=== PATIENT | female | born 1945 | race Caucasian/White ===

== ENCOUNTER 2019-10-19 10:41 | Outpatient (CLI) | payer MEDICARE, SELFPAY ==
--- NOTE | ~2019-10-19 | XR_ITS ---
EXAMINATION: CT abdomen pelvis wo con, XR abdomen/kub 1V DATE: 10/19/2019 11:09 INDICATION: Right flank pain TECHNIQUE: 1. Computed tomography (CT) of the abdomen and pelvis was performed without intravenous contrast. Aut omated exposure control and iterative reconstruction technique were employed. The dose-length product was 528.82 mGy-cm. 2. AP view of the abdomen and pelvis was obtained. COMPARISON: CT studies dated 05/24/2019 and 12/22/2018, KUB dated 05/24/2019 and retrograde Polygram d ated 12/30/2018 FINDINGS: CT: Mild peripheral atelectasis in the bilateral lower lungs. No pleural effusion. Heart size is normal. Chronic very small pericardial effusion. Atherosclerotic coronary artery calcific locations as well a s mitral annular and aortic valve calcifications. Gallbladder is not visualized and likely surgically absent. Liver, spleen, pancreas and bilateral adrenal glands are normal. Mild diverticulosis along t he descending and sigmoid colon without surrounding inflammatory stranding to suggest diverticulitis. Small bowel and appendix are normal. Bladder, anteverted uterus and right adnexa are unremarkable. 1 .7 cm left adnexal cyst which appears unchanged since 12/22/2018. No free intraperitoneal gas or fluid . No pathologically enlarged abdominal or pelvic lymphadenopathy. There is calcified atherosclerosis of the aorta and many of the other arteries. Severe lumbar spondylosis and osteitis pubis. No urolithiasis. Right kidney and ureter are normal. Instantly noted is a normal small accessory righ t renal artery supplying the lower pole. There is persistent mild left hydroureter without hydronephr osis at the left kidney. There is been resolution of prior left periureteral stranding and significan t improvement in the now mild left perinephric stranding and minimal stranding at the left renal pelv is. There is a transition point in the mildly dilated left ureter with distalmost left ureter narrowi ng to normal caliber with no evident obstructing stone or mass consistent with reported prior strictu re at this location. KUB: Normal bowel gas pattern. Unchanged pattern of atherosclerotic calcifications and phleboliths in the pelvis. No evident urolithiasis. IMPRESSION: 1. Mild left hydroureter without hydronephrosis or obstructing mass or stone and this may be related to persistent stricture at the distalmost left ureter is noted on prior retrograde pyelogram study da elia 12/30/2018. Correlate with urinalysis to exclude associated ascending urinary tract infection. Reviewed, dictated and finalized at location A. IMPRESSION: 1. Mild left hydroureter without hydronephrosis or obstructing mass or stone an d this may be related to persistent stricture at the distalmost left ureter is noted on prior retrograde pyelogram study dated 12/30/2018. Correlate with urina lysis to exclude associated ascending urinary tract infection.
== END 2019-10-19 10:42 | disposition home or self-care (01) ==
LOC: ANHIMG 10:47
PROVIDERS: PCP Emergency Medicine; Visit Provider Nurse Practitioner Adult Health
DX: R10.9 Unspecified abdominal pain (principal)
CPT/HCPCS: 74018; 74176

== ENCOUNTER 2019-10-31 13:30 | Outpatient (CLI) | payer MEDICARE, SELFPAY ==
--- NOTE | ~2019-10-31 | NM_ITS ---
EXAMINATION: BRENNA handley renal scan DATE: 10/31/2019 15:03 INDICATION: Left ureteral stricture TECHNIQUE: 8 mCi Tc-99m MAG3 was administered IV. 40 mg furosemide was administered IV immediately a fterward. The patient was scanned in the supine position. A posterior abdominal radionuclide angiogra m was obtained. A subsequent time course of static images of the kidneys, ureters, and bladder was ob tained. COMPARISON: None FINDINGS: The posterior abdominal radionuclide angiogram and sequential static images show normal size, positio n, and morphology of the kidneys. Peak renal parenchymal uptake was 3.5 min in left kidney and 3.5 mi n in right kidney (normal peak 3-5 minutes). The relative early renal uptake was 49% on the right an d 51% on the left (<40% is abnormal). No abnormalities of the ureters or bladder are seen. T1/2 for clearance of activity from the left kidney and proximal collecting system was 7 minutes. T1/2 for clearance of activity from the right kidney and proximal collecting system was 8 minutes. Notes on interpretation: T1/2 <10 minutes is normal, 10-15 minutes is low grade obstruction of questi onable clinical significance, 15-20 minutes is partial obstruction that is likely clinically signific ant, >20 minutes is high grade obstruction. Note that false positives may be seen with supine positio giorgio, dehydration, severely dilated nonobstructed kidney, atonic collecting system, poor renal functi on, and chronic furosemide use. IMPRESSION: 1. Symmetric kidney function. 2. No delay in contrast clearance from either kidney to suggest fixed obstruction. Reviewed, dictated and finalized at location A. IMPRESSION: 1. Symmetric kidney function. 2. No delay in contrast clearance from either kidney to suggest fixed obstruct ion.
== END 2019-10-31 13:31 | disposition home or self-care (01) ==
LOC: ANHIMG 13:32
PROVIDERS: PCP Emergency Medicine; Visit Provider Nurse Practitioner Adult Health
DX: N13.5 Crossing vessel and stricture of ureter without hydronephrosis (principal)
CPT/HCPCS: 78708; A9562; J1940

== ENCOUNTER 2020-01-05 13:07 | Outpatient (CLI) | payer MEDICARE, SELFPAY ==
--- NOTE | ~2020-01-05 | CT_ITS ---
EXAMINATION: CT abdomen pelvis wo con DATE: 01/05/2020 13:24 INDICATION: Lower abdominal and pelvic pain TECHNIQUE: Computed tomography (CT) of the abdomen and pelvis was performed without intravenous contr ast. Automated exposure control and iterative reconstruction technique were employed. Exam dose: 130 6.16 mGy-cm total exam DLP. COMPARISON: 10/19/[address] abdomen pelvis FINDINGS: There is mild discoid atelectasis or scarring at the lung bases. No consolidation. Heart si ze is within normal limits. There is trace pericardial fluid. The gallbladder is absent. No bile duct or pancreatic duct dilatation. No hepatic, splenic, pancreati c, and adrenal or renal space-occupying mass lesion is evident. There is increased left hydroureteronephrosis and pelviectasis since 10/19/2019, with the ureteral dil atation terminated at the distal left ureter no right hydroureteronephrosis. No renal mass lesion or urinary tract calculus is evident. There is atherosclerotic calcification of the abdominal aorta and some branches but no aneurysm. No i ntraperitoneal or retroperitoneal or pelvic mass lesion or adenopathy or ascites. The uterus, adnexal areas and urinary bladder are unremarkable. Small hiatal hernia. Diverticulosis of the left and right colon; no CT evidence of diverticulitis. No rmal appendix. No bowel obstruction, bowel wall thickening, pneumatosis or intraperitoneal free air. There is mild nonspecific increased at density along the mesenteric root. Small fat-containing umbilical hernia. Degenerative changes of the thoracic and lumbar spine including moderately severe degenerative disc d isease at L2-3 and L3-4 particular. Diffuse idiopathic skeletal hyperostosis of the thoracolumbar spi ne. IMPRESSION: Mildly increased left hydroureteronephrosis since 10/19/2019 Small sliding hiatal hernia Diverticulosis of the colon; no CT evidence of diverticulitis Reviewed, dictated and finalized at [facility]. Reviewed, dictated and finalized at location A.
== END 2020-01-05 13:08 | disposition home or self-care (01) ==
PROVIDERS: PCP Emergency Medicine; Visit Provider Emergency Medicine
DX: R10.9 Unspecified abdominal pain (principal); N13.30 Unspecified hydronephrosis; K44.9 Diaphragmatic hernia without obstruction or gangrene; K57.90 Diverticulosis of intestine, part unspecified, without perforation or abscess without bleeding
CPT/HCPCS: 74176

== ENCOUNTER 2020-03-09 16:09 | Outpatient (CLI) | payer MEDICARE, SELFPAY ==
--- NOTE | ~2020-03-09 | XR_ITS ---
EXAMINATION: XR abdomen/kub 1V EXAM DATE: 03/09/2020 16:41 INDICATION: Gross hematuria. TECHNIQUE: Frontal projection of the upper abdomen, frontal projection lower abdomen/pelvis for inter pretation. Correlation is made to CT abdomen pelvis same date. FINDINGS: There is expected amount of colonic stool and gas. No small bowel dilation, nonobstructiv e bowel gas pattern. There are no suspicious calcifications identified. There is no organomegaly suspected. The bones are unremarkable. IMPRESSION: Unremarkable abdomen x-ray exam. Reviewed, dictated and finalized at location A.
--- NOTE | ~2020-03-09 | CT_ITS ---
EXAMINATION: CT abdomen pelvis wo/w con EXAM DATE: 03/09/2020 17:06 INDICATION: Gross hematuria. TECHNIQUE: Spiral CT of the abdomen and pelvis was performed without contrast. The patient was then injected with small bolus intravenous Omnipaque 350, followed by delay of approximately 10 minutes to allow collecting system to opacify. A post contrast scan abdomen and pelvis was performed during inj ection of remaining contrast. A total of 130 cc intravenous contrast was administered. The dose-estuardo th product (DLP) for this examination was 2591.18 mGy-cm. The exposure was tailored according to pat ient size (auto mA exposure control), and iterative reconstruction (ASIR) was used as additional dose reduction technique. Comparison is made to prior examination from 03/06/2020. FINDINGS: There is mild left hydroureteronephrosis, without nephrolithiasis or obstructing ureteral s tones. Similar appearance on prior study. No evidence of mass but if symptoms persist consider cystos copy. There is mild bilateral renal atrophy. The kidneys enhance symmetrically. There are no susp icious renal lesions. The calyces and opacified portions of ureters are unremarkable, without fillin g defects or focal suspicious strictures. The bladder is unremarkable. The uterus is unremarkable. The liver, spleen, adrenal glands and pancreas are unremarkable. Gallbladder not identified, patient likely has had cholecystectomy. There is no retroperitoneal or pelvic lymphadenopathy. There is m ild to moderate scattered arteriosclerotic disease. The appendix is normal. The stomach and small bowel are unremarkable. There is mild to moderate scat tered colonic diverticulosis. There is no adjacent inflammatory change to suggest diverticulitis. N o free intraperitoneal gas. There is small pericardial effusion. The lung bases are unremarkable. There are no osteoblastic or osteolytic lesions identified. There is no significant interval change . IMPRESSION: 1. Mild left hydroureteronephrosis, of uncertain underlying etiology. If symptoms persist, consider cystoscopy. 2. Colonic diverticulosis. 3. Small pericardial effusion. Reviewed, dictated and finalized at location A. IMPRESSION: 1. Mild left hydroureteronephrosis, of uncertain underlying etiology. If sympt oms persist, consider cystoscopy. 2. Colonic diverticulosis. 3. Small pericardial effusion.
[2020-03-09 16:47] LABS: Estimated Glomerular Filt Rate 49
== END 2020-03-09 16:10 | disposition home or self-care (01) ==
LOC: ANHIMG 16:16
PROVIDERS: PCP Emergency Medicine; Visit Provider Nurse Practitioner Adult Health
DX: R31.0 Gross hematuria (principal); N13.30 Unspecified hydronephrosis; K57.90 Diverticulosis of intestine, part unspecified, without perforation or abscess without bleeding; I31.3 Pericardial effusion (noninflammatory)
CPT/HCPCS: 36415; 74018; 74178; Q9967

== ENCOUNTER 2020-05-20 23:14 | Emergency (ER) | payer MEDICARE, SELFPAY ==
--- NOTE | ~2020-05-20 | CT_ITS ---
EXAMINATION: CT abdomen pelvis w con DATE: 05/21/2020 00:32 INDICATION: Right lower quadrant abdominal pain TECHNIQUE: Computed tomography (CT) of the abdomen and pelvis was performed with 100 mL Omnipaque-350 intravenous contrast. Automated exposure control and iterative reconstruction technique were employe d. The dose-length product was 1254.44 mGy-cm. COMPARISON: 03/09/2020 FINDINGS: Normal bibasilar atelectasis. Heart size is normal. Atherosclerotic coronary artery calcification and aortic valve calcification. No pericardial or pleural effusion. Gallbladder is not visualized and li mayte surgically absent. Liver, spleen, pancreas and bilateral adrenal glands are normal. There are ge ographic regions of swelling with decreased cortical enhancement at the left kidney consistent with p yelonephritis. There is urothelial thickening and enhancement at the bilateral ureters and renal pelv ises sees, left greater than right with mild inflammatory stranding in the fat stranding left renal p eleonora. There is also mild bladder wall thickening with urothelial enhancement and inflammatory strand ing in the immediately adjacent fat consistent with cystitis. There is mild colonic diverticulosis wi th a sigmoid predominance. There is no adjacent inflammatory change to suggest diverticulitis. Small bowel and appendix are normal. Bladder, uterus and right ovary are normal. 1.8 cm dominant follicle at the left ovary. Trace amount of likely physiologic or reactive free fluid in the pelvis. No absces s or free intraperitoneal gas. No pathologically enlarged abdominal or pelvic lymphadenopathy. Severe lumbar spondylosis. Osteitis pubis. IMPRESSION: 1. Cystitis and bilateral ascending urinary tract infections with left pyelonephritis. Reviewed, dictated and finalized at location A. IMPRESSION: 1. Cystitis and bilateral ascending urinary tract infections with left pyelonep hritis.
[2020-05-20 23:17] VITALS: BP 126/60; PULSE 106; RESP 18; TEMP 35.6; O2SAT 98
--- NOTE | 2020-05-20 23:17 | ED.ABDPAIN ---
HPI - Abdominal Pain General Chief Complaint: Abdominal Pain Stated Complaint: right side pain Time Seen by Provider: 05/20/20 23:17 Source: patient and family Mode of arrival: ambulatory Limitations: no limitations History of Present Illness HPI narrative: Patient is a 74-year-old female with a history of hypertension, diabetes, recurrent cystitis, left hydroureteronephrosis secondary to ureteral stricture, who presents for evaluation of right-sided abdominal pain. Patient's pain is been in the right lower abdomen worsening over the past 7 days. Patient reports associated dysuria without hematuria. She reports associated frequency. She reports subjective fever and chills. She denies upper abdominal pain, reports on Thursday evening she had chest pain for a short period of time but never sought care at the hospital. Patient denies any current chest pain. She also reports nausea and vomiting. Patient with work-up for this chronic pelvic pain with urology, recently had negative cystoscopy and a CT abdomen and pelvis which showed hydroureteronephrosis. Patient follows with Dr. Klein and is taking prophylactic daily Keflex. Related Data Home Medications Medication Instructions Recorded Confirmed aspirin 81 mg tablet,delayed 81 mg PO DAILY 06/21/19 release biotin 5,000 mcg disintegrating 10,000 mcg PO DAILY 06/21/19 tablet multivit with 1 tablet PO DAILY 06/21/19 hvtusyhm-gfpz-YS-lutein 8 mg iron-400 mcg-300 mcg tablet nystatin 100,000 unit/gram topical See Rx Instructions .ROUTE .COMPLEX 06/21/19 cream omeprazole magnesium 20 mg 20 mg PO DAILY 06/21/19 tablet,delayed release Allergies Allergy/AdvReac Type Severity Reaction Status Date / Time ciprofloxacin Allergy Intermediate Anaphylactic Verified 04/28/19 10:31 Shock Sulfa (Sulfonamide Allergy Unknown Verified 12/15/18 13:36 Antibiotics) Review of Systems Review of Systems: Narrative: CONSTITUTIONAL: Reports subjective fever and chills ENT: Denies rhinorrhea, congestion, sore throat, or otalgia. CARDIOVASCULAR: Denies chest pain, palpitations, or edema. RESPIRATORY: Denies cough or dyspnea. GASTROINTESTINAL: Reports lower right-sided abdominal pain, nausea and vomiting. GENITOURINARY: Reports dysuria without hematuria SKIN: Denies rash or itching. MUSCULOSKELETAL: Denies back pain, joint pain, or myalgia. NEUROLOGIC: Denies headache, numbness, or weakness. [facility] Past Medical History Medical History (Updated 05/21/20 @ 02:20 by Jess Resendiz MD) Diabetes mellitus GERD (gastroesophageal reflux disease) HTN (hypertension) Hypothyroidism (acquired) Vitamin D deficiency disease Family History Family History Mother Patient's mother is in good health Family history of arthritis Father Patient's father is , Onset Age: 75 Social History Social History Smoking status: Never smoker Alcohol intake: current Gender identity (if verbalized by the patient): Female Exam Narrative: Exam Narrative: GENERAL: Awake, alert, conversant HEAD: Normocephalic, atraumatic. EYES: PERRLA and EOMI. ENT: Nares clear, no rhinorrhea or epistaxis. Mucous membranes moist. NECK: Supple. CHEST: No respiratory distress, breathing even and non labored HEART: Regular rate, sinus rhythm ABDOMEN:Non distended, right lower quadrant and right suprapubic tenderness, mild left suprapubic tenderness, no rebound, nonrigid, no guarding EXTREMITIES: Normal range of motion. No edema. SKIN: Warm, dry, no rash. NEURO:No focal deficits. Alert and oriented x3 Course Vital Signs Vital signs: Vital Signs Temperature 35.6 C L 05/20/20 23:17 Pulse Rate 106 H 05/20/20 23:17 Respiratory Rate 18 05/20/20 23:17 Blood Pressure 126/60 05/20/20 23:17 Pulse Oximetry 98 05/20/20 23:17 Temperature 35.6 C L 05/20/20 23:
[2020-05-20] MEDS: ONDANSETRON INJ 4 MG/2 ML VIAL IV PUSH (23:45)
[2020-05-20] MEDS: SODIUM CHLORIDE 0.9% IV 1,000 ML 999 ML IV CONT (23:45)
[2020-05-21 00:16] LABS: Basophils Absolute Auto 0.1 K/mm3 (0.0-0.1); Basophils Percent Auto 0.5 % (0.2-1.2); Eosinophils Absolute Auto 0.1 K/mm3 (0-0.3); Eosinophils Percent Auto 0.6 % (0-4.4); Hematocrit 33.2 % (37.0-47.0); Hemoglobin 11.1 g/dL (12.0-15.0); Immature Granulocyte Absolute 0.08 K/mm3 (0.00-0.031); Immature Granulocyte Percent A 0.8 % (0-0.5); Lymphocytes Absolute Auto 0.68 K/mm3 (0.9-3.2); Lymphocytes Percent Auto 6.4 % (18.3-44.2); Mean Corpuscular HGB Conc 33.4 g/dl (32-36); Mean Corpuscular Hemoglobin 30.5 pg (26-34); Mean Corpuscular Volume 91.2 fl (80-100); Mean Platelet Volume 10.3 fl (7.4-10.4); Monocytes Absolute Auto 0.7 K/mm3 (0.1-0.6); Monocytes Percent Auto 6.3 % (2.6-8.5); Neutrophils Percent Auto 85.4 % (45.5-73.1); Platelet Count Result 286 k/mm3 (150-375); Red Blood Count 3.64 M/mm3 (4.2-5.4); Red Cell Distribution Width 13.5 % (11.5-14.5); White Blood Count 10.6 K/mm3 (4.5-10.0)
[2020-05-21 00:20] LABS: INR 1.1; Partial Thromboplastin Time 33.3 SECONDS (22.3-36.8); Prothrombin Time 14.2 Seconds (11.1-14.7)
[2020-05-21 00:23] LABS: Estimated CRCL calculation 34 ml/min; Estimated Glomerular Filt Rate 37
[2020-05-21 00:26] LABS: Alanine Aminotransferase 14 U/L (4-35); Albumin Level 3.8 g/dL (3.5-5.1); Alkaline Phosphatase 83 U/L (38-126); Anion Gap 9 mmol/L (8-16); Aspartate Amino Transferase 24 U/L (14-36); Bilirubin,Total 0.4 mg/dL (0.2-1.3); Blood Urea Nitrogen 29 mg/dL (7-17); Calcium 9.2 mg/dL (8.4-10.2); Carbon Dioxide 26 mmol/L (22-30); Chloride 95 mmol/L (98-107); Estimated CRCL calculation 36 ml/min; Estimated Glomerular Filt Rate 40; Glucose 300 mg/dL (65-105); Lipase 120 U/L (23-300); Potassium 4.1 mmol/L (3.4-5.0); Sodium 130 mmol/L (137-145)
--- NOTE | 2020-05-21 00:36 | ECG_ITS ---
Measurements Intervals [place] Rate: 93 P: 55 KS: 186 QRS: -7 QRSD: 73 T: 40 QT: 333 QTc: 415 Interpretive Statements SINUS RHYTHM LOW QRS VOLTAGE IN PRECORDIAL LEADS INFERIOR INFARCT, AGE INDETERMINATE BASELINE ARTIFACT- I, III, AVR, AVL ABNORMAL ECG Electronically Signed On 05-21-2020 7:59:47 CDT by Abhilash Rand D.O.
[2020-05-21 00:38] LABS: Troponin I < 0.012 ng/mL (0.000-0.034)
[2020-05-21 01:22] LABS: Add Urine Microscopic? YES; Appearance Urine Cloudy (Clear); Bacteria Urine Trace /hpf; Bilirubin Urine Negative (Negative); Blood Urine 2+ (Negative); Color Urine Yellow (Yellow); Glucose Urine UA 1+ mg/dL (Negative); Ketones Urine Negative (Negative); Leukocyte Esterase Ur 3+ LEU/UL (Negative); Mucus Urine Rare /lpf; Nitrate Urine Negative (Negative); Protein Urine 2+ mg/dL (Negative); RBC Urine 21-50 /hpf (0-2); Specific Grav Ur 1.016 (1.001-1.035); Squamous Epithelial Cell Urine Few /hpf (Few); Urobilinogen Urine Negative mg/dL (<2.0); WBC Clumps Urine Present /HPF; WBC Urine >75 /hpf
[2020-05-21] MEDS: ERTAPENEM 1 GM/NS 50 ML 1 GM/50 ML BAG IVPB (02:40)
[2020-05-21 03:25] VITALS: BP 104/63; PULSE 89; RESP 18; TEMP 37.1; O2SAT 100
== END 2020-05-21 03:29 | disposition home or self-care (01) ==
PROVIDERS: Emergency Provider Emergency Medicine; PCP Emergency Medicine
DX: N10 Acute pyelonephritis (principal); I10 Essential (primary) hypertension; E11.9 Type 2 diabetes mellitus without complications; Z79.82 Long term (current) use of aspirin; K21.9 Gastro-esophageal reflux disease without esophagitis; E03.9 Hypothyroidism, unspecified; E55.9 Vitamin D deficiency, unspecified; R94.31 Abnormal electrocardiogram [ECG] [EKG]
CPT/HCPCS: 36415; 74177; 80053; 81001; 83605; 83690; 84484; 85025; 85610; 85730; 87077; 87086; 87088; 87186; 93005; 96365; 96366; 96367; 96375; 99284; J0131; J1335; J2405; J7030; Q9967

== ENCOUNTER 2020-06-12 01:09 | Outpatient (CLI) | payer MEDICARE, SELFPAY ==
[2020-06-12 19:48] LABS: SARS-CoV-2 RNA PCR Negative
== END 2020-06-12 01:10 | disposition home or self-care (01) ==
LOC: ANHCOVIDDT 01:09
PROVIDERS: PCP Emergency Medicine; Visit Provider Internal Medicine Gastroenterology
DX: Z01.818 Encounter for other preprocedural examination (principal); Z20.828 Contact with and (suspected) exposure to other viral communicable diseases
CPT/HCPCS: 87635; C9803; U0003

== ENCOUNTER 2020-06-15 00:39 | Day surgery (SDC) | payer MEDICARE, SELFPAY ==
[2020-06-11 12:47] VITALS: BMI 35.0
--- NOTE | 2020-06-15 08:20 | WPDANESEPPF ---
Anes - Initial Pre Proc Eval Procedure: Operation Date: 06/15/20 10:30 Proposed Procedures p Esophagogastroduodenoscopy & Screening Colonoscopy - Marvin Lehman MD Date/Time: 06/15/20 08:20 Surgeon: Marvin Lehman MD Pre Op Diagnosis: Neoplasm Screening/ Epigastric Pain Patient Data Age: 75 Gender: F Height: 1.57 m Weight: 87 kg Allergies Allergy/AdvReac Type Severity Reaction Status Date / Time Sulfa (Sulfonamide Allergy Severe Fever Verified 06/11/20 12:43 Antibiotics) sulfamethoxazole Allergy Severe Fever Verified 06/11/20 12:43 [From Bactrim] trimethoprim [From Bactrim] Allergy Severe Fever Verified 06/11/20 12:43 ciprofloxacin Allergy Intermediate Anaphylactic Verified 04/28/19 10:31 Shock Home Medications Medication Instructions Recorded Confirmed Type aspirin 81 mg tablet,delayed 81 mg PO DAILY 06/21/19 06/11/20 History release biotin 5,000 mcg disintegrating 10,000 mcg PO DAILY 06/21/19 06/11/20 History tablet multivit with 1 tablet PO DAILY 06/21/19 06/11/20 History pbfchsrb-izra-IB-lutein 8 mg iron-400 mcg-300 mcg tablet omeprazole magnesium 20 mg 20 mg PO DAILY 06/21/19 06/11/20 History tablet,delayed release glipizide 10 mg tablet 10 mg PO BID #180 tablet 10/27/19 06/11/20 Rx levothyroxine 25 mcg tablet 25 mcg PO DAILY #90 tablet 10/27/19 06/11/20 Rx lisinopril 20 mg tablet 20 mg PO DAILY #90 tablet 10/27/19 06/11/20 Rx metformin 1,000 mg tablet See Rx Instructions .ROUTE 10/27/19 06/11/20 Rx .COMPLEX #180 tablet simvastatin 20 mg tablet 20 mg PO DAILY #90 tablet 10/27/19 06/11/20 Rx gemfibrozil 600 mg tablet See Rx Instructions .ROUTE 01/13/20 06/11/20 Rx .COMPLEX #180 tablet sitagliptin 50 mg tablet 50 mg PO DAILY #90 tablet 01/13/20 06/11/20 Rx acidophilus-pectin, citrus 1 cap PO DAILY 06/11/20 06/11/20 History [Acidophilus Probiotic] cephalexin 500 mg PO DAILY 06/11/20 06/11/20 History Patient hx anesthesia problems: none Family hx anesthesia problems: none PMFSH Past Medical History Medical History (Updated 06/15/20 @ 08:21 by Johny Childers MD) Diabetes mellitus GERD (gastroesophageal reflux disease) HLD (hyperlipidemia) HTN (hypertension) Hypothyroidism (acquired) Nephrolithiasis Obesity Vitamin D deficiency disease Family History Family History Mother Patient's mother is in good health Family history of arthritis Father Patient's father is , Onset Age: 75 Social History Social History Smoking packs per day: 2 Smoking cigarettes per day: 40.0 Years smoked: 2 Smoking pack-years: 4.00 Smoking status: Former smoker Alcohol intake: current Drinks per week: 7 Substance use: never Substance use type: does not use Living arrangements: with family Gender identity (if verbalized by the patient): Female Spiritual care concerns: No Anes - Eval Final PreProcedure Day of Procedure 06/15/20 08:20 Patient weight: obese Heart: regular rate and rhythm Lungs: clear to auscultation and normal air movement Airway: Mallampati scale class II Neurological: alert and oriented Last oral intake: >/= 8 hours ASA classification: III Emergent: no Anesthetic plan: proceed Anesthesia type and monitoring: general GIVS Informed Consent: The patient's anesthetic plan and its attendant risks and benefits were discussed with the patient/family/POA. Questions were solicited and answers provided to the satisfaction of the patient/family/POA.
[2020-06-15] MEDS: LACTATED RINGERS 1,000 ML 150 ML IV CONT (09:20)
[2020-06-15 09:23] VITALS: BP 144/79; PULSE 111; RESP 18; TEMP 36.2; O2SAT 99; BMI 34.7
[2020-06-15 09:28] LABS: Glucose Point of Care 180 (65-105)
--- NOTE | 2020-06-15 09:45 | WPDGICN ---
Assessment and Plan Assessment and plan (1) Encounter for screening colonoscopy: Code(s): Z12.11 - Encounter for screening for malignant neoplasm of colon Status: Acute Assessment and Plan: Patient has never had a screening colonoscopy. Colonoscopy will be performed at this time particularly because of recurrent urinary tract infections in ongoing abdominal pain. (2) Abdominal pain: Code(s): R10.9 - Unspecified abdominal pain Status: Acute Assessment and Plan: Patient complains of epigastric pain, heartburn. For this reason EGD will be performed. She also notices some right lower quadrant discomfort. Plan is for EGD. A trial of Prilosec 20 mg p.o. daily will be implemented. (3) Heartburn: Code(s): R12 - Heartburn Status: Acute GI Consult Note Consult date/time: 06/15/20 09:45 HPI: Deborah Cancino is a 75 year old female Seen in evaluation at the request Dr. Lujan. Patient complains of frequent urinary tract infections. She has had extensive evaluation. Because of ongoing symptoms of colonoscopy was advised. Patient has never had a screening colonoscopy previously. She denies any blood in her stools. Pain does not appear to be associated with bowel habits. Patient does have a past medical history of heartburn. She complains of intermittent epigastric pain. For this reason patient placed on Prilosec with improved symptoms an EGD is to be performed as well. Patient denies any bleeding or weight loss. She reports her bowel habits are normal. Review of Systems Review of Systems: All systems reviewed & are unremarkable except as noted in HPI and below PMFSH Past Medical History Medical History (Updated 06/15/20 @ 09:47 by Marvin Lehman MD) Diabetes mellitus GERD (gastroesophageal reflux disease) HLD (hyperlipidemia) HTN (hypertension) Hypothyroidism (acquired) Nephrolithiasis Obesity Vitamin D deficiency disease Family History Family History Mother Patient's mother is in good health Family history of arthritis Father Patient's father is , Onset Age: 75 Social History Social History Smoking packs per day: 2 Smoking cigarettes per day: 40.0 Years smoked: 2 Smoking pack-years: 4.00 Smoking status: Former smoker Alcohol intake: current Drinks per week: 7 Substance use: never Substance use type: does not use Living arrangements: with family Gender identity (if verbalized by the patient): Female Spiritual care concerns: No Meds Home Medications and Allergies Home Medications Medication Instructions Recorded Confirmed Type aspirin 81 mg tablet,delayed 81 mg PO DAILY 06/21/19 06/11/20 History release biotin 5,000 mcg disintegrating 10,000 mcg PO DAILY 06/21/19 06/11/20 History tablet multivit with 1 tablet PO DAILY 06/21/19 06/11/20 History jqtpgeus-pyun-ZG-lutein 8 mg iron-400 mcg-300 mcg tablet omeprazole magnesium 20 mg 20 mg PO DAILY 06/21/19 06/11/20 History tablet,delayed release glipizide 10 mg tablet 10 mg PO BID #180 tablet 10/27/19 06/11/20 Rx levothyroxine 25 mcg tablet 25 mcg PO DAILY #90 tablet 10/27/19 06/11/20 Rx lisinopril 20 mg tablet 20 mg PO DAILY #90 tablet 10/27/19 06/11/20 Rx metformin 1,000 mg tablet See Rx Instructions .ROUTE 10/27/19 06/11/20 Rx .COMPLEX #180 tablet simvastatin 20 mg tablet 20 mg PO DAILY #90 tablet 10/27/19 06/11/20 Rx gemfibrozil 600 mg tablet See Rx Instructions .ROUTE 01/13/20 06/11/20 Rx .COMPLEX #180 tablet sitagliptin 50 mg tablet 50 mg PO DAILY #90 tablet 01/13/20 06/11/20 Rx acidophilus-pectin, citrus 1 cap PO DAILY 06/11/20 06/11/20 History [Acidophilus Probiotic] cephalexin 500 mg PO DAILY 06/11/20 06/11/20 History Allergies Allergy/AdvReac Type Severity Reaction Status Date / Time Sulfa (Sulfonamide Aller
[2020-06-15] MEDS: BENZOCAINE (*SP) 60 ML SPRAY CAN (HURRICAINE) 1 SPRAY MUCOUS MEM (10:20)
[2020-06-15 10:40] VITALS: BP 129/73; PULSE 86; RESP 16; O2SAT 94
[2020-06-15 10:50] VITALS: BP 121/77; PULSE 72; RESP 15; O2SAT 98
[2020-06-15 11:00] VITALS: BP 112/72; PULSE 92; RESP 17; O2SAT 97
== END 2020-06-15 11:28 | disposition home or self-care (01) ==
PROVIDERS: PCP Emergency Medicine; Visit Provider Internal Medicine Gastroenterology
PROC: 0DJ08ZZ Inspection of Upper Intestinal Tract, Via Natural or Artificial Opening Endoscopic (ICD-10-PCS; CPT 43235; principal; 2020-06-15 10:30)
DX: Z12.11 Encounter for screening for malignant neoplasm of colon (principal); K64.8 Other hemorrhoids; R10.84 Generalized abdominal pain; K57.30 Diverticulosis of large intestine without perforation or abscess without bleeding; R10.13 Epigastric pain; K21.9 Gastro-esophageal reflux disease without esophagitis; I10 Essential (primary) hypertension; E78.5 Hyperlipidemia, unspecified; E03.9 Hypothyroidism, unspecified; E55.9 Vitamin D deficiency, unspecified; E11.9 Type 2 diabetes mellitus without complications; E66.9 Obesity, unspecified; Z68.34 Body mass index [BMI] 34.0-34.9, adult; Z87.891 Personal history of nicotine dependence; Z79.84 Long term (current) use of oral hypoglycemic drugs
CPT/HCPCS: 43235; G0121; J2704; J7120

== ENCOUNTER → 2020-12-24 03:31 | Outpatient (CLI) | payer MEDICARE, SELFPAY ==
[2020-12-26 12:48] LABS: SARS-CoV-2 RNA PCR Negative
== END ==
PROVIDERS: PCP Emergency Medicine; Visit Provider Internal Medicine Critical Care Medicine
DX: Z20.822 Contact with and (suspected) exposure to COVID-19 (principal)
CPT/HCPCS: C9803; U0003; U0005

== ENCOUNTER 2020-12-26 08:41 | Outpatient (CLI) | payer MEDICARE, SELFPAY ==
--- NOTE | 2021-01-12 17:55 | WPDSLEEPSTUD ---
Sleep Study Date of Study: 12/26/20 Ordering Provider: Abhilash Rand DO Interpreting Physician: Deborah Schmitz MD Sleep Study Type: Split Polysomnogram Height: 1.57 m Weight: 88.451 kg Body Mass Index: 35.6 Neck Circumference (inches): 15 [place]: 7 Reason for Sleep Study Hypersomnia Sleep History Deborah Cancino is a 75 year old female with non-refreshing sleep. She wakes up feeling tired, even after getting ample sleep. She rarely wakens from sleep feeling short of breath, although she frequently wakes at night with heartburn. belching or coughing. She occasionally snores loudly enough that others complain about it. She rarely has trouble sleeping with a cold, and rarely wakes up at night gasping for breath. She occasionally has breathing problems at night reported to her by others. she frequently sweats excessively at night, occasionally notices her heart pounding or beating irregularly night. She frequently falls asleep in the day, never involuntarily and never while driving. She does not fall asleep during physical effort. She frequently has loss of muscle tone with strong emotion. She does not have daytime difficulties due to excessive sleepiness. She does not feel paralyzed on waking or falling asleep. She frequently has vivid dreamlike scenes upon awakening or falling asleep. She never feels afraid to go to sleep. She frequently has nightmares. Occasion mm her dreams. She frequently has racing thoughts. She occasionally feels sad, depressed, anxious and she occasionally has muscular tension. She occasionally notices parts of her body jerking. She occasionally kicks at night. She occasionally has crawling and aching feelings in her legs and leg pain during the night. She rarely has morning jaw pain, rarely grinds her teeth during sleep. She occasionally has bothered by pain during the day and occasionally is awakened by pain at night. She occasionally wakes up feeling stiff in the morning rarely with sore achy muscles occasionally with pain in this neck and spine. She has fatigue, nightmares and takes and acids regularly. Normal bedtime is 10 pm, Falling asleep some nights quickly and on other nights it may take longer. She typically wakes up 4 or 5 times at night to use the bathroom, watch television and read. She does not stay awake for long. She wakes in the morning between 6 and 7:00 a.m.. On the weekends, she goes to bed between 10 and 11:00 p.m., wakes between 7 and 8:00 a.m.. She estimates getting 8 hours of sleep at night. She does take naps in the afternoon. A short nap may be refreshing. She usually drowsy in the morning for 2 hours or longer. She feels better in the evenings compared to the morning. Habits: Quit tobacco 50 years ago. Caffeine 2 cups of tea daily. Alcohol 1 glass of wine daily. No recreational drugs. [facility] Past Medical History Medical History Diabetes mellitus GERD (gastroesophageal reflux disease) HLD (hyperlipidemia) HTN (hypertension) Hypothyroidism (acquired) Nephrolithiasis Obesity Vitamin D deficiency disease Family History Family History Mother Patient's mother is in good health Family history of arthritis Father Patient's father is , Onset Age: 75 Social History Social History Smoking packs per day: 2 Smoking cigarettes per day: 40.0 Years smoked: 2 Smoking pack-years: 4.00 Smoking status: Former smoker Alcohol intake: current Drinks per week: 7 Substance use: never Substance use type: does not use Gender identity (if verbalized by the patient): Female Spiritual care concerns: No Medications Home Medications Medication Instructions Recorded Confirmed Type aspirin 81 mg tablet,delayed 81 mg PO DAILY 06/21/19 11/29/20 History release biotin 5,
[2021-01-14 10:36] VITALS: BMI 35.6
== END 2020-12-27 07:06 | disposition home or self-care (01) ==
LOC: ANHCSM 08:42
PROVIDERS: PCP Emergency Medicine; Visit Provider Internal Medicine Cardiovascular Disease
DX: G47.33 Obstructive sleep apnea (adult) (pediatric) (principal); G47.10 Hypersomnia, unspecified; Z87.891 Personal history of nicotine dependence; E11.9 Type 2 diabetes mellitus without complications; K21.9 Gastro-esophageal reflux disease without esophagitis; E78.5 Hyperlipidemia, unspecified; I10 Essential (primary) hypertension; E66.9 Obesity, unspecified; Z68.35 Body mass index [BMI] 35.0-35.9, adult; E55.9 Vitamin D deficiency, unspecified; Z79.82 Long term (current) use of aspirin; Z79.899 Other long term (current) drug therapy
CPT/HCPCS: 95811

== ENCOUNTER 2021-04-22 09:37 | Emergency (ER) | payer MEDICARE, SELFPAY ==
[2021-04-22] VITALS (26 sets, daily range): BP systolic 122–156; BP diastolic 58–80; PULSE 88–102; RESP 16–20; TEMP 36.3–36.5; O2SAT 95–100
--- NOTE | ~2021-04-22 | CT_ITS ---
EXAMINATION: CT abdomen pelvis w con DATE: 04/22/2021 11:45 INDICATION: Generalized abdominal pain TECHNIQUE: Computed tomography (CT) of the abdomen and pelvis was performed with 100 cc Omnipaque 350 intravenous contrast. The dose-length product was 1248.47 mGy-cm. Automated exposure control and ite rative reconstruction technique were employed. COMPARISON: CT dated 05/21/2020. FINDINGS: Lung bases are unremarkable. Heart size is normal. No significant pleural or pericardial ef fusion. Fatty infiltration of the liver. The spleen, pancreas, adrenal glands and right kidney are unremarkab le. There is left hydroureteronephrosis with narrowing of the ureter at the UVJ. No definite obstruct ing stone or mass. The distal ureter at this level is slightly hyperdense, suggesting urothelial enha ncement. Small amount of gas present in the bladder. Correlate for recent instrumentation. No signifi cant vascular abnormality. No lymphadenopathy. Moderate lumbar spondylosis. No acute osseous abnormal ity. No focal lytic or blastic lesions. IMPRESSION: 1. Enhancement of the distal aspect of the left ureter near the UVJ with hydronephrosis proximal to t his location. No obstructing stone is identified. Consider infection and transitional cell carcinoma. Consider urology consultation. Reviewed, dictated and finalized at location A. IMPRESSION: 1. Enhancement of the distal aspect of the left ureter near the UVJ with hydron ephrosis proximal to this location. No obstructing stone is identified. Conside r infection and transitional cell carcinoma. Consider urology consultation.
[2021-04-22 10:02] LABS: Basophils Absolute Auto 0.1 K/mm3 (0.0-0.1); Basophils Percent Auto 0.9 % (0.2-1.2); Eosinophils Absolute Auto 0.8 K/mm3 (0-0.3); Eosinophils Percent Auto 8.4 % (0-4.4); Hematocrit 35.7 % (37.0-47.0); Hemoglobin 11.5 g/dL (12.0-15.0); Immature Granulocyte Absolute 0.06 K/mm3 (0.00-0.031); Immature Granulocyte Percent A 0.7 % (0-0.5); Lymphocytes Absolute Auto 1.41 K/mm3 (0.9-3.2); Lymphocytes Percent Auto 15.4 % (18.3-44.2); Mean Corpuscular HGB Conc 32.2 g/dl (32-36); Mean Corpuscular Hemoglobin 29.8 pg (26-34); Mean Corpuscular Volume 92.5 fl (80-100); Mean Platelet Volume 8.8 fl (7.4-10.4); Monocytes Absolute Auto 0.6 K/mm3 (0.1-0.6); Monocytes Percent Auto 6.6 % (2.6-8.5); Neutrophils Absolute Auto 6.2 K/mm3 (1.3-6.7); Platelet Count Result 361 k/mm3 (150-375); Red Blood Count 3.86 M/mm3 (4.2-5.4); Red Cell Distribution Width 13.4 % (11.5-14.5); White Blood Count 9.1 K/mm3 (4.5-10.0)
[2021-04-22 10:30] LABS: Alanine Aminotransferase 14 U/L (4-35); Albumin Level 4.3 g/dL (3.5-5.1); Alkaline Phosphatase 76 U/L (38-126); Anion Gap 9 mmol/L (8-16); Aspartate Amino Transferase 27 U/L (14-36); Bilirubin,Total 0.3 mg/dL (0.2-1.3); Blood Urea Nitrogen 17 mg/dL (7-17); Calcium 9.3 mg/dL (8.4-10.2); Carbon Dioxide 27 mmol/L (22-30); Chloride 104 mmol/L (98-107); Estimated CRCL calculation 49 ml/min; Estimated Glomerular Filt Rate > 60; Glucose 248 mg/dL (65-110); Lipase 176 U/L (23-300); Potassium 4.8 mmol/L (3.4-5.0); Sodium 140 mmol/L (137-145)
[2021-04-22 11:11] LABS: Add Urine Microscopic? YES; Appearance Urine Clear (Clear); Bilirubin Urine Negative (Negative); Blood Urine 3+ (Negative); Color Urine Yellow (Yellow); Glucose Urine UA 1+ mg/dL (Negative); Ketones Urine Negative (Negative); Leukocyte Esterase Ur 3+ LEU/UL (Negative); Mucus Urine Rare /lpf; Nitrate Urine Negative (Negative); Protein Urine 2+ mg/dL (Negative); RBC Urine >75 /hpf (0-2); Specific Grav Ur 1.017 (1.001-1.035); Squamous Epithelial Cell Urine Occasional /hpf (Few); Urobilinogen Urine Negative mg/dL (<2.0); WBC Urine >75 /hpf
--- NOTE | 2021-04-22 11:29 | ED.GENADULT ---
HPI - General Adult General Chief complaint: Abdominal Pain Stated complaint: Abd Pain Time Seen by Provider: 04/22/21 11:09 Source: patient History of Present Illness HPI narrative: Patient is a 75 y/o female complaining right lower abdominal pain for last 3 days. She describes her pain as sharp and rates it as 10/10 at worst and 3/10 currently. There is no pain radiation. Sitting up seems to worsen the pain. She has some vomiting, but no diarrhea or dysuria. She states that she had similar pain intermittently for over 1 year and no definitive cause was found. Related Data Home Medications Medication Instructions Recorded Confirmed aspirin 81 mg tablet,delayed 81 mg PO DAILY 06/21/19 03/26/21 release biotin 5,000 mcg disintegrating 10,000 mcg PO DAILY 06/21/19 03/26/21 tablet multivit with 1 tablet PO DAILY 06/21/19 03/26/21 [id number]-XP-lutein 8 mg iron-400 mcg-300 mcg tablet omeprazole magnesium 20 mg 20 mg PO DAILY 06/21/19 03/26/21 tablet,delayed release acidophilus-pectin, citrus 1 cap PO DAILY 06/11/20 03/26/21 [Acidophilus Probiotic] cephalexin 500 mg PO DAILY 06/11/20 03/26/21 Allergies Allergy/AdvReac Type Severity Reaction Status Date / Time Sulfa (Sulfonamide Allergy Severe Fever Verified 04/22/21 11:00 Antibiotics) sulfamethoxazole Allergy Severe Fever Verified 04/22/21 11:00 [From Bactrim] trimethoprim [From Bactrim] Allergy Severe Fever Verified 04/22/21 11:00 ciprofloxacin Allergy Intermediate Anaphylactic Verified 04/22/21 11:00 Shock Review of Systems Constitutional: Constitutional: Denies chills, Denies fever(s), Denies headache(s) and Denies weakness Eyes: Eyes: Denies blurry vision ENT: Denies headache(s) and Denies neck pain Cardiovascular: Cardiovascular: Denies chest pain and Denies dyspnea Respiratory: Respiratory: Denies cough and Denies dyspnea Gastrointestinal: Gastrointestinal: Reports abdominal pain, Denies diarrhea, Reports nausea and Reports vomiting Genitourinary: Genitourinary: Denies hematuria and Denies dysuria Musculoskeletal: Musculoskeletal: Denies back pain and Denies neck pain Neurologic: Denies headache(s) and Denies weakness PMFSH Past Medical History Medical History Diabetes mellitus GERD (gastroesophageal reflux disease) HLD (hyperlipidemia) HTN (hypertension) Hypothyroidism (acquired) Nephrolithiasis Obesity Vitamin D deficiency disease Family History Family History Mother Patient's mother is in good health Family history of arthritis Father Patient's father is , Onset Age: 75 Social History Social History Smoking packs per day: 2 Smoking cigarettes per day: 40.0 Years smoked: 2 Smoking pack-years: 4.00 Smoking status: Former smoker Alcohol intake: current Drinks per week: 7 Substance use: never Substance use type: does not use Gender identity (if verbalized by the patient): Female Spiritual care concerns: No Exam Const: General: no acute distress and well developed Orientation/consciousness: oriented to person, oriented to place, oriented to time and patient oriented x3 HENMT: Head: normocephalic Ears: external ears normal General nose exam: Normal external nose present Eyes: General: appearance normal, both eyes and all related structures Conjunctivae: conjunctivae normal Neck: Neck: normal visual inspection and full ROM Chest: Chest palpation & inspection: normal inspection of the chest and no tenderness Resp: Effort & Inspection: normal respiratory effort Auscultation: clear to auscultation bilaterally Cardio: Rate: regular rate Rhythm: regular rhythm GI: GI Palp: No abdominal tenderness and Yes Soft to palpation Skin: General skin exam: normal color and turgor normal Neuro: General: orient
[2021-04-22] MEDS: KETOROLAC 15 MG/ML VIAL (*BKC) IV PUSH (12:26)
== END 2021-04-22 14:19 | disposition home or self-care (01) ==
PROVIDERS: Emergency Medicine; Emergency Provider Emergency Medicine; PCP Emergency Medicine
DX: N39.0 Urinary tract infection, site not specified (principal); R10.31 Right lower quadrant pain; N13.30 Unspecified hydronephrosis; E11.9 Type 2 diabetes mellitus without complications; K21.9 Gastro-esophageal reflux disease without esophagitis; E78.5 Hyperlipidemia, unspecified; I10 Essential (primary) hypertension; E03.9 Hypothyroidism, unspecified; Z87.442 Personal history of urinary calculi; E66.9 Obesity, unspecified; Z68.33 Body mass index [BMI] 33.0-33.9, adult; E55.9 Vitamin D deficiency, unspecified; Z87.891 Personal history of nicotine dependence; Z79.82 Long term (current) use of aspirin; Z79.84 Long term (current) use of oral hypoglycemic drugs
CPT/HCPCS: 36415; 74177; 80053; 81001; 83690; 85025; 87086; 87088; 96374; 99284; J1885; Q9967

== ENCOUNTER 2021-05-03 02:44 | Day surgery (SDC) | payer MEDICARE, SELFPAY ==
[2021-04-30 13:10] VITALS: BMI 34.2
[2021-05-03] VITALS (8 sets, daily range): BP systolic 131–153; BP diastolic 71–80; PULSE 87–95; RESP 14–20; TEMP 36.1; O2SAT 96–100; BMI 39.0
--- NOTE | ~2021-05-03 | XR_ITS ---
EXAMINATION: XR retrograde pyelo w/stent LT EXAM DATE: 05/03/2021 09:22 INDICATION: Left ureteral stent. Bilateral retrograde pyelogram. TECHNIQUE: Fluoroscopy used during XR retrograde pyelo w/stent LT performed by Dr. Evan Klein MD, urologist. The radiologist Amando Partida M.D. dictating this report of the image(s) available wa s not present for the procedure. Total fluoroscopic time of 42 seconds. The DAP for this procedure was 1095 radcm2. A total of 136 images sent to PACS from the exam. Cine run(s) available for review . FINDINGS: Right ureter was cannulated, injected and is unremarkable. No right-sided hydronephrosis. Left ureter then cannulated and injected. There is mild left hydroureteronephrosis with tapered appea ina to the distal aspect. A double-J ureteral stent was placed. Correlate with procedure note. IMPRESSION: Mild left hydroureteronephrosis with tapered ureter distally; transitional cell cancer no t excludable. Left double-J ureteral stent in position. Reviewed, dictated and finalized at location A. IMPRESSION: Mild left hydroureteronephrosis with tapered ureter distally; trans itional cell cancer not excludable. Left double-J ureteral stent in position.
--- NOTE | 2021-05-03 07:18 | WPDHPUPDATE1 ---
History and Physical Update Update Date/Time: 05/03/21 07:18 History and Physical has been reviewed, including an updated exam of the patient. There are NO changes in the patient's condition. Risks, benefits, and alternatives have been discussed and questions answered. Patient agrees to proceed with procedure.
[2021-05-03 07:45] LABS: Glucose Point of Care 154 mg/dl (65-105)
--- NOTE | 2021-05-03 08:23 | WPDANESEPPF ---
Anes - Initial Pre Proc Eval Procedure: Operation Date: 05/03/21 08:30 Proposed Procedures p Cystoscopy Bladder Biopsy, Left Ureteroscopy with Biopsy and Stent - Evan Klein MD Date/Time: 05/03/21 08:23 Surgeon: Evan Klein MD Pre Op Diagnosis: ureteral obstruction, left hydronephrosis Patient Data Age: 75 Gender: F Height: 1.57 m Weight: 85 kg Allergies Allergy/AdvReac Type Severity Reaction Status Date / Time Sulfa (Sulfonamide Allergy Severe Fever Verified 04/30/21 12:49 Antibiotics) sulfamethoxazole Allergy Severe Fever Verified 04/30/21 12:49 [From Bactrim] trimethoprim [From Bactrim] Allergy Severe Fever Verified 04/30/21 12:49 ciprofloxacin Allergy Intermediate Anaphylactic Verified 04/30/21 12:49 Shock Home Medications Medication Instructions Recorded Confirmed Type aspirin 81 mg tablet,delayed 81 mg PO DAILY 06/21/19 04/30/21 History release biotin 5,000 mcg disintegrating 10,000 mcg PO DAILY 06/21/19 04/30/21 History tablet acidophilus-pectin, citrus 1 cap PO DAILY 06/11/20 04/30/21 History [Acidophilus Probiotic] glipizide 10 mg tablet 10 mg PO BID #180 tablet 08/10/20 04/30/21 Rx temazepam 15 mg capsule 15 mg PO QHS PRN #30 cap 03/26/21 04/30/21 Rx amlodipine 10 mg tablet 10 mg PO DAILY #30 tablet 04/18/21 04/30/21 Rx cephalexin 500 mg PO Q8H 7 Days #21 cap 04/22/21 04/30/21 Rx amitriptyline 25 mg HS 04/30/21 04/30/21 History cyclobenzaprine 5 mg TID PRN 04/30/21 04/30/21 History gemfibrozil [Lopid] 600 mg BID 04/30/21 04/30/21 History levothyroxine 25 mcg PO HS 04/30/21 04/30/21 History metformin 1,000 mg BID 04/30/21 04/30/21 History simvastatin 20 mg PO HS 04/30/21 04/30/21 History sitagliptin [Januvia] 100 mg PO HS 04/30/21 04/30/21 History Laboratory Tests 05/03/21 07:42 POC Capillary Glucose 154 mg/dl H mg/dl (65-105) Patient hx anesthesia problems: none Family hx anesthesia problems: none Results Review: All pre-operative results and documents have been reviewed as part of the pre-operative evaluation. [facility] Past Medical History Medical History Diabetes mellitus GERD (gastroesophageal reflux disease) HLD (hyperlipidemia) HTN (hypertension) Hypothyroidism (acquired) Nephrolithiasis Obesity Vitamin D deficiency disease Family History Family History Mother Patient's mother is in good health Family history of arthritis Father Patient's father is , Onset Age: 75 Social History Social History Smoking packs per day: 2 Smoking cigarettes per day: 40.0 Years smoked: 3 Smoking pack-years: 6.00 Smoking status: Former smoker Tobacco type: cigarettes Additional smoking assessment comments: STATES QUIT OVER 50YRS AGO Alcohol intake: current Drinks per week: 2 Substance use: never Substance use type: does not use Living arrangements: with family Additional living arrangements comments: LIVES WITH [facility] [phone] Gender identity (if verbalized by the patient): Female Spiritual care concerns: No Anes - Eval Final PreProcedure Day of Procedure 05/03/21 08:23 Patient weight: obese Heart: regular rate and rhythm Lungs: clear to auscultation Airway: Mallampati scale class II Neurological: alert and oriented Last oral intake: >/= 8 hours ASA classification: III Emergent: no Anesthetic plan: proceed Anesthesia type and monitoring: general LMA and standard monitoring Results Review: All pre-operative results and documents have been reviewed as part of the pre-operative evaluation. Informed Consent: The patient's anesthetic plan and its attendant risks and benefits were discussed with the patient/family/POA. Questions were solicited and answers provided to the satisfaction of the patient/family/POA.
[2021-05-03] MEDS: LACTATED RINGERS 1,000 ML 30 ML IV CONT (08:24)
[2021-05-03] MEDS: ceFAZolin 2 GM/D5W 50 ML 2 GM/50 ML BAG IVPB (08:32)
--- NOTE | 2021-05-03 09:04 | SUR.OPER ---
urine culture handed off to Hollie in Lab @ [phone]
--- NOTE | 2021-05-03 09:23 | W.PM.PROC2 ---
Procedure Note - Detailed Date of Procedure 05/03/21 Pre-op Diagnosis Left ureteral obstruction, left hydronephrosis Post-op Diagnosis same Procedure Performed 1. Cystoscopy, bilateral retrograde pyelography 2. Bladder biopsy 3. Left ureteroscopy with biopsy and left ureteral stent placement Surgeon Evan Klein MD Anesthesia general Description of Procedure patient brought to the operative suite where she has prepped draped in routine sterile fashion while in a dorsal lithotomy position after the uneventful induction of a general anesthetic. Cystoscopy is undertaken with a 19 F rigid cystoscope. Urine was collected for culture. The bladder mucosa, today, is perfectly normal without hyperemia. There was no apparent neoplasm. There was no intravesical foreign bodies. She has a single orthotopic ureteral orifice. Immediately preoperatively she complained of intermittent flank pain so I did right retrograde pyelogram using an 8F bulb-tipped catheter - this was grossly normal without obstruction or filling defects. Left retrograde pyelography, however, continued to show persistent obstruction in the distal ureter. Placed a 0.035 glidewire, dilated the distal ureter with an 8 F 10 F dilator and performed ureteroscopy using the semi-rigid ureteral scope. The distal most 2-3 cm of her left ureter shows circumferential inflammation and hyperemia. The etiology of this is uncertain. My suspicion is this is infectious/ inflammatory but can not completely exclude a neoplasm. Using the Parana forceps 5 small biopsies were obtained from the distal left ureter. The more proximal ureter is endoscopically normal. Placed a 4.8 F 26 cm left ureteral stent. I then did a random bladder biopsy with cold cup forceps and cauterized the base with a Bugbee electrode. Estimated Blood Loss 5 Drains Yes Packing No Pathology yes Complications No immediate complications Condition stable Disposition PACU
[2021-05-03 09:35] LABS: Glucose Point of Care 160 mg/dl (65-105)
== END 2021-05-03 11:00 | disposition home or self-care (01) ==
PROVIDERS: PCP Emergency Medicine; Visit Provider Urology
PROC: 0TBB8ZX Excision of Bladder, Via Natural or Artificial Opening Endoscopic, Diagnostic (ICD-10-PCS; CPT 52204; principal; 2021-05-03 08:30)
DX: N13.0 Hydronephrosis with ureteropelvic junction obstruction (principal); N28.89 Other specified disorders of kidney and ureter; N30.20 Other chronic cystitis without hematuria; E11.9 Type 2 diabetes mellitus without complications; I10 Essential (primary) hypertension; E78.5 Hyperlipidemia, unspecified; E03.9 Hypothyroidism, unspecified; K21.9 Gastro-esophageal reflux disease without esophagitis; E55.9 Vitamin D deficiency, unspecified; Z87.891 Personal history of nicotine dependence; E66.9 Obesity, unspecified; Z68.39 Body mass index [BMI] 39.0-39.9, adult; Z79.82 Long term (current) use of aspirin; Z79.84 Long term (current) use of oral hypoglycemic drugs
CPT/HCPCS: 52332; 52354; 74420; 82948; 87086; 88305; A9270; C1758; C1769; C2617; J0690; J2405; J2704; J3010; J7120; Q9966

== ENCOUNTER 2021-05-21 12:24 | Outpatient (CLI) | payer MEDICARE, SELFPAY ==
--- NOTE | ~2021-05-21 | MR_ITS ---
EXAMINATION: MR abdomen wo/w con, MR pelvis wo/w con DATE: 05/21/2021 13:55 INDICATION: Abdominal pain. TECHNIQUE: 1. Magnetic resonance imaging (MRI) of the abdomen was performed without and with 16 mL Multihance in travenous contrast. Sequences included coronal T2-weighted SS-FSE, coronal and axial FS 2D-FIESTA, a xial STIR FSE, axial T2-weighted SS-FSE, axial T2-weighted FS SS-FSE, axial diffusion-weighted SE, ax ial dual-echo T1-weighted FSPGR, and axial and coronal T1-weighted LAVA. Postcontrast axial T1-weight ed LAVA images were obtained in a time course. Postcontrast coronal T1-weighted LAVA images were obta ined. 2. MRI of the pelvis was performed without and with 16 mL Multihance intravenous contrast utilizing t he same contrast bolus. [place] sequences of the pelvis included coronal T2-weighted SS FSE, hilliard l T2-weighted SS FS FSE, coronal 2D FIESTA, coronal 2D FIESTA FS, coronal LAVA-flex, axial T2-weighte d SS FSE, axial dual-echo T1-weighted FSPGR, axial 2D FIESTA, axial 2D FIESTA FS, axial diffusion-antony ghted SE and axial T1 weighted LAVA. Postcontrast sequences included axial and coronal T1 weighted LAVA. COMPARISON: CT abdomen and pelvis dated 04/22/2021 FINDINGS: Heart size is normal. No pericardial or pleural effusion. Gallbladder is not visualized and likely bess rgically absent. Liver, spleen, pancreas, bilateral adrenal glands and kidneys are normal. No hydrone phrosis. Relatively uniform diffuse urothelial enhancement at the bilateral renal pelvises and extend ing along the bilateral ureters to the bladder. There is more prominent on the left where the enhanci ng urothelium appears thicker than on the left. No discrete nodularity or abnormal enhancing masses i dentified. There is mild colonic diverticulosis with a sigmoid predominance. There is no adjacent in flammatory change to suggest diverticulitis. Small bowel and appendix are normal. 2.5 cm left ovaria n cyst/follicle. Anteverted uterus and right ovary are unremarkable. No free fluid in the abdomen or pelvis. No pathologically enlarged abdominal or pelvic lymphadenopathy. 5.1 x 3.2 x 1.8 similar paral abral cyst extending cephalad from the region of the posterior superior left acetabular labrum. Moder ate lumbar spondylosis. Normal marrow signal with no pathologic marrow replacing process. IMPRESSION: 1. Diffuse smooth urothelial enhancement at the bilateral renal pelvises and ureters with more promin ent urothelial thickening diffusely in the left. The diffuse involvement and bilaterality suggests re sponse to bilateral ascending urinary tract infections. Reviewed, dictated and finalized at location A. IMPRESSION: 1. Diffuse smooth urothelial enhancement at the bilateral renal pelvises and ur eters with more prominent urothelial thickening diffusely in the left. The diff use involvement and bilaterality suggests response to bilateral ascending urina ry tract infections.
== END 2021-05-21 12:25 | disposition home or self-care (01) ==
LOC: ANHIMG 12:26
PROVIDERS: PCP Emergency Medicine; Visit Provider Emergency Medicine
DX: R10.9 Unspecified abdominal pain (principal)
CPT/HCPCS: 72197; 74183; A9577

== ENCOUNTER 2022-02-19 07:24 | Outpatient (CLI) | payer MEDICARE, SELFPAY ==
--- NOTE | 2022-03-11 22:50 | WPDSLEEPSTUD ---
Sleep Study Date of Study: 02/19/22 Ordering Provider: EDMAR Alcantara Interpreting Physician: Deborah Schmitz MD Sleep Study Type: Polysomnogram (with titration of a mandibular advancement device) Height: 1.63 m Weight: 108.862 kg Body Mass Index: 41.1 Neck Circumference (inches): 18 [place]: 4 Reason for Sleep Study Titration of a mandibular advancement device for obstructive sleep apnea Sleep History Deborah Cancino is a 76 year old female with mild obstructive sleep apnea confirmed on testing December 26, 2020. She had mild obstructive sleep apnea with an AHI of 11.1 which was severe in the supine position with an AHI of 43.6, minimum saturation 89% and mild snoring. She attempted CPAP for 5 months but was unable to tolerate PAP therapy. She returned her CPAP machine. Dr. Carmen Dutton has fitted the patient with an O2 Vent dental device on January 09, 2022. She wears it nightly. She now presents for a split night polysomnogram with titration of the mandibular advancement device. Her initial complaints at the time of her 12/26/2020 split night included non-refreshing sleep. She wakes up feeling tired, even after getting ample sleep. She rarely wakens from sleep feeling short of breath, although she frequently wakes at night with heartburn. belching or coughing.? She occasionally snores loudly enough that others complain about it. She rarely has trouble sleeping with a cold, and rarely wakes up at night gasping for breath. She occasionally has breathing problems at night reported to her by others.? she frequently sweats excessively at night, occasionally notices her heart pounding or beating irregularly night.? She frequently falls asleep in the day, never involuntarily and never while driving.? She does not fall asleep during physical effort.? She frequently has loss of muscle tone with strong emotion.? She does not have daytime difficulties due to excessive sleepiness.? She does not feel paralyzed on waking or falling asleep.? She frequently has vivid dreamlike scenes upon awakening or falling asleep.? She never feels afraid to go to sleep.? She frequently has nightmares.? Occasion mm her dreams.? She frequently has racing thoughts.? She occasionally feels sad, depressed, anxious and she occasionally has muscular tension.? She occasionally notices parts of her body jerking.? She occasionally kicks at night.? She occasionally has crawling and aching feelings in her legs and leg pain during the night.? She rarely has morning jaw pain, rarely grinds her teeth during sleep.? She occasionally has bothered by pain during the day and occasionally is awakened by pain at night.? She occasionally wakes up feeling stiff in the morning rarely with sore achy muscles occasionally with pain in this neck and spine.? She has fatigue, nightmares and takes and acids regularly. Normal bedtime is 10 pm, falling asleep some nights quickly and on other nights, longer.? She typically wakes up 4 or 5 times at night to use the bathroom, watch television and read.? She does not stay awake for long.? She wakes in the morning between 6 and 7:00 a.m..? On the weekends, she goes to bed between 10 and 11:00 p.m., wakes between 7 and 8:00 a.m..? She estimates getting 8 hours of sleep at night.? She does take naps in the afternoon.? A short nap may be refreshing.? She usually drowsy in the morning for 2 hours or longer.? She feels better in the evenings compared to the morning. Habits: Quit tobacco 50 years ago.? Caffeine 2 cups of tea daily.? Alcohol 1 glass of wine daily.? No recreational drugs. [facility] Past Medical History Medical History Diabetes mellitus GERD (gastroesophageal reflux disease) HLD (hyperlipidemia) HTN (hypertension) Hypothyroidism (acquired) Nephrolithiasis Obesity Vitamin D deficiency disease Family History Family History Mother Patient's dedrick
[2022-03-12 12:07] VITALS: BMI 41.1
== END 2022-02-20 07:22 | disposition home or self-care (01) ==
LOC: ANHCSM 07:26
PROVIDERS: PCP Emergency Medicine; Visit Provider Physician Assistant
DX: G47.33 Obstructive sleep apnea (adult) (pediatric) (principal)
CPT/HCPCS: 95810; 95811

== ENCOUNTER 2022-03-14 09:10 | Outpatient (CLI) | payer MEDICARE, SELFPAY | END 2022-03-14 09:11 | disposition home or self-care (01) | PROVIDERS: PCP Emergency Medicine; Visit Provider Physician Assistant | DX: D64.9 Anemia, unspecified (principal) | CPT/HCPCS: 36415; 82728 ==

== ENCOUNTER 2022-03-18 10:06 | Emergency (ER) | payer MEDICARE, SELFPAY ==
[2022-03-18] VITALS (13 sets, daily range): BP systolic 126–152; BP diastolic 69–87; PULSE 81–101; RESP 11–22; TEMP 36.5; O2SAT 96–100
--- NOTE | ~2022-03-18 | CT_ITS ---
EXAMINATION: CT abdomen pelvis w con DATE: 03/18/2022 11:16 INDICATION: Right lower quadrant pain TECHNIQUE: Computed tomography (CT) of the abdomen and pelvis was performed with 100 cc Omnipaque 350 intravenous contrast. The dose-length product was 1141.94 mGy-cm. Automated exposure control and ite rative reconstruction technique were employed. COMPARISON: CT dated 04/22/2021. FINDINGS: Dependent atelectasis. Heart size normal. No significant pleural or pericardial effusion. T here is left hydronephrosis with urothelial thickening of the left ureter. There is renal atrophy. Fatty infiltration of the liver. The spleen, pancreas, adrenal glands and right kidney are unremarkab le. Nonobstructive bowel gas pattern. Colonic diverticulosis without evidence for diverticulitis. Nor mal appendix. Small fat-containing umbilical hernia. Moderate lumbar spondylosis. No acute osseous ab normality. No free air or free fluid. IMPRESSION: 1. Moderate left hydroureteronephrosis with urothelial thickening. Cannot exclude ascending urinary t ract infection. Possible distal left ureteral stricture. No obstructing stone or mass is seen. Reviewed, dictated and finalized at location B. IMPRESSION: 1. Moderate left hydroureteronephrosis with urothelial thickening. Cannot exclu de ascending urinary tract infection. Possible distal left ureteral stricture. No obstructing stone or mass is seen.
--- NOTE | 2022-03-18 10:08 | ED.ABDPAIN ---
HPI - Abdominal Pain General Chief Complaint: Abdominal Pain Stated Complaint: appendicitis Time Seen by Provider: 03/18/22 10:08 History of Present Illness HPI narrative: The patient is a 76-year-old female with a history of hypertension, hyperlipidemia, diabetes, recurrent cystitis/pyelonephritis, presenting to the emergency department for evaluation of right lower quadrant abdominal pain. Patient reports intermittent right lower quadrant abdominal pain over the past several days. She reports increasing in severity, with a sharp, aching nature on the right side of her abdomen which involves the right upper and right lower quadrant without flank pain. Patient reports associated nausea, vomiting this morning as well as loose stools without blood or mucus present. Patient reports abdominal distention/swelling as well. Last oral intake was this morning around 8 in the morning. Patient denies fever, reports general malaise. She denies cough or shortness of breath. No chest pain. Patient denies dysuria or hematuria. Patient is on daily antibiotic prophylaxis for recurrent UTIs. Related Data Home Medications Medication Instructions Recorded Confirmed aspirin 81 mg tablet,delayed 81 mg PO DAILY 06/21/19 01/15/22 release biotin 5,000 mcg disintegrating 10,000 mcg PO DAILY 06/21/19 01/15/22 tablet acidophilus 100 million 1 cap PO DAILY 06/11/20 01/15/22 cell-pectin, citrus 10 mg capsule (Acidophilus Probiotic) Allergies Allergy/AdvReac Type Severity Reaction Status Date / Time Sulfa (Sulfonamide Allergy Severe Fever Verified 01/15/22 09:20 Antibiotics) sulfamethoxazole Allergy Severe Fever Verified 01/15/22 09:20 [From Bactrim] trimethoprim [From Bactrim] Allergy Severe Fever Verified 01/15/22 09:20 ciprofloxacin Allergy Intermediate Anaphylactic Verified 01/15/22 09:20 Shock Review of Systems Review of Systems: CONSTITUTIONAL: Denies fever, reports chills. EYES: Denies visual changes, redness, or discharge. ENT: Denies rhinorrhea, congestion, sore throat, or otalgia. CARDIOVASCULAR: Denies chest pain, palpitations, or edema. RESPIRATORY: Denies cough or dyspnea. GASTROINTESTINAL: Reports right upper and right lower quadrant abdominal pain, nausea, vomiting, diarrhea GENITOURINARY: Denies dysuria or hematuria. SKIN: Denies rash or itching. MUSCULOSKELETAL: Denies back pain, joint pain, or myalgia. NEUROLOGIC: Denies headache, numbness, or weakness. [facility] Past Medical History Medical History Diabetes mellitus GERD (gastroesophageal reflux disease) HLD (hyperlipidemia) HTN (hypertension) Hypothyroidism (acquired) Nephrolithiasis Obesity Vitamin D deficiency disease Family History Family History Mother Patient's mother is in good health Family history of arthritis Father Patient's father is , Onset Age: 75 Social History Social History Smoking packs per day: 0 Smoking cigarettes per day: 0.0 Years smoked: 3 Smoking pack-years: 0.00 Smoking status: Never smoker Tobacco type: cigarettes Additional smoking assessment comments: STATES QUIT OVER 50YRS AGO Alcohol intake: current Drinks per week: 2 Substance use: never Substance use type: does not use Additional living arrangements comments: LIVES WITH [facility] [phone] Gender identity (if verbalized by the patient): Female Spiritual care concerns: No Exam Narrative: GENERAL: Awake, alert, conversant, uncomfortable appearing HEAD: Normocephalic, atraumatic. EYES: PERRLA and EOMI. ENT: Nares clear, no rhinorrhea or epistaxis. Mucous membranes dry NECK: Supple. CHEST: No respiratory distress, breathing even and non labored HEART: Regular rate, sinus rhythm ABDOMEN: Obese abdomen, tender in the right upper quadrant, epig
[2022-03-18] MEDS: SODIUM CHLORIDE 0.9% IV 1,000 ML 999 ML IV CONT (10:34)
[2022-03-18] MEDS: MORPHINE SULFATE (*CRX) 4 MG/ML INJ IV PUSH (10:34)
[2022-03-18] MEDS: ONDANSETRON INJ 4 MG/2 ML VIAL IV PUSH (10:35)
[2022-03-18 10:45] LABS: Basophils Absolute Auto 0.1 K/mm3 (0.0-0.1); Basophils Percent Auto 0.7 % (0.2-1.2); Eosinophils Absolute Auto 0.5 K/mm3 (0-0.3); Eosinophils Percent Auto 5.4 % (0-4.4); Hematocrit 38.3 % (37.0-47.0); Hemoglobin 12.1 g/dL (12.0-15.0); Immature Granulocyte Absolute 0.07 K/mm3 (0.00-0.031); Immature Granulocyte Percent A 0.7 % (0-0.5); Lymphocytes Absolute Auto 2.19 K/mm3 (0.9-3.2); Lymphocytes Percent Auto 22.2 % (18.3-44.2); Mean Corpuscular HGB Conc 31.6 g/dl (32-36); Mean Corpuscular Volume 88.7 fl (80-100); Mean Platelet Volume 9.6 fl (7.4-10.4); Monocytes Absolute Auto 0.6 K/mm3 (0.1-0.6); Monocytes Percent Auto 6.2 % (2.6-8.5); Neutrophils Absolute Auto 6.4 K/mm3 (1.3-6.7); Neutrophils Percent Auto 64.8 % (45.5-73.1); Platelet Count Result 298 k/mm3 (150-375); Red Blood Count 4.32 M/mm3 (4.2-5.4); Red Cell Distribution Width 14.6 % (11.5-14.5); White Blood Count 9.9 K/mm3 (4.5-10.0)
[2022-03-18 10:54] LABS: Lipase 220 U/L (23-300)
[2022-03-18 10:56] LABS: Alanine Aminotransferase 18 U/L (6-35); Albumin Level 3.6 g/dL (3.5-5.1); Alkaline Phosphatase 72 U/L (38-126); Anion Gap 9 mmol/L (8-16); Aspartate Amino Transferase 21 U/L (14-36); Bilirubin,Total 0.4 mg/dL (0.2-1.3); Blood Urea Nitrogen 21 mg/dL (7-17); Calcium 9.7 mg/dL (8.4-10.2); Carbon Dioxide 26 mmol/L (22-30); Chloride 99 mmol/L (98-107); Estimated Glomerular Filt Rate > 60; Glucose 257 mg/dL (65-110); Potassium 4.1 mmol/L (3.4-5.0); Sodium 134 mmol/L (137-145)
[2022-03-18 11:38] LABS: Appearance Urine Slightly Cloudy (Clear); Bilirubin Urine Negative (Negative); Blood Urine 3+ (Negative); Color Urine Yellow (Yellow); Glucose Urine UA Negative (Negative); Ketones Urine Negative (Negative); Leukocyte Esterase Ur 2+ LEU/UL (Negative); Nitrate Urine Negative (Negative); Protein Urine Trace mg/dL (Negative); Specific Grav Ur 1.015 (1.001-1.035); Urobilinogen Urine 0.2 mg/dL (<2.0); pH Urine 5.5 (5.0-9.0)
[2022-03-18 11:59] LABS: Mucus Urine Rare /lpf; RBC Urine >75 /hpf (0-2); Squamous Epithelial Cell Urine Occasional /hpf (Few); WBC Urine 21-30 /hpf
[2022-03-18 12:02] LABS: Add Urine Microscopic? YES
[2022-03-18 13:41] LABS: Reflex Lactic Acid Yes or No Add Lactic
== END 2022-03-18 15:05 | disposition home or self-care (01) ==
PROVIDERS: Emergency Provider Emergency Medicine; PCP Emergency Medicine
DX: N39.0 Urinary tract infection, site not specified (principal); I10 Essential (primary) hypertension; E78.5 Hyperlipidemia, unspecified; E03.9 Hypothyroidism, unspecified; K21.9 Gastro-esophageal reflux disease without esophagitis; E66.9 Obesity, unspecified; E55.9 Vitamin D deficiency, unspecified; Z87.442 Personal history of urinary calculi; Z79.82 Long term (current) use of aspirin; Z87.891 Personal history of nicotine dependence; N13.30 Unspecified hydronephrosis
CPT/HCPCS: 36415; 74177; 80053; 81001; 83605; 83690; 85025; 87086; 87088; 96365; 96367; 96375; 99284; J0131; J0696; J2270; J2405; J7030; Q9967

== ENCOUNTER 2022-04-13 14:27 | Emergency (ER) | payer MEDICARE, SELFPAY ==
[2022-04-13] VITALS (7 sets, daily range): BP systolic 122–129; BP diastolic 52–95; PULSE 74–100; RESP 16–20; TEMP 36.7; O2SAT 96–99
--- NOTE | ~2022-04-13 | CT_ITS ---
EXAMINATION: CT abdomen pelvis w con DATE: 04/13/2022 17:25 INDICATION: abd pain, fever, UTI TECHNIQUE: Computed tomography (CT) of the abdomen and pelvis was performed with 100 mL Omnipaque-350 intravenous contrast. Automated exposure control and iterative reconstruction technique were employe d. The dose-length product was 1231.87 mGy-cm. COMPARISON: 03/18/2022. FINDINGS: Lower thorax: Bibasilar scar/atelectasis. Coronary artery, aortic valve, and mitral calcification. Liver: Enlarged. Fatty infiltrated. Biliary/Gallbladder: Gallbladder is absent. No bile duct dilation. Pancreas: No mass or duct dilation. Spleen: Normal. Adrenals:No mass. Kidneys: Patchy left renal enhancement. Moderate left hydronephrosis, stable to slightly increased. U roepithelial enhancement. Left collecting system inflammatory change. Bilateral cortical thinning and scarring. No obstructing mass or stone in the left collecting system. GI tract: No small or large bowel dilation. Normal appendix. Mesentery/Peritoneum: No ascites, mass, or free air. Retroperitoneum: No mass. Atherosclerotic abdominal aortic and/or arterial calcifications. Field tics Diverticulosis without diverticulitis. Pelvis: Bladder wall thickening, inflammation, and mucosal enhancement. Possible distal left ureteral stricture. Soft Tissues: Soft tissues and body wall unremarkable. Bones: No acute osseous finding. IMPRESSION: Left pyelonephritis. Cystitis. Possible distal left ureteral stricture. Reviewed, dictated and finalized at location K.
--- NOTE | 2022-04-13 15:05 | ED.FEMALEGU ---
HPI - Female Genitourinary General Chief complaint: Urogenital-Female Stated complaint: UTI symptoms, Headache Time Seen by Provider: 04/13/22 14:40 Source: patient Mode of arrival: ambulatory Limitations: no limitations History of Present Illness HPI Narrative: This is a 76 year old female that presents to the ER for urinary symptoms present over the last couple of days. Reports fever, chills, dysuria, frequency, and abdominal discomfort. Also reports nausea and diarrhea. Denies chest pain or shortness of breath. Related Data Home Medications Medication Instructions Recorded Confirmed aspirin 81 mg tablet,delayed 81 mg PO DAILY 06/21/19 01/15/22 release biotin 5,000 mcg disintegrating 10,000 mcg PO DAILY 06/21/19 01/15/22 tablet acidophilus 100 million 1 cap PO DAILY 06/11/20 01/15/22 cell-pectin, citrus 10 mg capsule (Acidophilus Probiotic) Allergies Allergy/AdvReac Type Severity Reaction Status Date / Time Sulfa (Sulfonamide Allergy Severe Fever Verified 04/13/22 15:09 Antibiotics) sulfamethoxazole Allergy Severe Fever Verified 04/13/22 15:09 [From Bactrim] trimethoprim [From Bactrim] Allergy Severe Fever Verified 04/13/22 15:09 ciprofloxacin Allergy Intermediate Anaphylactic Verified 04/13/22 15:09 Shock Review of Systems Review of Systems: CONSTITUTIONAL: Reports fever CARDIOVASCULAR: Denies chest pain RESPIRATORY: Denies dyspnea. GASTROINTESTINAL: Reports abdominal pain, nausea, and diarrhea. GENITOURINARY: Reports dysuria. Denies hematuria. All systems reviewed & are unremarkable except as noted in HPI and below PMFSH Past Medical History Medical History Diabetes mellitus GERD (gastroesophageal reflux disease) HLD (hyperlipidemia) HTN (hypertension) Hypothyroidism (acquired) Nephrolithiasis Obesity Vitamin D deficiency disease Family History Family History Mother Patient's mother is in good health Family history of arthritis Father Patient's father is , Onset Age: 75 Social History Social History (Updated 04/13/22 @ 15:07 by Desi Hunter PA-C) Smoking packs per day: 0 Smoking cigarettes per day: 0.0 Years smoked: 3 Smoking pack-years: 0.00 Tobacco type: cigarettes Additional smoking assessment comments: STATES QUIT OVER 50YRS AGO Alcohol intake: current Drinks per week: 2 Substance use: never Substance use type: does not use Additional living arrangements comments: LIVES WITH SP[facility] [phone] Gender identity (if verbalized by the patient): Female Spiritual care concerns: No Exam Narrative: GENERAL: Well-appearing, well-nourished, and in no acute distress. HEAD: Normocephalic, atraumatic. EYES: EOMI. ENT: Nares clear, no rhinorrhea or epistaxis. Mucous membranes moist. Oropharynx without tonsillar hypertrophy exudate or other lesions. CHEST: Clear to auscultation. No respiratory distress. No wheezes rales or rhonchi HEART: Regular rate and rhythm. No murmur heard. Normal peripheral pulses. ABDOMEN: Soft, nontender, nondistended, normal active bowel sounds. No CVA tenderness EXTREMITIES: Normal range of motion. No edema. SKIN: Warm, dry, no rash. NEURO: No focal deficits. Alert and oriented x3. PSYCH: Normal mood and affect Course Consultations Consultation #1: Spoke with Dr. Klein about patient work-up who will follow up in clinic. Date: 04/13/22 Time: 18:52 Vital Signs Vital signs: Vital Signs Temperature 98.1 F 04/13/22 15:10 Pulse Rate 99 04/13/22 15:10 Respiratory Rate 16 04/13/22 15:10 Pulse Oximetry 96 04/13/22 15:10 Oxygen Delivery Room Air 04/13/22 15:10 Temperature 98.1 F 04/13/22 15:10 Pulse Rate 96 04/13/22 17:38 Respiratory Rate 20 04/13/22 17:38 Blood Pressure 123/58 L 04/13/22 17:38 Pulse Oximetry 96 04/13/22 17:38 Oxygen Delive
[2022-04-13 15:27] LABS: Appearance Urine Cloudy (Clear); Bilirubin Urine 1+ (Negative); Blood Urine 2+ (Negative); Color Urine Yellow (Yellow); Glucose Urine UA 1+ mg/dL (Negative); Ketones Urine 1+ mg/dL (Negative); Leukocyte Esterase Ur 3+ LEU/UL (Negative); Nitrate Urine Positive (Negative); Protein Urine 2+ mg/dL (Negative); Urobilinogen Urine 0.2 mg/dL (<2.0)
[2022-04-13 15:33] LABS: Basophils Percent Auto 0.4 % (0.2-1.2); Immature Granulocyte Absolute 0.06 K/mm3 (0.00-0.031); Immature Granulocyte Percent A 0.5 % (0-0.5); Lymphocytes Absolute Auto 0.44 K/mm3 (0.9-3.2); Mean Corpuscular HGB Conc 32.4 g/dl (32-36); Mean Corpuscular Hemoglobin 28.8 pg (26-34); Mean Corpuscular Volume 88.9 fl (80-100); Mean Platelet Volume 8.9 fl (7.4-10.4); Monocytes Absolute Auto 0.8 K/mm3 (0.1-0.6); Monocytes Percent Auto 7.2 % (2.6-8.5); Neutrophils Absolute Auto 9.7 K/mm3 (1.3-6.7); Neutrophils Percent Auto 87.9 % (45.5-73.1); Platelet Count Result 224 k/mm3 (150-375); Red Blood Count 4.16 M/mm3 (4.2-5.4); Red Cell Distribution Width 15.2 % (11.5-14.5)
[2022-04-13 15:33] LABS: Bacteria Urine Trace /hpf; RBC Urine 21-50 /hpf (0-2); Squamous Epithelial Cell Urine Many /hpf (Few); WBC Clumps Urine Present /HPF; WBC Urine >75 /hpf
[2022-04-13 15:37] LABS: Add Urine Microscopic? YES
[2022-04-13 15:42] LABS: Alanine Aminotransferase 22 U/L (6-35); Albumin Level 3.7 g/dL (3.5-5.1); Alkaline Phosphatase 84 U/L (38-126); Anion Gap 9 mmol/L (8-16); Aspartate Amino Transferase 35 U/L (14-36); Bilirubin,Total 0.9 mg/dL (0.2-1.3); Blood Urea Nitrogen 30 mg/dL (7-17); Calcium 8.9 mg/dL (8.4-10.2); Carbon Dioxide 28 mmol/L (22-30); Chloride 92 mmol/L (98-107); Estimated CRCL calculation 41 ml/min; Estimated Glomerular Filt Rate 49; Glucose 355 mg/dL (65-110); Lipase 63 U/L (23-300); Potassium 4.1 mmol/L (3.4-5.0); Sodium 129 mmol/L (137-145)
[2022-04-13] MEDS: SODIUM CHLORIDE 0.9% IV 500 ML 999 ML IV CONT ×2 (15:56→17:35)
[2022-04-13] MEDS: ONDANSETRON INJ 4 MG/2 ML VIAL IV PUSH (15:58)
== END 2022-04-13 19:15 | disposition home or self-care (01) ==
PROVIDERS: Physician Assistant; Emergency Provider Emergency Medicine; PCP Emergency Medicine
DX: N10 Acute pyelonephritis (principal); N30.90 Cystitis, unspecified without hematuria; I10 Essential (primary) hypertension; E11.9 Type 2 diabetes mellitus without complications; E78.5 Hyperlipidemia, unspecified; E03.9 Hypothyroidism, unspecified; E55.9 Vitamin D deficiency, unspecified; K21.9 Gastro-esophageal reflux disease without esophagitis; E66.9 Obesity, unspecified; Z68.35 Body mass index [BMI] 35.0-35.9, adult; Z87.442 Personal history of urinary calculi; Z87.891 Personal history of nicotine dependence; Z79.82 Long term (current) use of aspirin; Z79.84 Long term (current) use of oral hypoglycemic drugs
CPT/HCPCS: 36415; 74177; 80053; 81001; 83690; 85025; 87077; 87086; 87186; 96361; 96365; 96367; 96375; 99284; J0131; J0696; J2405; J7040; Q9967

== ENCOUNTER 2022-05-19 09:15 | Outpatient (CLI) | payer MEDICARE, SELFPAY | END 2022-05-19 09:16 | disposition home or self-care (01) | PROVIDERS: PCP Emergency Medicine; Visit Provider Physician Assistant | DX: D64.9 Anemia, unspecified (principal) | CPT/HCPCS: 36415; 82728 ==

== ENCOUNTER 2022-07-23 09:36 | Outpatient (CLI) | payer MEDICARE, SELFPAY | END 2022-07-23 09:37 | disposition home or self-care (01) | LOC: ANHLAB 09:39 | PROVIDERS: PCP Emergency Medicine; Visit Provider Physician Assistant | DX: D64.9 Anemia, unspecified (principal) | CPT/HCPCS: 36415; 82728 ==

== ENCOUNTER 2022-08-25 09:25 | Outpatient (CLI) | payer MEDICARE, SELFPAY ==
[2022-08-25 10:21] LABS: Alanine Aminotransferase 20 U/L (6-35); Albumin Level 4.2 g/dL (3.5-5.1); Alkaline Phosphatase 68 U/L (38-126); Anion Gap 7 mmol/L (8-16); Aspartate Amino Transferase 24 U/L (14-36); Bilirubin,Total 0.4 mg/dL (0.2-1.3); Blood Urea Nitrogen 17 mg/dL (7-17); Calcium 9.1 mg/dL (8.4-10.2); Carbon Dioxide 30 mmol/L (22-30); Chloride 101 mmol/L (98-107); Cholesterol 170 mg/dL (0-200); Estimated Glomerular Filt Rate > 60; Glucose 118 mg/dL (65-110); HDL Direct 41 mg/dL; Potassium 4.2 mmol/L (3.4-5.0); Sodium 138 mmol/L (137-145); Triglycerides 196 mg/dL (<150)
[2022-08-25 10:31] LABS: LDL Cholesterol Direct 81 mg/dL
== END 2022-08-25 09:26 | disposition home or self-care (01) ==
LOC: ANHLAB 09:27
PROVIDERS: PCP Emergency Medicine; Visit Provider Internal Medicine Cardiovascular Disease
DX: E78.2 Mixed hyperlipidemia (principal)
CPT/HCPCS: 36415; 80053; 80061

== ENCOUNTER 2022-08-28 01:07 | Day surgery (SDC) | payer MEDICARE, SELFPAY ==
[2022-08-19 09:16] VITALS: BMI 36.3
[2022-08-28 09:07] VITALS: BP 158/79; PULSE 102; RESP 17; TEMP 36.1; O2SAT 100; BMI 35.6
[2022-08-28 09:20] LABS: Glucose Point of Care 145 mg/dl (65-105)
[2022-08-28] MEDS: LACTATED RINGERS 1,000 ML 150 ML IV CONT (09:20)
--- NOTE | 2022-08-28 09:33 | WPDHPUPDATE1 ---
History and Physical Update Update Date/Time: 08/28/22 09:33 History and Physical has been reviewed, including an updated exam of the patient. There are NO changes in the patient's condition. Risks, benefits, and alternatives have been discussed and questions answered. Patient agrees to proceed with procedure.
--- NOTE | 2022-08-28 09:50 | WPDANESEPPF ---
Anes - Initial Pre Proc Eval Procedure: Operation Date: 08/28/22 10:00 Proposed Procedures p Colonoscopy - Marvin Lehman MD Date/Time: 08/28/22 09:50 Surgeon: Marvin Lehman MD Pre Op Diagnosis: right lower abdominal pain Patient Data Age: 77 Gender: F Height: 1.57 m Weight: 88.4 kg Last Vital Signs Temp 96.9 F L 08/28/22 09:07 Pulse 102 H 08/28/22 09:07 Resp 17 08/28/22 09:07 BP 158/79 H 08/28/22 09:07 Pulse Ox 100 08/28/22 09:07 O2 Del Method Room Air 08/28/22 09:07 Allergies Allergy/AdvReac Type Severity Reaction Status Date / Time Sulfa (Sulfonamide Allergy Severe Fever Verified 08/28/22 09:05 Antibiotics) sulfamethoxazole Allergy Severe Fever Verified 08/28/22 09:05 [From Bactrim] trimethoprim [From Bactrim] Allergy Severe Fever Verified 08/28/22 09:05 ciprofloxacin Allergy Intermediate Anaphylactic Verified 08/28/22 09:05 Shock Home Medications Medication Instructions Recorded Confirmed Type aspirin 81 mg tablet,delayed 81 mg PO DAILY 06/21/19 08/28/22 History release biotin 5,000 mcg disintegrating 10,000 mcg PO DAILY 06/21/19 08/28/22 History tablet acidophilus 100 million 1 cap PO DAILY 06/11/20 08/28/22 History cell-pectin, citrus 10 mg capsule (Acidophilus Probiotic) metformin 1,000 mg tablet 1,000 mg PO BID #180 tabs 10/01/21 08/28/22 Rx losartan 50 mg-hydrochlorothiazide 1 tablet PO DAILY #90 tabs 01/15/22 08/28/22 Rx 12.5 mg tablet ferrous sulfate 325 mg (65 mg 325 mg PO BID 30 days #60 tabs 07/23/22 08/28/22 Rx iron) tablet dulaglutide 0.75 mg/0.5 mL 0.75 mg subcut WEEKLY 08/19/22 08/28/22 History subcutaneous pen injector (Trulicity) insulin degludec 100 unit/mL 20 unit subcut DAILY 08/19/22 08/28/22 History subcutaneous solution (Tresiba U-100 Insulin) multivitamin with minerals-folic 1 tablet PO DAILY 08/19/22 08/28/22 History acid 0.4 mg tablet nitrofurantoin macrocrystal 50 mg 50 mg PO DAILY 08/19/22 08/28/22 History capsule simvastatin 20 mg tablet 20 mg PO DAILY 08/19/22 08/28/22 History glipizide 10 mg tablet See Rx Instructions .Route 08/25/22 08/28/22 Rx .COMPLEX #180 tabs levothyroxine 25 mcg tablet See Rx Instructions .Route 08/25/22 08/28/22 Rx .COMPLEX #90 tabs omega 4-xyz-hia-fish oil 1,000 mg 1 cap PO DAILY 08/26/22 08/28/22 History (120 mg-180 mg) capsule (Fish Oil) Laboratory Tests 08/28/22 09:12 POC Capillary Glucose 145 mg/dl H mg/dl (65-105) Patient hx anesthesia problems: none Family hx anesthesia problems: none Results Review: All pre-operative results and documents have been reviewed as part of the pre-operative evaluation. [facility] Past Medical History Medical History Diabetes mellitus GERD (gastroesophageal reflux disease) HLD (hyperlipidemia) HTN (hypertension) Hypothyroidism (acquired) Nephrolithiasis Obesity Vitamin D deficiency disease Family History Family History Mother Family history of arthritis Heart disease 08/2021 heart attack Father Patient's father is , Onset Age: 75 Social History Social History Smoking packs per day: 0 Smoking cigarettes per day: 0.0 Years smoked: 3 Smoking pack-years: 0.00 Smoking status: Former smoker Tobacco type: cigarettes Additional smoking assessment comments: STATES QUIT OVER 50YRS AGO Alcohol intake: current Drinks per week: 2 Substance use: never Substance use type: does not use Living arrangements: alone Gender identity (if verbalized by the patient): Female Spiritual care concerns: No Anes - Eval Final PreProcedure Day of Procedure 08/28/22 09:50 Patient weight: normal Heart: regular rate and rhythm Lungs: clear to auscultation Airway: Mallamp
[2022-08-28 10:16] VITALS: BP 114/67; PULSE 91; RESP 17; O2SAT 99
[2022-08-28 10:26] VITALS: BP 117/71; PULSE 89; RESP 20; O2SAT 99
[2022-08-28 10:36] VITALS: BP 137/88; PULSE 87; RESP 21; O2SAT 98
== END 2022-08-28 10:48 | disposition home or self-care (01) ==
PROVIDERS: PCP Emergency Medicine; Visit Provider Internal Medicine Gastroenterology
PROC: 0DJD8ZZ Inspection of Lower Intestinal Tract, Via Natural or Artificial Opening Endoscopic (ICD-10-PCS; CPT 45378; principal; 2022-08-28 10:00)
DX: K57.20 Diverticulitis of large intestine with perforation and abscess without bleeding (principal); E11.9 Type 2 diabetes mellitus without complications; I10 Essential (primary) hypertension; E78.5 Hyperlipidemia, unspecified; K21.9 Gastro-esophageal reflux disease without esophagitis; E03.9 Hypothyroidism, unspecified; E55.9 Vitamin D deficiency, unspecified; Z87.891 Personal history of nicotine dependence; Z79.82 Long term (current) use of aspirin; Z79.84 Long term (current) use of oral hypoglycemic drugs; Z79.899 Other long term (current) drug therapy; Z79.4 Long term (current) use of insulin
CPT/HCPCS: 45378; 82948; J2704; J7120

== ENCOUNTER 2022-09-08 09:52 | Outpatient (CLI) | payer MEDICARE, SELFPAY | END 2022-09-08 09:53 | disposition home or self-care (01) | PROVIDERS: PCP Emergency Medicine; Visit Provider Physician Assistant | DX: D64.9 Anemia, unspecified (principal) | CPT/HCPCS: 36415; 82728 ==

== ENCOUNTER 2022-10-25 10:03 | Outpatient (CLI) | payer MEDICARE, SELFPAY | END 2022-10-25 10:04 | disposition home or self-care (01) | PROVIDERS: PCP Emergency Medicine; Visit Provider Physician Assistant | DX: D64.9 Anemia, unspecified (principal) | CPT/HCPCS: 36415; 82728 ==

== ENCOUNTER 2022-10-28 09:55 | Outpatient (CLI) | payer MEDICARE, SELFPAY ==
--- NOTE | ~2022-10-28 | XR_ITS ---
Clinical Indication: Cough PA and lateral views of the chest: Comparison: 12/06/2014 Findings: The lungs are clear, without evidence of focal consolidation or pleural effusion. Cardiome diastinal silhouette is within normal limits. Bones and soft tissues are unremarkable. Impression: Normal chest. Reviewed, dictated and finalized at [facility]. Impression: Normal chest.
[2022-10-28 11:07] LABS: Basophils Absolute Auto 0.1 K/mm3 (0.0-0.1); Basophils Percent Auto 0.7 % (0.2-1.2); Eosinophils Absolute Auto 0.7 K/mm3 (0-0.3); Eosinophils Percent Auto 8.2 % (0-4.4); Hematocrit 40.8 % (37.0-47.0); Hemoglobin 13.1 g/dL (12.0-15.0); Immature Granulocyte Absolute 0.04 K/mm3 (0.00-0.031); Immature Granulocyte Percent A 0.5 % (0-0.5); Lymphocytes Absolute Auto 1.74 K/mm3 (0.9-3.2); Mean Corpuscular HGB Conc 32.1 g/dl (32-36); Mean Corpuscular Hemoglobin 30.3 pg (26-34); Mean Corpuscular Volume 94.2 fl (80-100); Mean Platelet Volume 9.3 fl (7.4-10.4); Monocytes Absolute Auto 0.5 K/mm3 (0.1-0.6); Neutrophils Absolute Auto 5.6 K/mm3 (1.3-6.7); Neutrophils Percent Auto 64.6 % (45.5-73.1); Platelet Count Result 291 k/mm3 (150-375); Red Blood Count 4.33 M/mm3 (4.2-5.4); Red Cell Distribution Width 14.1 % (11.5-14.5); White Blood Count 8.7 K/mm3 (4.5-10.0)
[2022-10-28 11:30] LABS: Iron 86 ug/dL (37-170)
[2022-10-28 11:39] LABS: Percent Iron Saturation 23 % (20-50)
[2022-10-28 12:26] LABS: Folic Acid > 20.0 ng/mL (2.76->20)
== END 2022-10-28 09:56 | disposition home or self-care (01) ==
PROVIDERS: PCP Emergency Medicine; Referring Provider Emergency Medicine; Visit Provider Physician Assistant
DX: R05.9 Cough, unspecified (principal); R07.9 Chest pain, unspecified; D64.9 Anemia, unspecified
CPT/HCPCS: 36415; 71046; 82607; 82746; 83540; 83550; 85025

== ENCOUNTER 2022-11-26 14:30 | Outpatient (RCR) | payer MEDICARE, SELFPAY | END 2022-12-18 08:27 | disposition home or self-care (01) | LOC: ANHDMC 14:30 | PROVIDERS: PCP Emergency Medicine; Visit Provider Internal Medicine Endocrinology, Diabetes & Metabolism | DX: E11.65 Type 2 diabetes mellitus with hyperglycemia (principal); Z71.89 Other specified counseling | CPT/HCPCS: G0108; G0109 ==

== ENCOUNTER 2022-11-30 06:26 | Emergency (ER) | payer MEDICARE, SELFPAY ==
--- NOTE | ~2022-11-30 | US_ITS ---
EXAMINATION: US venous doppler [facility] DATE: 11/30/2022 09:10 INDICATION: Left lower limb erythema and swelling TECHNIQUE: Grayscale ultrasound images without and with compression and Doppler ultrasound images of the left lower extremity veins were obtained. COMPARISON: None. FINDINGS: The visualized portions of left common femoral vein, profunda (deep) femoral vein, femoral vein, popl iteal vein, peroneal veins, posterior tibial veins, gastrocnemius vein and greater saphenous vein out flow are patent. IMPRESSION: 1. No deep venous thrombosis in the left lower limb. Reviewed, dictated and finalized at location A.
--- NOTE | ~2022-11-30 | XR_ITS ---
EXAMINATION: XR ankle LT min 3V DATE: 11/30/2022 07:14 INDICATION: Left ankle pain and swelling TECHNIQUE: Anteroposterior, oblique, mortise, and lateral views of the left ankle were obtained. COMPARISON: None. FINDINGS: Bone alignment is normal. No fracture. 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 Moderate-sized enthesophyte and small amount of enthesopathic ossification at the calcaneal insertion of the mildly thickened distal Achilles tendon. Prominent soft tissue swelling an terior to the ankle and about the lateral malleolus. No left ankle joint effusion. IMPRESSION: 1. Mild degenerative skeletal changes in the left foot. No acute osseous abnormality. Reviewed, dictated and finalized at location A. IMPRESSION: 1. Mild degenerative skeletal changes in the left foot. No acute osseous abnorm ality.
[2022-11-30 06:30] VITALS: BP 148/80; PULSE 104; RESP 16; O2SAT 100
[2022-11-30 07:11] VITALS: BP 138/78; PULSE 88; RESP 16; O2SAT 98
--- NOTE | 2022-11-30 07:48 | ED.EXTPRO ---
HPI - Extremity Problem General Chief complaint: Extremity Problem,Nontraumatic Stated complaint: left lower leg swelling, non traumatic Time Seen by Provider: 11/30/22 06:55 History of Present Illness HPI Narrative: 77-year-old female presented to the emergency department for evaluation of left lower extremity pain and swelling. Patient states symptoms started approximately 1 week ago. Patient denies any falls or injuries. Patient states she had been working in the yard but denies any exposure or injury. Patient denies any cuts or breaks in skin over the course of the last week. Patient denies any associate nausea vomiting diarrhea or fevers. Patient reports the pain is worsened with ambulation but does have pain most of the time. Pain is helped with ibuprofen. Patient describes pain at ankle and across the anterior whitlock. Patient has no prior history of lower extremity DVT. Related Data Home Medications Medication Instructions Recorded Confirmed aspirin 81 mg tablet,delayed 81 mg PO DAILY 06/21/19 10/31/22 release biotin 5,000 mcg disintegrating 10,000 mcg PO DAILY 06/21/19 10/31/22 tablet acidophilus 100 million 1 cap PO DAILY 06/11/20 10/31/22 cell-pectin, citrus 10 mg capsule (Acidophilus Probiotic) dulaglutide 0.75 mg/0.5 mL 0.75 mg subcut WEEKLY 08/19/22 10/31/22 subcutaneous pen injector (Trulicity) insulin degludec 100 unit/mL 20 unit subcut DAILY 08/19/22 10/31/22 subcutaneous solution (Tresiba U-100 Insulin) multivitamin with minerals-folic 1 tablet PO DAILY 08/19/22 10/31/22 acid 0.4 mg tablet nitrofurantoin macrocrystal 50 mg 50 mg PO DAILY 08/19/22 10/31/22 capsule simvastatin 20 mg tablet 20 mg PO DAILY 08/19/22 10/31/22 omega 9-pgx-sjp-fish oil 1,000 mg 1 cap PO DAILY 08/26/22 10/31/22 (120 mg-180 mg) capsule (Fish Oil) Allergies Allergy/AdvReac Type Severity Reaction Status Date / Time Sulfa (Sulfonamide Allergy Severe Fever Verified 11/30/22 06:28 Antibiotics) sulfamethoxazole Allergy Severe Fever Verified 11/30/22 06:28 [From Bactrim] trimethoprim [From Bactrim] Allergy Severe Fever Verified 11/30/22 06:28 ciprofloxacin Allergy Intermediate Anaphylactic Verified 11/30/22 06:28 Shock Review of Systems Review of Systems: All systems reviewed & are unremarkable except as noted in HPI and below PMFSH Past Medical History Medical History Diabetes mellitus GERD (gastroesophageal reflux disease) HLD (hyperlipidemia) HTN (hypertension) Hypothyroidism (acquired) Nephrolithiasis Obesity Vitamin D deficiency disease Family History Family History Mother Family history of arthritis Heart disease 08/2021 heart attack Father Patient's father is , Onset Age: 75 Social History Social History Smoking packs per day: 0 Smoking cigarettes per day: 0.0 Years smoked: 3 Smoking pack-years: 0.00 Smoking status: Former smoker Tobacco type: cigarettes Additional smoking assessment comments: STATES QUIT OVER 50YRS AGO Alcohol intake: current Drinks per week: 2 Substance use: never Substance use type: does not use Living arrangements: alone Gender identity (if verbalized by the patient): Female Spiritual care concerns: No Exam Narrative: APPEARANCE: Well appearing, no pain, no distress, well-nourished. HEAD: normocephalic, atraumatic. EYES: PERRLA/EOMI, conjunctivae clear. NOSE: Normal no drainage NECK: Supple. No adenopathy, no masses. RESPIRATORY: Airway patent, respirations nonlabored. Clear to auscultation bilaterally, no rales, rhonchi, wheezing. CARDIOVASCULAR: Regular rate and rhythm without murmurs rubs or gallops. ABDOMINAL: Soft, nontender, nondistended, normal bowel sounds MUSCULOSKELETAL: Moves all extremities. Mild
[2022-11-30 08:00] VITALS: BP 136/80; PULSE 86; RESP 16; TEMP 36.6; O2SAT 97
[2022-11-30 08:55] LABS: Basophils Absolute Auto 0.1 K/mm3 (0.0-0.1); Basophils Percent Auto 0.5 % (0.2-1.2); Eosinophils Absolute Auto 0.6 K/mm3 (0-0.3); Eosinophils Percent Auto 5.8 % (0-4.4); Hematocrit 36.1 % (37.0-47.0); Hemoglobin 11.5 g/dL (12.0-15.0); Immature Granulocyte Absolute 0.04 K/mm3 (0.00-0.031); Immature Granulocyte Percent A 0.4 % (0-0.5); Lymphocytes Absolute Auto 1.77 K/mm3 (0.9-3.2); Mean Corpuscular HGB Conc 31.9 g/dl (32-36); Mean Corpuscular Hemoglobin 30.3 pg (26-34); Monocytes Absolute Auto 0.6 K/mm3 (0.1-0.6); Neutrophils Absolute Auto 6.8 K/mm3 (1.3-6.7); Neutrophils Percent Auto 69.3 % (45.5-73.1); Platelet Count Result 301 k/mm3 (150-375); White Blood Count 9.8 K/mm3 (4.5-10.0)
[2022-11-30 09:00] VITALS: BP 132/84; PULSE 88; RESP 16; O2SAT 97
[2022-11-30 09:06] LABS: Alanine Aminotransferase 17 U/L (6-35); Albumin Level 3.7 g/dL (3.5-5.1); Alkaline Phosphatase 69 U/L (38-126); Anion Gap 7 mmol/L (8-16); Aspartate Amino Transferase 18 U/L (14-36); Bilirubin,Total 0.2 mg/dL (0.2-1.3); Blood Urea Nitrogen 24 mg/dL (7-17); Calcium 9.3 mg/dL (8.4-10.2); Carbon Dioxide 25 mmol/L (22-30); Chloride 106 mmol/L (98-107); Estimated CRCL calculation 51 ml/min; Estimated Glomerular Filt Rate > 60; Glucose 146 mg/dL (65-110); Potassium 4.3 mmol/L (3.4-5.0); Sodium 138 mmol/L (137-145)
[2022-11-30 10:00] VITALS: BP 136/78; PULSE 84; RESP 16; TEMP 36.6; O2SAT 98
[2022-11-30] MEDS: CEPHALEXIN 250 MG CAPSULE PO (10:22)
== END 2022-11-30 10:31 | disposition home or self-care (01) ==
PROVIDERS: Emergency Provider Emergency Medicine; PCP Emergency Medicine
DX: L03.116 Cellulitis of left lower limb (principal); E11.9 Type 2 diabetes mellitus without complications; K21.9 Gastro-esophageal reflux disease without esophagitis; E78.5 Hyperlipidemia, unspecified; I10 Essential (primary) hypertension; E03.9 Hypothyroidism, unspecified
CPT/HCPCS: 36415; 73610; 80053; 85025; 93971; 99284; A9270

== ENCOUNTER 2023-02-07 09:01 | Outpatient (CLI) | payer MEDICARE, SELFPAY | END 2023-02-07 09:02 | disposition home or self-care (01) | PROVIDERS: PCP Emergency Medicine; Visit Provider Physician Assistant | DX: D64.9 Anemia, unspecified (principal) | CPT/HCPCS: 36415; 82728 ==

== ENCOUNTER 2023-02-19 14:41 | Outpatient (RCR) | payer MEDICARE, SELFPAY | END 2023-05-11 13:25 | disposition home or self-care (01) | LOC: ANHDMC 14:41 | PROVIDERS: PCP Emergency Medicine; Visit Provider Internal Medicine Endocrinology, Diabetes & Metabolism | DX: E11.65 Type 2 diabetes mellitus with hyperglycemia (principal); Z71.89 Other specified counseling | CPT/HCPCS: G0109 ==

== ENCOUNTER 2023-02-25 10:31 | Inpatient (IN) | payer MEDICARE, SELFPAY ==
[2023-02-25] VITALS (7 sets, daily range): BP systolic 126–161; BP diastolic 44–81; PULSE 97–113; RESP 14–18; TEMP 36.6–36.9; O2SAT 95–97; BMI 37.0
--- NOTE | ~2023-02-25 | XR_ITS ---
EXAMINATION: XR retrograde pyelo w/stent LT DATE: 02/26/2023 14:28 INDICATION: Left internal ureteral stent placement TECHNIQUE: Fluoroscopic images from a left internal ureteral stent placement are submitted for review . 42 seconds of fluoroscopy time. Automated exposure control and iterative reconstruction technique w ere employed. FINDINGS: There is a left double-J internal ureteral stent projecting in expected position, with proximal [place] loop at the level of the renal pelvis and distal loop in the pelvis within the bladder lumen. IMPRESSION: 1. Left internal ureteral stent placement. Please refer to real-time procedural findings for detail s. Reviewed, dictated and finalized at location A. IMPRESSION: 1. Left internal ureteral stent placement. Please refer to real-time procedur al findings for details.
--- NOTE | ~2023-02-25 | CT_ITS ---
EXAMINATION: CT brain wo con DATE: 02/25/2023 13:41 INDICATION: New headache. Nausea, vomiting. TECHNIQUE: Computed tomography (CT) of the head was performed without intravenous contrast. The mA wa s adjusted according to patient size. Iterative reconstruction technique was employed. Exam dose: 60 5.33 mGy-cm total exam DLP. COMPARISON: None FINDINGS: There is prominent left vertebral artery and bilateral carotid siphon internal carotid fern ry calcifications. There is nonspecific diminished attenuation of the cerebral white matter, likely due to chronic small vessel ischemic changes. No intracranial mass lesion or hemorrhage or cerebrovascular accident, midline shift or mass effect i s detected. No subdural or epidural hematoma is detected. No orbital mass lesion. Approximately 12 mm mucus retention cyst or polyp at the posterior lateral floor of the left maxillar y sinus. The paranasal sinuses and mastoid air cells otherwise are normally developed and aerated. There is a left parasagittal frontal exostosis. No skull fracture or bone destruction is detected. IMPRESSION: Cerebral atherosclerosis and chronic small vessel ischemic changes of the cerebral white matter No acute intracranial finding or skull fracture Reviewed, dictated and finalized at Location A. Reviewed, dictated and finalized at location B.
--- NOTE | ~2023-02-25 | XR_ITS ---
Clinical Indication: Viral symptoms PA and lateral views of the chest: Comparison: 10/28/2022 Findings: The lungs are clear, without evidence of focal consolidation or pleural effusion. Cardiome diastinal silhouette is within normal limits. Bones and soft tissues are unremarkable. Impression: Normal chest. Reviewed, dictated and finalized at location . Impression: Normal chest.
--- NOTE | ~2023-02-25 | CT_ITS ---
CT of the Abdomen and Pelvis: Indication: Vomiting Technique: 2.5 mm axial scans were obtained through the abdomen and pelvis following intravenous adm inistration of 100 cc of Omnipaque 350. Dose reduction technique was used on this scan by utilizing a utomated exposure control and iterative reconstruction technique. The dose-length product (DLP) was 1 432.77 mGy-cm. COMPARISON: 04/13/2022 Findings: Scans through the lung bases and demonstrates small pericardial effusion. The liver, spleen, pancreas, adrenals and right kidney are within normal limits. Gallbladder not visu alized. There is left hydroureteronephrosis, with tapering at the distal ureter. No evidence of aorti c aneurysm. No lymphadenopathy. No bowel obstruction or bowel wall thickening. Normal appendix. Images through the pelvis were performed. Tiny bubbles of air present in the urinary bladder. Questio nable minimal bladder wall thickening. No adnexal mass or ascites seen. Impression: Chronic left hydroureteronephrosis, with possible stricture at the distal ureter. Degree of hydroneph rosis is mildly progressed from prior exam. Hydroureter is similar in appearance.. Possible cystitis. Correlate with urinalysis. Small pericardial effusion. Reviewed, dictated and finalized at location . Impression: Chronic left hydroureteronephrosis, with possible stricture at the distal urete r. Degree of hydronephrosis is mildly progressed from prior exam. Hydroureter i s similar in appearance.. Possible cystitis. Correlate with urinalysis. Small pericardial effusion.
[2023-02-25 12:02] LABS: Appearance Urine Turbid (Clear); Bacteria Urine 4+ /hpf; Bilirubin Urine Negative (Negative); Blood Urine 2+ (Negative); Color Urine Yellow (Yellow); Glucose Urine UA Negative (Negative); Ketones Urine Trace mg/dL (Negative); Leukocyte Esterase Ur 3+ LEU/UL (Negative); Nitrate Urine Negative (Negative); Non Pathogenic Casts 0-2; Protein Urine 1+ mg/dL (Negative); RBC Urine 0-2 /hpf (0-2); Specific Grav Ur 1.013 (1.001-1.035); Squamous Epithelial Cell Urine None seen /hpf (Few); Urobilinogen Urine 0.2 mg/dL (<2.0); WBC Urine >100 /hpf
[2023-02-25 12:05] LABS: Add Urine Microscopic? YES
[2023-02-25 12:24] LABS: Basophils Absolute Auto 0.1 K/mm3 (0.0-0.1); Basophils Percent Auto 0.5 % (0.2-1.2); Hematocrit 34.8 % (37.0-47.0); Hemoglobin 11.1 g/dL (12.0-15.0); Immature Granulocyte Absolute 0.14 K/mm3 (0.00-0.031); Immature Granulocyte Percent A 1.1 % (0-0.5); Lymphocytes Absolute Auto 1.37 K/mm3 (0.9-3.2); Lymphocytes Percent Auto 10.5 % (18.3-44.2); Mean Corpuscular HGB Conc 31.9 g/dl (32-36); Mean Corpuscular Hemoglobin 29.5 pg (26-34); Mean Corpuscular Volume 92.6 fl (80-100); Mean Platelet Volume 8.5 fl (7.4-10.4); Monocytes Absolute Auto 0.9 K/mm3 (0.1-0.6); Monocytes Percent Auto 7.1 % (2.6-8.5); Neutrophils Absolute Auto 10.5 K/mm3 (1.3-6.7); Neutrophils Percent Auto 80.8 % (45.5-73.1); Platelet Count Result 351 k/mm3 (150-375); Red Blood Count 3.76 M/mm3 (4.2-5.4); Red Cell Distribution Width 14.3 % (11.5-14.5)
[2023-02-25 12:34] LABS: Alanine Aminotransferase 21 U/L (6-35); Albumin Level 3.7 g/dL (3.5-5.1); Alkaline Phosphatase 83 U/L (38-126); Anion Gap 8 mmol/L (8-16); Aspartate Amino Transferase 25 U/L (14-36); Bilirubin,Total 0.5 mg/dL (0.2-1.3); Blood Urea Nitrogen 21 mg/dL (7-17); Calcium 9.3 mg/dL (8.4-10.2); Carbon Dioxide 30 mmol/L (22-30); Chloride 95 mmol/L (98-107); Estimated CRCL calculation 41 ml/min; Estimated Glomerular Filt Rate 48; Glucose 169 mg/dL (65-110); Lipase 118 U/L (23-300); Potassium 3.9 mmol/L (3.4-5.0); Sodium 133 mmol/L (137-145)
[2023-02-25] MEDS: PROCHLORPERAZINE EDISYLATE 10 MG/2 ML VIAL IV PUSH (13:27)
[2023-02-25] MEDS: SODIUM CHLORIDE 0.9% IV 1,000 ML 999 ML IV CONT (13:27)
[2023-02-25] MEDS: ONDANSETRON INJ 4 MG/2 ML VIAL IV PUSH (13:27)
[2023-02-25 13:30] LABS: Influenza A QL RT-PCR Negative (Negative); Influenza B QL RT-PCR Negative (Negative); SARS-CoV-2 RNA PCR Negative (Negative)
--- NOTE | 2023-02-25 13:30 | PC.NURSE ---
pt taken to CT at this time.
[2023-02-25 13:59] LABS: Creatine Kinase 47 U/L (30-135)
--- NOTE | 2023-02-25 14:27 | ED.GENADULT ---
HPI - General Adult General Chief complaint: Unspecified Stated complaint: gonzales/body aches Time Seen by Provider: 02/25/23 11:45 Source: patient, RN notes reviewed and old records reviewed Mode of arrival: ambulatory Limitations: no limitations History of Present Illness HPI narrative: THis is a 77 year old female with history of DM, chronic UTI who presents for evaluation of multiple complaints. She states her symptoms started 2 weeks ago with symptoms of UTI. She reports she was evaluated by a provider and urine sample was given. She states she takes nitrofurantoin daily but they did not prescribe new medication for a UTI. She has been having intermittent throbbing frontal headache for 2 weeks . She developed nausea , vomiting and diarrhea 4 days ago . She states she has been unable to take her medications due to vomiting. She had abdominal pain and back pain but they resolved. she does report having pain all over her body. She denies fever or chills. Related Data Home Medications Medication Instructions Recorded Confirmed aspirin 81 mg tablet,delayed 81 mg PO DAILY 06/21/19 02/24/23 release biotin 5,000 mcg disintegrating 10,000 mcg PO DAILY 06/21/19 02/24/23 tablet acidophilus 100 million 1 cap PO DAILY 06/11/20 02/24/23 cell-pectin, citrus 10 mg capsule (Acidophilus Probiotic) dulaglutide 0.75 mg/0.5 mL 0.75 mg subcut WEEKLY 08/19/22 02/24/23 subcutaneous pen injector (Trulicity) insulin degludec 100 unit/mL 20 unit subcut DAILY 08/19/22 02/24/23 subcutaneous solution (Tresiba U-100 Insulin) multivitamin with minerals-folic 1 tablet PO DAILY 08/19/22 02/24/23 acid 0.4 mg tablet nitrofurantoin macrocrystal 50 mg 50 mg PO DAILY 08/19/22 02/25/23 capsule simvastatin 20 mg tablet 20 mg PO DAILY 08/19/22 02/24/23 omega 7-uze-bnb-fish oil 1,000 mg 1 cap PO DAILY 08/26/22 02/24/23 (120 mg-180 mg) capsule (Fish Oil) losartan 50 mg-hydrochlorothiazide 50 tablet PO DAILY 02/25/23 02/25/23 12.5 mg tablet metformin 1,000 mg tablet 1,000 mg PO BID 02/25/23 02/25/23 Allergies Allergy/AdvReac Type Severity Reaction Status Date / Time Sulfa (Sulfonamide Allergy Severe Fever Verified 02/25/23 17:22 Antibiotics) sulfamethoxazole Allergy Severe Fever Verified 02/25/23 17:22 [From Bactrim] trimethoprim [From Bactrim] Allergy Severe Fever Verified 02/25/23 17:22 ciprofloxacin Allergy Intermediate Anaphylactic Verified 02/25/23 17:22 Shock Review of Systems Constitutional: Constitutional: Reports weakness Cardiovascular: Cardiovascular: Denies syncope, Denies rapid heart rate, Denies irregular heart rhythm, Denies leg edema and Denies dyspnea Respiratory: Respiratory: Denies chest congestion, Denies hemoptysis, Denies excessive phlegm production and Denies dyspnea Gastrointestinal: Gastrointestinal: Reports abdominal pain, Denies hematochezia, Reports diarrhea and Reports vomiting Genitourinary: Genitourinary: Denies hematuria and Reports dysuria Musculoskeletal: Musculoskeletal: Reports back pain, Reports myalgias, Denies joint swelling, Denies loss of height and Denies muscle weakness Neurologic: Denies syncope, Reports headache(s), Denies focal weakness and Reports weakness PMFSH Past Medical History Medical History Diabetes mellitus GERD (gastroesophageal reflux disease) HLD (hyperlipidemia) HTN (hypertension) Hypothyroidism (acquired) Nephrolithiasis Obesity Vitamin D deficiency disease Surgical History Surgical History History of ureter stent Family History Family History Mother Family history of arthritis Heart disease 08/2021 heart attack Father Patient's father is , Onset Age: 75 Grandparent Diabetes mellitus Social History Social History (Reviewed
[2023-02-25] MEDS: SODIUM CHLORIDE 0.9% IV 1,000 ML 125 ML IV CONT (16:00)
--- NOTE | 2023-02-25 16:37 | ADMGEN ---
This patient, Deborah Cancino, was admitted to [facility] Surg Room 328-01 at 1625. Patient/family oriented to hospital policies and general routines including ID bracelet, bed and alarms, visiting hours, pain management, procedures, bathroom and other care routines, personal items, smoking policy, room service/diet, and visiting hours. Information on how to activate the Rapid Response Team has been discussed. Patient/Family are encouraged to report perceived risks to care and to ask questions if they do not understand what they are told or what they should do.
--- NOTE | 2023-02-25 16:42 | WPDURCON ---
Assessment and Plan Assessment and plan (1) Hydronephrosis, left: Code(s): N13.30 - Unspecified hydronephrosis Status: Acute Assessment and Plan: Consistent with CT from 04/24. Will keep NPO after midnight and re-evaluate creatinine in the morning and sympotms. If pain and creatinine are not improved, will discuss possible ureteroscopy with dilation and stent placement with Dr. Klein tomorrow. (2) Stricture of left ureter: Code(s): N13.5 - Crossing vessel and stricture of ureter without hydronephrosis Status: Acute (3) UTI (urinary tract infection): Qualifiers: Hematuria presence: without hematuria Urinary tract infection type: site unspecified Qualified Code(s): N39.0 - Urinary tract infection, site not specified Code(s): N39.0 - Urinary tract infection, site not specified Status: Inactive Assessment and Plan: Continue IV antibiotics, tailor to blood and urine sensitivities. Urology Consult Note HPI Date Seen: 02/25/23 Time Seen: 16:42 Requesting Physician: Hero Pierce MD Primary Care Provider: Hero Lujan MD Consult Narrative Reason for consult: left ureteral stricture, UTI Narrative: Deborah Cancino is a 77 year old female who presented to the ER today for worsening UTI symptoms that started 2 weeks ago. She was seen by her PCP and given Nitrofurantoin but became unable to take it 4 days ago d/t increasing nausea, vomiting and diarrhea. She also c/o abdominal pain and a headache. She is currently afebrile, but tachycardic, hypertensive, has leukocytosis of 13,000, creatinine of 1.10, UA is suggestive of a UTI, blood and urine cultures are pending at this time. CT scan today shows chronic left hydronephrosis, possible left distal ureteral stricture, mild progression of stricture and cystitis. As compared to the CT done on 04/13/22 when she had pyelonephritis in the left ureter, cystitis, possible left distal ureteral stricture at that time as well. She has been started on Ceftriaxone. Review of Systems Cardiovascular: Cardiovascular: Denies chest pain Respiratory: Respiratory: Reports no additional respiratory complaints Gastrointestinal: Gastrointestinal: Reports abdominal pain, Reports diarrhea, Reports nausea and Reports vomiting Genitourinary: Genitourinary: Reports nocturia, Reports dysuria, Denies pelvic pain, Reports flank pain, Denies urinary incontinence, Denies urinary hesitancy and Reports urinary urgency PMFSH Past Medical History Medical History Diabetes mellitus GERD (gastroesophageal reflux disease) HLD (hyperlipidemia) HTN (hypertension) Hypothyroidism (acquired) Nephrolithiasis Obesity Vitamin D deficiency disease Surgical History Surgical History History of ureter stent Family History Family History Mother Family history of arthritis Heart disease 08/2021 heart attack Father Patient's father is , Onset Age: 75 Grandparent Diabetes mellitus Social History Social History Smoking packs per day: 2 Smoking cigarettes per day: 40.0 Years smoked: 3 Smoking pack-years: 6.00 Smoking status: Former smoker Tobacco type: cigarettes Additional smoking assessment comments: STATES QUIT OVER 50YRS AGO Alcohol intake: never Drinks per week: 2 Substance use: never Substance use type: does not use Lack of Transportation: No Lack of Food: Never True Current Housing: I Have Housing Concerned About Future Housing: No Difficulty Paying Gas/Electric Bills: No Difficulty Paying for Meds: No Currently Unemployed: No Education: Associate Degree Difficulty w/ Childcare or Family Care: No Living arrangements: alone Gender iden
[2023-02-25 16:54] LABS: Glucose Point of Care 138 mg/dl (65-105)
[2023-02-25 20:22] LABS: Glucose Point of Care 210 mg/dl (65-105)
--- NOTE | 2023-02-25 21:44 | PC.NURSE ---
Spoke with Yvette García PATROL LADY at this time r/t patient having BG of 210 and no orders for her diabetic medications. New orders received for novolog 4 units once and give snack before [facility] at [facility].
[2023-02-25] MEDS: INSULIN ASPART (*BKC) 100 UNITS/ML SUB-Q (21:52)
[2023-02-26] VITALS (12 sets, daily range): BP systolic 116–136; BP diastolic 48–63; PULSE 80–96; RESP 16–22; TEMP 36.1–36.4; O2SAT 96–100
[2023-02-26] MEDS: SODIUM CHLORIDE 0.9% IV 1,000 ML 125 ML IV CONT ×3 (01:12→21:49)
[2023-02-26 05:48] LABS: Glucose Point of Care 131 mg/dl (65-105)
[2023-02-26 07:26] LABS: Basophils Percent Auto 0.4 % (0.2-1.2); Eosinophils Percent Auto 0.1 % (0-4.4); Hematocrit 29.5 % (37.0-47.0); Hemoglobin 9.2 g/dL (12.0-15.0); Immature Granulocyte Absolute 0.12 K/mm3 (0.00-0.031); Immature Granulocyte Percent A 1.2 % (0-0.5); Lymphocytes Percent Auto 11.6 % (18.3-44.2); Mean Corpuscular HGB Conc 31.2 g/dl (32-36); Mean Corpuscular Hemoglobin 29.3 pg (26-34); Mean Corpuscular Volume 93.9 fl (80-100); Mean Platelet Volume 8.4 fl (7.4-10.4); Monocytes Absolute Auto 0.9 K/mm3 (0.1-0.6); Monocytes Percent Auto 8.8 % (2.6-8.5); Neutrophils Percent Auto 77.9 % (45.5-73.1); Platelet Count Result 293 k/mm3 (150-375); Red Blood Count 3.14 M/mm3 (4.2-5.4); Red Cell Distribution Width 14.5 % (11.5-14.5); White Blood Count 10.3 K/mm3 (4.5-10.0)
[2023-02-26 07:40] LABS: Potassium 3.3 mmol/L (3.4-5.0)
[2023-02-26 07:43] LABS: Alanine Aminotransferase 20 U/L (6-35); Albumin Level 2.9 g/dL (3.5-5.1); Alkaline Phosphatase 61 U/L (38-126); Anion Gap 6 mmol/L (8-16); Aspartate Amino Transferase 28 U/L (14-36); Bilirubin,Total 0.4 mg/dL (0.2-1.3); Blood Urea Nitrogen 15 mg/dL (7-17); Calcium 8.2 mg/dL (8.4-10.2); Carbon Dioxide 26 mmol/L (22-30); Chloride 100 mmol/L (98-107); Estimated CRCL calculation 45 ml/min; Estimated Glomerular Filt Rate 54; Glucose 150 mg/dL (65-110); Sodium 132 mmol/L (137-145)
[2023-02-26 09:17] LABS: Hemoglobin A1C 6.5 % (<5.7)
--- NOTE | 2023-02-26 10:29 | PM.IMHP ---
H&P: HPI History of Present Illness Date/Time: 02/26/23 10:29 Chief Complaint: uti Narrative: 77-year-old female with history of diabetes, hypothyroidism, hypertension, hyperlipidemia other comorbidities is presenting with dysuria. She was being treated for a UTI on outpatient basis but continued to have progressively worsening symptoms including nausea, vomiting and diarrhea. In the ER, UA was concerning for UTI. CT showed left hydronephrosis with possible ureteral stricture neurology was consulted. Cystoscopy was performed with several biopsies taken as well as a stent placed. Patient denies any fevers or chills, no chest pain or shortness of breath. [facility] Past Medical History Medical History Diabetes mellitus GERD (gastroesophageal reflux disease) HLD (hyperlipidemia) HTN (hypertension) Hypothyroidism (acquired) Nephrolithiasis Obesity Vitamin D deficiency disease Surgical History Surgical History History of ureter stent Family History Family History Mother Family history of arthritis Heart disease 08/2021 heart attack Father Patient's father is , Onset Age: 75 Grandparent Diabetes mellitus Social History Social History Smoking packs per day: 2 Smoking cigarettes per day: 40.0 Years smoked: 3 Smoking pack-years: 6.00 Smoking status: Former smoker Tobacco type: cigarettes Additional smoking assessment comments: STATES QUIT OVER 50YRS AGO Alcohol intake: never Drinks per week: 2 Substance use: never Substance use type: does not use Lack of Transportation: No Lack of Food: Never True Current Housing: I Have Housing Concerned About Future Housing: No Difficulty Paying Gas/Electric Bills: No Difficulty Paying for Meds: No Currently Unemployed: No Education: Associate Degree Difficulty w/ Childcare or Family Care: No Living arrangements: alone Gender identity (if verbalized by the patient): Female Spiritual care concerns: No Meds Home Medications and Allergies Home Medications Medication Instructions Recorded Confirmed Type aspirin 81 mg tablet,delayed 81 mg PO DAILY 06/21/19 02/25/23 History release biotin 5,000 mcg disintegrating 5,000 mcg PO DAILY 06/21/19 02/25/23 History tablet acidophilus 100 million 1 cap PO DAILY 06/11/20 02/25/23 History cell-pectin, citrus 10 mg capsule (Acidophilus Probiotic) insulin degludec 100 unit/mL 20 unit subcut DAILY 08/19/22 02/25/23 History subcutaneous solution (Tresiba U-100 Insulin) multivitamin with minerals-folic 1 tablet PO DAILY 08/19/22 02/25/23 History acid 0.4 mg tablet nitrofurantoin macrocrystal 50 mg 50 mg PO DAILY 08/19/22 02/25/23 History capsule simvastatin 20 mg tablet 20 mg PO DAILY 08/19/22 02/25/23 History omega 5-xqs-pbj-fish oil 1,000 mg 1 cap PO DAILY 08/26/22 02/25/23 History (120 mg-180 mg) capsule (Fish Oil) ferrous sulfate 325 mg (65 mg 325 mg PO BID 30 days #60 tabs 12/08/22 02/25/23 Rx iron) tablet dulaglutide 1.5 mg/0.5 mL 1.5 mg subcut WEEKLY 02/25/23 02/25/23 History subcutaneous pen injector (Trulicity) glimepiride 1 mg tablet 1 mg PO BID 02/25/23 02/25/23 History levothyroxine 25 mcg tablet 25 mcg PO DAILY 02/25/23 02/25/23 History losartan 50 mg-hydrochlorothiazide 50 tablet PO DAILY 02/25/23 02/25/23 History 12.5 mg tablet metformin 1,000 mg tablet 1,000 mg PO BID 02/25/23 02/25/23 History Allergies Allergy/AdvReac Type Severity Reaction Status Date / Time Sulfa (Sulfonamide Allergy Severe Fever Verified 02/25/23 17:22 Antibiotics) sulfamethoxazole Allergy Severe Fever Verified 02/25/23 17:22 [From Bactrim] trimethoprim [From Bactrim] Allergy Severe Fever Verifi
[2023-02-26 11:53] LABS: Glucose Point of Care 125 mg/dl (65-105)
--- NOTE | 2023-02-26 13:22 | WPDANESEPPF ---
Anes - Initial Pre Proc Eval Procedure: Operation Date: 02/26/23 14:00 Proposed Procedures p Cystoscopy, Left Ureteroscopy, Possible Left Retrograde Pyelogram, Possible Left Stone Extraction, Possible Left Stent Placement - Evan Klein MD Date/Time: 02/26/23 13:22 Surgeon: Hero Pierce MD Pre Op Diagnosis: uti,sepsis,left ureter sctricture Patient Data Age: 77 Gender: F Height: 1.57 m Weight: 91.9 kg Last Vital Signs Temp 36.1 C L 02/26/23 06:45 Pulse 96 02/26/23 06:45 Resp 16 02/26/23 06:45 BP 131/55 L 02/26/23 06:45 Pulse Ox 96 02/26/23 10:17 O2 Del Method Room Air 02/26/23 10:17 Allergies Allergy/AdvReac Type Severity Reaction Status Date / Time Sulfa (Sulfonamide Allergy Severe Fever Verified 02/25/23 17:22 Antibiotics) sulfamethoxazole Allergy Severe Fever Verified 02/25/23 17:22 [From Bactrim] trimethoprim [From Bactrim] Allergy Severe Fever Verified 02/25/23 17:22 ciprofloxacin Allergy Intermediate Anaphylactic Verified 02/25/23 17:22 Shock Home Medications Medication Instructions Recorded Confirmed Type aspirin 81 mg tablet,delayed 81 mg PO DAILY 06/21/19 02/25/23 History release biotin 5,000 mcg disintegrating 5,000 mcg PO DAILY 06/21/19 02/25/23 History tablet acidophilus 100 million 1 cap PO DAILY 06/11/20 02/25/23 History cell-pectin, citrus 10 mg capsule (Acidophilus Probiotic) insulin degludec 100 unit/mL 20 unit subcut DAILY 08/19/22 02/25/23 History subcutaneous solution (Tresiba U-100 Insulin) multivitamin with minerals-folic 1 tablet PO DAILY 08/19/22 02/25/23 History acid 0.4 mg tablet nitrofurantoin macrocrystal 50 mg 50 mg PO DAILY 08/19/22 02/25/23 History capsule simvastatin 20 mg tablet 20 mg PO DAILY 08/19/22 02/25/23 History omega 0-bzd-ofd-fish oil 1,000 mg 1 cap PO DAILY 08/26/22 02/25/23 History (120 mg-180 mg) capsule (Fish Oil) ferrous sulfate 325 mg (65 mg 325 mg PO BID 30 days #60 tabs 12/08/22 02/25/23 Rx iron) tablet dulaglutide 1.5 mg/0.5 mL 1.5 mg subcut WEEKLY 02/25/23 02/25/23 History subcutaneous pen injector (Trulicity) glimepiride 1 mg tablet 1 mg PO BID 02/25/23 02/25/23 History levothyroxine 25 mcg tablet 25 mcg PO DAILY 02/25/23 02/25/23 History losartan 50 mg-hydrochlorothiazide 50 tablet PO DAILY 02/25/23 02/25/23 History 12.5 mg tablet metformin 1,000 mg tablet 1,000 mg PO BID 02/25/23 02/25/23 History Laboratory Tests 02/25/23 02/25/23 02/25/23 12:18 12:45 16:52 WBC RBC Hgb Hct MCV MCH MCHC RDW Plt Count MPV Immature Gran % (Auto) Neut % (Auto) Lymph % (Auto) Hardy % (Auto) Eos % (Auto) Baso % (Auto) Lymph # (Auto) Hardy # (Auto) Eos # (Auto) Baso # (Auto) Abs Immat Gran (auto) Absolute Neuts (auto) Absolute Nucleated RBC Nucleated RBC % Sodium Potassium Chloride Carbon Dioxide Anion Gap BUN Creatinine Estim Creat Clear Calc Estimated GFR Glucose POC Capillary Glucose 138 H mg/dl (65-105) Hemoglobin A1c Calcium Total Bilirubin AST ALT Alkaline Phosphatase Total Creatine Kinase 47 U/L (30-135) Total Protein Albumin Influenza A (RT-PCR) Negative (Negative) Influenza B (RT-PCR) Negative (Negative) SARS-CoV-2 RNA (RT-PCR) Negative (Negative) 02/25/23 02/26/23 02/26/23 20:14 05:42 07:15 WBC 10.3 H K/mm3 (4.5-10.0) RBC 3.14 L M/mm3 (4.2-5.4) Hgb
--- NOTE | 2023-02-26 13:35 | WPDHPUPDATE1 ---
History and Physical Update Update Date/Time: 02/26/23 13:35 History and Physical has been reviewed, including an updated exam of the patient. There are NO changes in the patient's condition. Risks, benefits, and alternatives have been discussed and questions answered. Patient agrees to proceed with procedure.
--- NOTE | 2023-02-26 13:42 | PCCCNOTE ---
On 02/26/23, the student, [Violetta Samuels], provided care and completed [facility] documentation on this patient. I have reviewed the student's documentation and agree with the findings.
--- NOTE | 2023-02-26 14:21 | W.PM.PROC2 ---
Procedure Note - Detailed Date of Procedure 02/26/23 Pre-op Diagnosis uti,sepsis,left ureter sctricture Post-op Diagnosis Same Procedure Performed Cystoscopy, left retrograde pyelography, left ureteroscopy with biopsy and ureteral stent placement Surgeon Evan Klein MD Anesthesia General Findings Concentric narrowing of the left distal ureter most likely consistent with stricture Description of Procedure patient is brought to the op suite where she was prepped draped in routine sterile fashion while in dorsal lithotomy position. Cystoscopy is undertaken with a 21 F rigid cystoscope. Bladder neck and urethra endoscopically normal. Bladder mucosa is normal without signs of neoplasm. There was no intravesical foreign body. She has a single orthotopic ureteral orifice bilaterally. Eight F bulb-tipped catheter was used to obtain left retrograde pyelogram. There was smooth concentric narrowing of the very distal most left ureter without obvious filling defects. I placed a 0.035 in glidewire, dilated the distal ureter with an 8 F 10 F dilator and did left distal ureteroscopy with a semi-rigid ureteral scope. It should be noted on retrograde pyelography the more proximal ureter and collecting system appeared unremarkable. Ureteroscopy showed findings of edema without jm neoplasm. I did obtain several biopsies from the site followed by balloon dilatation at 15 atmospheres for 4 minutes. I placed a 6 F variable length stent with proximal coil in the renal pelvis and distal coil in the bladder. Scopes and wires removed she was taken recovery room good condition. Urine Output 200 Drains Yes Pathology Yes Complications No immediate complications Condition Stable
[2023-02-26] MEDS: LACTATED RINGERS 1,000 ML 30 ML IV CONT ×2 (14:23→14:31)
[2023-02-26 14:39] LABS: Glucose Point of Care 118 mg/dl (65-105)
[2023-02-26 16:31] LABS: Glucose Point of Care 151 mg/dl (65-105)
[2023-02-26] MEDS: POTASSIUM CHLORIDE 20 MEQ ER TABLET 40 MEQ PO (17:05)
[2023-02-26] MEDS: FERROUS SULFATE 325 MG TABLET DR PO (17:06)
[2023-02-26] MEDS: metFORMIN HCL 500 MG TABLET 1000 MG PO (17:06)
[2023-02-26] MEDS: GLIMEPIRIDE 1 MG TABLET PO (17:06)
[2023-02-26 21:11] LABS: Glucose Point of Care 258 mg/dl (65-105)
[2023-02-26] MEDS: HYDROcodone/acetaminophen (*CRX) 5-325 MG TABLET 1 TAB PO (23:10)
[2023-02-26] MEDS: INSULIN ASPART (*BKC) 100 UNITS/ML SUB-Q (23:12)
[2023-02-27] MEDS: SODIUM CHLORIDE 0.9% IV 1,000 ML 125 ML IV CONT ×2 (05:07→13:13)
[2023-02-27] MEDS: LEVOTHYROXINE SODIUM 25 MCG TABLET PO (05:07)
[2023-02-27 06:41] LABS: Hematocrit 31.1 % (37.0-47.0); Hemoglobin 9.5 g/dL (12.0-15.0); Immature Granulocyte Absolute 0.06 K/mm3 (0.00-0.031); Immature Granulocyte Percent A 0.6 % (0-0.5); Lymphocytes Absolute Auto 0.65 K/mm3 (0.9-3.2); Lymphocytes Percent Auto 6.9 % (18.3-44.2); Mean Corpuscular HGB Conc 30.5 g/dl (32-36); Mean Corpuscular Hemoglobin 28.8 pg (26-34); Mean Corpuscular Volume 94.2 fl (80-100); Mean Platelet Volume 8.7 fl (7.4-10.4); Monocytes Absolute Auto 0.6 K/mm3 (0.1-0.6); Neutrophils Absolute Auto 8.2 K/mm3 (1.3-6.7); Neutrophils Percent Auto 86.5 % (45.5-73.1); Platelet Count Result 316 k/mm3 (150-375); Red Cell Distribution Width 14.3 % (11.5-14.5); White Blood Count 9.5 K/mm3 (4.5-10.0)
[2023-02-27 06:51] VITALS: BP 150/72; PULSE 74; RESP 16; TEMP 36.1; O2SAT 99
[2023-02-27 07:07] LABS: Alanine Aminotransferase 28 U/L (6-35); Albumin Level 3.1 g/dL (3.5-5.1); Alkaline Phosphatase 75 U/L (38-126); Anion Gap 6 mmol/L (8-16); Aspartate Amino Transferase 33 U/L (14-36); Bilirubin,Total 0.3 mg/dL (0.2-1.3); Blood Urea Nitrogen 15 mg/dL (7-17); Calcium 8.3 mg/dL (8.4-10.2); Carbon Dioxide 23 mmol/L (22-30); Chloride 107 mmol/L (98-107); Estimated CRCL calculation 56 ml/min; Estimated Glomerular Filt Rate > 60; Glucose 186 mg/dL (65-110); Potassium 4.4 mmol/L (3.4-5.0); Sodium 136 mmol/L (137-145)
--- NOTE | 2023-02-27 07:36 | WPDUROPN2 ---
Progress Note: A&P Assessment and Plan (1) Acute UTI: Code(s): N39.0 - Urinary tract infection, site not specified Status: Acute (2) Stricture of left ureter: Code(s): N13.5 - Crossing vessel and stricture of ureter without hydronephrosis Status: Acute Assessment and Plan: Tolerating left ureteral stent - plan to leave in place x4-6 weeks. Subjective Subjective Date/Time Seen: 02/27/23 07:36 Interval history: Comfortable, tolerating stent Review of Systems Cardiovascular: Cardiovascular: Denies chest pain, Denies lightheadedness, Denies palpitations and Denies dyspnea Respiratory: Respiratory: Denies dyspnea Gastrointestinal: Gastrointestinal: Denies diarrhea, Denies nausea and Denies vomiting Genitourinary: Genitourinary: Denies hematuria and Denies dysuria Endocrine: Endocrine: Denies palpitations Exam Const: General: no acute distress Resp: Effort & Inspection: normal respiratory effort GI: Inspection: non-distended GI Palp: No abdominal tenderness and No Guarding due to palpation present (GI) Auscultation: normal bowel sounds Objective Data Vital Signs Vital Signs: Vital Signs - 24 hr 02/26/23 10:17 02/26/23 08:00 02/26/23 14:23 Temperature 97.6 F Pulse Rate 80 Respiratory Rate 19 Blood Pressure 116/58 L Pulse Oximetry 96 96 98 Oxygen Delivery Room Air Room Air Simple Face Mask Oxygen Flow Rate 6 02/26/23 14:33 02/26/23 14:35 02/26/23 14:50 Temperature Pulse Rate 84 83 84 Respiratory Rate 20 17 22 H Blood Pressure 120/55 L 132/63 132/61 Pulse Oximetry 100 100 96 Oxygen Delivery Simple Face Mask Simple Face Mask Room Air Oxygen Flow Rate 6 6 02/26/23 15:05 02/26/23 15:20 02/26/23 20:35 Temperature 97.1 F L Pulse Rate 85 85 90 Respiratory Rate 20 22 H 16 Blood Pressure 132/63 122/48 L 136/57 L Pulse Oximetry 97 98 96 Oxygen Delivery Room Air Room Air Oxygen Flow Rate 02/26/23 20:00 02/26/23 22:10 02/27/23 06:51 Temperature 97 F L Pulse Rate 85 74 Respiratory Rate 22 H 16 Blood Pressure 150/72 H Pulse Oximetry 98 96 99 Oxygen Delivery Room Air Room Air Oxygen Flow Rate Intake/Output Intake/Output: Intake & Output 02/24/23 02/25/23 02/26/23 02/27/23 23:59 23:59 23:59 23:59 Intake Total 1800 3800 1000 Output Total 1250 600 Balance 1800 2550 400 Meds/Results Medications: Active Medications Generic Name Dose Route Start Last Admin Trade Name Freq PRN Reason Stop Dose Admin Acetaminophen 650 mg 02/25/23 15:18 Acetaminophen 325 Mg Tablet PO Q4H PRN Mild Pain (1-3) or Fever Hydrocodone Bitart/Acetaminophen 1 tab 02/25/23 17:40 02/26/23 23:10 Hydrocodone/Acetaminophen (*Crx) 5-325 Mg Tablet PO 1 tab Q4H PRN Administration Pain Rated 4-6 Aspirin 81 mg 02/27/23 09:00 Aspirin 81 Mg Enteric Tablet PO DAILY CYNDIE Dextrose 12.5 gm 02/26/23 01:00 Dextrose 50% 25 Gm/50 Ml Syringe IV PUSH PRN PRN Hypoglycemia Protocol Ferrous Sulfate 325 mg 02/26/23 17:00 02/26/23 17:06 Ferrous Sulfate [address] PO 03/28/23 16:59 325 mg BID CYNDIE Administration Fish Oil 1 gm 02/27/23 09:00 [place] 3 Polyunsat Fatty Acids 1 Gm Cap PO DAILY CYNDIE Glimepiride 1 mg 02/26/23 17:00 02/26/23 17:06 Glimepiride 1 Mg Tablet PO 1 mg BIDWM CYNDIE Administration Glucagon 1 mg 02/26/23 01:00 Glucagon For Inj 1 Mg Vial IM PRN PRN Hypoglycemia Protocol Glucose 15 gm 02/26/23 01:00 Glucose Oral Gel 15 Gm Of Glucse In 37.5 Gm Tube PO PRN PRN Hypoglycemia Protocol Hydrochlorothiazide 12.5 mg 02/27/23 09:00 Hydrochlorothiazide 12.5 Mg Capsule PO 03/29/23 08:59 DAILY CYNDIE Ceftriaxone Sodium 1 gm in 50 mls @ 100 mls/hr 02/26/23 14:00 02/26/23 14:09 Rocephin 1 Gm/Ns 50 Ml IVPB Infused Q24H CYNDIE Infusion Sodium Chloride 1,000 mls @ 125 mls/hr 02/25/23 15:20
[2023-02-27 07:54] LABS: Thyroid Stimulating Hormone 0.413 uIU/mL (0.465-4.680)
[2023-02-27 08:01] LABS: Glucose Point of Care 168 mg/dl (65-105)
[2023-02-27] MEDS: GLIMEPIRIDE 1 MG TABLET PO (08:38)
[2023-02-27] MEDS: THERAPEUTIC MULTIVITAMINS/MINERALS TAB (*BKC) 1 TABLET PO (08:38)
[2023-02-27] MEDS: ACIDOPHILUS/BULGARICUS CHEWABLE TABLET 1 TABLET PO (08:38)
[2023-02-27] MEDS: NITROFURANTOIN MACROCRYSTALS 50 MG CAP PO (08:38)
[2023-02-27] MEDS: hydroCHLOROthiazide 12.5 MG CAPSULE PO (08:38)
[2023-02-27] MEDS: LOSARTAN POTASSIUM 50 MG TABLET PO (08:38)
[2023-02-27] MEDS: FERROUS SULFATE 325 MG TABLET DR PO (08:38)
[2023-02-27] MEDS: metFORMIN HCL 500 MG TABLET 1000 MG PO (08:38)
[2023-02-27] MEDS: ASPIRIN 81 MG ENTERIC TABLET PO (08:49)
[2023-02-27 12:16] LABS: Glucose Point of Care 161 mg/dl (65-105)
--- NOTE | 2023-02-27 12:56 | PCCCNOTE ---
On 02/27/23, the student, [Violetta Samuels ], provided care and completed [facility] documentation on this patient. I have reviewed the student's documentation and agree with the findings.
[2023-02-27] MEDS: GENTAMICIN SULFATE INJ 340 MG in DEXTROSE 5% 100 ML 100 MG IVPB (14:17)
--- NOTE | 2023-02-27 16:15 | PM.DS ---
DS: Admitting Diagnosis Discharge Date 02/27/23 Admitting Diagnosis Dysuria DS: Discharge Diagnosis Discharge Diagnosis (1) Sepsis: Code(s): A41.9 - Sepsis, unspecified organism Status: Acute Assessment and Plan: Ureteral stricture and hydronephrosis with associated UTI as the etiology, continue Rocephin started 02/26 (2) Acute UTI: Code(s): N39.0 - Urinary tract infection, site not specified Status: Acute Assessment and Plan: As above (3) Stricture of left ureter: Code(s): N13.5 - Crossing vessel and stricture of ureter without hydronephrosis Status: Acute Assessment and Plan: Appreciate urology consultation, stent placed 02/26 (4) Hypothyroidism (acquired): Code(s): E03.9 - Hypothyroidism, unspecified Status: Acute Assessment and Plan: Check TSH, continue home meds (5) GERD (gastroesophageal reflux disease): Qualifiers: Esophagitis presence: without esophagitis Qualified Code(s): K21.9 - Gastro-esophageal reflux disease without esophagitis Code(s): K21.9 - Gastro-esophageal reflux disease without esophagitis Status: Acute (6) HTN (hypertension): Qualifiers: Hypertension type: essential hypertension Qualified Code(s): I10 - Essential (primary) hypertension Code(s): I10 - Essential (primary) hypertension Status: Acute Assessment and Plan: Blood pressure reviewed 02/26 Continue home med as appropriate (7) HLD (hyperlipidemia): Qualifiers: Hyperlipidemia type: mixed hyperlipidemia Qualified Code(s): E78.2 - Mixed hyperlipidemia Code(s): E78.5 - Hyperlipidemia, unspecified Status: Acute (8) Diabetes mellitus: Code(s): E11.9 - Type 2 diabetes mellitus without complications Status: Acute Assessment and Plan: Blood glucose reviewed 02/26 Hold oral antidiabetic medications, Accu-Cheks and sliding scale insulin ordered Plan DVT prophylaxis with SCDs GI prophylaxis not indicated Code status full code DS: Summary Hospital Course Hospital Course: 77-year-old female with history of diabetes, hypothyroidism, hypertension, hyperlipidemia other comorbidities is presenting with dysuria.? She was being treated for a UTI on outpatient basis but continued to have progressively worsening symptoms including nausea, vomiting and diarrhea.? In the ER, UA was concerning for UTI.? CT showed left hydronephrosis with possible ureteral stricture neurology was consulted.? Cystoscopy was performed with several biopsies taken as well as a stent placed. All symptoms resolved and patient was able to be discharged in stable condition with close outpatient follow-up on antibiotics. Please see above and med rec for details. Time Spent with Patient Time attestation: Total time spent providing and/or coordinating discharge services: DS: Data Data Completed and Pending Pending studies at discharge: Pending at discharge 02/26/23 14:12 Surgical [PTH] Routine Labs on day of discharge: Labs from last 24 hours 02/27/23 02/27/23 02/27/23 12:03 07:40 05:59 WBC RBC Hgb Hct MCV MCH MCHC RDW Plt Count MPV Immature Gran % (Auto) Neut % (Auto) Lymph % (Auto) [place] % (Auto) Eos % (Auto) Baso % (Auto) Lymph # (Auto) [place] # (Auto) Eos # (Auto) Baso # (Auto) Abs Immat Gran (auto) Absolute Neuts (auto) Absolute Nucleated RBC Nucleated RBC % Sodium Potassium Chloride Carbon Dioxide Anion Gap BUN Creatinine Estim Creat Clear Calc Estimated GFR Glucose POC Capillary Glucose 161 H 168 H Calcium Total Bilirubin AST ALT Alkaline Phosphatase Total Protein Albumin TSH 0.413 L 02/27/23 02/26/23 02/26/23 05:58 20:37 16:28 WBC 9.5 RBC 3.30 L Hgb 9.5 L Hct 31.1 L MCV 94.2
--- NOTE | 2023-02-27 18:39 | PC.NURSE ---
Pt has reported that she needs to leave and go home today due to cat being at home and not being fed for 3 days. Pt tolerating ambulation well. Pt did not report any pain. Pt denies any needs other than discharging. Pt compliant with care. Pt was monitored for any changes while here. Pt IV removed tip intact. Pt tolerated well. Pt educated on discharge instructions and antibiotics.
== END 2023-02-27 17:55 | disposition home or self-care (01) | DRG 659 ==
LOC: ANHED 12:20 → ANH3MEDSUR 16:14
PROVIDERS: Nurse Practitioner; Urology; Admitting Provider Chiropractor; Emergency Provider General Practice; PCP Emergency Medicine; Visit Provider Student in an Organized Health Care Education/Training Program
PROC: 0T778DZ Dilation of Left Ureter with Intraluminal Device, Via Natural or Artificial Opening Endoscopic (ICD-10-PCS; CPT 52352; principal; 2023-02-26 14:00)
DX: N13.1 Hydronephrosis with ureteral stricture, not elsewhere classified (principal); A41.9 Sepsis, unspecified organism; N39.0 Urinary tract infection, site not specified; E11.9 Type 2 diabetes mellitus without complications; K21.9 Gastro-esophageal reflux disease without esophagitis; E78.5 Hyperlipidemia, unspecified; E03.9 Hypothyroidism, unspecified; E55.9 Vitamin D deficiency, unspecified; E66.9 Obesity, unspecified; I10 Essential (primary) hypertension; Z68.37 Body mass index [BMI] 37.0-37.9, adult; Z79.82 Long term (current) use of aspirin; Z79.84 Long term (current) use of oral hypoglycemic drugs; Z79.4 Long term (current) use of insulin; Z20.822 Contact with and (suspected) exposure to COVID-19; Z87.891 Personal history of nicotine dependence
CPT/HCPCS: 36415; 70450; 71046; 74177; 74420; 80053; 81001; 82550; 82948; 83036; 83605; 83690; 84443; 85025; 87040; 87077; 87086; 87186; 87636; 88305; 96361; 96374; 96375; 99285; A9270; C1726; C1758; C2617; J0696; J0780; J1100; J1580; J1815; J2250; J2405; J2704; J7030; J7120; Q9966; Q9967

== ENCOUNTER 2023-04-28 13:38 | Outpatient (CLI) | payer MEDICARE, SELFPAY ==
--- NOTE | ~2023-04-28 | DEXA_ITS ---
Bone Density Report Name: KRISTINA LEBLANC Age: 77 Sex: Female Ethnicity: White Date of : 1945 Indication: postmenopausal; screening for osteoporosis; height loss; Referring Provider: NIKOLAI REGALADO Study: Bone densitometry was performed. Exam Date: April 28, 2023 Accession number: [id number] Bone Density: Region BMD T-score Z-score Classification AP Spine(L1-L4) 1.161 1.0 3.5 Normal Femoral Neck (Left) 0.665 -1.7 0.5 Osteopenia Total Hip (Left) 0.840 -0.8 1.0 Normal Femoral Neck (Right) 0.643 -1.9 0.3 Osteopenia Total Hip (Right) 0.858 -0.7 1.1 Normal Total Hip Mean 0.849 -0.8 1.1 Normal World Health Organization criteria for BMD impression classify patients as: Normal (T-score at or above -1.0), Osteopenia (T-score between -1.0 and -2.5), or Osteoporosis (T-score at or below -2.5). 10-year Fracture Risk(1): Major Osteoporotic Fracture 11% Hip Fracture 2.5% Reported Risk Factors: [place] (), Neck BMD=0.643, BMI=41.2 (1) FRAX(R) Version 3.08. Fracture probability calculated for an untreated patient. Fracture probability may be lower if the patient has received treatment. Previous Exams: Region Exam Age BMD T-score BMD Change BMD Change Date g/cm2 vs Baseline vs Previous Total Hip(Left) 04/28/2023 77 0.840 -0.8 -0.057 (-6.3%) -0.057 (-6.3%) 01/25/2019 73 0.896 -0.4 Total Hip(Right) 04/28/2023 77 0.858 -0.7 -0.060 (-6.6%) -0.060 (-6.6%) 01/25/2019 73 0.918 -0.2 *Denotes significance at 95% confidence level, LSC for Total Hip = 0.027 g/cm2 # Denotes dissimilar scan types or analysis methods Clinical Information Provided by Patient: Patient maximum height was 62 Menopause Age: 44 No regular weight bearing exercise Onset of menses at age 12 Number of children 1 Impression: The patient has low bone mass, based on the Right Femoral Neck T-score. The patient has an estimated ten-year risk of hip fracture of 2.5% and an estimated ten-year risk of major fracture of 11%, based on the WHO FRAX algorithm. The BMD for the Total Hip(Left) decreased, changing by -6.3% since the last DXA exam. Discussion: BONE DENSITY IS LOW AT ONE OR MORE SKELETAL SITES. This patient's lowest T-score is low at one or more skeletal sites. It meets the World Health Organization's (WHO) criteria for ?low bone mass? (T-score between -1.0 and -2.5). The patient's 10-year risk of fracture as calculated by FRAX is less than the threshold where
--- NOTE | ~2023-04-28 | MM_ITS ---
EXAMINATION: MM screening abdulkadir BI w reza HISTORY: Screening mammogram TECHNIQUE: Craniocaudal and mediolateral oblique 3-D tomosynthesis images were obtained and synthetic 2-D images were generated. CAD analysis was submitted and interpreted. COMPARISON: 08/22/2017 diagnostic left mammogram BREAST PARENCHYMAL COMPOSITION: FINDINGS: Right breast: There is no evidence of suspicious mass, calcification, or architectural distortion to suggest malignancy in the right breast. Left breast: There are mammographic asymmetries. Diagnostic left mammogram and left breast ultrasound examination are recommended. IMPRESSION: 1. Left mammographic asymmetries 2. Diagnostic left mammogram and left breast ultrasound examination are recommended BI-RADS Category 0: Incomplete: Needs additional imaging evaluation. Reviewed, dictated and finalized at location A. IMPRESSION: 1. Left mammographic asymmetries 2. Diagnostic left mammogram and left breast ultrasound examination are recomme nded BI-RADS Category 0: Incomplete: Needs additional imaging evaluation.
== END 2023-04-28 13:39 | disposition home or self-care (01) ==
PROVIDERS: PCP Emergency Medicine; Visit Provider Registered Nurse
DX: Z12.31 Encounter for screening mammogram for malignant neoplasm of breast (principal); Z78.0 Asymptomatic menopausal state; R92.8 Other abnormal and inconclusive findings on diagnostic imaging of breast; M85.852 Other specified disorders of bone density and structure, left thigh; M85.851 Other specified disorders of bone density and structure, right thigh
CPT/HCPCS: 77063; 77067; 77080

== ENCOUNTER 2023-05-04 11:42 | Outpatient (CLI) | payer MEDICARE, SELFPAY | END 2023-05-04 11:43 | disposition home or self-care (01) | LOC: ANHLAB 11:44 | PROVIDERS: PCP Emergency Medicine; Visit Provider Physician Assistant | DX: D64.9 Anemia, unspecified (principal) | CPT/HCPCS: 36415; 82728 ==

== ENCOUNTER 2023-07-07 09:08 | Outpatient (CLI) | payer MEDICARE, SELFPAY ==
[2023-07-07 09:55] LABS: Basophils Percent Auto 0.5 % (0.2-1.2); Eosinophils Absolute Auto 0.6 K/mm3 (0-0.3); Eosinophils Percent Auto 7.6 % (0-4.4); Hematocrit 39.3 % (37.0-47.0); Hemoglobin 12.2 g/dL (12.0-15.0); Immature Granulocyte Absolute 0.02 K/mm3 (0.00-0.031); Immature Granulocyte Percent A 0.2 % (0-0.5); Lymphocytes Absolute Auto 1.94 K/mm3 (0.9-3.2); Lymphocytes Percent Auto 24.2 % (18.3-44.2); Mean Corpuscular Hemoglobin 29.8 pg (26-34); Mean Corpuscular Volume 96.1 fl (80-100); Mean Platelet Volume 9.2 fl (7.4-10.4); Monocytes Absolute Auto 0.6 K/mm3 (0.1-0.6); Monocytes Percent Auto 6.9 % (2.6-8.5); Neutrophils Absolute Auto 4.9 K/mm3 (1.3-6.7); Neutrophils Percent Auto 60.6 % (45.5-73.1); Platelet Count Result 291 k/mm3 (150-375); Red Blood Count 4.09 M/mm3 (4.2-5.4); Red Cell Distribution Width 13.7 % (11.5-14.5)
[2023-07-07 10:25] LABS: Iron 73 ug/dL (37-170)
[2023-07-07 10:43] LABS: Percent Iron Saturation 23 % (20-50)
== END 2023-07-07 09:09 | disposition home or self-care (01) ==
PROVIDERS: PCP Emergency Medicine; Visit Provider Physician Assistant
DX: D64.9 Anemia, unspecified (principal)
CPT/HCPCS: 36415; 82728; 83540; 83550; 85025

== ENCOUNTER 2023-07-16 12:04 | Outpatient (CLI) | payer MEDICARE, SELFPAY ==
--- NOTE | ~2023-07-16 | XR_ITS ---
EXAMINATION: XR abdomen/kub 1V INDICATION: Right flank pain TECHNIQUE: Supine views of the abdomen were obtained on 2 radiographs. COMPARISON: 03/09/2020; CT, 02/25/2023 FINDINGS: No urolithiasis is identified. There are phleboliths of the pelvis. The bowel gas pattern i s normal. Calcified atherosclerosis is noted. IMPRESSION: 1. No urolithiasis identified. Reviewed, dictated and finalized at location L. OR FIELD ENGINEER
== END 2023-07-16 12:05 | disposition home or self-care (01) ==
PROVIDERS: PCP Emergency Medicine; Visit Provider Urology
DX: R10.9 Unspecified abdominal pain (principal)
CPT/HCPCS: 74018

== ENCOUNTER 2023-09-09 08:47 | Outpatient (CLI) | payer MEDICARE, SELFPAY ==
[2023-09-09 09:26] LABS: Cholesterol 152 mg/dL (0-200); HDL Direct 40 mg/dL; Triglycerides 265 mg/dL (<150)
[2023-09-09 09:37] LABS: LDL Cholesterol Direct 74 mg/dL
== END 2023-09-09 08:48 | disposition home or self-care (01) ==
LOC: ANHLAB 08:49
PROVIDERS: PCP Emergency Medicine; Visit Provider Internal Medicine Cardiovascular Disease
DX: E78.2 Mixed hyperlipidemia (principal)
CPT/HCPCS: 36415; 80061

== ENCOUNTER 2023-09-11 08:53 | Outpatient (CLI) | payer MEDICARE, SELFPAY ==
[2023-09-11 09:41] LABS: Alanine Aminotransferase 18 U/L (6-35); Albumin Level 3.9 g/dL (3.5-5.1); Alkaline Phosphatase 83 U/L (38-126); Anion Gap 8 mmol/L (8-16); Aspartate Amino Transferase 24 U/L (14-36); Bilirubin,Total 0.5 mg/dL (0.2-1.3); Blood Urea Nitrogen 20 mg/dL (7-17); Calcium 9.7 mg/dL (8.4-10.2); Carbon Dioxide 29 mmol/L (22-30); Chloride 103 mmol/L (98-107); Estimated Glomerular Filt Rate > 60; Glucose 177 mg/dL (65-110); Potassium 4.3 mmol/L (3.4-5.0); Sodium 140 mmol/L (137-145)
[2023-09-11 09:47] LABS: Creatinine Urine 47.6 mg/dL
[2023-09-11 09:52] LABS: MALB Creatinine Ratio 48.7 mg/g (0-30); Microalbumin Urine Random 23.2 mg/L (0-16.7)
[2023-09-11 10:12] LABS: Free T4 Free Thyroxine 1.25 ng/mL (0.78-2.19)
== END 2023-09-11 08:54 | disposition home or self-care (01) ==
LOC: ANHLAB 08:56
PROVIDERS: PCP Emergency Medicine; Visit Provider Internal Medicine
DX: E03.9 Hypothyroidism, unspecified (principal); E11.9 Type 2 diabetes mellitus without complications
CPT/HCPCS: 36415; 80053; 82043; 84439; 84443

== ENCOUNTER 2023-11-03 13:46 | Outpatient (CLI) | payer MEDICARE, SELFPAY ==
--- NOTE | ~2023-11-03 | US_ITS ---
EXAMINATION: US art doppler w press LE DATE: 11/03/2023 17:04 INDICATION: Peripheral arterial disease. TECHNIQUE: Segmental pressures and plethysmographic and Doppler waveforms of the brachial and lower e xtremity arteries were obtained. COMPARISON: None. FINDINGS: Right and left brachial artery pressures of 140 mm Hg and 122 mm Hg, respectively, are concordant (no rmal difference <= 30 mmHg). The right high-thigh pressure could not be measured due to inability to cuff occlude the arteries. Th e low thigh pressure index is 1.11. The right ankle-brachial index (AMINAH) is 1.16 (normal >= 0.9-1.0). The right great toe-brachial index (TBI) is 0.43 (normal >= 0.65). Arterial Doppler waveforms are tr iphasic from common femoral artery to the ankle The left thigh and below-knee pressures could not be measured due to inability to cuff occlude the ar teries. The left AMINAH is 0.92. The left TBI is 0.39. Arterial Doppler waveforms are biphasic from comm on femoral arteries to the ankle. IMPRESSION: 1. Normal right AMINAH, decreased TBIs, and mildly decreased left AMINAH, consistent with arterial occlusiv e disease. Reviewed, dictated and finalized at location A. IMPRESSION: 1. Normal right AMINAH, decreased TBIs, and mildly decreased left AMINAH, consistent with arterial occlusive disease.
[2023-11-03 16:20] LABS: Basophils Percent Auto 0.4 % (0.2-1.2); Eosinophils Absolute Auto 0.3 K/mm3 (0-0.3); Eosinophils Percent Auto 3.5 % (0-4.4); Hematocrit 41.3 % (37.0-47.0); Hemoglobin 13.3 g/dL (12.0-15.0); Immature Granulocyte Absolute 0.03 K/mm3 (0.00-0.031); Immature Granulocyte Percent A 0.3 % (0-0.5); Lymphocytes Absolute Auto 2.84 K/mm3 (0.9-3.2); Lymphocytes Percent Auto 29.2 % (18.3-44.2); Mean Corpuscular HGB Conc 32.2 g/dl (32-36); Mean Corpuscular Hemoglobin 30.7 pg (26-34); Mean Corpuscular Volume 95.4 fl (80-100); Mean Platelet Volume 9.3 fl (7.4-10.4); Monocytes Absolute Auto 0.6 K/mm3 (0.1-0.6); Monocytes Percent Auto 6.6 % (2.6-8.5); Neutrophils Absolute Auto 5.9 K/mm3 (1.3-6.7); Platelet Count Result 310 k/mm3 (150-375); Red Blood Count 4.33 M/mm3 (4.2-5.4); Red Cell Distribution Width 14.1 % (11.5-14.5); White Blood Count 9.7 K/mm3 (4.5-10.0)
[2023-11-03 18:17] LABS: Iron 54 ug/dL (37-170)
[2023-11-03 18:29] LABS: Percent Iron Saturation 16 % (20-50)
== END 2023-11-03 13:47 | disposition home or self-care (01) ==
PROVIDERS: Physician Assistant; PCP Emergency Medicine; Visit Provider Emergency Medicine
DX: I73.9 Peripheral vascular disease, unspecified (principal); D64.9 Anemia, unspecified
CPT/HCPCS: 36415; 82728; 83540; 83550; 85025; 93923

== ENCOUNTER 2024-03-02 08:24 | Outpatient (CLI) | payer MEDICARE, SELFPAY ==
[2024-03-02 09:46] LABS: Thyroid Stimulating Hormone 0.357 uIU/mL (0.465-4.680)
[2024-03-02 10:40] LABS: Free T4 Free Thyroxine 1.39 ng/mL (0.78-2.19)
== END 2024-03-02 08:25 | disposition home or self-care (01) ==
LOC: ANHLAB 08:27
PROVIDERS: PCP Emergency Medicine; Visit Provider Internal Medicine
DX: E78.5 Hyperlipidemia, unspecified (principal); E03.9 Hypothyroidism, unspecified; E11.9 Type 2 diabetes mellitus without complications; I10 Essential (primary) hypertension
CPT/HCPCS: 36415; 82607; 84439; 84443

== ENCOUNTER 2024-04-11 09:02 | Outpatient (CLI) | payer MEDICARE, SELFPAY ==
--- NOTE | ~2024-04-11 | NM_ITS ---
EXAMINATION: NM nay stress w perfusion DATE: 04/11/2024 11:34 INDICATION: Chest pain TECHNIQUE: Rest images were obtained following intravenous administration of 9.8 mCi Tc99m tetrofosmi n (Myoview). The patient was infused intravenously with Lexiscan (Regadenoson). Then, 21.8 mCi Tc99m tetrofosmin (Myoview) was administered intravenously, and stress images were obtained. Data was recon structed into short axis and horizontal and vertical long axis SPECT images. Gated SPECT images were also obtained. COMPARISON: None. FINDINGS: There is no definite reversible or fixed perfusion abnormality to suggest ischemia or infar ction. There is normal left ventricular chamber size, wall motion and ejection fraction. Left ventr icular ejection fraction measures 34% however visually this appears significantly less than would be expected and appears to result from combination of misalignment along the axis of the heart and cente ring too close to the base of the heart. IMPRESSION: 1. Normal myocardial perfusion at rest and during stress. 2. Left ventricular ejection fraction measurement of 34% however this appears subjectively inaccurate , significantly underestimating the true ejection fraction which appears subjectively normal. Reviewed, dictated and finalized at location B. IMPRESSION: 1. Normal myocardial perfusion at rest and during stress. 2. Left ventricular ejection fraction measurement of 34% however this appears s ubjectively inaccurate, significantly underestimating the true ejection fractio n which appears subjectively normal.
--- NOTE | 2024-04-11 09:17 | EST_ITS ---
Patient Info Name: Deborah Cancino Age: 78 years : 1945 Gender: Female Ht: 61 in Wt: 189 lbs BSA: 1.96 m2 HR: 91 bpm BP: 116 / 75 mmHg Exam Date: 04/11/2024 9:52 AM Exam Location: Echo Lab Patient Status: Outpatient Admit Date: 04/11/2024 Staff Ordering Physician: Abhilash Rand DO Attending Provider: Abhilash Rand DO Exercise Technologist: Zhane Hahn RDCS Exercise Physician: Abhilash Rand DO Exam Type: CA stress nay w NM Study Info A regadenoson stress test was performed. Summary 1. 1. Negative lexiscan stress test for ischemic ST changes by ECG criteria. 2. 2. Stable hemodynamics throughout the test. 3. 3. Nuclear scan to follow and will be reported separately. Please correlate with it. 4. 4. Patient informed of the above results. Protocol: Lexiscan Stress ECG Details Stage: REST Duration (min): 3 min : 9 sec HR (bpm): 92 SBP (mmHg): 119 DBP (mmHg): 73 Stage: REST Duration (min): 8 min : 11 sec HR (bpm): 91 SBP (mmHg): 119 DBP (mmHg): 73 Stage: STAGE 1 Duration (min): 1 min : 0 sec HR (bpm): 112 SBP (mmHg): 116 DBP (mmHg): 75 Stage: RECOVERY Duration (min): 1 min : 0 sec HR (bpm): 115 SBP (mmHg): 116 DBP (mmHg): 75 Stage: RECOVERY Duration (min): 2 min : 0 sec HR (bpm): 110 SBP (mmHg): 116 DBP (mmHg): 75 Stage: RECOVERY Duration (min): 3 min : 0 sec HR (bpm): 113 SBP (mmHg): 117 DBP (mmHg): 70 Stage: RECOVERY Duration (min): 3 min : 33 sec HR (bpm): 114 SBP (mmHg): 117 DBP (mmHg): 70 Rest HR: 91 bpm Peak HR: 116 bpm Rest Sys BP: 119 mmHg Peak Sys BP: 117 mmHg Max Pred HR: 144 bpm % Max Pred HR: 81 % Target HR: 122 bpm Max RPP: 13,572 bpm*mmHg Termination Reason: Completed protocol Cardiac Symptoms: Shortness of breath Total Time: 1 min : 0 sec Rest Bourne BP: 73 mmHg Peak Bourne BP: 70 mmHg Total Dose: 0.4 mg Resting ECG Sinus rhythm. Stress ECG No ST changes. Arrhythmias None. Report Signatures
== END 2024-04-11 09:03 | disposition home or self-care (01) ==
PROVIDERS: PCP Emergency Medicine; Visit Provider Internal Medicine Cardiovascular Disease
DX: R07.9 Chest pain, unspecified (principal)
CPT/HCPCS: 78452; 93017; A9502; J2785

== ENCOUNTER 2024-05-23 11:51 | Outpatient (CLI) | payer MEDICARE, SELFPAY ==
[2024-05-23 12:20] LABS: Basophils Absolute Auto 0.1 K/mm3 (0.0-0.1); Basophils Percent Auto 0.8 % (0.2-1.2); Eosinophils Absolute Auto 0.5 K/mm3 (0-0.3); Eosinophils Percent Auto 6.2 % (0-4.4); Hematocrit 42.2 % (37.0-47.0); Hemoglobin 13.9 g/dL (12.0-15.0); Immature Granulocyte Absolute 0.02 K/mm3 (0.00-0.031); Immature Granulocyte Percent A 0.3 % (0-0.5); Lymphocytes Percent Auto 19.4 % (18.3-44.2); Mean Corpuscular HGB Conc 32.9 g/dl (32-36); Mean Corpuscular Hemoglobin 31.2 pg (26-34); Mean Corpuscular Volume 94.6 fl (80-100); Mean Platelet Volume 9.4 fl (7.4-10.4); Monocytes Absolute Auto 0.7 K/mm3 (0.1-0.6); Monocytes Percent Auto 8.4 % (2.6-8.5); Neutrophils Percent Auto 64.9 % (45.5-73.1); Platelet Count Result 269 k/mm3 (150-375); Red Blood Count 4.46 M/mm3 (4.2-5.4); Red Cell Distribution Width 13.9 % (11.5-14.5); White Blood Count 7.7 K/mm3 (4.5-10.0)
[2024-05-23 13:04] LABS: Iron 81 ug/dL (37-170)
[2024-05-23 13:14] LABS: Percent Iron Saturation 25 % (20-50)
== END 2024-05-23 11:52 | disposition home or self-care (01) ==
LOC: ANHLAB 11:58
PROVIDERS: PCP Emergency Medicine; Visit Provider Physician Assistant
DX: D64.9 Anemia, unspecified (principal)
CPT/HCPCS: 36415; 82728; 83540; 83550; 85025

== ENCOUNTER 2024-11-01 12:20 | Outpatient (CLI) | payer MEDICARE, SELFPAY ==
--- NOTE | ~2024-11-01 | NM_ITS ---
EXAMINATION: BRENNA handley renal scan DATE: 11/01/2024 13:22 INDICATION: Hydronephrosis TECHNIQUE: 8.3 mCi Tc-99m MAG3 was administered IV. 40 mg furosemide was administered IV immediately afterward. The patient was scanned in the supine position. A posterior abdominal radionuclide angiog radha was obtained. A subsequent time course of static images of the kidneys, ureters, and bladder was obtained. COMPARISON: None FINDINGS: The posterior abdominal radionuclide angiogram and sequential static images show normal position, and morphology of the kidneys with asymmetric mild decreased size of the left kidney relative to the rig ht. Peak renal parenchymal uptake was 8.4 min in left kidney and 3.4 min in right kidney (normal peak 3-5 minutes). The relative early renal uptake was 34% on the left and 66% on the right (<40% is abn ormal). There is asymmetric pooling of contrast throughout the left ureter suggesting hydroureter. T1/2 for clearance of activity from the left kidney and proximal collecting system was 14 minutes. T1/2 for clearance of activity from the right kidney and proximal collecting system was 16 minutes. Notes on interpretation: T1/2 <10 minutes is normal, 10-15 minutes is low grade obstruction of questi onable clinical significance, 15-20 minutes is partial obstruction that is likely clinically signific ant, >20 minutes is high grade obstruction. Note that false positives may be seen with supine positio giorgio, dehydration, severely dilated nonobstructed kidney, atonic collecting system, poor renal functi on, and chronic furosemide use. IMPRESSION: 1. Mild left renal atrophy with asymmetric renal decreased function of the left kidney which contrib utes only 34% to total renal function. 2. Moderately delayed activity clearance from both kidneys consistent with partial obstruction that may be clinically significant with suggestion of persistent left-sided hydroureter. Reviewed, dictated and finalized at location A. IMPRESSION: 1. Mild left renal atrophy with asymmetric renal decreased function of the lef t kidney which contributes only 34% to total renal function. 2. Moderately delayed activity clearance from both kidneys consistent with par tial obstruction that may be clinically significant with suggestion of persiste nt left-sided hydroureter.
--- OUTSIDE RECORDS SUMMARY | 2024-11-01 13:17 | XMS_ITS | Encounter Summary ---
Author Organization [facility] Address [address] [place] [address] Care Team Providers Care Paper Counter Name Role Phone Hero Lujan MD Primary Care Provider [phone] Encounter Details Date Type Department Care Team (Late st Contact Info) Description 08/12/2021 Therapy Plan [facility] [address] [place], [place] [id number] Evan Klein MD [address] [place] [id number] Social History Tobacco Use Types Packs/Day Years Used Date Smoking Tobacco: Never Assessed Comments Unknown Sex and Gender Information Value Date Recorded Sex Assigned at Not on file Legal Sex Female 4:28 PM [employer] Gender Identity Female 08/15/2021 11:30 AM [employer] Sexual Orientation Not on file COVID-19 Exposure Response Date Recorded In the last month, have you been in contact with someone who was confirmed or suspected to have Coronavirus / COVID-19? No / Unsure 08/15/2021 3:50 PM [employer] documented as of this encounter Plan of Treatment Not on file documented as of this encounter Visit Diagnoses Diagnosis Chronic cystitis without hematuria- Primary documented in this encounter Care Teams Paper Counter Relationship Specialty Start Date End Date Hero Lujan MD [address] [place] [address] PCP - General INTERNAL MEDICINE 08/13/21 documented as of this encounter
--- OUTSIDE RECORDS SUMMARY | 2024-11-01 13:18 | XMS_ITS | Encounter Summary ---
Author Organization [facility] Address [address] [facility] [place] [address] Care Team Providers Care Legal Billing Coordinator Name Role Phone Odette Webb MD Primary Care Provider [phone] Max Branch MD Unavailable William Abebe MD Unavailable Hero Lujan MD Primary Care Provider Encounter Details Date Type Department Care Team (Late st Contact Info) Description 11/06/2012 [facility]TERNAL [facility] DEPT Unknown, Provider Social History Tobacco Use Types Packs/Day Years Used Date Smoking Tobacco: Never Alcohol Use Standard Drinks/Week Comments No 0 (1 standard drink = 0.6 oz pur e alcohol) Sex and Gender Information Value Date Recorded Sex Assigned at Female 08/19/2024 9:26 AM PERINATAL TECH Gender Identity Female 08/19/2024 9:26 AM PERINATAL TECH Sexual Orientation Choose not to disclose 2024 9:26 AM PERINATAL TECH documented as of this encounter Plan of Treatment Not on file documented as of this encounter Visit Diagnoses Not on filedocumented in this encounter Care Teams Legal Billing Coordinator Relationship Specialty Start Date End Date Odette Webb MD [address] [facility] [address] [place] [id number] PCP - General 06/27/09 01/02/19 Max Branch MD [address] [place] [address] PCP - OBGYN 06/19/09 [place] [address] [place] [address] [address] [place] [address] PCP - General 01/03/19 William Abebe MD [address] [place] [address] Orthopedic Surgery 10/12/12 documented as of this encounter
--- OUTSIDE RECORDS SUMMARY | 2024-11-01 13:18 | XMS_ITS | Clinical Summary ---
Author Organization [facility] Address [address] [place] [address] Care Team Providers Care Health Services Rn Name Role Phone Max Branch MD Unavailable [phone] William Abebe MD Unavailable [phone] Hero Lujan MD Primary Care Provider [phone] Source Comments [facility],non-owned Affiliates and Associated Physician Practices is amultiple site organization consisting of ambulatory clinics and hospital sitesin [place], [place], [place] and [place]. This disclosure is being madepursuant to the Care Everywhere program and may not contain all information available regarding this patient. Last updated 18.[facility] Allergies Active Allergy Reactions Criticality Noted Date Comments Ciprofloxacin Nausea and/or Vomiting 03/10/2022 Sulfa Drugs Nausea and/or Vomiting 05/24/2009 Medications * Be aware that medications may not be up to date on this document. Alwaysverify current medications with the patient. Medication Sig Dispensed Refills Start Date End Date Status glipiZIDE CR 24hr (GLUCOTROL XL) 10 MG tablet Take 10 mg by mouth 2 times daily. Active gemfibrozil (LOPID) 600 MG tablet Take 600 mg by mouth 2 times daily before meals. Active simvastatin (ZOCOR) 20 MG tablet Take 20 mg by mouth at bedtime. Active lisinopril (PRINIVIL; ZESTRIL) 20 MG tablet Take 20 mg by mouth once daily after breakfast. Active levothyroxine (SYNTHROID) 25 MCG tablet Take 25 mcg by mouth daily before breakfast. Instructed to take AM of surgery Active Multiple Vitamins-Minerals (CENTRUM SILVER PO) Take 1 tablet by mouth once daily Active metFORMIN (GLUCOPHAGE) 1000 MG tablet Take 1 Tab by mouth 2 times daily with morning and evening meal. DO NOT RESUME METFORMIN UNTIL 04/18/2013 0 04/18/2013 Active aspirin (ASPIRIN) 81 MG tablet Take 81 mg by mouth once daily Active Biotin 1000 MCG Take 1 tablet by mouth once daily Active cephalexin (KEFLEX) 250 MG capsule Take 1 capsule by mouth once daily 06/08/2018 Active amitriptyline (ELAVIL) 25 MG tablet Take 1 tablet by mouth once daily 07/03/2020 Active PREMARIN 0.625 MG/GM vaginal cream Apply 0.5 g to affected area as needed 10/05/2019 Active oxybutynin CR 24hr (DITROPAN-XL) 10 MG tablet Take 10 mg by mouth once daily 07/03/2020 Active cyclobenzaprine (FLEXERIL) 5 MG tablet Take 5 mg by mouth 3 times daily as needed 07/03/2020 Active JANUVIA 50 MG tablet Take 1 tablet by mouth once daily 05/29/2020 Active clotrimazole-betamethaso ne (LOTRISONE) 1-0.05 % cream Apply to affected area 2 times daily 60 g 4 07/17/2020 Active losartan - hydroCHLOROthiazide (Hyzaar) 50-12.5 MG tablet 01/21/2022 Active nitrofurantoin monohyd macro crystals (Macrobid) 100 MG capsuleIndications:Uncom plicated Urinary Tract Infection Take 1 (one) capsule by mouth 2 times daily with morning and evening meal Reasons: Simple Infection of the Urinary Tract 10 capsule 03/10/2022 Active Active Problems Problem Noted Date Diagnosed Date Chronic cystitis without hematuria 08/12/2021 Pyelonephritis, acute 08/13/2017 Lichen sclerosus of female genitalia 07/03/2015 Overview (07/03/2015): MYCOLOG OINT. Knee joint replacement by other means 01/31/2013 Osteoarthrosis involving lower leg 10/12/2012 Overview (10/27/2015): 2015 IMO Updt Encounters Date Type Department Care Team Description 09/07/2024 2:45 PM ROD WELDER Ancillary Procedure [facility] - Radiology [address] [place] [phone] Edgard Regan IV, MD Right hip pain 09/07/2024 2:00 PM ROD WELDER Office Visit [facility] [address], [address] [place] [phone] Edgard Regan IV, MD Right hip pain (Primary Dx) 08/25/2024 12:38 PM ROD WELDER - 08/25/2024 11:59 PM ROD WELDER Hospital Encounter [facility] [address] [facility] [place] [address] Hero Lujan MD Discharge Disposition: Home or Self Care from Last 3 Months Family History Medical History Relation Name Comments CAD (Coronary Artery Disease) Brother 1 Hypertension Brother 2 CAD (Coronary Artery Disease) Mother Cancer - Breast Neg Hx Cancer - Ovarian Neg Hx Relation Name Status Comments Brother 1 Brother 2 Mother Social History Tobacco Use Types Packs/Day Years Used Date Smoking Tobacco: Former Cigarettes 1 3 0 08/03/1966 - 08/03/1969 Smokeless Tobacco: Never Comments:quit in 1970s Alcohol Use Standard Drinks/Week Comments Yes 3.3 (1 standard drink = 0.6 oz p ure alcohol) PHQ-2 Answer Date Recorded Patient Health Questionnaire-2 Score 2 09/03/2024 Sex and Gender Information Value Date Recorded Sex Assigned at Female 08/19/2024 9:26 AM ROD WELDER Gender Identity Female 08/19/2024 9:26 AM ROD WELDER Sexual Orientation Choose not to disclose 2024 9:26 AM ROD WELDER Last Filed Vital Signs Vital Sign Reading Time Taken Comments Blood Pressure 120/62 03/10/2022 3:30 PM CDT Pulse 104 08/16/2017 6:10 AM ROD WELDER Temperature 36.9 C (98.4 F) 08/16/2017 6:10 AM ROD WELDER Respiratory Rate 16 08/16/2017 6:10 AM ROD WELDER Oxygen Saturation 93% 08/16/2017 6:10 AM ROD WELDER Inhaled Oxygen Concentration - - Weight 85.7 kg (189 lb) 08/25/2024 12:53 PM ROD WELDER Height 152.4 cm (5') 08/25/2024 12:53 PM ROD WELDER Body Mass Index 36.91 08/25/2024 12:53 PM ROD WELDER Plan of Treatment Health Maintenance Due Date Last Done Comments BONE DENSITY TESTING 1945 MEDICARE AWV 12 MONTHS 1945 HEPATITIS C SCREENING 05/23/1965 DTAP/TDAP/TD VACCINES (1 - Tdap) 1966 PNEUMOCOCCAL VACCINE 50+ (1 of 1 - PCV) 1997 ZOSTER VACCINE (1 of 2) 1997 Respiratory Syncytial Virus (RSV) Vaccine Pt: or over 60 yrs (1 - 1-dose 75+ series) 2022 COVID-19 VACCINE (4 - 2023-2 5 season) 2024 05/16/2021, 10/16/2020, 09/25/2020 INFLUENZA VACCINE (#1) 2024 , 05/17/2020, 04/13/2019 DEPRESSION SCREENING Completed 09/07/2024 HEPATITIS B VACCINE Aged Out No longe r eligible based on patient's age to complete this topic HIB VACCINE Aged Out No longer eligi ble based on patient's age to complete this topic HPV VACCINE Aged Out No longer eligi ble based on patient's age to complete this topic MENINGOCOCCAL (Group B) VACCINE SHARED DECISION-MAKING Aged Out No longer eligible based on patient's age to complete this topic MENINGOCOCCAL GROUPS A/C/Y/W VACCINE Aged Out No longer eligible b ased on patient's age to complete this topic Medical Devices Implanted Type Area Front Elevator Operator Device Identifier Shelf Expiration Date Model / Serial / Lot Beto Bone [place] Hv Implanted:Qty: 1 on 01/10/2013 by William Abebe MD at [facility] Left: Knee [employer] 07/12/2014 [id number] / / [id number] Biomet Interlok 75mm Fixed Ibeam Tibial Plate With Locking Bar Implanted:Qty: 1 on 01/10/2013 by William Abebe MD at [facility] Left: Knee 10/10/2022 [id number] / / [id number] Biomet Arcom Patella Single 1/4 Inch Peg With Wire 31mm X 8 Mm Implanted:Qty: 1 on 01/10/2013 by William Abebe MD at [facility] Left: Knee 11/10/[id number] / / [id number] Vanguard Cr Femoral 67.5 Mm Left Interlok Implanted:Qty: 1 on 01/10/2013 by William Abebe MD at [facility] Left: Knee 06/12/2022 [id number] / / [id number] Biomet Vanguard/Tm Dcm Tibial Bearing Anterior Stabilized 12mm X 75mm Implanted:Qty: 1 on 01/10/2013 by William Abebe MD at [facility] Left: Knee 07/12/2017 [id number] / / [id number] Brdg Tib Denise Stbl 12mm X 71mm Implanted:Qty: 1 on 04/13/2013 by William Abebe MD at [facility] Right: Knee [employer] 03/01/2018 [id number] / / [id number] Beto Bone [place] Hv Implanted:Qty: 1 on 04/13/2013 by William Abebe MD at [facility] Right: Knee [employer] 10/30/2014 [id number] / / [id number] 65mm Cr Femoral Implanted:Qty: 1 on 04/13/2013 by William Abebe MD at [facility] Right: Knee 01/30/2023 [id number] / / [id number] 31mm X 8mm Arcom Patella Implanted:Qty: 1 on 04/13/2013 by William Abebe MD at [facility] Right: Knee 03/01/[id number] / / [id number] Ty Tibial I Beam Fix Bar 71mm Implanted:Qty: 1 on 04/13/2013 by William Abebe MD at [facility] Right: Knee [employer] 12/30/2022 [id number] / / [id number] Procedures Procedure Name Priority Date/Time Associated Diagnosis Comments XR HIP RIGHT 2VW OR MORE Routine 09/07/2024 2:46 PM ROD WELDER Right hip pain MAMMO BILAT SCREENING W CINDI Routine 08/25/2024 12:56 PM ROD WELDER Encounter for screening mammogram for breast cancer from Last 3 Months Results * XR Hip Right 2Vw or More (09/07/2024 2:46 PM ROD WELDER) Narrative [facility] [address] - 09/07/2024 2:46 PM ROD WELDER Please see progress note in Epic for results. Edgard Regan IV, MD DIAGNOSTIC IMAGING O RDERABLES [facility] [address] * Mammo Bilat Screening W Cindi (08/25/2024 12:56 PM ROD WELDER) Anatomical Region Laterality Modality Breast Bilateral Mammography 08/25/2024 4:54 PM ROD WELDER Impressions 08/25/2024 5:00 PM ROD WELDER IMPRESSION: There is no mammographic evidence of malignancy. OVERALL FINAL ASSESSMENT: BI-RADS Category 1: Negative. Annual screening mammography is recommended. > Interpreting Provider: Kellen Yoder MD on 08/25/2024 5:00 PM Narrative 08/25/2024 5:00 PM ROD WELDER EXAMINATION: BILATERAL DIGITAL SCREENING MAMMOGRAM AND BILATERAL BREAST TOMOSYNTHESIS HISTORY: Screening. COMPARISON: Serial examinations dating back to 2019. TECHNIQUE: BILATERAL digital breast tomosynthesis (DBT) and synthetic 2D digital mammogram images were obtained (bilateral craniocaudal and mediolateral oblique projections) including computer aided detection (CAD.) BREAST PARENCHYMAL COMPOSITION:Category B: There are scattered areas of fibroglandular density. MAMMOGRAM FINDINGS: There are no new suspicious masses, calcifications, or areas of architectural distortion in either breast, and there has been no significant interval change. Hero Lujan MD MAMMO ORDERABLES from Last 3 Months Advance Directives * Full Code (Latest Code Status on File) Date Activated Date Inactivated Comments 08/13/2017 9:47 PM 08/16/2017 12:41 PM * FULL RESUSCITATION Date Activated Date Inactivated Comments 04/13/2013 10:56 AM 04/16/2013 12:22 PM * FULL RESUSCITATION Date Activated Date Inactivated Comments 01/10/2013 2:42 PM 01/13/2013 12:28 PM Care Teams Health Services Rn Relationship Specialty Start Date End Date Max Branch MD [address] [place] [address] [phone] PCP - OBGYN 06/19/09 [place] [address] [place] [address] [address] [place] [address] PCP - General 01/03/19 William Abebe MD [address] [place] [address] [place] [id number] Orthopedic Surgery 10/12/12
--- OUTSIDE RECORDS SUMMARY | 2024-11-01 13:18 | XMS_ITS | Clinical Summary ---
Author Organization [facility] Address [address] [place] [address] Care Team Providers Care Roller Staker Name Role Phone Hero Lujan MD Primary Care Provider [phone] Allergies Active Allergy Reactions Criticality Noted Date Comments Ciprofloxacin Nausea and Vomiting, GI Upset,Other (see comment) Medium 08/14/2021 Fever and chills Sulfa Antibiotics Nausea and Vomiting, GI Upset,Other (see comment) Medium 08/14/2021 Fever and chills Active Problems Problem Noted Date Diagnosed Date Chronic cystitis without hematuria 08/12/2021 Social History Tobacco Use Types Packs/Day Years Used Date Smoking Tobacco: Never Assessed Comments Unknown Sex and Gender Information Value Date Recorded Sex Assigned at Not on file Legal Sex Female 4:28 PM MANUFACTURING WORKER Gender Identity Female 08/15/2021 11:30 AM MANUFACTURING WORKER Sexual Orientation Not on file Last Filed Vital Signs Vital Sign Reading Time Taken Comments Blood Pressure 151/67 08/20/2021 2:20 PM MANUFACTURING WORKER Pulse 100 08/20/2021 2:20 PM MANUFACTURING WORKER Temperature 37.1 C (98.7 F) 08/20/2021 2:20 PM MANUFACTURING WORKER Respiratory Rate 18 08/20/2021 2:20 PM MANUFACTURING WORKER Oxygen Saturation 99% 08/20/2021 2:20 PM MANUFACTURING WORKER Inhaled Oxygen Concentration - - Weight 79.4 kg (175 lb) 08/14/2021 2:01 PM MANUFACTURING WORKER Height 157.5 cm (5' 2 ) 08/14/2021 2:01 PM MANUFACTURING WORKER Body Mass Index 32.01 08/14/2021 2:01 PM MANUFACTURING WORKER Plan of Treatment Health Maintenance Due Date Last Done Comments Hepatitis C 1965 Zoster Vaccines (1 of 2) 1997 Annual Medicare Wellness Visit 2012 Dexa Scan (General) 2012 Pneumococcal Vaccine: 65+ Years (2 of 2 - PCV) 05/17/2021 05/17/2020 RSV Immunization or 60+ Years (1 - 1-dose 75+ series) 2022 COVID-19 Vaccine (4 - 2023-2 5 season) 2024 05/16/2021, 10/16/2020, 09/25/2020 DTaP, Tdap and Td Vaccines ( 2 - Td or Tdap) 03/24/2029 03/24/2019 Meningococcal B Vaccine Aged Out No l onger eligible based on patient's age to complete this topic Meningococcal Vaccine Aged Out No una thang eligible based on patient's age to complete this topic RSV Immunizations Under 20 Months Aged Out No longer eligible b ased on patient's age to complete this topic Insurance MEDICARE [facility] Care Teams Roller Staker Relationship Specialty Start Date End Date Hero Lujan MD [address] [place] [id number] PCP - General INTERNAL MEDICINE 08/13/21
--- OUTSIDE RECORDS SUMMARY | 2024-11-01 13:18 | XMS_ITS | Referral Summary ---
Author Organization [facility] Address [address] [place] [address] Care Team Providers Care Carbon Grinder Name Role Phone Hero Lujan MD Primary Care Provide r Allergies Active Allergy Reactions Criticality Noted Date Comments Sulfa (Sulfonamide Antibiotics) Nausea And Vomiting 05/24/2009 Medications metFORMIN (FORTAMET) 1,000 mg 24 hr tablet Take 1 tablet (1,000 mg total) by mouth 2 (two) times a day with meals Active losartan (COZAAR) 50 mg tablet Take 1 tablet (50 mg total) by mouth daily Active dapagliflozin propanediol (FARXIGA) 5 mg tablet 1 tablet (5 mg total) Active atorvastatin (LIPITOR) 40 mg tablet Take 1 tablet (40 mg total) by mouth daily Active semaglutide (OZEMPIC SUBQ) Inject 0.25 mg under the skin once a week Active insulin degludec (TRESIBA) 100 unit/mL (3 mL) pen for injection Inject 0.2 mL (20 Units total) under the skin daily Active levothyroxine (SYNTHROID) 25 mcg tablet Take 1 tablet (25 mcg total) by mouth care process manager before breakfast Active aspirin 81 mg chewable tablet Take 1 tablet (81 mg total) by mouth daily Active ferrous fumarate 324 mg (106 mg iron) tablet Take 325 mg by mouth 2 (two) times a day Active Active Problems Problem Noted Date Diagnosed Date Primary hypertension 11/18/2023 Assessment & Plan (11/18/2023 9:13 AM CDT): Impression: Chronic and stable. Plan: Continue losartan Mixed hyperlipidemia 11/18/2023 Assessment & Plan (11/18/2023 9:13 AM CDT): Impression: Chronic and stable. Plan: Continue Lipitor Type 2 diabetes mellitus wit hout complication, with long-term current use of insulin 11/18/2023 Assessment & Plan (11/18/2023 9:12 AM CDT): Impression: Chronic uncontrolled. Plan: Continue insulin, metformin, and farixga PVD (peripheral vascular disease) 11/18/2023 Assessment & Plan (11/18/2023 9:15 AM CDT): Impression: Patient complains of numbness to her left lower extremity that mostly occurs at night. He denies any symptoms of claudication, ischemic rest pain or ulcerations to her lower extremity. Patient underwent a lower extremity arterial Doppler however the lower extremity arterial Doppler was incomplete. Plan: Patient's symptoms are likely neurogenic in nature. We will repeat lower extremity arterial Doppler follow-up in 2 weeks for re-evaluation. 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 Gender Identity Not on file Sexual Orientation Straight 11/11/2023 8: 15 AM CDT Last Filed Vital Signs Vital Sign Reading Time Taken Comments Blood Pressure 133/85 12/16/2023 9:04 AM CDT Pulse 97 12/16/2023 9:04 AM CDT Temperature - - Respiratory Rate - - Oxygen Saturation 98% 12/16/2023 9:04 AM CDT Inhaled Oxygen Concentration - - Weight - - Height - - Body Mass Index - - Plan of Treatment Not on file Insurance MEDICARE [facility] Member Subscriber Plan / Payer (Ef fective 2020-Present) Name:Deborah Cancino Relation to Subscriber:Self Name:Deborah Cancino Payer ID:[id number] Group ID:Not on file Type:[employer] [facility] [address] [id number] MEDICARE [facility] Care Teams Carbon Grinder Relationship Specialty Start Date End Date Hero Lujan MD [address] [place] [id number] PCP - General Emergency Medicine 11/06/20
--- OUTSIDE RECORDS SUMMARY | 2024-11-01 13:18 | XMS_ITS | Clinical Summary ---
Author Organization [facility] Address [address] [place] [address] Care Team Providers Care Presser And Blocker Knitted Goods Name Role Phone Hero Lujan MD Primary [...] 1 tablet (25 mcg total) by mouth screen tacker before breakfast Active aspirin 81 mg chewable [...] on file Legal Sex Female 3:42 AM PAPER CONE MAKER Gender Identity Not on file Sexual Orientation Straight 11/11/2023 8: 15 AM CDT Obstetrics History Last Filed Vital Signs Vital Sign Reading Time Taken Comments Blood Pressure 133/85 12/16/2023 9:04 AM CDT Pulse 97 12/16/2023 9:04 AM CDT Temperature - - Respiratory Rate - - Oxygen Saturation 98% 12/16/2023 9:04 AM CDT Inhaled Oxygen Concentration - - Weight - - Height - - Body Mass Index - - Plan of Treatment Health Maintenance Due Date Last Done Comments Albumin Creatinine Ratio, Urine 1945 Depression Screening 1945 Fall Risk Assessment 1945 Hepatitis C Screening 1945 Osteoporosis Screening-Bone Density Scan 1945 eGFR 1945 Dilated Eye Exam 1945 Foot Exam 1945 Lipid Panel 1945 Hepatitis B Screening 1965 Zoster Vaccine (1 of 2) 1997 Well Visit 65+ 2012 Hemoglobin A1C 02/11/2018 08/14/2017 Pneumococcal vaccine 65+ (2 of 2 - PCV) 05/17/2021 05/17/2020 Influenza Vaccine (#1) 2024 0, 04/13/2019, 05/18/2017, Additional history exists DTaP/Tdap/Td Vaccine (2 - Td or Tdap) 03/24/2029 03/24/2019 Breast Cancer Screening-Mammogram Discontinued 10/25/2020, 09/14/2019, 07/28/2018, Additional history exists [place] [address] [facility] [place] [address] [facility] Care Teams Presser And Blocker Knitted Goods Relationship Specialty Start Date End Date Hero Lujan MD [address] [place] [address] PCP - General Emergency Medicine 11/06/20
== END 2024-11-01 12:21 | disposition home or self-care (01) ==
PROVIDERS: Visit Provider Urology
DX: N13.30 Unspecified hydronephrosis (principal)
CPT/HCPCS: 78708; A9562; J1940

== ENCOUNTER 2024-11-02 10:03 | Outpatient (CLI) | payer MEDICARE, SELFPAY ==
[2024-11-02 10:37] LABS: Basophils Absolute Auto 0.1 K/mm3 (0.0-0.1); Basophils Percent Auto 0.7 % (0.2-1.2); Eosinophils Absolute Auto 0.5 K/mm3 (0-0.3); Eosinophils Percent Auto 5.2 % (0-4.4); Hematocrit 44.6 % (37.0-47.0); Hemoglobin 14.2 g/dL (12.0-15.0); Immature Granulocyte Absolute 0.04 K/mm3 (0.00-0.031); Immature Granulocyte Percent A 0.5 % (0-0.5); Lymphocytes Absolute Auto 1.89 K/mm3 (0.9-3.2); Mean Corpuscular HGB Conc 31.8 g/dl (32-36); Mean Corpuscular Hemoglobin 30.1 pg (26-34); Mean Corpuscular Volume 94.5 fl (80-100); Mean Platelet Volume 9.3 fl (7.4-10.4); Monocytes Absolute Auto 0.7 K/mm3 (0.1-0.6); Monocytes Percent Auto 7.6 % (2.6-8.5); Neutrophils Absolute Auto 5.5 K/mm3 (1.3-6.7); Platelet Count Result 244 k/mm3 (150-375); Red Blood Count 4.72 M/mm3 (4.2-5.4); Red Cell Distribution Width 13.1 % (11.5-14.5); White Blood Count 8.6 K/mm3 (4.5-10.0)
[2024-11-02 10:43] LABS: Iron 73 ug/dL (37-170)
[2024-11-02 10:44] LABS: Transferrin 241 mg/dL (206-381)
[2024-11-02 10:52] LABS: Percent Iron Saturation 22 % (20-50)
--- OUTSIDE RECORDS SUMMARY | 2024-11-02 11:18 | XMS_ITS | Clinical Summary ---
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
--- OUTSIDE RECORDS SUMMARY | 2024-11-02 11:18 | XMS_ITS ---
Author Organization [facility] Address [address] [place], [place] [address] Care Team Providers Care Salesforce Specialist Name Role Phone Hero Lujan Unavailable Unavailable AMRITA BYRNE Unavailable [phone] REASON FOR VISIT *General care Medications Medication SIG (Take, Route, Frequency, Duration) Notes Start Date End Date Status Trulicity Active Metformin & Diet Manage Prod Active Ferrous Aspartate Ac tive Tresiba Active Imiquimod 5 % 1 application at bedtime, leave on for 8 hours then wash off Externally Three times a Week 02/26/2024 Active Losartan Potassium-HCTZ Active Levothroid Active Atorvastatin Calcium Active Farxiga Active Nitrofurantoin Macrocrystal Active Fish Oil Active Ammonium Lactate 12 % 1 application Exte rnally Twice a day Active Aspirin Active Biotin Active Social History Tobacco Use: Social History Observation Description Date Details (start date - stop date) Former Smoker NA - NA Tobacco Use/Smoking Question Answer Notes Tobacco use: former smoker How long has it been since you last smoked? > 10 years Encounters Encounter Location Date Provider Diagnosis [facility] [address] [place], [place] [id number] 02/26/2024 AMRITA BYRNE Tinea unguium B35.1 ; Plantar wart B07.0 ; Other hammer toe(s) (acquired), right foot M20.41 ; Other hammer toe(s) (acquired), left foot M20.42 ; Pain in right toe(s) M79.674 ; Pain in left toe(s) M79.675 ; Pain in right foot M79.671 ; Atherosclerosis of solomon arteries of extremities with intermittent claudication, bilateral legs I70.213 ; Xerosis cutis L85.3 ; Acquired keratosis [keratoderma] palmaris et plantaris L85.1 and Type 2 diabetes mellitus with diabetic peripheral angiopathy without gangrene E11.51 Assessments Encounter Date Diagnosis (ICD Code) Assessment Notes Treatment Notes Treatment Clinical Notes Section Notes 02/26/2024 Tinea unguium (ICD-10 - B35.1) Aseptic debridement of elongated thickened nails x 10 using sterile nippers, nails were debrided in length and thickness by 30% utilizing a nail nipper without incident. The patient was educated regarding all treatment options that include topical and oral antifungal treatments. I discussed the options of taking a sample of the nail to confirm diagnosis. Nail clippings were not sent for pathology analysis. The patient was educated why and how the fungal infection evolved in their feet and the patient was given information regarding how to prevent further infection. The patient was told to keep feet dry and change socks. The patient was told to be careful with old shoes and excessive sweating. The patient was educated regarding both OTC and prescription treatments. 02/26/2024 Plantar wart (ICD-10 - B07.0) I educated the patient on verruca. I discussed various treatment plans and answered questions. I explained that verruca treatments often require multiple treatments. Today lesions were prepped, debrided down to bleeding base with #15 blade, and then chemical cauterization solution application for the first time. Rx imiquimod. 02/26/2024 Other hammer toe(s) (acquired), right foot (ICD-10 - M20.41) The patient was educated regarding how to mechanically stabilize their deformity. The patient was given education about shoe recommendations specific for the condition. The patient was educated about custom orthotics and how appropriate shoes and orthotics can prevent further worsening of the deformity. The patient was educated about how bad shoe habits can worsen the condition. NSAIDS, P.T., injections and other conservative treatments were discussed. Both surgical and non surgical treatments were discussed, but conservative options were emphasized. 02/26/2024 Other hammer toe(s) (acquired), left foot (ICD-10 - M20.42) 02/26/2024 Pain in right toe(s) (ICD-10 - M79.674) 02/26/2024 Pain in left toe(s) (ICD-10 - M79.675) 02/26/2024 Pain in right foot (ICD-10 - M79.671) 02/26/2024 Atherosclerosis of solomon arteries of extremities with intermittent claudication, bilateral legs (ICD-10 - I70.213) Patient educated on risks and aggravating factors of PVD, including conservative treatment options such as a diet and exercise regimen to aid in slowing progression of vascular disease 02/26/2024 Xerosis cutis (ICD-10 - L85.3) The patient was educated regarding proper hydration of their feet/ankles and the patient was given several recommendations for proper creams to protect/hydrate and keep the area healthy. Continue with use of lotion to be applied to feet daily. 02/26/2024 Acquired keratosis [keratoderma] palmaris et plantaris (ICD-10 - L85.1) Pre-ulcerative keratoderma debrided sharply down to the level of healthy tissue using a 15 blade. After removal of overlying extensive hyperkeratosis, healthy tissue was noted and care was taken to assure that no undermining or probing was present. It should be noted that no probing was noted and no infection or drainage was noted. 02/26/2024 Type 2 diabetes mellitus with diabetic peripheral angiopathy without gangrene (ICD-10 - E11.51) Patient educated on proper diabetic foot care and the importance of tight glycemic control in regards to the prevention of diabetic manifestations and symptomatology in lower extremity. Explained to patient the importance of keeping interdigital spaces dry, not walking bare foot, having supportive shoe gear, using moisturizer to skin on feet daily especially in winter months, and checking feet daily for any new lesions or areas suspicious of trauma infection or ulceration. Explained to patient to return to ED if any change in foot health associated with signs of systemic infection including but not limited to nausea, vomiting, fever. Patient was educated about the systemic risks and dangers of neuropathy as well as potential likely causes of symptoms. Patient was educated on high pressure areas including risks and offloading solutions. Reviewed with patient proper foot care instructions and daily self-examination and monitoring of the feet. Recommend use of alpha lipoeic acid and vitamin b12 complex. Plan Of Treatment Medication Medication Name Sig Start Date Stop Date Notes Imiquimod 5 % 1 application at bed time, leave on for 8 hours then wash off Externally Three times a Week 02/26/2024 Ammonium Lactate 12 % 1 application Externally Twice a day Treatment Notes Assessment Notes Tinea unguium Aseptic debridement of elongated thickened nails x 10 using sterile nippers, nails were debrided in length and thickness by 30% utilizing a nail nipper without incident. The patient was educated regarding all treatment options that include topical and oral antifungal treatments. I discussed the options of taking a sample of the nail to confirm diagnosis. Nail clippings were not sent for pathology analysis. The patient was educated why and how the fungal infection evolved in their feet and the patient was given information regarding how to prevent further infection. The patient was told to keep feet dry and change socks. The patient was told to be careful with old shoes and excessive sweating. The patient was educated regarding both OTC and prescription treatments. Plantar wart I educated the patie nt on verruca. I discussed various treatment plans and answered questions. I explained that verruca treatments often require multiple treatments. Today lesions were prepped, debrided down to bleeding base with #15 blade, and then chemical cauterization solution application for the first time. Rx imiquimod. Other hammer toe(s) (acquired), right fo ot The patient was educated regarding how to mechanically stabilize their deformity. The patient was given education about shoe recommendations specific for the condition. The patient was educated about custom orthotics and how appropriate shoes and orthotics can prevent further worsening of the deformity. The patient was educated about how bad shoe habits can worsen the condition. NSAIDS, P.T., injections and other conservative treatments were discussed. Both surgical and non surgical treatments were discussed, but conservative options were emphasized. Atherosclerosis of solomon ar teries of extremities with intermittent claudication, bilateral legs Patient educated on risks and aggravatin g factors of PVD, including conservative treatment options such as a diet and exercise regimen to aid in slowing progression of vascular disease Xerosis cutis The patient was educ ated regarding proper hydration of their feet/ankles and the patient was given several recommendations for proper creams to protect/hydrate and keep the area healthy. Continue with use of lotion to be applied to feet daily. Acquired keratosis [keratode rma] palmaris et plantaris Pre-ulcerative keratoderma debrided sharply down to the level of healthy tissue using a 15 blade. After removal of overlying extensive hyperkeratosis, healthy tissue was noted and care was taken to assure that no undermining or probing was present. It should be noted that no probing was noted and no infection or drainage was noted. Type 2 diabetes mellitus wit h diabetic peripheral angiopathy without gangrene Patient educated on proper diabetic foot care and the importance of tight glycemic control in regards to the prevention of diabetic manifestations and symptomatology in lower extremity. Explained to patient the importance of keeping interdigital spaces dry, not walking bare foot, having supportive shoe gear, using moisturizer to skin on feet daily especially in winter months, and checking feet daily for any new lesions or areas suspicious of trauma infection or ulceration. Explained to patient to return to ED if any change in foot health associated with signs of systemic infection including but not limited to nausea, vomiting, fever. Patient was educated about the systemic risks and dangers of neuropathy as well as potential likely causes of symptoms. Patient was educated on high pressure areas including risks and offloading solutions. Reviewed with patient proper foot care instructions and daily self-examination and monitoring of the feet. Recommend use of alpha lipoeic acid and vitamin b12 complex. Next Appt Details Follow Up: 2 Weeks, Reason: Progress Notes * BENJIGailDeborah LDOB:[birth year] (78 yo F)Acc No.[id number]:02/26/2024 Patient: Deborah WOOD Provider: Padilla BYRNE :1945 A ge:78 Y S ex:Female Date:02/26/2024 Address:[address] [place] [address] [id number] Subjective: * Chief Complaints: * 1 . *General care. * HPI: H PI: General care P atient presents to the office for diabetic foot care. Patient states that their nails are thickened, elongated and painful. Patient states that it is aggravated by shoe gear. Onset is gradual., Patient denies taking prescription blood thinners but does take a daily aspirin., Date last seen by Dr. Lujan was 10/2023., Initials mca. * ROS: G eneral / Constitutional: Patient denies w eakness. R espiratory: Patient denies c hronic cough, shortness of breath, sputum production. C ardiovascular: Patient denies c hest pain, history of [place], irregular heartbeat. M usculoskeletal: Patient complains of j oint stiffness, hammertoes, arch pain. P eripheral Vascular: Patient denies b lanching of skin, cold extremities, decreased sensation in extremities. S kin: Patient complains of f ungal nails, calluses and corns, nail changes. N eurologic: Patient denies d izziness, gait abnormality, headache. * Medical History: * Social History: T obacco Use: T obacco Use/Smoking T obacco use: f ormer smoker, H ow long has it been since you last smoked? > 10 years. D rugs/Alcohol: D o you drink alcohol?: Yes, Weekly. * Medications: T aking Fish Oil , Taking Biotin , Taking Aspirin , Taking Nitrofurantoin Macrocrystal , Taking Farxiga , Taking Levothroid , Taking Losartan Potassium-HCTZ , Taking Atorvastatin Calcium , Taking Tresiba , Taking Metformin & Diet Manage Prod , Taking Trulicity , Taking Ferrous Aspartate , Taking Ammonium Lactate 12 % Lotion 1 application Externally Twice a day Objective: * Examination: P hysical Examination: V ascular: Dorsalis Pedis pulse noted at 1/4 right foot and 1/4 left foot and Posterior Tibial pulse noted at 1/4 right foot and 1/4 left foot, Capillary refill times noted to be less than three seconds x ten, Temperature gradient noted to be warm to cool to bilateral foot, pedal hair present to bilateral foot and no varicosities are noted Dermatologic: there are no open lesions, no signs of active clinical infection, no erythema noted, no ecchymoses, nails are elongated thickened and dystrophic with subungual debris x ten, diffuse plantar xerosis noted to bilateral foot with no signs of annular scaling, hyperkeratotic lesion noted plantar fifth metatarsal head right foot and wart like lesion with loss of relaxed skin tension lines noted to plantar fifth metatarsal head left foot pinpoint bleeding noted upon debridement Musculoskeletal: there is pain to palpation onto nail plate x ten, no calf pain noted bilaterally, arch height noted at 2/5 non-weight bearing bilaterally, first metatarsophalangeal joint range of motion 30 deg non-weight bearing bilaterally, flexible fifth digit hammer toe deformity noted to bilateral foot reducible with kelikian push up test Neurology: protective sensation intact to light touch bilateral digits one through five, vibratory sensation intact to first metatarsophalangeal joint bilaterally. Assessment: * Assessment: 1. P lantar wart - B07.0 (Primary) 2 . T inea unguium - B35.1 3 . O ther hammer toe(s) (acquired), right foot - M20.41 4 . O ther hammer toe(s) (acquired), left foot - M20.42 5 . P ain in right toe(s) - M79.674 6 . P ain in left toe(s) - M79.675 7 . Pain in right foot - M79.671 8 . A therosclerosis of solomon arteries of extremities with intermittent claudication, bilateral legs - I70.213 9 . X erosis cutis - L85.3 1 0. Acquired keratosis [keratoderma] palmaris et plantaris - L85.1 1 1. T ype 2 diabetes mellitus with diabetic peripheral angiopathy without gangrene - E11.51 Plan: * Treatment: 2. T inea unguium Notes: Aseptic debridement of elongated thickened nails x 10 using sterile nippers, nails were debrided in length and thickness by 30% utilizing a nail nipper without incident. The patient was educated regarding all treatment options that include topical and oral antifungal treatments. I discussed the options of taking a sample of the nail to confirm diagnosis. Nail clippings were not sent for pathology analysis. The patient was educated why and how the fungal infection evolved in their feet and the patient was given information regarding how to prevent further infection. The patient was told to keep feet dry and change socks. The patient was told to be careful with old shoes and excessive sweating. The patient was educated regarding both OTC and prescription treatments. 3. O ther hammer toe(s) (acquired), right foot Notes: The patient was educated regarding how to mechanically stabilize their deformity. The patient was given education about shoe recommendations specific for the condition. The patient was educated about custom orthotics and how appropriate shoes and orthotics can prevent further worsening of the deformity. The patient was educated about how bad shoe habits can worsen the condition. NSAIDS, P.T., injections and other conservative treatments were discussed. Both surgical and non surgical treatments were discussed, but conservative options were emphasized. 4. A therosclerosis of solomon arteries of extremities with intermittent claudication, bilateral legs Notes: Patient educated on risks and aggravating factors of PVD, including conservative treatment options such as a diet and exercise regimen to aid in slowing progression of vascular disease ? 5. X erosis cutis Notes: The patient was educated regarding proper hydration of their feet/ankles and the patient was given several recommendations for proper creams to protect/hydrate and keep the area healthy. Continue with use of lotion to be applied to feet daily. 6. A cquired keratosis [keratoderma] palmaris et plantaris Notes: Pre-ulcerative keratoderma debrided sharply down to the level of healthy tissue using a 15 blade. After removal of overlying extensive hyperkeratosis, healthy tissue was noted and care was taken to assure that no undermining or probing was present. It should be noted that no probing was noted and no infection or drainage was noted. 7. T ype 2 diabetes mellitus with diabetic peripheral angiopathy without gangrene Start Ammonium Lactate Lotion, 12 %, 1 application, Externally, Twice a day, 1, Refills 2. ? Notes: Patient educated on proper diabetic foot care and the importance of tight glycemic control in regards to the prevention of diabetic manifestations and symptomatology in lower extremity. Explained to patient the importance of keeping interdigital spaces dry, not walking bare foot, having supportive shoe gear, using moisturizer to skin on feet daily especially in winter months, and checking feet daily for any new lesions or areas suspicious of trauma infection or ulceration. Explained to patient to return to ED if any change in foot health associated with signs of systemic infection including but not limited to nausea, vomiting, fever. Patient was educated about the systemic risks and dangers of neuropathy as well as potential likely causes of symptoms. Patient was educated on high pressure areas including risks and offloading solutions. Reviewed with patient proper foot care instructions and daily self-examination and monitoring of the feet. Recommend use of alpha lipoeic acid and vitamin b12 complex. 8. O thers Start Imiquimod Cream, 5 %, 1 application at bedtime, leave on for 8 hours then wash off, Externally, Three times a Week, 1, Refills 2. * Procedure Codes: 1 7110 DESTRUCT LESION, 1-14, 38220 TRIM SKIN LESION, Modifiers: 59 , Q8, 64144 DEBRIDE NAIL, 6 OR MORE, Modifiers: 59 , Q8 * Follow Up: 2 Weeks * Billing Information: * Visit Code: * Procedure Codes: 08255 DESTRUCT LESION, 1-14. 94857 TRIM SKIN LESION. Modifiers: 59, Q8 80339 DEBRIDE NAIL, 6 OR MORE. Modifiers: 59, Q8 * Sign off status: Completed true * Provider: Padilla BYRNE Date: 0 02/26/2024 Generated for Cesario hernandez/Vicky/Dayne on: 0 11/02/2024 11:18 AM CDT History and Physical Notes * HPI (History of Present Illness) Category Sub-Category Detail Notes Category Not es HPI General care Patient presents to the office for diabetic foot care. Patient states that their nails are thickened, elongated and painful. Patient states that it is aggravated by shoe gear. Onset is gradual., Patient denies taking prescription blood thinners but does take a daily aspirin., Date last seen by Dr. Lujan was 10/2023., Initials mca Examination Category Sub-Category Detail Notes Category Not es Physical Examination Vascular: Dorsalis Pedis pulse noted at 1/4 right foot and 1/4 left foot and Posterior Tibial pulse noted at 1/4 right foot and 1/4 left foot, Capillary refill times noted to be less than three seconds x ten, Temperature gradient noted to be warm to cool to bilateral foot, pedal hair present to bilateral foot and no varicosities are noted Dermatologic: there are no open lesions, no signs of active clinical infection, no erythema noted, no ecchymoses, nails are elongated thickened and dystrophic with subungual debris x ten, diffuse plantar xerosis noted to bilateral foot with no signs of annular scaling, hyperkeratotic lesion noted plantar fifth metatarsal head right foot and wart like lesion with loss of relaxed skin tension lines noted to plantar fifth metatarsal head left foot pinpoint bleeding noted upon debridement Musculoskeletal: there is pain to palpation onto nail plate x ten, no calf pain noted bilaterally, arch height noted at 2/5 non-weight bearing bilaterally, first metatarsophalangeal joint range of motion 30 deg non-weight bearing bilaterally, flexible fifth digit hammer toe deformity noted to bilateral foot reducible with kelikian push up test Neurology: protective sensation intact to light touch bilateral digits one through five, vibratory sensation intact to first metatarsophalangeal joint bilaterally
--- OUTSIDE RECORDS SUMMARY | 2024-11-02 11:18 | XMS_ITS | Encounter Summary ---
Author Organization [facility] Address [address] [place] [address] Care Team Providers Care Tower Crane Operator Name Role Phone Hero Lujan MD Primary Care Provider [phone] Encounter Details Date Type Department Care Team (Late st Contact Info) Description 08/12/2021 Therapy Plan [facility] [address] [place], [place] [id number] Evan Klein MD [address] [place] [address] Social History Tobacco Use Types Packs/Day Years Used Date Smoking Tobacco: Never Assessed Comments Unknown Sex and Gender Information Value Date Recorded Sex Assigned at Not on file Legal Sex Female 4:28 PM WINDOWS [employer] DEPL[employer]MENT LEAD Gender Identity Female 08/15/2021 11:30 AM WINDOWS [employer] DEPLOYMENT LEAD Sexual Orientation Not on file COVID-19 Exposure Response Date Recorded In the last month, have you been in contact with someone who was confirmed or suspected to have Coronavirus / COVID-19? No / Unsure 08/15/2021 3:50 PM WINDOWS [employer] DEPLOYMENT LEAD documented as of this encounter Plan of Treatment Not on file documented as of this encounter Visit Diagnoses Diagnosis Chronic cystitis without hematuria- Primary documented in this encounter Care Teams Tower Crane Operator Relationship Specialty Start Date End Date Hero Lujan MD [address] [place] [address] PCP - General INTERNAL MEDICINE 08/13/21 documented as of this encounter
--- OUTSIDE RECORDS SUMMARY | 2024-11-02 11:18 | XMS_ITS | Encounter Summary ---
Author Organization [facility] Address [address] [facility] [place] [address] Care Team Providers Care Voltmeter Operator Name Role Phone Odette Webb MD Primary Care Provider [phone] Max Branch MD Unavailable William Abebe MD Unavailable [phone] Hero Lujan MD Primary Care Provider [phone] Encounter Details Date Type Department Care Team (Late st Contact Info) Description 11/06/2012 [facility]PT Unknown, Provider Social History Tobacco Use Types Packs/Day Years Used Date Smoking Tobacco: Never Alcohol Use Standard Drinks/Week Comments No 0 (1 standard drink = 0.6 oz pur e alcohol) Sex and Gender Information Value Date Recorded Sex Assigned at Female 08/19/2024 9:26 AM MEDICAL CLAIMS ANALYST Gender Identity Female 08/19/2024 9:26 AM MEDICAL CLAIMS ANALYST Sexual Orientation Choose not to disclose 2024 9:26 AM MEDICAL CLAIMS ANALYST documented as of this encounter Plan of Treatment Not on file documented as of this encounter Visit Diagnoses Not on filedocumented in this encounter Care Teams Voltmeter Operator Relationship Specialty Start Date End Date Odette Webb MD [address] [facility] [address] [place] [id number] PCP - General 06/27/09 01/02/19 Max Branch MD [address] [place] [address] PCP - OBGYN 06/19/09 [place] [address] [place] [address] [address] [place] [address] PCP - General 01/03/19 William Abebe MD [address] [place] [address] Orthopedic Surgery 10/12/12 documented as of this encounter
--- OUTSIDE RECORDS SUMMARY | 2024-11-02 11:18 | XMS_ITS | Clinical Summary ---
Author Organization [facility] Address [address] [place] [address] Care Team Providers Care Core Winder Name Role Phone Max Branch MD Unavailable [phone] William Abebe MD Unavailable [phone] Hero Lujan MD Primary Care Provider [phone] Source Comments [facility],non-owned Affiliates and Associated Physician Practices is amultiple site organization consisting of ambulatory clinics and hospital sitesin [place], [place], [place] and [place]. This disclosure is being madepursuant to the Care Everywhere program and may not contain all information available regarding this patient. Last updated 18.[facility] Allergies Active Allergy Reactions Criticality Noted Date [...] Department Care Team Description 09/07/2024 2:45 PM REINFORCING METAL WORKER Ancillary Procedure [facility] Orthopedics - Radiology [address] [place] [phone] Edgard Regan IV, MD Right hip pain 09/07/2024 2:00 PM REINFORCING METAL WORKER Office Visit [facility] Orthoped[facility] [address], [address] [place] [id number] Edgard Regan IV, MD Right hip pain (Primary Dx) 08/25/2024 12:38 PM REINFORCING METAL WORKER - 08/25/2024 11:59 PM REINFORCING METAL WORKER Hospital Encounter [facility] [address] [place] [address] Hero Lujan MD Discharge Disposition: Home or [...] Sex Assigned at Female 08/19/2024 9:26 AM REINFORCING METAL WORKER Gender Identity Female 08/19/2024 9:26 AM REINFORCING METAL WORKER Sexual Orientation Choose not to disclose 2024 9:26 AM REINFORCING METAL WORKER Last Filed Vital Signs Vital Sign Reading Time Taken Comments Blood Pressure 120/62 03/10/2022 3:30 PM CDT Pulse 104 08/16/2017 6:10 AM REINFORCING METAL WORKER Temperature 36.9 C (98.4 F) 08/16/2017 6:10 AM REINFORCING METAL WORKER Respiratory Rate 16 08/16/2017 6:10 AM REINFORCING METAL WORKER Oxygen Saturation 93% 08/16/2017 6:10 AM REINFORCING METAL WORKER Inhaled Oxygen Concentration - - Weight 85.7 kg (189 lb) 08/25/2024 12:53 PM REINFORCING METAL WORKER Height 152.4 cm (5') 08/25/2024 12:53 PM REINFORCING METAL WORKER Body Mass Index 36.91 08/25/2024 12:53 PM REINFORCING METAL WORKER Plan of Treatment Health Maintenance Due [...] season) 2024 05/16/2021, 10/16/2020, 09/25/2020 INFLUENZA VACCINE (Season Ended) 2025 07/01/2021, 05/17/2020, 04/13/2019 DEPRESSION SCREENING Completed 09/07/2024 HEPATITIS [...] this topic Medical Devices Implanted Type Area Debt Counselor Device Identifier Shelf Expiration Date Model / Serial / Lot Beto Bone [place] H[place] Implanted:Qty: 1 on 01/10/2013 by William Abebe MD at [facility] Left: Knee [employer] 07/12/2014 [id number] / / [id number] Biomet Interlok 75mm Fixed Ibeam Tibial Plate With Locking Bar Implanted:Qty: 1 on 01/10/2013 by William Abebe MD at [facility] Left: Knee 10/10/2022 [id number] / / [id number] Biomet Arcom Patella Single 1/4 Inch Peg With Wire 31mm X 8 Mm Implanted:Qty: 1 on 01/10/2013 by William Abebe MD at [facility] Left: Knee 11/10/[id number] / / [id number] Vanguard Cr Femoral 67.5 Mm Left Interlok Implanted:Qty: 1 on 01/10/2013 by William Abebe MD at [facility] Left: Knee 06/12/2022 [id number] / / [id number] Biomet Vanguard/Tm Dcm Tibial Bearing Anterior Stabilized 12mm X 75mm Implanted:Qty: 1 on 01/10/2013 by William Abebe MD at [facility] Left: Knee 07/12/2017 [id number] / / [id number] Brdg Tib Denise Stbl 12mm X 71mm Implanted:Qty: 1 on 04/13/2013 by William Abebe MD at [facility] Right: Knee [employer] 03/01/2018 [id number] / / [id number] Beto Bone [place] Hv Implanted:Qty: 1 on 04/13/2013 by William Abebe MD at [facility] Right: Knee [employer] 10/30/2014 [id number] / / [id number] 65mm Cr Femoral Implanted:Qty: 1 on 04/13/2013 by William Abebe MD at [facility] Right: Knee 01/30/2023 [id number] / / [id number] 31mm X 8mm Arcom Patella Implanted:Qty: 1 on 04/13/2013 by William Abebe MD at [facility] Right: Knee 03/01/[id number] / / [id number] Ty Tibial I Beam Fix Bar 71mm Implanted:Qty: 1 on 04/13/2013 by William Abebe MD at [facility] Right: Knee [employer] 12/30/2022 [id number] / / [id number] Procedures Procedure Name Priority Date/Time Associated Diagnosis Comments XR HIP RIGHT 2VW OR MORE Routine 09/07/2024 2:46 PM REINFORCING METAL WORKER Right hip pain MAMMO BILAT SCREENING W CINDI Routine 08/25/2024 12:56 PM REINFORCING METAL WORKER Encounter for screening mammogram for breast cancer from Last 3 Months Results * XR Hip Right 2Vw or More (09/07/2024 2:46 PM REINFORCING METAL WORKER) Narrative [facility] [place] [address] - 09/07/2024 2:46 PM REINFORCING METAL WORKER Please see progress note in Epic for results. Edgard Regan IV, MD DIAGNOSTIC IMAGING O RDERABLES [facility] [address] * Mammo Bilat Screening W Cindi (08/25/2024 12:56 PM REINFORCING METAL WORKER) Anatomical Region Laterality Modality Breast Bilateral Mammography 08/25/2024 4:54 PM REINFORCING METAL WORKER Impressions 08/25/2024 5:00 PM REINFORCING METAL WORKER IMPRESSION: There is no mammographic evidence of malignancy. OVERALL FINAL ASSESSMENT: BI-RADS Category 1: Negative. Annual screening mammography is recommended. > Interpreting Provider: Kellen Yoder MD on 08/25/2024 5:00 PM Narrative 08/25/2024 5:00 PM REINFORCING METAL WORKER EXAMINATION: BILATERAL DIGITAL SCREENING MAMMOGRAM AND BILATERAL [...] 2:42 PM 01/13/2013 12:28 PM Care Teams Core Winder Relationship Specialty Start Date End Date Max Branch MD [address] [place] [address] [phone] PCP - OBGYN 06/19/09 [place] [address] [place] [address] [address] [place] [address] PCP - General 01/03/19 William Abebe MD [address] [place] [address] [place] [id number] Orthopedic Surgery 10/12/12
--- OUTSIDE RECORDS SUMMARY | 2024-11-02 11:18 | XMS_ITS | Referral Summary ---
Author Organization [facility] Address [address] [place] [address] Care Team Providers Care Boiler Mechanic Name Role Phone Hero Lujan MD Primary [...] 1 tablet (25 mcg total) by mouth drum carrier before breakfast Active aspirin 81 mg chewable [...] on file Legal Sex Female 3:42 AM MARBLE MACHINE TENDER Gender Identity Not on file Sexual Orientation [...] of Treatment Not on file Insurance MEDICARE [facility] Member Subscriber Plan / Payer (Ef fective 2020-Present) Name:Deboarh Cancino Relation to Subscriber:Self Name:Deborah Cancino Payer ID:[id number] Group ID:Not on file Type:[place] Address: [facility] [address] [place] [id number] MEDICARE [facility] Care Teams Boiler Mechanic Relationship Specialty Start Date End Date Hero Lujan MD [address] [place] [id number] PCP - General Emergency Medicine 11/06/20
--- OUTSIDE RECORDS SUMMARY | 2024-11-02 11:18 | XMS_ITS | Clinical Summary ---
Author Organization [facility] Address [address] [place] [address] Care Team Providers Care Certified Physical Therapist Assistant Name Role Phone Hero Lujan MD Primary Care Provider [phone] Allergies Active Allergy Reactions Criticality Noted Date [...] on file Legal Sex Female 4:28 PM QUARTZ CUTTER Gender Identity Female 08/15/2021 11:30 AM QUARTZ CUTTER Sexual Orientation Not on file Last Filed Vital Signs Vital Sign Reading Time Taken Comments Blood Pressure 151/67 08/20/2021 2:20 PM QUARTZ CUTTER Pulse 100 08/20/2021 2:20 PM QUARTZ CUTTER Temperature 37.1 C (98.7 F) 08/20/2021 2:20 PM QUARTZ CUTTER Respiratory Rate 18 08/20/2021 2:20 PM QUARTZ CUTTER Oxygen Saturation 99% 08/20/2021 2:20 PM QUARTZ CUTTER Inhaled Oxygen Concentration - - Weight 79.4 kg (175 lb) 08/14/2021 2:01 PM QUARTZ CUTTER Height 157.5 cm (5' 2 ) 08/14/2021 2:01 PM QUARTZ CUTTER Body Mass Index 32.01 08/14/2021 2:01 PM QUARTZ CUTTER Plan of Treatment Health Maintenance Due Date [...] age to complete this topic Insurance MEDICARE [facility] Care Teams Certified Physical Therapist Assistant Relationship Specialty Start Date End Date Hero Lujan MD [address] [place] [id number] PCP - General INTERNAL MEDICINE 08/13/21
--- OUTSIDE RECORDS SUMMARY | 2024-11-02 11:18 | XMS_ITS ---
Author Organization [facility] Address [address] [place], [place] [id number] Care Team Providers Care Quality Assurance Monitor Chassis Name Role Phone Hero Lujan Unavailable Unavailable AMRITA BYRNE Unavailable [phone] REASON FOR VISIT *Wart follow-up Medications Medication SIG (Take, Route, Frequency, Duration) Notes Start Date End Date Status Fish Oil Active Nitrofurantoin Macrocrystal Active Farxiga Active Biotin Active Aspirin Active Trulicity Active Imiquimod 5 % 1 application at bedtime, leave on for 8 hours then wash off Externally Three times a Week 03/11/2024 Active Imiquimod 5 % 1 application at bedtime, leave on for 8 hours then wash off Externally Three times a Week 02/26/2024 Active Ammonium Lactate 12 % 1 application Exte rnally Twice a day Active Ferrous Aspartate Ac tive Metformin & Diet Manage Prod Active Atorvastatin Calcium Active Tresiba Active Levothroid Active Losartan Potassium-HCTZ Active Social History Tobacco Use: Social History Observation Description Date Details (start date - stop date) Former Smoker NA - NA Tobacco Use/Smoking Question Answer Notes Tobacco use: former smoker How long has it been since you last smoked? > 10 years Encounters Encounter Location Date Provider Diagnosis [facility] [address] [place], [place] [id number] 03/11/2024 AMRITA BYRNE Tinea unguium B35.1 ; Plantar wart B07.0 ; Other hammer toe(s) (acquired), right foot M20.41 ; Other hammer toe(s) (acquired), left foot M20.42 ; Type 2 diabetes mellitus with diabetic peripheral angiopathy without gangrene E11.51 and Pain in left foot M79.672 Assessments Encounter Date Diagnosis (ICD Code) Assessment Notes Treatment Notes Treatment Clinical Notes Section Notes 03/11/2024 Tinea unguium (ICD-10 - B35.1) The patient was educated regarding all treatment [...] educated regarding both OTC and prescription treatments. 03/11/2024 Plantar wart (ICD-10 - B07.0) I educated the patient on verruca. I discussed various treatment plans and answered questions. I explained that verruca treatments often require multiple treatments. Today lesions were prepped, debrided down to bleeding base with #15 blade, and then chemical cauterization solution application for the second time. continue with imiquimod. 03/11/2024 Other hammer toe(s) (acquired), right foot (ICD-10 [...] were discussed, but conservative options were emphasized. 03/11/2024 Other hammer toe(s) (acquired), left foot (ICD-10 - M20.42) 03/11/2024 Type 2 diabetes mellitus with diabetic peripheral [...] alpha lipoeic acid and vitamin b12 complex. 03/11/2024 Pain in left foot (ICD-10 - M79.672) Plan Of Treatment Medication Medication Name Sig Start Date Stop Date Notes Imiquimod 5 % 1 application at bed time, leave on for 8 hours then wash off Externally Three times a Week 03/11/2024 Treatment Notes Assessment Notes Tinea unguium The patient was educ ated regarding all treatment options that include topical [...] then chemical cauterization solution application for the second time. continue with imiquimod. Other hammer toe(s) (acquire d), right foot The patient was educated regarding how t o mechanically stabilize their deformity. The patient was [...] were discussed, but conservative options were emphasized. Type 2 diabetes mellitus wit h diabetic [...] Up: 2 Weeks, Reason: Progress Notes * Deborah LEBLANC LDOB:[birth year] (78 yo F)Acc No.[id number]:03/11/2024 Patient: Deborah WOOD Provider: Padilla BYRNE :1945 A ge:78 Y S ex:Female Date:03/11/2024 Address:[address] [place] [address] [id number] Subjective: * Chief Complaints: * 1 . *Wart follow-up. * HPI: H PI: [facility] for wart on the right foot. , Patient states their problem is, improving., MA: . * ROS: G eneral / Constitutional: Patient denies w eakness. R espiratory: Patient denies c hronic cough, shortness of breath, sputum production. C ardiovascular: Patient denies c hest pain, history of [place], irregular heartbeat. M usculoskeletal: Patient complains of [...] Trulicity , Taking Ferrous Aspartate , Taking Imiquimod 5 % Cream 1 application at bedtime, leave on for 8 hours then wash off Externally Three times a Week , Taking Ammonium Lactate 12 % Lotion [...] joint bilaterally. Assessment: * Assessment: 1. P heaven hilario - B07.0 (Primary) 2 . T inea unguium - B35.1 3 . O ther hammer toe(s) (acquired), right foot - M20.41 4 . O ther hammer toe(s) (acquired), left foot - M20.42 5 . T ype 2 diabetes mellitus with diabetic peripheral angiopathy without gangrene - E11.51 6 . P ain in left foot - M79.672 Plan: * Treatment: 2. T inea unguium Notes: The patient was educated regarding all treatment [...] discussed, but conservative options were emphasized. 4. T ype 2 diabetes mellitus with diabetic peripheral angiopathy without gangrene Notes: Patient educated on proper diabetic foot [...] alpha lipoeic acid and vitamin b12 complex. 5. O thers Start Imiquimod Cream, 5 %, 1 application at bedtime, leave on for 8 hours then wash off, Externally, Three times a Week, 1, Refills 2. * Procedure Codes: 1 7110 DESTRUCT LESION, 1-14 * Follow Up: 2 Weeks * Billing Information: * Visit Code: * Procedure Codes: 34310 DESTRUCT LESION, 1-14. * Sign off status: Completed true * Provider: Padilla BYRNE Date: 0 03/11/2024 Generated for Cesario Vincent on: 0 11/02/2024 11:18 AM CDT History and Physical Notes * HPI (History of Present Illness) Category Sub-Category Detail Notes Category Not es HPI Follow Up Visit Patient presents for follow up visit for wart on the right foot. , Patient states their problem is, improving., MA: JR Examination Category Sub-Category Detail Notes Category Not [...]
--- OUTSIDE RECORDS SUMMARY | 2024-11-02 11:19 | XMS_ITS ---
Author Organization [facility] Address [address] [place], [place] [id number] Care Team Providers Care Block Engraver Name Role Phone Hero Lujan Unavailable Unavailable AMRITA BYRNE Unavailable [phone] REASON FOR VISIT *Wart follow-up Medications Medication SIG (Take, Route, Frequency, Duration) Notes Start Date End Date Status Imiquimod 5 % 1 application at bedtime, leave on for 8 hours then wash off Externally Three times a Week 03/11/2024 Active Ammonium Lactate 12 % 1 application Exte rnally Twice a day Active Imiquimod 5 % 1 application at bedtime, leave on for 8 hours then wash off Externally Three times a Week 02/26/2024 Active Ferrous Aspartate Ac tive Trulicity Active Metformin & Diet Manage Prod Active Tresiba Active Atorvastatin Calcium Active Losartan Potassium-HCTZ Active Levothroid Active Farxiga Active Nitrofurantoin Macrocrystal Active Aspirin Active Biotin Active Fish Oil Active Social History Tobacco Use: Social History Observation Description Date Details (start date - stop date) Former Smoker NA - NA Tobacco Use/Smoking Question Answer Notes Tobacco use: former smoker How long has it been since you last smoked? > 10 years Encounters Encounter Location Date Provider Diagnosis [facility] [address] [place], [place] [id number] 03/25/2024 AMRITA BYRNE Tinea unguium B35.1 ; Plantar wart B07.0 ; Other hammer toe(s) (acquired), right foot M20.41 ; Other hammer toe(s) (acquired), left foot M20.42 ; Pain in right toe(s) M79.674 ; Pain in left toe(s) M79.675 ; Pain in right foot M79.671 ; Atherosclerosis of [place] arteries of extremities with intermittent claudication, bilateral legs I70.213 ; Xerosis cutis L85.3 ; Acquired keratosis [keratoderma] palmaris et plantaris L85.1 and Type 2 diabetes mellitus with diabetic peripheral angiopathy without gangrene E11.51 Assessments Encounter Date Diagnosis (ICD Code) Assessment Notes Treatment Notes Treatment Clinical Notes Section Notes 03/25/2024 Tinea unguium (ICD-10 - B35.1) The patient [...] educated regarding both OTC and prescription treatments. 03/25/2024 Plantar wart (ICD-10 - B07.0) I educated the patient on verruca. I discussed various treatment plans and answered questions. I explained that verruca treatments often require multiple treatments. No further treatment indicated as wart like lesion seems to have resolved. 03/25/2024 Other hammer toe(s) (acquired), right foot (ICD-10 [...] were discussed, but conservative options were emphasized. 03/25/2024 Other hammer toe(s) (acquired), left foot (ICD-10 - M20.42) 03/25/2024 Pain in right toe(s) (ICD-10 - M79.674) 03/25/2024 Pain in left toe(s) (ICD-10 - M79.675) 03/25/2024 Pain in right foot (ICD-10 - M79.671) 03/25/2024 Atherosclerosis of [place] arteries of extremities with intermittent claudication, bilateral legs (ICD-10 - I70.213) Patient educated on risks and aggravating factors of PVD, including conservative treatment options such as a diet and exercise regimen to aid in slowing progression of vascular disease 03/25/2024 Xerosis cutis (ICD-10 - L85.3) The patient was educated regarding proper hydration of their feet/ankles and the patient was given several recommendations for proper creams to protect/hydrate and keep the area healthy. Continue with use of lotion to be applied to feet daily. 03/25/2024 Acquired keratosis [keratoderma] palmaris et plantaris (ICD-10 - L85.1) Pre-ulcerative keratoderma debrided sharply down to the level of healthy tissue using a 15 blade. After removal of overlying extensive hyperkeratosis, healthy tissue was noted and care was taken to assure that no undermining or probing was present. It should be noted that no probing was noted and no infection or drainage was noted. 03/25/2024 Type 2 diabetes mellitus with diabetic peripheral [...] but not limited to nausea, vomiting, fever. Plan Of Treatment Treatment Notes Assessment Notes Tinea unguium The [...] that verruca treatments often require multiple treatments. No further treatment indicated as wart like lesion seems to have resolved. Other hammer toe(s) (acquired), right fo ot [...] but conservative options were emphasized. Atherosclerosis of [place] ar teries of extremities with intermittent claudication, [...] but not limited to nausea, vomiting, fever. Next Appt Details Follow Up: 3 Months, Reason: Progress Notes * Deborah LEBLANC LDOB:[birth year] (78 yo F)Acc No.[id number]:03/25/2024 Patient: Deborah WOOD Provider: Padilla BYRNE :1945 A ge:78 Y S ex:Female Date:03/25/2024 Address:[address] [place] [address] , [place] [id number] Subjective: * Chief Complaints: * 1 . *Wart follow-up. * HPI: H PI: Follow Up Visit P atient presents for follow up visit for a wart on the side of the right foot. , Patient states their problem is, improving. Patient states the pain to the outside of the right foot is worse with certain shoe gear on and relieved with rest. States she also sometimes gets pain to the back of her right ankle especially with first steps out of bed in the morning.. * ROS: G eneral / Constitutional: Patient denies w eakness. R espiratory: Patient denies c hronic cough, shortness of breath, sputum production. C ardiovascular: Patient denies c hest pain, history of [place], irregular heartbeat. M usculoskeletal: Patient complains of j oint stiffness, hammertoes, arch pain. P eripheral Vascular: Patient denies b lanching of skin, cold extremities, decreased sensation in extremities. S kin: Patient complains of f ungal nails, calluses and corns, nail changes. N eurologic: Patient denies d izziness, gait abnormality, headache.? * Medical History: * Social History: T [...] Lotion 1 application Externally Twice a day , Taking Imiquimod 5 % Cream 1 application at bedtime, leave on for 8 hours then wash off Externally Three times a Week Objective: * Examination: P hysical Examination: V [...] noted plantar fifth metatarsal head right foot wart like lesion has improved from prior encounter Musculoskeletal: there is pain to palpation onto nail plate x ten, no calf pain noted bilaterally, arch height noted at 2/5 non-weight bearing bilaterally, first metatarsophalangeal joint range of motion 30 deg non-weight bearing bilaterally, flexible fifth digit hammer toe deformity noted to bilateral foot reducible with kelikian push up test, pain along distal course of achilles tendon right foot Neurology: protective sensation intact to light touch [...] - M79.671 8 . A therosclerosis of [place] arteries of extremities with intermittent claudication, bilateral [...] options were emphasized. 4. A therosclerosis of [place] arteries of extremities with intermittent claudication, bilateral [...] but not limited to nausea, vomiting, fever. * Follow Up: 3 Months * Billing Information: * Visit Code: 00841 Office Visit, Est Pt., Level 3. * Procedure Codes: * Sign off status: Completed true * Provider: Padilla BYRNE Date: 0 03/25/2024 Generated for Cesario hernandez/Vicky/Dayne on: 0 11/02/2024 11:18 AM CDT History and Physical Notes * HPI (History of Present Illness) Category Sub-Category Detail Notes Category Not es HPI Follow Up Visit Patient presents for follow up visit for a wart on the side of the right foot. , Patient states their problem is, improving. Patient states the pain to the outside of the right foot is worse with certain shoe gear on and relieved with rest. States she also sometimes gets pain to the back of her right ankle especially with first steps out of bed in the morning. Examination Category Sub-Category Detail Notes Category Not [...] noted plantar fifth metatarsal head right foot wart like lesion has improved from prior encounter Musculoskeletal: there is pain to palpation onto nail plate x ten, no calf pain noted bilaterally, arch height noted at 2/5 non-weight bearing bilaterally, first metatarsophalangeal joint range of motion 30 deg non-weight bearing bilaterally, flexible fifth digit hammer toe deformity noted to bilateral foot reducible with kelikian push up test, pain along distal course of achilles tendon right foot Neurology: protective sensation intact to light touch bilateral digits one through five, vibratory sensation intact to first metatarsophalangeal joint bilaterally
--- OUTSIDE RECORDS SUMMARY | 2024-11-02 11:19 | XMS_ITS | Patient Health Record ---
Author Organization [facility] Address [address] [place], [place] [id number] Care Team Providers Care Carbon Blocks Press Operator Name Role Phone Hero Lujan Unavailable Unavailable AMRITA BYRNE Unavailable [phone] Allergies No Known Allergies Reason For Referral No Information Medications Medication SIG (Take, Route, Frequency, Duration) Notes Start Date End Date Status Farxiga Active Nitrofurantoin Macrocrystal Active Imiquimod 5 % 1 application at bedtime, leave on for 8 hours then wash off Externally Three times a Week 03/11/2024 Active Aspirin Active Ammonium Lactate 12 % 1 application Exte rnally Twice a day Active Biotin Active Imiquimod 5 % 1 application at bedtime, leave on for 8 hours then wash off Externally Three times a Week 02/26/2024 Active Fish Oil Active Ferrous Aspartate Ac tive Trulicity Active Metformin & Diet Manage Prod Active Tresiba Active Atorvastatin Calcium Active Losartan Potassium-HCTZ Active Levothroid Active Social History Tobacco Use: Social History Observation Description Date Details (start date - stop date) Former Smoker NA - NA Tobacco Use/Smoking Question Answer Notes Tobacco use: former smoker How long has it been since you last smoked? 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, bilateral legs I70.213 ; Xerosis cutis L85.3 ; Acquired keratosis [keratoderma] palmaris et plantaris L85.1 and Type 2 diabetes mellitus with diabetic peripheral angiopathy without gangrene E11.51 [facility] [place] [address] [id number] 02/26/2024 AMRITA DAVYDOV Tinea unguium B35.1 ; Plantar wart B07.0 ; Other hammer toe(s) (acquired), right foot M20.41 ; Other hammer toe(s) (acquired), left foot M20.42 ; Pain in right toe(s) M79.674 ; Pain in left toe(s) M79.675 ; Pain in right foot M79.671 ; 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, bilateral legs I70.213 ; Xerosis cutis L85.3 ; Acquired keratosis [keratoderma] palmaris et plantaris L85.1 and Type 2 diabetes mellitus with diabetic peripheral angiopathy without gangrene E11.51 [facility] [place] [address] [id number] 03/11/2024 AMRITA DAVYDOV Tinea unguium B35.1 ; Plantar wart B07.0 ; Other hammer toe(s) (acquired), right foot M20.41 ; Other hammer toe(s) (acquired), left foot M20.42 ; Type 2 diabetes mellitus with diabetic peripheral angiopathy without gangrene E11.51 and Pain in left foot M79.672 [facility] [place] [address] [id number] 03/25/2024 AMRITA DAVYDOV Tinea unguium B35.1 ; Plantar wart B07.0 ; Other hammer toe(s) (acquired), right foot M20.41 ; Other hammer toe(s) (acquired), left foot M20.42 ; Pain in right toe(s) M79.674 ; Pain in left toe(s) M79.675 ; Pain in right foot M79.671 ; 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 12/18/2023 Other hammer toe(s) (acquired), right foot (ICD-10 [...] discussed, but conservative options were emphasized. 02/26/2024 Plantar wart (ICD-10 - B07.0) I educated the patient on verruca. I discussed various treatment plans and answered questions. I explained that verruca treatments often require multiple treatments. Today lesions were prepped, debrided down to bleeding base with #15 blade, and then chemical cauterization solution application for the first time. Rx imiquimod. 02/26/2024 Tinea unguium (ICD-10 - B35.1) Aseptic [...] the second time. continue with imiquimod. 03/11/2024 Tinea unguium (ICD-10 - B35.1) The [...] like lesion seems to have resolved. 03/25/2024 Tinea unguium (ICD-10 - B35.1) The [...] regarding both OTC and prescription treatments. 03/11/2024 Other hammer toe(s) (acquired), right foot [...] were emphasized. 02/26/2024 Other hammer toe(s) (acquired), right foot [...] were discussed, but conservative options were emphasized. 12/18/2023 Other hammer toe(s) (acquired), left foot (ICD-10 - M20.42) 03/25/2024 Other hammer toe(s) (acquired), right foot [...] toe(s) (acquired), left foot (ICD-10 - M20.42) 12/18/2023 Pain in right toe(s) (ICD-10 - M79.674) 02/26/2024 Other hammer toe(s) (acquired), left foot (ICD-10 - M20.42) 03/11/2024 Other hammer toe(s) (acquired), left foot [...] alpha lipoeic acid and vitamin b12 complex. 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 Continue with use of lotion to be applied to feet daily. Rx amlactin. 02/26/2024 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, bilateral [...] lotion to be applied to feet daily. 12/18/2023 Acquired keratosis [keratoderma] palmaris et plantaris (ICD-10 [...] no infection or drainage was noted. 03/25/2024 Xerosis cutis (ICD-10 - L85.3) The [...] and no infection or drainage was noted. 12/18/2023 Type 2 diabetes mellitus with diabetic peripheral [...] alpha lipoeic acid and vitamin b12 complex. 02/26/2024 Acquired keratosis [keratoderma] palmaris et plantaris [...] alpha lipoeic acid and vitamin b12 complex. 03/25/2024 Type 2 diabetes mellitus with diabetic [...] to nausea, vomiting, fever. Plan Of Treatment No Information Insurance Providers Payer Name Payer Address Payer Phone Subscriber Number Group Number Insured Name Patient Relationship to Insured Coverage Start Date Coverage End Date Medicare Part B [place] [address] [place] [address] [id number] Deborah Cancino Self - patient is the insured [facility] Medicare Supplement [address] [place], [place] [id number] Deborah Cancino Self - patient is the insured
== END 2024-11-02 10:04 | disposition home or self-care (01) ==
PROVIDERS: Visit Provider Physician Assistant
DX: D64.9 Anemia, unspecified (principal)
CPT/HCPCS: 36415; 82728; 83540; 83550; 84466; 85025

== ENCOUNTER 2024-11-17 07:36 | Outpatient (CLI) | payer MEDICARE, SELFPAY ==
--- NOTE | ~2024-11-17 | MR_ITS ---
MRI of the lumbar spine Clinical History: Pain Technique: Axial T2-weighted images, and sagittal T1-weighted, T2-weighted, and T2 fat-sat images wer e acquired. Following intravenous administration of 70 cc ProHance gadolinium, T1-weighted fat-sat im aging was performed in the axial and sagittal planes. Findings: There is 2 mm retrolisthesis of L2 over L3. There is 4 mm retrolisthesis of L3 over L4. The re is marrow edema focally at the posterior inferior aspect of the L3 vertebral body, most likely keagan ctive marrow signal change due to underlying degenerative disc disease. At L1-L2, there is no disc bulge or herniation. There is minimal facet arthropathy. No central canal stenosis or neural foraminal narrowing. At L2-L3, there is advanced degenerative distended. There is minimal disc bulge with moderate facet a rthropathy. No central canal stenosis or neural foraminal narrowing. At L3-L4, there is severe degenerative disc narrowing with moderate facet arthropathy. There is moder ate central canal stenosis. There is mild bilateral neural foraminal narrowing. At L4-L5, there is disc bulge and severe facet arthropathy, which result in severe spinal canal steno sis/thecal sac compression. There is severe left neural foraminal narrowing, and moderate to severe r ight neural foraminal narrowing. At L5-S1, no definite disc bulge or herniation seen. There is mild bilateral neural foraminal narrowi ng without jm canal stenosis. Paravertebral soft tissues are unremarkable. No suspicious postcontrast enhancement identified. Proba ble reactive soft tissue enhancement about the superior facet arthropathy at L4-L5. Impression: Severe degenerative spondylosis at L4-L5 and L3-L4, as detailed above. Additional mild degenerative changes, as above. Reviewed, dictated and finalized at location M. Impression: Severe degenerative spondylosis at L4-L5 and L3-L4, as detailed above. Additional mild degenerative changes, as above.
--- OUTSIDE RECORDS SUMMARY | 2024-11-17 07:39 | XMS_ITS ---
Author Organization [facility] Address [address] [place], [place] [phone] Care Team Providers Care Polishing Wheel Setter Name Role Phone Hero Lujan Unavailable Unavailable AMRITA BYRNE Unavailable [phone] REASON FOR VISIT *Wart follow-up Medications Medication [...] Provider Diagnosis [facility] [address] [place], [place] [phone] 03/11/2024 AMRITA BYRNE Tinea unguium B35.1 ; [...] Deborah LEBLANC LDOB:[birth year] (78 yo F)Acc No.[id number]:03/11/2024 Patient: Deborah WOOD Provider: Padilla BYRNE :1945 A ge:78 Y S ex:Female Date:03/11/2024 Address:[address] [place] [address] [facility] Subjective: * Chief Complaints: * 1 . *Wart follow-up. * HPI: H [facility] right foot. , Patient states their problem is, improving., MA: . * ROS: G eneral / Constitutional: Patient denies w eakness. R espiratory: Patient denies c hronic cough, shortness of breath, sputum production. C ardiovascular: Patient denies c hest pain, history of CT, irregular heartbeat. M usculoskeletal: Patient complains of [...] Information: * Visit Code: * Procedure Codes: 92941 DESTRUCT LESION, 1-14. * Sign off status: Completed true * Provider: Padilla BYRNE Date: 0 03/11/2024 Generated for Cesario Vincent on: 0 11/17/2024 07:39 AM CDT History and Physical Notes * [...]
--- OUTSIDE RECORDS SUMMARY | 2024-11-17 07:40 | XMS_ITS | Encounter Summary ---
Author Organization [facility] Health Address [address] [place] [address] Care Team Providers Care Hospital Medical Biller Name Role Phone Odette Webb MD Primary Care Provider [phone] Max Branch MD Unavailable [phone] William Abebe MD Unavailable [phone] Hero Lujan MD Primary Care Provider [phone] Encounter Details Date Type Department Care Team (Late st Contact Info) Description 11/06/2012 [facility] DEPT Unknown, Provider Social History Tobacco Use Types Packs/Day Years Used Date Smoking Tobacco: Never Alcohol Use Standard Drinks/Week Comments No 0 (1 standard drink = 0.6 oz pur e alcohol) Comments No Sex and Gender Information Value Date Recorded Sex Assigned at Female 08/19/2024 9:26 AM SCREEN PRINTING STENCIL PREPARER Legal Sex Female 6:46 AM SCREEN PRINTING STENCIL PREPARER Gender Identity Female 08/19/2024 9:26 AM SCREEN PRINTING STENCIL PREPARER Sexual Orientation Choose not to disclose 2024 9:26 AM SCREEN PRINTING STENCIL PREPARER documented as of this encounter Plan of Treatment Not on file documented as of this encounter Visit Diagnoses Not on filedocumented in this encounter Care Teams Hospital Medical Biller Relationship Specialty Start Date End Date Odette Webb MD [address] [facility] [address] [place] [address] PCP - General 06/27/09 01/02/19 Max Branch MD [address] [place], [place] [id number] PCP - OBGYN 06/19/09 Hero Lujan MD [address] [facility] [address] [place] [address] PCP - General 01/03/19 William Abebe MD [address] [place] [address] Orthopedic Surgery 10/12/12 documented as of this encounter
--- OUTSIDE RECORDS SUMMARY | 2024-11-17 07:40 | XMS_ITS | Clinical Summary ---
Author Organization [facility] Address [address] [place] [address] Care Team Providers Care Fee Clerk Name Role Phone Hero Lujan MD Primary [...] 1 tablet (25 mcg total) by mouth transmission line engineer before breakfast Active aspirin 81 mg chewable [...] on file Legal Sex Female 3:42 AM STOREKEEPER HELPER Gender Identity Not on file Sexual Orientation [...] 09/14/2019, 07/28/2018, Additional history exists Insurance MEDICARE [facility] MEDICARE [facility] Address: [facility] [address] [place] [address] [facility] Care Teams Fee Clerk Relationship Specialty Start Date End Date Hero Lujan MD [address] [place] [address] PCP - General Emergency Medicine 11/06/20
--- OUTSIDE RECORDS SUMMARY | 2024-11-17 07:40 | XMS_ITS | Clinical Summary ---
Author Organization [facility] Address [address] [place] [address] Care Team Providers Care Litigation Legal Assistant Name Role Phone Max Branch MD Unavailable [phone] William Abebe MD Unavailable [phone] Hero Lujan MD Primary Care Provider [phone] Source Comments [facility],non-owned Affiliates and Associated Physician Practices is amultiple site organization consisting of ambulatory clinics and hospital sitesin [place], [place], [place] and [place]. This disclosure is being madepursuant to the Care Everywhere program and may not contain all information available regarding this patient. Last updated 18.[facility] Allergies Active Allergy Reactions Criticality Noted Date Comments Ciprofloxacin Nausea and/or Vomiting 03/10/2022 Sulfa Drugs Nausea and/or Vomiting 05/24/2009 Medications * Be aware that medications may not be up to date on this document. Alwaysverify current medications with the patient. glipiZIDE CR 24hr (GLUCOTROL XL) 10 MG [...] DO NOT RESUME METFORMIN UNTIL 04/18/2013 0 04/18/20 13 Active aspirin (ASPIRIN) 81 MG tablet Take 81 mg by mouth once daily Active Biotin 1000 MCG Take 1 tablet by mouth once daily Active cephalexin (KEFLEX) 250 MG capsule Take 1 capsule by mouth once daily 06/08/20 18 Active amitriptyline (ELAVIL) 25 MG tablet Take 1 tablet by mouth once daily 07/03/20 20 Active PREMARIN 0.625 MG/GM vaginal cream Apply 0.5 g to affected area as needed 10/05/19 20 Active oxybutynin CR 24hr (DITROPAN-XL) 10 MG tablet Take 10 mg by mouth once daily 07/03/20 20 Active cyclobenzaprine (FLEXERIL) 5 MG tablet Take 5 mg by mouth 3 times daily as needed 07/03/20 20 Active JANUVIA 50 MG tablet Take 1 tablet by mouth once daily 05/29/20 20 Active clotrimazole-betametha sone (LOTRISONE) 1-0.05 % cream Apply to affected area 2 times daily 60 g 4 07/17/20 20 Active losartan - hydroCHLOROthiazide (Hyzaar) 50-12.5 MG tablet 01/22/20 22 Active nitrofurantoin monohyd macro crystals (Macrobid) 100 MG capsuleIndications:Unc omplicated Urinary Tract Infection Take 1 (one) capsule by mouth 2 times daily with morning and evening meal Reasons: Simple Infection of the Urinary Tract 10 capsule 03/10/20 22 Active Active Problems Problem Noted Date Diagnosed Date Chronic cystitis without hematuria 08/12/2021 Pyelonephritis, acute 08/13/2017 Lichen sclerosus of female genitalia 07/03/2015 Overview (07/03/2015): MYCOLOG OINT. Knee joint replacement by other means 01/31/2013 Osteoarthrosis involving lower leg 10/12/2012 Overview (10/27/2015): 2015 IMO Updt Encounters Date Type Department Care Team Description 09/07/2024 2:45 PM EXPORT FREIGHT CLERK Ancillary Procedure [facility] Orthopedics - Radiology [address] [place] [id number] Edgard Regan IV, MD Right hip pain 09/07/2024 2:00 PM EXPORT FREIGHT CLERK Office Visit [facility] [address], [address] [place] [phone] Edgard Regan IV, MD Right hip pain (Primary Dx) 08/25/2024 12:38 PM EXPORT FREIGHT CLERK - 08/25/2024 11:59 PM EXPORT FREIGHT CLERK Hospital Encounter [facility] Breast Care [address] [facility] [address] [place] [address] Hero Lujan MD Discharge Disposition: Home or [...] - 08/03/1969 Smokeless Tobacco: Never Comments:quit in Alcohol Use Standard Drinks/Week Comments Yes 3.3 (1 standard drink = 0.6 oz p ure alcohol) PHQ-2 Answer Date Recorded Patient Health Questionnaire-2 Score 2 09/03/2024 Comments No Sex and Gender Information Value Date Recorded Sex Assigned at Female 08/19/2024 9:26 AM EXPORT FREIGHT CLERK Legal Sex Female 6:46 AM EXPORT FREIGHT CLERK Gender Identity Female 08/19/2024 9:26 AM EXPORT FREIGHT CLERK Sexual Orientation Choose not to disclose 2024 9:26 AM EXPORT FREIGHT CLERK Last Filed Vital Signs Vital Sign Reading Time Taken Comments Blood Pressure 120/62 03/10/2022 3:30 PM CDT Pulse 104 08/16/2017 6:10 AM EXPORT FREIGHT CLERK Temperature 36.9 C (98.4 F) 08/16/2017 6:10 AM EXPORT FREIGHT CLERK Respiratory Rate 16 08/16/2017 6:10 AM EXPORT FREIGHT CLERK Oxygen Saturation 93% 08/16/2017 6:10 AM EXPORT FREIGHT CLERK Inhaled Oxygen Concentration - - Weight 85.7 kg (189 lb) 08/25/2024 12:53 PM EXPORT FREIGHT CLERK Height 152.4 cm (5') 08/25/2024 12:53 PM EXPORT FREIGHT CLERK Body Mass Index 36.91 08/25/2024 12:53 PM EXPORT FREIGHT CLERK Plan of Treatment Health Maintenance Due Date [...] this topic Medical Devices Implanted Type Area Biochemistry Professor Device Identifier Shelf Expiration Date Model / Serial / Lot Beto Bone Earleton Hv Implanted:Qty: 1 on 01/10/2013 by William Abebe MD at [facility] Left: Knee [employer] 07/12/2014 [id number] / / [id number] Biomet Interlok 75mm Fixed Ibeam Tibial Plate With Locking Bar Implanted:Qty: 1 on 01/10/2013 by William Abebe MD at [facility] Left: Knee 10/10/2022 [id number] / / [id number] Biomet Arcom Patella Single 1/4 Inch Peg With Wire 31mm X 8 Mm Implanted:Qty: 1 on 01/10/2013 by William Abebe MD at [facility] Left: Knee 11/10/2017 [id number] / / [id number] Vanguard Cr Femoral 67.5 Mm Left Interlok Implanted:Qty: 1 on 01/10/2013 by William Abebe MD at [facility] Left: Knee 06/12/2022 [id number] / / [id number] Biomet Vanguard/Tm Dcm Tibial Bearing Anterior Stabilized 12mm X 75mm Implanted:Qty: 1 on 01/10/2013 by William Abebe MD at [facility] Left: Knee 07/12/2017 [id number] / / [id number] Brdg Tib Denise Stbl 12mm X 71mm Implanted:Qty: 1 on 04/13/2013 by William Abebe MD at [facility] Right: Knee [employer] 03/01/2018 [id number] / / [id number] Beto Bone Earleton Hv Implanted:Qty: 1 on 04/13/2013 by William Abebe MD at [facility] Right: Knee [employer] 10/30/2014 [id number] / / [id number] 65mm Cr Femoral Implanted:Qty: 1 on 04/13/2013 by William Abebe MD at [facility] Right: Knee 01/30/2023 [id number] / / [id number] 31mm X 8mm Arcom Patella Implanted:Qty: 1 on 04/13/2013 by William Abebe MD at [facility] Right: Knee 03/01/2018 [id number] / / [id number] Ty Tibial I Beam Fix Bar 71mm Implanted:Qty: 1 on 04/13/2013 by William Abebe MD at [facility] Right: Knee [employer] 12/30/2022 [id number] / / [id number] Procedures Procedure Name Priority Date/Time Associated Diagnosis Comments XR HIP RIGHT 2VW OR MORE Routine 09/07/2024 2:46 PM EXPORT FREIGHT CLERK Right hip pain MAMMO BILAT SCREENING W CINDI Routine 08/25/2024 12:56 PM EXPORT FREIGHT CLERK Encounter for screening mammogram for breast cancer from Last 3 Months Results * XR Hip Right 2Vw or More (09/07/2024 2:46 PM EXPORT FREIGHT CLERK) Narrative [facility] [address] - 09/07/2024 2:46 PM EXPORT FREIGHT CLERK Please see progress note in Epic for results. us Edgard Regan IV, MD DIAGNOSTIC IMAGING ORDERABLES Final Result [facility] [address] * Mammo Bilat Screening W Cindi (08/25/2024 12:56 PM EXPORT FREIGHT CLERK) Anatomical Region Laterality Modality Breast Bilateral Mammography 08/25/2024 4:54 PM EXPORT FREIGHT CLERK Impressions 08/25/2024 5:00 PM EXPORT FREIGHT CLERK IMPRESSION: There is no mammographic evidence of malignancy. OVERALL FINAL ASSESSMENT: BI-RADS Category 1: Negative. Annual screening mammography is recommended. > Interpreting Provider: Kellen Yoder MD on 08/25/2024 5:00 PM Narrative 08/25/2024 5:00 PM EXPORT FREIGHT CLERK EXAMINATION: BILATERAL DIGITAL SCREENING MAMMOGRAM AND BILATERAL [...] interval change. Hero Lujan MD MAMMO ORDERABLES Final Resul t from Last [address] [place] [address] [place] [address] [place] [address] [facility] MEDICARE MEDICARE * Guarantor: DEBORAH LEBLANC Account Type Relation to Patient Date of Phone Billing Address Personal/Family Spouse Advance Directives * Full Code (Latest Code Status on File) Date Activated Date Inactivated Comments 08/13/2017 9:47 PM 08/16/2017 12:41 PM * FULL RESUSCITATION Date Activated Date Inactivated Comments 04/13/2013 10:56 AM 04/16/2013 12:22 PM * FULL RESUSCITATION Date Activated Date Inactivated Comments 01/10/2013 2:42 PM 01/13/2013 12:28 PM Care Teams Litigation Legal Assistant Relationship Specialty Start Date End Date Max Branch MD [address] [place] [address] [place] [address] PCP - OBGYN 06/19/09 Hero Lujan MD [address] [place], [place] [phone] PCP - General 01/03/19 William Abebe MD [address] [place] [address] [place] [address] Orthopedic Surgery 10/12/12
--- OUTSIDE RECORDS SUMMARY | 2024-11-17 07:40 | XMS_ITS | Patient Health Record ---
Author Organization [facility] Address [address] [place], [place] [phone] Care Team Providers Care Turn Out Name Role Phone Hero Lujan Unavailable Unavailable AMRITA BYRNE Unavailable [phone] Allergies No Known Allergies Reason For Referral [...] Date Provider Diagnosis [facility] [address] [place], [place] [phone] 12/18/2023 AMRITA BYRNE Other hammer toe(s) (acquired), right foot M20.41 ; Tinea unguium B35.1 ; Other hammer toe(s) (acquired), left foot M20.42 ; Pain in right toe(s) M79.674 ; Pain in left toe(s) M79.675 ; Pain in right foot M79.671 ; Atherosclerosis of [place] arteries of extremities with intermittent claudication, bilateral legs I70.213 ; Xerosis cutis L85.3 ; Acquired keratosis [keratoderma] palmaris et plantaris L85.1 and Type 2 diabetes mellitus with diabetic peripheral angiopathy without gangrene E11.51 [facility] [place] [address] [id number] 02/26/2024 AMRITA DAVYDOV Tinea unguium B35.1 ; Plantar wart B07.0 ; Other hammer toe(s) (acquired), right foot M20.41 ; Other hammer toe(s) (acquired), left foot M20.42 ; Pain in right toe(s) M79.674 ; Pain in left toe(s) M79.675 ; Pain in right foot M79.671 ; Atherosclerosis of [place] arteries of extremities with intermittent claudication, bilateral legs I70.213 ; Xerosis cutis L85.3 ; Acquired keratosis [keratoderma] palmaris et plantaris L85.1 and Type 2 diabetes mellitus with diabetic peripheral angiopathy without gangrene E11.51 [facility] [place] [address] [id number] 03/11/2024 AMRITA DAVYDOV Tinea unguium B35.1 ; Plantar wart B07.0 ; Other hammer toe(s) (acquired), right foot M20.41 ; Other hammer toe(s) (acquired), left foot M20.42 ; Type 2 diabetes mellitus with diabetic peripheral angiopathy without gangrene E11.51 and Pain in left foot M79.672 [facility] [place] [address] [id number] 03/25/2024 AMRITA DAVYDOV Tinea unguium B35.1 ; Plantar wart B07.0 ; Other hammer toe(s) (acquired), right foot M20.41 ; Other hammer toe(s) (acquired), left foot M20.42 ; Pain in right toe(s) M79.674 ; Pain in left toe(s) M79.675 ; Pain in right foot M79.671 ; Atherosclerosis of [place] arteries of extremities with intermittent claudication, bilateral [...] foot (ICD-10 - M79.671) 12/18/2023 Atherosclerosis of [place] arteries of extremities with intermittent claudication, bilateral legs (ICD-10 - I70.213) 03/25/2024 Pain in right foot (ICD-10 - M79.671) 03/25/2024 Atherosclerosis of [place] arteries of extremities with intermittent claudication, bilateral [...] feet daily. Rx amlactin. 02/26/2024 Atherosclerosis of [place] arteries of extremities with intermittent claudication, bilateral [...] Date Coverage End Date Medicare Part B [place] [address] [place] [address] [id number] Deborah Cancino Self - patient is the insured [facility] Medicare Supplement [address] [place], [place] [id number] Deborah Cancino Self - patient is the insured
--- OUTSIDE RECORDS SUMMARY | 2024-11-17 07:40 | XMS_ITS ---
Author Organization [facility] Address [address] [place], [place] [id number] Care Team Providers Care Aviation Maintenance Technician Name Role Phone Hero Lujan Unavailable Unavailable AMRITA BYRNE Unavailable [phone] REASON FOR VISIT *General care Medications Medication [...] Date Provider Diagnosis [facility] [address] [place], [place] [id number] 02/26/2024 AMRITA BYRNE Tinea unguium B35.1 ; Plantar wart B07.0 ; Other hammer toe(s) (acquired), right foot M20.41 ; Other hammer toe(s) (acquired), left foot M20.42 ; Pain in right toe(s) M79.674 ; Pain in left toe(s) M79.675 ; Pain in right foot M79.671 ; Atherosclerosis of [place] arteries of extremities with intermittent claudication, bilateral [...] foot (ICD-10 - M79.671) 02/26/2024 Atherosclerosis of [place] arteries of extremities with intermittent claudication, bilateral [...] but conservative options were emphasized. Atherosclerosis of [place] ar teries of extremities with intermittent claudication, [...] * BENJIGailDeborah LDOB:[birth year] (78 yo F)Acc No.[id number]:02/26/2024 Patient: Deborah WOOD Provider: Padilla BYRNE :1945 A ge:78 Y S ex:Female Date:02/26/2024 Address:[address] [place] [address] [facility] Subjective: * Chief Complaints: * 1 . [...] Patient denies c hest pain, history of DE, irregular heartbeat. M usculoskeletal: Patient complains of [...] - M79.671 8 . A therosclerosis of [place] arteries of extremities with intermittent claudication, bilateral [...] options were emphasized. 4. A therosclerosis of [place] arteries of extremities with intermittent claudication, bilateral [...] Procedure Codes: 1 7110 DESTRUCT LESION, 1-14, 94436 TRIM SKIN LESION, Modifiers: 59 , Q8, 54235 DEBRIDE NAIL, 6 OR MORE, Modifiers: 59 , Q8 * Follow Up: 2 Weeks * Billing Information: * Visit Code: * Procedure Codes: 71991 DESTRUCT LESION, 1-14. 38235 TRIM SKIN LESION. Modifiers: 59, Q8 63787 DEBRIDE NAIL, 6 OR MORE. Modifiers: 59, Q8 * Sign off status: Completed true * Provider: Padilla BYRNE Date: 0 02/26/2024 Generated for Cesario hernandez/Vicky/Dayne on: 0 11/17/2024 07:39 AM CDT History [...]
--- OUTSIDE RECORDS SUMMARY | 2024-11-17 07:40 | XMS_ITS | Encounter Summary ---
Author Organization [facility] Address [address] [place] [address] Care Team Providers Care Pharmacy Graduate Intern Name Role Phone Hero Lujan MD Primary Care Provider [phone] Encounter Details Date Type Department Care Team (Late st Contact Info) Description 08/12/2021 Therapy Plan [facility] One Day Services [address] [place] [address] Evan Klein MD [address] [place] [address] Social History Tobacco Use Types Packs/Day Years Used Date Smoking Tobacco: Never Assessed Comments Unknown Sex and Gender Information Value Date Recorded Sex Assigned at Not on file Legal Sex Female 4:28 PM TEXTILE ARTIST Gender Identity Female 08/15/2021 11:30 AM TEXTILE ARTIST Sexual Orientation Not on file COVID-19 Exposure Response Date Recorded In the last month, have you been in contact with someone who was confirmed or suspected to have Coronavirus / COVID-19? No / Unsure 08/15/2021 3:50 PM TEXTILE ARTIST documented as of this encounter Functional Status * Calculated C-SSRS Risk Score (Lifetime/Recent) Answer Date of Assessment Author Status No Risk Indicated 08/14/2021 2:01 PM Karrie Cavazos RN Active * [place] Suicide Severity Rating Scale (Screener/Recent Self-Report) Question Answer Date of Assessment Author Status 1. Wish to be (Past 1 Month) No 08/14/2021 2:01 PM Fabiola Cavazos RN Act iblly 2. Non-Specific Active Suicidal Thoughts (Past 1 Month) No 08/14/2021 2:01 PM TEXTILE ARTIST Fabiola Garcia, CALLIE Act billy documented as of this encounter Plan of Treatment Not on file documented as of this encounter Visit Diagnoses Diagnosis Chronic cystitis without hematuria- Primary documented in this encounter Care Teams Pharmacy Graduate Intern Relationship Specialty Start Date End Date Hero Lujan MD [address] [place] [address] PCP - General INTERNAL MEDICINE 08/13/21 documented as of this encounter
--- OUTSIDE RECORDS SUMMARY | 2024-11-17 07:40 | XMS_ITS | Referral Summary ---
Author Organization [facility] Address [address] [place] [address] Care Team Providers Care Salt Grinder Name Role Phone Hero Lujan MD [...] 1 tablet (25 mcg total) by mouth paper mill manager before breakfast Active aspirin 81 mg [...] on file Legal Sex Female 3:42 AM SHEARER HELPER Gender Identity Not on file Sexual [...] of Treatment Not on file Insurance MEDICARE [facility] Member Subscriber Plan / Payer (Ef fective 2020-Present) Name:Deborah Cancino Relation to Subscriber:Self Name:Deborah Cancino Payer ID:[id number] Group ID:Not on file Type:JustShare[employer] Address: [facility] [address] [place] [id number] MEDICARE [facility] Care Teams Salt Grinder Relationship Specialty Start Date End Date Hero Lujan MD [address] [place] [id number] PCP - General Emergency Medicine 11/06/20
--- OUTSIDE RECORDS SUMMARY | 2024-11-17 07:40 | XMS_ITS ---
Author Organization [facility] Address [address] [place], [place] [id number] Care Team Providers Care Coil Winding Machines Set Up Mechanic Name Role Phone Hero Lujan Unavailable Unavailable AMRITA BYRNE Unavailable [phone] REASON FOR VISIT *Wart follow-up Medications Medication [...] Date Provider Diagnosis [facility] [address] [place], [place] [id number] 03/25/2024 AMRITA BYRNE Tinea unguium B35.1 ; Plantar wart B07.0 ; Other hammer toe(s) (acquired), right foot M20.41 ; Other hammer toe(s) (acquired), left foot M20.42 ; Pain in right toe(s) M79.674 ; Pain in left toe(s) M79.675 ; Pain in right foot M79.671 ; Atherosclerosis of [place] arteries of extremities with intermittent claudication, bilateral [...] foot (ICD-10 - M79.671) 03/25/2024 Atherosclerosis of [place] arteries of extremities with intermittent claudication, bilateral [...] but conservative options were emphasized. Atherosclerosis of [place] ar teries of extremities with intermittent claudication, [...] Deborah LEBLANC LDOB:[birth year] (78 yo F)Acc No.[id number]:03/25/2024 Patient: Deborah WOOD Provider: Padilla BYRNE :1945 A ge:78 Y S ex:Female Date:03/25/2024 Address:[address] [place] [address] , [facility] Subjective: * Chief Complaints: * 1 . [...] - M79.671 8 . A therosclerosis of [place] arteries of extremities with intermittent claudication, bilateral [...] options were emphasized. 4. A therosclerosis of [place] arteries of extremities with intermittent claudication, bilateral [...] Months * Billing Information: * Visit Code: 73193 Office Visit, Est Pt., Level 3. * Procedure Codes: * Sign off status: Completed true * Provider: Padilla BYRNE Date: 0 03/25/2024 Generated for Cesario hernandez/Vicky/Dayne on: 0 11/17/2024 07:40 AM CDT History and Physical Notes * [...]
--- OUTSIDE RECORDS SUMMARY | 2024-11-17 07:40 | XMS_ITS | Clinical Summary ---
Author Organization [facility] Address [address] [place] [address] Care Team Providers Care Singer Back Tender Name Role Phone Heor Lujan MD Primary Care Provider [phone] Allergies Active Allergy Reactions Criticality Noted Date [...] on file Legal Sex Female 4:28 PM TELEGRAPH SERVICE CLERK Gender Identity Female 08/15/2021 11:30 AM TELEGRAPH SERVICE CLERK Sexual Orientation Not on file Last Filed Vital Signs Vital Sign Reading Time Taken Comments Blood Pressure 151/67 08/20/2021 2:20 PM TELEGRAPH SERVICE CLERK Pulse 100 08/20/2021 2:20 PM TELEGRAPH SERVICE CLERK Temperature 37.1 C (98.7 F) 08/20/2021 2:20 PM TELEGRAPH SERVICE CLERK Respiratory Rate 18 08/20/2021 2:20 PM TELEGRAPH SERVICE CLERK Oxygen Saturation 99% 08/20/2021 2:20 PM TELEGRAPH SERVICE CLERK Inhaled Oxygen Concentration - - Weight 79.4 kg (175 lb) 08/14/2021 2:01 PM TELEGRAPH SERVICE CLERK Height 157.5 cm (5' 2 ) 08/14/2021 2:01 PM TELEGRAPH SERVICE CLERK Body Mass Index 32.01 08/14/2021 2:01 PM TELEGRAPH SERVICE CLERK Plan of Treatment Health Maintenance Due Date Last Done Comments Hepatitis C 1965 Zoster Vaccines (1 of 2) 1997 Annual Medicare Wellness Visit 2012 Dexa Scan (General) 2012 Pneumococcal Vaccine: 50+ Years (2 of 2 - PCV) 05/17/2021 [...] age to complete this topic Insurance MEDICARE [facility] Care Teams Singer Back Tender Relationship Specialty Start Date End Date Hero Lujan MD [address] [place] [address] PCP - General INTERNAL MEDICINE 08/13/21
== END 2024-11-17 07:37 | disposition home or self-care (01) ==
LOC: ANHIMG 07:37
PROVIDERS: PCP Emergency Medicine; Visit Provider Urology
DX: M47.896 Other spondylosis, lumbar region (principal); M47.897 Other spondylosis, lumbosacral region
CPT/HCPCS: 72158; A9579

== ENCOUNTER 2024-11-23 10:51 | Outpatient (CLI) | payer MEDICARE, SELFPAY ==
[2024-11-23 11:41] LABS: Alanine Aminotransferase 25 U/L (6-35); Albumin Level 4.2 g/dL (3.5-5.1); Alkaline Phosphatase 76 U/L (38-126); Anion Gap 9 mmol/L (4-12); Aspartate Amino Transferase 32 U/L (14-36); Bilirubin,Total 0.5 mg/dL (0.2-1.3); Blood Urea Nitrogen 26 mg/dL (7-17); Calcium 9.8 mg/dL (8.4-10.2); Carbon Dioxide 28 mmol/L (22-30); Chloride 100 mmol/L (98-107); Estimated Glomerular Filt Rate 56; Glucose 164 mg/dL (65-110); Potassium 4.2 mmol/L (3.4-5.0); Sodium 137 mmol/L (137-145)
--- OUTSIDE RECORDS SUMMARY | 2024-11-23 12:41 | XMS_ITS | Encounter Summary ---
Author Organization [facility] Address [address] [facility] [place] [address] Care Team Providers Care Founder President And Ceo Name Role Phone Odette Webb MD Primary Care Provider [phone] Max Branch MD Unavailable [phone] William Abebe MD Unavailable [phone] Hero Lujan MD Primary Care Provider [phone] Encounter Details Date Type Department Care Team [...] Sex Assigned at Female 08/19/2024 9:26 AM EDUCATION TRAINER Legal Sex Female 6:46 AM EDUCATION TRAINER Gender Identity Female 08/19/2024 9:26 AM EDUCATION TRAINER Sexual Orientation Choose not to disclose 2024 9:26 AM EDUCATION TRAINER documented as of this encounter Plan of Treatment Not on file documented as of this encounter Visit Diagnoses Not on filedocumented in this encounter Care Teams Founder President And Ceo Relationship Specialty Start Date End Date Odette Webb MD [address] [facility] [address] [place] [address] PCP - General 06/27/09 01/02/19 Max Branch MD [address] [place], [place] [phone] PCP - OBGYN 06/19/09 Hero Lujan MD [address] [facility] [address] [place] [address] PCP - General 01/03/19 William Abebe MD [address] [place] [address] Orthopedic Surgery 10/12/12 documented as of this encounter
--- OUTSIDE RECORDS SUMMARY | 2024-11-23 12:41 | XMS_ITS | Referral Summary ---
Author Organization [facility] Address [address] [place] [address] Care Team Providers Care Grocery Caddy Name Role Phone Hero Lujan MD Primary [...] 1 tablet (25 mcg total) by mouth hydro operator before breakfast Active aspirin 81 mg chewable [...] on file Legal Sex Female 3:42 AM OUTSIDE ENERGY SALES REPRESENTATIVES Gender Identity Not on file Sexual Orientation [...] of Treatment Not on file Insurance MEDICARE [facility] Member Subscriber Plan / Payer (Ef fective 2020-Present) Name:Deborah Cancino Relation to Subscriber:Self Name:Deborah Cancino Payer ID:[id number] Group ID:Not on file Type:[place] Address: [facility] [id number] [place] [id number] MEDICARE [facility] Care Teams Grocery Caddy Relationship Specialty Start Date End Date Hero Lujan MD [address] [place] [phone] PCP - General Emergency Medicine 11/06/20
--- OUTSIDE RECORDS SUMMARY | 2024-11-23 12:41 | XMS_ITS | Clinical Summary ---
Author Organization [facility] Address [address] [facility] [place] [address] Care Team Providers Care Restaurant Expeditor Name Role Phone Max Branch MD Unavailable [phone] William Abebe MD Unavailable [phone] Hero Lujan MD Primary Care Provider [phone] Source Comments [facility],non-owned Affiliates and Associated Physician Practices is amultiple site organization consisting of ambulatory clinics and hospital sitesin [place], [place], [place] and [place]. This disclosure is being madepursuant to the Care Everywhere program and may not contain all information available regarding this patient. Last updated 18.[facility] Allergies Active Allergy Reactions Criticality Noted Date [...] Department Care Team Description 09/07/2024 2:45 PM RESOURCE PARAPROFESSIONAL Ancillary Procedure [facility] Orthopedics - Radiology [address] [place] [phone] Edgard Regan IV, MD Right hip pain 09/07/2024 2:00 PM RESOURCE PARAPROFESSIONAL Office Visit [facility]opedics [address] [facility], [address] [place] [phone] Edgard Regan IV, MD Right hip pain (Primary Dx) 08/25/2024 12:38 PM RESOURCE PARAPROFESSIONAL - 08/25/2024 11:59 PM RESOURCE PARAPROFESSIONAL Hospital Encounter [facility] Breast Care [address] [facility] [address] [place] [address] Hero Lujan MD Discharge Disposition: Home or [...] Sex Assigned at Female 08/19/2024 9:26 AM RESOURCE PARAPROFESSIONAL Legal Sex Female 6:46 AM RESOURCE PARAPROFESSIONAL Gender Identity Female 08/19/2024 9:26 AM RESOURCE PARAPROFESSIONAL Sexual Orientation Choose not to disclose 2024 9:26 AM RESOURCE PARAPROFESSIONAL Last Filed Vital Signs Vital Sign Reading Time Taken Comments Blood Pressure 120/62 03/10/2022 3:30 PM CDT Pulse 104 08/16/2017 6:10 AM RESOURCE PARAPROFESSIONAL Temperature 36.9 C (98.4 F) 08/16/2017 6:10 AM RESOURCE PARAPROFESSIONAL Respiratory Rate 16 08/16/2017 6:10 AM RESOURCE PARAPROFESSIONAL Oxygen Saturation 93% 08/16/2017 6:10 AM RESOURCE PARAPROFESSIONAL Inhaled Oxygen Concentration - - Weight 85.7 kg (189 lb) 08/25/2024 12:53 PM RESOURCE PARAPROFESSIONAL Height 152.4 cm (5') 08/25/2024 12:53 PM RESOURCE PARAPROFESSIONAL Body Mass Index 36.91 08/25/2024 12:53 PM RESOURCE PARAPROFESSIONAL Plan of Treatment Health Maintenance Due Date [...] this topic Medical Devices Implanted Type Area Lab Assistant Device Identifier Shelf Expiration Date Model / Serial / Lot Beto Bone Byron Hv Implanted:Qty: 1 on 01/10/2013 by William Abebe MD at [facility] Left: Knee [employer] 07/12/2014 [id number] / / [id number] Biomet Interlok 75mm Fixed Ibeam Tibial Plate With Locking Bar Implanted:Qty: 1 on 01/10/2013 by William Abebe MD at [facility] Left: Knee 10/10/2022 [id number] / / [id number] Biomet Arcom Patella Single 1/4 Inch Peg With Wire 31mm X 8 Mm Implanted:Qty: 1 on 01/10/2013 by William Abebe MD at [facility] Left: Knee 11/10/2017 [id number] / / [id number] Vanguard Cr Femoral 67.5 Mm Left Interlok Implanted:Qty: 1 on 01/10/2013 by William Abebe MD at [facility] Left: Knee 06/12/2022 [id number] / / [id number] Biomet Vanguard/Tm Dcm Tibial Bearing Anterior Stabilized 12mm X 75mm Implanted:Qty: 1 on 01/10/2013 by William Abebe MD at [facility] Left: Knee 07/12/2017 [id number] / / [id number] Brdg Tib Denise Stbl 12mm X 71mm Implanted:Qty: 1 on 04/13/2013 by William Abebe MD at [facility] Right: Knee [employer] Inc 03/01/2018 [id number] / / [id number] Beto Bone Byron Hv Implanted:Qty: 1 on 04/13/2013 by William Abebe MD at [facility] Right: Knee [employer] 10/30/2014 [id number] / / [id number] 65mm Cr Femoral Implanted:Qty: 1 on 04/13/2013 by William Abebe MD at [facility] Right: Knee 01/30/2023 [id number] / / [id number] 31mm X 8mm Arcom Patella Implanted:Qty: 1 on 04/13/2013 by William Abebe MD at [facility] Right: Knee 03/01/2018 [id number] / / [id number] Ty Tibial I Beam Fix Bar 71mm Implanted:Qty: 1 on 04/13/2013 by William Abebe MD at [facility] Right: Knee [employer] 12/30/2022 [id number] / / [id number] Procedures Procedure Name Priority Date/Time Associated Diagnosis Comments XR HIP RIGHT 2VW OR MORE Routine 09/07/2024 2:46 PM RESOURCE PARAPROFESSIONAL Right hip pain MAMMO BILAT SCREENING W CINDI Routine 08/25/2024 12:56 PM RESOURCE PARAPROFESSIONAL Encounter for screening mammogram for breast cancer from Last 3 Months Results * XR Hip Right 2Vw or More (09/07/2024 2:46 PM RESOURCE PARAPROFESSIONAL) Narrative [facility] [address] - 09/07/2024 2:46 PM RESOURCE PARAPROFESSIONAL Please see progress note in Epic for results. us Edgard Regan IV, MD DIAGNOSTIC IMAGING ORDERABLES Final Result [facility] [address] * Mammo Bilat Screening W Cindi (08/25/2024 12:56 PM RESOURCE PARAPROFESSIONAL) Anatomical Region Laterality Modality Breast Bilateral Mammography 08/25/2024 4:54 PM RESOURCE PARAPROFESSIONAL Impressions 08/25/2024 5:00 PM RESOURCE PARAPROFESSIONAL IMPRESSION: There is no mammographic evidence of malignancy. OVERALL FINAL ASSESSMENT: BI-RADS Category 1: Negative. Annual screening mammography is recommended. > Interpreting Provider: Kellen Yoder MD on 08/25/2024 5:00 PM Narrative 08/25/2024 5:00 PM RESOURCE PARAPROFESSIONAL EXAMINATION: BILATERAL DIGITAL SCREENING MAMMOGRAM AND BILATERAL [...] Last [address] [address] MEDICARE [facility] MEDICARE MEDICARE * Guarantor: DEBORAH LEBLANC Account [...] 2:42 PM 01/13/2013 12:28 PM Care Teams Restaurant Expeditor Relationship Specialty Start Date End Date Max Branch MD [address] [place] [address] PCP - OBGYN 06/19/09 Hero Lujan MD [address] [place], [place] [phone] PCP - General 01/03/19 William Abebe MD [address] [place] [address] Orthopedic Surgery 10/12/12
--- OUTSIDE RECORDS SUMMARY | 2024-11-23 12:41 | XMS_ITS | Encounter Summary ---
Author Organization [facility] Address [address] [place] [address] Care Team Providers Care Processing Lead Name Role Phone Hero Lujan MD Primary Care Provider [phone] Encounter Details Date Type Department Care Team (Late st Contact Info) Description 08/12/2021 Therapy Plan [facility] One Day Services [address] [place] [address] Evan Klein MD [address] [place] [address] Social History Tobacco Use Types Packs/Day Years Used Date Smoking Tobacco: Never Assessed Comments Unknown Sex and Gender Information Value Date Recorded Sex Assigned at Not on file Legal Sex Female 4:28 PM FACE BOSS Gender Identity Female 08/15/2021 11:30 AM FACE BOSS Sexual Orientation Not on file COVID-19 Exposure Response Date Recorded In the last month, have you been in contact with someone who was confirmed or suspected to have Coronavirus / COVID-19? No / Unsure 08/15/2021 3:50 PM FACE BOSS documented as of this encounter Functional Status * Calculated C-SSRS Risk Score (Lifetime/Recent) Answer Date of Assessment Author Status No Risk Indicated 08/14/2021 2:01 PM Karrie Cavazos RN Active * [place] Suicide Severity Rating Scale (Screener/Recent Self-Report) Question Answer Date of Assessment Author Status 1. Wish to be (Past 1 Month) No 08/14/2021 2:01 PM Fabiola Cavazos RN Act billy 2. Non-Specific Active Suicidal Thoughts (Past 1 Month) No 08/14/2021 2:01 PM FACE BOSS Fabiola Garcia, CALLIE Act billy documented as of this encounter Plan of Treatment Not on file documented as of this encounter Visit Diagnoses Diagnosis Chronic cystitis without hematuria- Primary documented in this encounter Care Teams Processing Lead Relationship Specialty Start Date End Date Hero Lujan MD [address] [place] [address] PCP - General INTERNAL MEDICINE 08/13/21 documented as of this encounter
--- OUTSIDE RECORDS SUMMARY | 2024-11-23 12:41 | XMS_ITS | Clinical Summary ---
Author Organization [facility] Address [address] [place] [address] Care Team Providers Care Drop Hammer Operator Helper Name Role Phone Hero Lujan MD Primary Care Provider [phone] Allergies Active Allergy Reactions Criticality Noted Date [...] on file Legal Sex Female 4:28 PM CAFE COOK Gender Identity Female 08/15/2021 11:30 AM CAFE COOK Sexual Orientation Not on file Last Filed Vital Signs Vital Sign Reading Time Taken Comments Blood Pressure 151/67 08/20/2021 2:20 PM CAFE COOK Pulse 100 08/20/2021 2:20 PM CAFE COOK Temperature 37.1 C (98.7 F) 08/20/2021 2:20 PM CAFE COOK Respiratory Rate 18 08/20/2021 2:20 PM CAFE COOK Oxygen Saturation 99% 08/20/2021 2:20 PM CAFE COOK Inhaled Oxygen Concentration - - Weight 79.4 kg (175 lb) 08/14/2021 2:01 PM CAFE COOK Height 157.5 cm (5' 2 ) 08/14/2021 2:01 PM CAFE COOK Body Mass Index 32.01 08/14/2021 2:01 PM CAFE COOK Plan of Treatment Health Maintenance Due Date [...] age to complete this topic Insurance MEDICARE [facility] Care Teams Drop Hammer Operator Helper Relationship Specialty Start Date End Date Hero Lujan MD [address] [place] [address] PCP - General INTERNAL MEDICINE 08/13/21
--- OUTSIDE RECORDS SUMMARY | 2024-11-23 12:41 | XMS_ITS | Clinical Summary ---
Author Organization [facility] Address [address] [place] [address] Care Team Providers Care Marketing Segment Manager Name Role Phone Hero Lujan MD Primary [...] 1 tablet (25 mcg total) by mouth early intervention specialist before breakfast Active aspirin 81 mg chewable [...] on file Legal Sex Female 3:42 AM DOCUMENTATION SPEC Gender Identity Not on file Sexual Orientation [...] 09/14/2019, 07/28/2018, Additional history exists [place] [address] [facility] MEDICARE [facility] Address: [facility] [address] [place] [address] [facility] Care Teams Marketing Segment Manager Relationship Specialty Start Date End Date Hero Lujan MD [address] [place] [address] PCP - General Emergency Medicine 11/06/20
== END 2024-11-23 10:52 | disposition home or self-care (01) ==
PROVIDERS: PCP Emergency Medicine; Visit Provider Internal Medicine
DX: E78.2 Mixed hyperlipidemia (principal); M85.80 Other specified disorders of bone density and structure, unspecified site
CPT/HCPCS: 36415; 80053

== ENCOUNTER 2024-12-02 12:56 | Outpatient (CLI) | payer MEDICARE, SELFPAY ==
[2024-12-02 14:00] LABS: Amylase 64 U/L (30-110); Lipase 255 U/L (23-300)
--- OUTSIDE RECORDS SUMMARY | 2024-12-03 13:39 | XMS_ITS ---
Author Organization [facility] Address [address] [place], [place] [address] Care Team Providers Care Bagging Machine Operator Name Role Phone Hero Lujan Unavailable Unavailable AMRITA BYRNE Unavailable [phone] REASON FOR VISIT *Wart follow-up Medications Medication [...] Date Provider Diagnosis [facility] [address] [place], [place] [phone] 03/11/2024 AMRITA BYRNE Tinea unguium B35.1 ; [...] Deborah LEBLANC LDOB:[birth year] (78 yo F)Acc No.[id number]:03/11/2024 Patient: Deborah WOOD Provider: Padilla BYRNE :1945 A ge:78 Y S ex:Female Date:03/11/2024 Address:[address] [place] [address] [facility] [place] [id number] Subjective: * Chief Complaints: * 1 . *Wart follow-up. * HPI: H [facility]: [facility] for wart on the right foot. , Patient states their problem is, improving., MA: . * ROS: G eneral / Constitutional: Patient denies w eakness. R espiratory: Patient denies c hronic cough, shortness of breath, sputum production. C ardiovascular: Patient denies c hest pain, history of [place], irregular heartbeat. M usculoskeletal: Patient complains of [...] Information: * Visit Code: * Procedure Codes: 37803 DESTRUCT LESION, 1-14. * Sign off status: Completed true * Provider: Padilla BYRNE Date: 0 03/11/2024 Generated for Cesario Abarca/Dayne on: 0 12/03/2024 01:38 PM CDT History and Physical Notes * HPI [...]
--- OUTSIDE RECORDS SUMMARY | 2024-12-03 13:39 | XMS_ITS | Clinical Summary ---
Author Organization [facility] Address [address] [place] [address] Care Team Providers Care Aerial Hurricane Hunter Name Role Phone Max Branch MD Unavailable [phone] William Abebe MD Unavailable [phone] Hero Lujan MD Primary Care Provider [phone] Source Comments [facility],non-owned Affiliates and Associated Physician Practices is amultiple site organization consisting of ambulatory clinics and hospital sitesin [place], [place], [place] and [place]. This disclosure is being madepursuant to the Care Everywhere program and may not contain all information available regarding this patient. Last updated 18.[facility] Allergies Active Allergy Reactions Criticality Noted Date [...] Department Care Team Description 09/07/2024 2:45 PM COBBLER UPPER Ancillary Procedure [facility] - Radiology [address] [place] [phone] Edgard Regan IV, MD Right hip pain 09/07/2024 2:00 PM COBBLER UPPER Office Visit [facility] [address] [place] [address], [address] [place] [phone] Edgard Regan IV, MD Right hip pain (Primary Dx) from Last 3 Months Family History Medical [...] Sex Assigned at Female 08/19/2024 9:26 AM COBBLER UPPER Legal Sex Female 6:46 AM COBBLER UPPER Gender Identity Female 08/19/2024 9:26 AM COBBLER UPPER Sexual Orientation Choose not to disclose 2024 9:26 AM COBBLER UPPER Last Filed Vital Signs Vital Sign Reading Time Taken Comments Blood Pressure 120/62 03/10/2022 3:30 PM CDT Pulse 104 08/16/2017 6:10 AM COBBLER UPPER Temperature 36.9 C (98.4 F) 08/16/2017 6:10 AM COBBLER UPPER Respiratory Rate 16 08/16/2017 6:10 AM COBBLER UPPER Oxygen Saturation 93% 08/16/2017 6:10 AM COBBLER UPPER Inhaled Oxygen Concentration - - Weight 85.7 kg (189 lb) 08/25/2024 12:53 PM COBBLER UPPER Height 152.4 cm (5') 08/25/2024 12:53 PM COBBLER UPPER Body Mass Index 36.91 08/25/2024 12:53 PM COBBLER UPPER Plan of Treatment Health Maintenance Due Date Last Done Comments BONE DENSITY TESTING 1945 MEDICARE AWV 12 MONTHS 1945 HEPATITIS C SCREENING 05/23/1965 DTAP/TDAP/TD VACCINES (1 - Tdap) 1966 PNEUMOCOCCAL VACCINE 50+ (1 of 1 - PCV) 1997 ZOSTER VACCINE (1 of 2) 1997 Respiratory Syncytial Virus (RSV) Vaccine Pt: or over 60 yrs (1 - 1-dose 75+ series) 2022 COVID-19 VACCINE (2023-2 5 season) 2024 05/16/2021, 10/16/2020, 09/25/2020 INFLUENZA [...] this topic Medical Devices Implanted Type Area Pediatric Physician Assistant Device Identifier Shelf Expiration Date Model / Serial / Lot Beto Bone Cyrus Hv Implanted:Qty: 1 on 01/10/2013 by William Abebe MD at [facility] Left: Knee [employer] 07/12/2014 [id number] / / [id number] Biomet Interlok 75mm Fixed Ibeam Tibial Plate With Locking Bar Implanted:Qty: 1 on 01/10/2013 by William Abebe MD at [facility] Left: Knee 10/10/2022 [id number] / / [id number] Biomet Arcom Patella Single 1/4 Inch Peg With Wire 31mm X 8 Mm Implanted:Qty: 1 on 01/10/2013 by William Abebe MD at [facility] Left: Knee 11/10/2017 [id number] / / [id number] Vanguard Cr Femoral 67.5 Mm Left Interlok Implanted:Qty: 1 on 01/10/2013 by William Abbee MD at [facility] Left: Knee 06/12/2022 [id number] / / [id number] Biomet Vanguard/Tm Dcm Tibial Bearing Anterior Stabilized 12mm X 75mm Implanted:Qty: 1 on 01/10/2013 by William Abebe MD at [facility] Left: Knee 07/12/2017 [id number] / / [id number] Brdg Tib Denise Stbl 12mm X 71mm Implanted:Qty: 1 on 04/13/2013 by William Abebe MD at [facility] Right: Knee [employer] Inc 03/01/2018 [id number] / / [id number] Beto Bone Cyrus Hv Implanted:Qty: 1 on 04/13/2013 by William Abebe MD at [facility] Right: Knee [employer] 10/30/2014 [id number] / / [id number] 65mm Cr Femoral Implanted:Qty: 1 on 04/13/2013 by William Abebe MD at [facility] Right: Knee 01/30/2023 [id number] / / [id number] 31mm X 8mm Arcom Patella Implanted:Qty: 1 on 04/13/2013 by William Abebe MD at [facility] Right: Knee 03/01/2018 [id number] / / [id number] Ty Tibial I Beam Fix Bar 71mm Implanted:Qty: 1 on 04/13/2013 by William Abebe MD at [facility] Right: Knee [employer] 12/30/2022 [id number] / / [id number] Procedures Procedure Name Priority Date/Time Associated Diagnosis Comments XR HIP RIGHT 2VW OR MORE Routine 09/07/2024 2:46 PM COBBLER UPPER Right hip pain from Last 3 Months Results * XR Hip Right 2Vw or More (09/07/2024 2:46 PM COBBLER UPPER) Narrative [facility] [address] - 09/07/2024 2:46 PM COBBLER UPPER Please see progress note in Epic for results. us Edgard Regan IV, MD DIAGNOSTIC IMAGING ORDERABLES Final Result [facility] [place] [address] from Last 3 Months Insurance MEDICARE [facility] MEDICARE MEDICARE * Guarantor: DEBORAH LEBLANC Account [...] 2:42 PM 01/13/2013 12:28 PM Care Teams Aerial Hurricane Hunter Relationship Specialty Start Date End Date Max Branch MD [address] [place] [address] PCP - OBGYN 06/19/09 Hero Lujan MD [address] [place] [address] PCP - General 01/03/19 William Abebe MD [address] [place] [address] Orthopedic Surgery 10/12/12
--- OUTSIDE RECORDS SUMMARY | 2024-12-03 13:39 | XMS_ITS | Referral Summary ---
Author Organization [facility] Address [address] [place] [address] Care Team Providers Care School Bus Inspector Name Role Phone Hero Lujan MD Primary [...] 1 tablet (25 mcg total) by mouth light rail vehicle operator before breakfast Active aspirin 81 mg [...] on file Legal Sex Female 3:42 AM SCHOOL SOCIAL WORKER Gender Identity Not on file Sexual Orientation [...] of Treatment Not on file Insurance MEDICARE [facility] Member Subscriber Plan / Payer (Ef fective 2020-Present) Name:Deborah Cancino Relation to Subscriber:Self Name:Deborah Cancino Payer ID:[id number] Group ID:Not on file Type:[employer] Address: [facility] [address] [place] [id number] MEDICARE [facility] Care Teams School Bus Inspector Relationship Specialty Start Date End Date Hero Lujan MD [address] [place] [id number] PCP - General Emergency Medicine 11/06/20
--- OUTSIDE RECORDS SUMMARY | 2024-12-03 13:39 | XMS_ITS | Encounter Summary ---
Author Organization [facility] Address [address] [place] [address] Care Team Providers Care Semiconductor Bonder Name Role Phone Hero Lujan MD Primary Care Provider [phone] Encounter Details Date Type Department Care Team (Late st Contact Info) Description 08/12/2021 Therapy Plan [facility] [address] [place] [address] Evan Klein MD [address] [place] [address] Social History Tobacco Use Types Packs/Day Years Used Date Smoking Tobacco: Never Assessed Comments Unknown Sex and Gender Information Value Date Recorded Sex Assigned at Not on file Legal Sex Female 4:28 PM FIBERGLASSER Gender Identity Female 08/15/2021 11:30 AM FIBERGLASSER Sexual Orientation Not on file COVID-19 Exposure Response Date Recorded In the last month, have you been in contact with someone who was confirmed or suspected to have Coronavirus / COVID-19? No / Unsure 08/15/2021 3:50 PM FIBERGLASSER documented as of this encounter Functional Status * Calculated C-SSRS Risk Score (Lifetime/Recent) Answer Date of Assessment Author Status No Risk Indicated 08/14/2021 2:01 PM Karrie Cavazos RN Active * [place] Suicide Severity Rating Scale (Screener/Recent Self-Report) Question Answer Date of Assessment Author Status 1. Wish to be (Past 1 Month) No 08/14/2021 2:01 PM Fabiola Cavazos RN Act billy 2. Non-Specific Active Suicidal Thoughts (Past 1 Month) No 08/14/2021 2:01 PM FIBERGLASSER Fabiola Garcia, CALLIE Act billy documented as of this encounter Plan of Treatment Not on file documented as of this encounter Visit Diagnoses Diagnosis Chronic cystitis without hematuria- Primary documented in this encounter Care Teams Semiconductor Bonder Relationship Specialty Start Date End Date Hero Lujan MD [address] [place] [address] PCP - General INTERNAL MEDICINE 08/13/21 documented as of this encounter
--- OUTSIDE RECORDS SUMMARY | 2024-12-03 13:39 | XMS_ITS ---
Author Organization [facility] Address [address] [place], [place] [phone] Care Team Providers Care Marketing Campaign Analyst Name Role Phone Hero Lujan Unavailable Unavailable AMRITA BYRNE Unavailable [phone] REASON FOR VISIT *General care Medications Medication [...] Date Provider Diagnosis [facility] [address] [place], [place] [phone] 02/26/2024 AMRITA BYRNE Tinea unguium B35.1 ; Plantar wart B07.0 ; Other hammer toe(s) (acquired), right foot M20.41 ; Other hammer toe(s) (acquired), left foot M20.42 ; Pain in right toe(s) M79.674 ; Pain in left toe(s) M79.675 ; Pain in right foot M79.671 ; Atherosclerosis of [place] band arteries of extremities with intermittent claudication, bilateral [...] foot (ICD-10 - M79.671) 02/26/2024 Atherosclerosis of [place] band arteries of extremities with intermittent claudication, bilateral [...] but conservative options were emphasized. Atherosclerosis of [place] grande band ar teries of extremities with intermittent claudication, [...] * BENJIGailDeborah LDOB:[birth year] (78 yo F)Acc No.[id number]:02/26/2024 Patient: Deborah WOOD Provider: Padilla BYRNE :1945 A ge:78 Y S ex:Female Date:02/26/2024 Address:[address] [place] [address] [id number] Subjective: * Chief Complaints: * 1 [...] Patient denies c hest pain, history of [place], irregular heartbeat. M usculoskeletal: Patient complains of [...] - M79.671 8 . A therosclerosis of [place] band arteries of extremities with intermittent claudication, bilateral [...] options were emphasized. 4. A therosclerosis of [place] band arteries of extremities with intermittent claudication, bilateral [...] Procedure Codes: 1 7110 DESTRUCT LESION, 1-14, 60586 TRIM SKIN LESION, Modifiers: 59 , Q8, 43508 DEBRIDE NAIL, 6 OR MORE, Modifiers: 59 , Q8 * Follow Up: 2 Weeks * Billing Information: * Visit Code: * Procedure Codes: 14980 DESTRUCT LESION, 1-14. 70521 TRIM SKIN LESION. Modifiers: 59, Q8 09384 DEBRIDE NAIL, 6 OR MORE. Modifiers: 59, Q8 * Sign off status: Completed true * Provider: Padilla BYRNE Date: 0 02/26/2024 Generated for Cesario hernandez/Vicky/Dayne on: 0 12/03/2024 01:39 PM CDT History and Physical Notes * [...]
--- OUTSIDE RECORDS SUMMARY | 2024-12-03 13:39 | XMS_ITS | Clinical Summary ---
Author Organization [facility] Address [address] [place] [address] Care Team Providers Care Neon Technician Name Role Phone Hero Lujan MD Primary [...] 1 tablet (25 mcg total) by mouth alcohol and drug counselor before breakfast Active aspirin 81 mg chewable [...] on file Legal Sex Female 3:42 AM CROWN ASSEMBLY MACHINE SET UP MECHANIC Gender Identity Not on file Sexual Orientation [...] 09/14/2019, 07/28/2018, Additional history exists Insurance MEDICARE [facility] MEDICARE [facility] Address: [facility] [address] [place] [address] [facility] Care Teams Neon Technician Relationship Specialty Start Date End Date Hero Lujan MD [address] [address] PCP - General Emergency Medicine 11/06/20
--- OUTSIDE RECORDS SUMMARY | 2024-12-03 13:40 | XMS_ITS | Clinical Summary ---
Author Organization [facility] Address [address] [place] [address] Care Team Providers Care Stamp Mounter Name Role Phone Hero Lujan MD Primary Care Provider [phone] Allergies Active Allergy Reactions Criticality Noted Date [...] on file Legal Sex Female 4:28 PM FIELD CROP FARMER Gender Identity Female 08/15/2021 11:30 AM FIELD CROP FARMER Sexual Orientation Not on file Last Filed Vital Signs Vital Sign Reading Time Taken Comments Blood Pressure 151/67 08/20/2021 2:20 PM FIELD CROP FARMER Pulse 100 08/20/2021 2:20 PM FIELD CROP FARMER Temperature 37.1 C (98.7 F) 08/20/2021 2:20 PM FIELD CROP FARMER Respiratory Rate 18 08/20/2021 2:20 PM FIELD CROP FARMER Oxygen Saturation 99% 08/20/2021 2:20 PM FIELD CROP FARMER Inhaled Oxygen Concentration - - Weight 79.4 kg (175 lb) 08/14/2021 2:01 PM FIELD CROP FARMER Height 157.5 cm (5' 2 ) 08/14/2021 2:01 PM FIELD CROP FARMER Body Mass Index 32.01 08/14/2021 2:01 PM FIELD CROP FARMER Plan of Treatment Health Maintenance Due Date [...] age to complete this topic Insurance MEDICARE [facility] Care Teams Stamp Mounter Relationship Specialty Start Date End Date Hero Lujan MD [address] [place] [address] PCP - General INTERNAL MEDICINE 08/13/21
--- OUTSIDE RECORDS SUMMARY | 2024-12-03 13:40 | XMS_ITS | Encounter Summary ---
Author Organization [facility] Address [address] [facility] [place] [address] Care Team Providers Care Case Manager Name Role Phone Odette Webb MD Primary Care Provider [phone] Max Branch MD Unavailable [phone] William Abebe MD Unavailable [phone] Hero Lujan MD Primary Care Provider [phone] Encounter Details Date Type Department Care Team [...] Sex Assigned at Female 08/19/2024 9:26 AM BARKING MACHINE FEEDER Legal Sex Female 6:46 AM BARKING MACHINE FEEDER Gender Identity Female 08/19/2024 9:26 AM BARKING MACHINE FEEDER Sexual Orientation Choose not to disclose 2024 9:26 AM BARKING MACHINE FEEDER documented as of this encounter Plan of Treatment Not on file documented as of this encounter Visit Diagnoses Not on filedocumented in this encounter Care Teams Case Manager Relationship Specialty Start Date End Date Odette Webb MD [address] [facility] [address] [place] [address] PCP - General 06/27/09 01/02/19 Max Branch MD [address] [place], [place] [id number] PCP - OBGYN 06/19/09 Hero Lujan MD [address] [facility] [address] [place] [address] PCP - General 01/03/19 William Abebe MD [address] [place] [address] Orthopedic Surgery 10/12/12 documented as of this encounter
--- OUTSIDE RECORDS SUMMARY | 2024-12-03 13:40 | XMS_ITS ---
Author Organization [facility] Address [address] [place], [place] [phone] Care Team Providers Care Tool And Die Maker/Designer Name Role Phone Hero Lujan Unavailable Unavailable AMRITA BYRNE Unavailable [phone] REASON FOR VISIT *Wart follow-up Medications Medication [...] Date Provider Diagnosis [facility] [address] [place], [place] [phone] 03/25/2024 AMRITA BYRNE Tinea unguium B35.1 ; Plantar wart B07.0 ; Other hammer toe(s) (acquired), right foot M20.41 ; Other hammer toe(s) (acquired), left foot M20.42 ; Pain in right toe(s) M79.674 ; Pain in left toe(s) M79.675 ; Pain in right foot M79.671 ; Atherosclerosis of [place] arteries of extremities with intermittent claudication, bilateral [...] foot (ICD-10 - M79.671) 03/25/2024 Atherosclerosis of [place] arteries of extremities with intermittent claudication, bilateral [...] but conservative options were emphasized. Atherosclerosis of [place] ar teries of extremities with intermittent claudication, [...] Deborah LEBLANC LDOB:[birth year] (78 yo F)Acc No.[id number]:03/25/2024 Patient: Deborah WOOD Provider: Padilla BYRNE :1945 A ge:78 Y S ex:Female Date:03/25/2024 Address:[address] [place] [address] , [id number] Subjective: * Chief Complaints: * 1 [...] Patient denies c hest pain, history of [place], irregular heartbeat. M usculoskeletal: Patient complains of [...] - M79.671 8 . A therosclerosis of [place] arteries of extremities with intermittent claudication, bilateral [...] options were emphasized. 4. A therosclerosis of [place] arteries of extremities with intermittent claudication, bilateral [...] Months * Billing Information: * Visit Code: 91557 Office Visit, Est Pt., Level 3. * Procedure Codes: * Sign off status: Completed true * Provider: Padilla BYRNE Date: 0 03/25/2024 Generated for Cesario hernandez/Vicky/Dayne on: 0 12/03/2024 [...]
--- OUTSIDE RECORDS SUMMARY | 2024-12-03 13:40 | XMS_ITS | Patient Health Record ---
Author Organization [facility] Address [address] [place], [place] [phone] Care Team Providers Care Physicist Solid Earth Name Role Phone Hero Lujan Unavailable Unavailable AMRITA BYRNE Unavailable [phone] Allergies No Known Allergies Reason For Referral [...] [address] [place], [place] [phone] 12/18/2023 AMRITA BYRNE Other hammer toe(s) (acquired), right foot M20.41 ; Tinea unguium B35.1 ; Other hammer toe(s) (acquired), left foot M20.42 ; Pain in right toe(s) M79.674 ; Pain in left toe(s) M79.675 ; Pain in right foot M79.671 ; Atherosclerosis of [place] arteries of extremities with intermittent claudication, bilateral legs I70.213 ; Xerosis cutis L85.3 ; Acquired keratosis [keratoderma] palmaris et plantaris L85.1 and Type 2 diabetes mellitus with diabetic peripheral angiopathy without gangrene E11.51 [facility] [place] [address] [id number] 02/26/2024 AMRITA DAVYDOV Tinea unguium B35.1 ; Plantar wart B07.0 ; Other hammer toe(s) (acquired), right foot M20.41 ; Other hammer toe(s) (acquired), left foot M20.42 ; Pain in right toe(s) M79.674 ; Pain in left toe(s) M79.675 ; Pain in right foot M79.671 ; Atherosclerosis of [place] arteries of extremities with intermittent claudication, bilateral legs I70.213 ; Xerosis cutis L85.3 ; Acquired keratosis [keratoderma] palmaris et plantaris L85.1 and Type 2 diabetes mellitus with diabetic peripheral angiopathy without gangrene E11.51 [facility] [place] [address] [id number] 03/11/2024 AMRITA DAVYDOV Tinea unguium B35.1 ; Plantar wart B07.0 ; Other hammer toe(s) (acquired), right foot M20.41 ; Other hammer toe(s) (acquired), left foot M20.42 ; Type 2 diabetes mellitus with diabetic peripheral angiopathy without gangrene E11.51 and Pain in left foot M79.672 [facility] [place] [address] [id number] 03/25/2024 AMRITA DAVYDOV Tinea unguium B35.1 ; Plantar wart B07.0 ; Other hammer toe(s) (acquired), right foot M20.41 ; Other hammer toe(s) (acquired), left foot M20.42 ; Pain in right toe(s) M79.674 ; Pain in left toe(s) M79.675 ; Pain in right foot M79.671 ; Atherosclerosis of [place] arteries of extremities with intermittent claudication, bilateral [...] foot (ICD-10 - M79.671) 12/18/2023 Atherosclerosis of [place] arteries of extremities with intermittent claudication, bilateral legs (ICD-10 - I70.213) 03/25/2024 Pain in right foot (ICD-10 - M79.671) 03/25/2024 Atherosclerosis of [place] arteries of extremities with intermittent claudication, bilateral [...] feet daily. Rx amlactin. 02/26/2024 Atherosclerosis of [place] arteries of extremities with intermittent claudication, bilateral [...] Date Coverage End Date Medicare Part B [place] [address] [facility] [place] [address] [id number] Deborah Cancino Self - patient is the insured [facility] Medicare Supplement [address] [place], [place] [id number] Deborah Cancino Self - patient is the insured
== END 2024-12-02 12:57 | disposition home or self-care (01) ==
LOC: ANHLAB 12:58
PROVIDERS: PCP Emergency Medicine; Visit Provider Internal Medicine
DX: M85.80 Other specified disorders of bone density and structure, unspecified site (principal); E78.2 Mixed hyperlipidemia
CPT/HCPCS: 36415; 82150; 83690

== ENCOUNTER 2024-12-21 08:16 | Outpatient (CLI) | payer MEDICARE, SELFPAY ==
--- NOTE | ~2024-12-21 | DEXA_ITS ---
Bone Density Report Name: KRISTINA LEBLANC Age: 79 Sex: Female Ethnicity: White Date of : 1945 Indication: postmenopausal; screening for osteoporosis; parental hip fracture; height loss; Referring Provider: JUSTIN VENTURA Study: Bone densitometry was performed. Exam Date: December 21, 2024 Accession number: [id number] Bone Density: Region BMD T-score Z-score Classification AP Spine(L1, L2, L3) 1.097 0.7 3.2 Normal Femoral Neck (Left) 0.568 -2.5 -0.3 Osteoporosis Total Hip (Left) 0.870 -0.6 1.3 Normal Femoral Neck (Right) 0.640 -1.9 0.3 Osteopenia Total Hip (Right) 0.906 -0.3 1.6 Normal Total Hip Mean 0.888 -0.5 1.5 Normal World Health Organization criteria for BMD impression classify patients as: Normal (T-score at or above -1.0), Osteopenia (T-score between -1.0 and -2.5), or Osteoporosis (T-score at or below -2.5). 10-year Fracture Risk: FRAX not reported because: Some T-score for Spine Total or Hip Total or Femoral Neck at or below -2.5 Previous Exams: Region Exam Age BMD T-score BMD Change BMD Change Date g/cm2 vs Baseline vs Previous AP Spine (L1-L3) 12/21/2024 79 1.097 0.7 -0.018 (-1.6%) -0.018 (-1.6%) 04/28/2023 77 1.115 0.9 Total Hip(Left) 12/21/2024 79 0.870 -0.6 -0.027 (-3.0%) 0.030 (3.6%)# 04/28/2023 77 0.840 -0.8 -0.057 (-6.3%) -0.057 (-6.3%) 01/25/2019 73 0.896 -0.4 Total Hip(Right) 12/21/2024 79 0.906 -0.3 -0.012 (-1.3%) 0.048 (5.6%)# 04/28/2023 77 0.858 -0.7 -0.060 (-6.6%) -0.060 (-6.6%) 01/25/2019 73 0.918 -0.2 *Denotes significance at 95% confidence level, LSC for AP Spine = 0.022 g/cm2, LSC for Total Hip = 0.027 g/cm2 # Denotes dissimilar scan types or analysis methods Clinical Information Provided by Patient: Parent has had a hip fracture Has used the following medications: HRT (i.e. estrogen/hormone therapy), Vitamin D, Calcium Patient maximum height was 62 Menopause Age: 44 No regular weight bearing exercise Does not regularly consume dairy products Drinks caffeinated beverages Onset of menses at age 12 Number of children 1 Impression: The patient has osteoporosis, based on the Left Femoral Neck T-score. The patient has risk factors, including: parental hip fracture. No significant bone loss was observed. Discussion: INCREASED RISK OF FRACTURE. BONE DENSITY IS UNDESIRABLY LOW AT ONE OR MORE SKELETAL SITES, CONSISTENT WITH POSTMENOPAUSAL OSTEOPOROSIS. This patient's lowest T-score meets the World Health Organization's (WHO) criteria for osteoporosis at one or more sites (T-score -2.5 or below). In untreated patients, the risk of osteoporotic fracture increases approximately two-fold for each 1.0 SD decrease in T-score. Low bone density is not the only risk factor for fracture; also consider factors such as patient's age, frailty or poor health, risk of falling, risk of injury, previous osteoporotic fracture, family history of osteoporosis, cigarette smoking, low body weight, etc. Not everyone with low bone mineral density has osteoporosis; osteomalacia and other metabolic bone disorders should also be considered. Patients who have osteoporosis should be evaluated for specific diseases and conditions (secondary causes) that may cause or contribute to bone loss. The [place] Association of Clinical Endocrinologists (AACE) and National Osteoporosis Foundation (NOF) recommend pharmacologic intervention for all postmenopausal women whose T-score is in this range. The patient should follow a healthful lifestyle (good nutrition with adequate calcium and vitamin D, and appropriate weight-bearing exercise). Follow-Up: Consider a repeat BMD and Vertebral Fracture Assessment (VFA) exam in 2 years or sooner if medically necessary, to reassess this patient's status. Reported by: BAILEE on 12/21/2024 8:54:00 AM. Reviewed, dictated and finalized at location A.
--- OUTSIDE RECORDS SUMMARY | 2024-12-21 08:57 | XMS_ITS | Clinical Summary ---
Author Organization [facility] [employer] Address [address] [place] [address] Care Team Providers Care Recapper Name Role Phone Max Branch MD Unavailable [phone] William Abebe MD Unavailable [phone] Hero Lujan MD Primary Care Provider [phone] Source Comments [facility],non-owned Affiliates and Associated Physician Practices is amultiple site organization consisting of ambulatory clinics and hospital sitesin [place], [place], [place] and [place]. This disclosure is being madepursuant to the Care Everywhere program and may not contain all information available regarding this patient. Last updated 18.[facility] Allergies Active Allergy Reactions Criticality Noted Date [...] leg 10/12/2012 Overview (10/27/2015): 2015 IMO Updt Family History Medical History Relation Name Comments [...] Sex Assigned at Female 08/19/2024 9:26 AM IT NETWORK ADMINISTRATOR Legal Sex Female 6:46 AM IT NETWORK ADMINISTRATOR Gender Identity Female 08/19/2024 9:26 AM IT NETWORK ADMINISTRATOR Sexual Orientation Choose not to disclose 2024 9:26 AM IT NETWORK ADMINISTRATOR Last Filed Vital Signs Vital Sign Reading Time Taken Comments Blood Pressure 120/62 03/10/2022 3:30 PM CDT Pulse 104 08/16/2017 6:10 AM IT NETWORK ADMINISTRATOR Temperature 36.9 C (98.4 F) 08/16/2017 6:10 AM IT NETWORK ADMINISTRATOR Respiratory Rate 16 08/16/2017 6:10 AM IT NETWORK ADMINISTRATOR Oxygen Saturation 93% 08/16/2017 6:10 AM IT NETWORK ADMINISTRATOR Inhaled Oxygen Concentration - - Weight 85.7 kg (189 lb) 08/25/2024 12:53 PM IT NETWORK ADMINISTRATOR Height 152.4 cm (5') 08/25/2024 12:53 PM IT NETWORK ADMINISTRATOR Body Mass Index 36.91 08/25/2024 12:53 PM IT NETWORK ADMINISTRATOR Plan of Treatment Health Maintenance Due Date [...] this topic Medical Devices Implanted Type Area Attending Pathologist Device Identifier Shelf Expiration Date Model / Serial / Lot Beto Bone Haywood Hv Implanted:Qty: 1 on 01/10/2013 by William Abebe MD at [facility] Left: Knee [employer] 07/12/2014 [id number] / / [id number] Biomet Interlok 75mm Fixed Ibeam Tibial Plate With Locking Bar Implanted:Qty: 1 on 01/10/2013 by William Abebe MD at [facility] Left: Knee 10/10/2022 [id number] / / [id number] Biomet Arcom Patella Single 1/4 Inch Peg With Wire 31mm X 8 Mm Implanted:Qty: 1 on 01/10/2013 by William Abebe MD at [facility] Left: Knee 11/10/2017 [id number] / / [id number] Vanguard Cr Femoral 67.5 Mm Left Interlok Implanted:Qty: 1 on 01/10/2013 by William Abebe MD at [facility] Left: Knee 06/12/2022 [id number] / / [id number] Biomet Vanguard/Tm Dcm Tibial Bearing Anterior Stabilized 12mm X 75mm Implanted:Qty: 1 on 01/10/2013 by William Abebe MD at [facility] Left: Knee 07/12/2017 [id number] / / [id number] Brdg Tib Denise Stbl 12mm X 71mm Implanted:Qty: 1 on 04/13/2013 by William Abebe MD at [facility] Right: Knee [employer] Inc 03/01/2018 [id number] / / [id number] Beto Bone Haywood Hv Implanted:Qty: 1 on 04/13/2013 by William Abebe MD at [facility] Right: Knee [employer] Inc 10/30/2014 [id number] / / [id number] 65mm Cr Femoral Implanted:Qty: 1 on 04/13/2013 by William Abebe MD at [facility] Right: Knee 01/30/2023 [id number] / / [id number] 31mm X 8mm Arcom Patella Implanted:Qty: 1 on 04/13/2013 by William Abebe MD at [facility] Right: Knee 03/01/2018 [id number] / / [id number] Ty Tibial I Beam Fix Bar 71mm Implanted:Qty: 1 on 04/13/2013 by William Abebe MD at [facility] Right: Knee [employer] 12/30/2022 [id number] / / [id number] Insurance MEDICARE [facility] MEDICARE MEDICARE * Guarantor: DEBORAH LEBLANC Account [...] 2:42 PM 01/13/2013 12:28 PM Care Teams Recapper Relationship Specialty Start Date End Date Max Branch MD [address] [place] [address] PCP - OBGYN 11/17/09 Hero Lujan MD [address] [place] [address] PCP - General 01/03/19 William Abebe MD [address] [place] [address] Orthopedic Surgery 10/12/12
--- OUTSIDE RECORDS SUMMARY | 2024-12-21 08:57 | XMS_ITS | Clinical Summary ---
Author Organization [facility] Address [address] [place] [address] Care Team Providers Care Bin Cleaner Name Role Phone Hero Lujan MD Primary [...] 1 tablet (25 mcg total) by mouth rayon winder before breakfast Active aspirin 81 mg chewable [...] on file Legal Sex Female 3:42 AM POMOLOGIST Gender Identity Not on file Sexual Orientation [...] 2 - PCV) 05/17/2021 05/17/2020 Influenza Vaccine (Season Ended) 2025 05/17/2020, 04/13/2019, 05/18/2017, Additional history exists DTaP/Tdap/Td Vaccine (2 - Td or Tdap) 03/24/2029 03/24/2019 Breast Cancer Screening-Mammogram Discontinued 10/25/2020, 09/14/2019, 07/28/2018, Additional history [place] [address] [facility] MEDICARE [facility] Address: [facility] [address] [place] [address] [facility] Care Teams Bin Cleaner Relationship Specialty Start Date End Date Hero Lujan MD [address] [place] [address] PCP - General Emergency Medicine 11/06/20
--- OUTSIDE RECORDS SUMMARY | 2024-12-21 08:57 | XMS_ITS | Referral Summary ---
Author Organization [facility] Address [address] [place] [address] Care Team Providers Care Medical Lab Specialist Name Role Phone Hero Lujan MD Primary [...] 1 tablet (25 mcg total) by mouth rip/mould operator before breakfast Active aspirin 81 mg [...] on file Legal Sex Female 3:42 AM JACKER Gender Identity Not on file Sexual Orientation [...] of Treatment Not on file Insurance MEDICARE [facility] Member Subscriber Plan / Payer (Ef fective 2020-Present) Name:Deborah Cancino Relation to Subscriber:Self Name:Deborah Cancino Payer ID:[id number] Group ID:Not on file Type:[employer] Address: [facility] [id number] [place] [id number] MEDICARE [facility] Care Teams Medical Lab Specialist Relationship Specialty Start Date End Date Hero Lujan MD [address] [place] [id number] PCP - General Emergency Medicine 11/06/20
--- OUTSIDE RECORDS SUMMARY | 2024-12-21 08:57 | XMS_ITS | Encounter Summary ---
Author Organization [facility] Address [address] [place] [address] Care Team Providers Care Manager Front Office Name Role Phone Odette Webb MD Primary Care Provider [phone] Max Branch MD Unavailable [phone] William Abebe MD Unavailable [phone] Hero Lujan MD Primary Care Provider [phone] Encounter Details Date Type Department Care Team [...] Sex Assigned at Female 08/19/2024 9:26 AM REVERSE UNIT OPERATOR Legal Sex Female 6:46 AM REVERSE UNIT OPERATOR Gender Identity Female 08/19/2024 9:26 AM REVERSE UNIT OPERATOR Sexual Orientation Choose not to disclose 2024 9:26 AM REVERSE UNIT OPERATOR documented as of this encounter Plan of Treatment Not on file documented as of this encounter Visit Diagnoses Not on filedocumented in this encounter Care Teams Manager Front Office Relationship Specialty Start Date End Date Odette Webb MD [address] [place] [address] PCP - General 06/27/09 01/02/19 Max Branch MD [address] [place], [place] [id number] PCP - OBGYN 06/19/09 Hero Lujan MD [address] [facility] [address] [place] [address] PCP - General 01/03/19 William Abebe MD [address] [place] [address] Orthopedic Surgery 10/12/12 documented as of this encounter
--- OUTSIDE RECORDS SUMMARY | 2024-12-21 08:58 | XMS_ITS | Patient Health Record ---
Author Organization [facility] Address [address] [place], [place] [id number] Care Team Providers Care Blanket Weaver Name Role Phone Hero Lujan Unavailable Unavailable AMRITA BYRNE Unavailable [phone] Allergies No Known Allergies Reason For Referral [...] Date Provider Diagnosis [facility] [address] [place], [place] [id number] 02/26/2024 AMRITA BYRNE Tinea unguium B35.1 ; Plantar wart B07.0 ; Other hammer toe(s) (acquired), right foot M20.41 ; Other hammer toe(s) (acquired), left foot M20.42 ; Pain in right toe(s) M79.674 ; Pain in left toe(s) M79.675 ; Pain in right foot M79.671 ; Atherosclerosis of lytton arteries of extremities with intermittent claudication, bilateral legs I70.213 ; Xerosis cutis L85.3 ; Acquired keratosis [keratoderma] palmaris et plantaris L85.1 and Type 2 diabetes mellitus with diabetic peripheral angiopathy without gangrene E11.51 [facility] [place] [address] [place], [place] [id number] 03/11/2024 AMRITA DAVYDOV Tinea unguium B35.1 ; Plantar wart B07.0 ; Other hammer toe(s) (acquired), right foot M20.41 ; Other hammer toe(s) (acquired), left foot M20.42 ; Type 2 diabetes mellitus with diabetic peripheral angiopathy without gangrene E11.51 and Pain in left foot M79.672 [facility] [place] [address] [place], [place] [id number] 03/25/2024 AMRITA DAVYDOV Tinea unguium B35.1 ; Plantar wart B07.0 ; Other hammer toe(s) (acquired), right foot M20.41 ; Other hammer toe(s) (acquired), left foot M20.42 ; Pain in right toe(s) M79.674 ; Pain in left toe(s) M79.675 ; Pain in right foot M79.671 ; Atherosclerosis of lytton arteries of extremities with intermittent claudication, bilateral legs I70.213 ; Xerosis cutis L85.3 ; Acquired keratosis [keratoderma] palmaris et plantaris L85.1 and Type 2 diabetes mellitus with diabetic peripheral angiopathy without gangrene E11.51 Assessments Encounter Date Diagnosis (ICD Code) Assessment Notes Treatment Notes Treatment Clinical Notes Section Notes 02/26/2024 Plantar wart (ICD-10 - B07.0) I [...] were emphasized. 03/25/2024 Other hammer toe(s) (acquired), right foot [...] (acquired), left foot (ICD-10 - M20.42) 02/26/2024 Other hammer toe(s) (acquired), left foot [...] toe(s) (ICD-10 - M79.674) 03/25/2024 Pain in right toe(s) (ICD-10 - M79.674) 03/25/2024 Pain in left toe(s) (ICD-10 - M79.675) 02/26/2024 Pain in left toe(s) (ICD-10 - M79.675) 03/11/2024 Pain in left foot (ICD-10 - M79.672) 02/26/2024 Pain in right foot (ICD-10 - M79.671) 03/25/2024 Pain in right foot (ICD-10 - M79.671) 03/25/2024 Atherosclerosis of lytton arteries of extremities with intermittent claudication, bilateral legs (ICD-10 - I70.213) Patient educated on risks and aggravating factors of PVD, including conservative treatment options such as a diet and exercise regimen to aid in slowing progression of vascular disease 02/26/2024 Atherosclerosis of lytton arteries of extremities with intermittent claudication, bilateral [...] to be applied to feet daily. 03/25/2024 Xerosis cutis (ICD-10 - L85.3) The [...] no infection or drainage was noted. 02/26/2024 Acquired keratosis [keratoderma] palmaris et plantaris [...] Date Coverage End Date Medicare Part B [place] [address] [place] [address] [id number] Deborah Cancino Self - patient is the insured [facility] Medicare Supplement [address] [place], [place] [id number] [phone] [id number] Deborah Cancino Self - patient is the insured
--- OUTSIDE RECORDS SUMMARY | 2024-12-21 08:58 | XMS_ITS | Clinical Summary ---
Author Organization [facility] Address [address] [place] [address] Care Team Providers Care Machine Adjuster Leader Name Role Phone Unavailable Primary Care Provider Unavailabl e Social History Tobacco Use Types Packs/Day Years Used Date Smoking Tobacco: Never Assessed Comments Unknown Sex and Gender Information Value Date Recorded Sex Assigned at Not on file Legal Sex Female 7:46 PM FIRER BISQUE KILN Gender Identity Not on file Sexual Orientation Not on file Plan of Treatment Upcoming Encounters Date Type Department Care Team (Late st Contact Info) Description 04/18/2025 10:30 AM CDT Office Visit [facility] Oncology and Hematology - Neeraj [address] [facility] [address] [address] Vince Feng MD [address] [facility] [address] [place] [address] Health Maintenance Due Date Last Done Comments DTAP/TDAP/TD VACCINES (1 - Tdap) 1966 PNEUMOCOCCAL VACCINE 50+ YEARS (1 of 1 - PCV) 05/28/19 97 ZOSTER VACCINE (1 of 2) 1997 OSTEOPOROSIS SCREENING 2012 RSV VACCINE (60+ or ) (1 - 1-dose 75+ series) 2022 INFLUENZA VACCINE (#1) 2024 Insurance MEDICARE PART A AND B [place] [id number] [place] [id number]
== END 2024-12-21 08:17 | disposition home or self-care (01) ==
LOC: ANHIMG 08:16
PROVIDERS: PCP Emergency Medicine; Visit Provider Emergency Medicine
DX: M81.0 Age-related osteoporosis without current pathological fracture (principal); Z78.0 Asymptomatic menopausal state; Z13.820 Encounter for screening for osteoporosis
CPT/HCPCS: 77080

== ENCOUNTER 2025-01-24 00:42 | Day surgery (SDC) | payer MEDICARE, SELFPAY ==
[2025-01-09 13:39] VITALS: BMI 36.9
[2025-01-24 12:06] VITALS: BP 150/81; PULSE 95; RESP 20; TEMP 35.9; O2SAT 100; BMI 36.7
--- NOTE | 2025-01-24 12:28 | WPDANESEPPF ---
Anes - Initial Pre Proc Eval Procedure: Operation Date: 01/24/25 13:15 Proposed Procedures p Esophagogastroduodenoscopy - Ben Arguelles MD Date/Time: 01/24/25 12:28 Surgeon: Ben Arguelles MD Pre Op Diagnosis: Unspecified abdominal pain, GERD Patient Data Age: 79 Gender: F Height: 1.52 m Weight: 85.4 kg Last Vital Signs Temp 35.9 C L 01/24/25 12:06 Pulse 95 01/24/25 12:06 Resp 20 01/24/25 12:06 BP 150/81 H 01/24/25 12:06 Pulse Ox 100 01/24/25 12:06 O2 Del Method Room Air 01/24/25 12:06 Allergies Allergy/AdvReac Type Severity Reaction Status Date / Time Sulfa (Sulfonamide Allergy Severe Fever Verified 01/24/25 12:14 Antibiotics) sulfamethoxazole (From Allergy Severe Fever Verified 01/24/25 12:14 Bactrim) trimethoprim (From Bactrim) Allergy Severe Fever Verified 01/24/25 12:14 ciprofloxacin Allergy Intermediate Anaphylactic Verified 01/24/25 12:14 Shock Home Medications ?Medication ?Instructions ?Recorded ?Confirmed ?Type aspirin 81 mg tablet,delayed 81 mg PO DAILY 06/21/19 01/24/25 History release omega 1-wxy-coc-fish oil 1,000 mg 2 cap PO BID 09/09/23 01/09/25 History (120 mg-180 mg) capsule (Fish Oil) nitrofurantoin macrocrystal 50 mg 50 mg PO DAILY 12/29/23 01/24/25 History capsule ferrous sulfate 325 mg (65 mg See Rx Instructions .Route 07/25/24 01/24/25 Rx iron) tablet (Iron (ferrous .COMPLEX #60 tabs sulfate)) losartan 50 mg-hydrochlorothiazide See Rx Instructions .Route 09/21/24 01/24/25 Rx 12.5 mg tablet .COMPLEX #90 tabs atorvastatin 40 mg tablet See Rx Instructions .Route 10/04/24 01/24/25 Rx .COMPLEX #90 tabs levothyroxine 25 mcg tablet See Rx Instructions .Route 11/02/24 01/24/25 Rx .COMPLEX #90 tabs metformin 1,000 mg tablet See Rx Instructions .Route 04/03/25 06/24/25 Rx .COMPLEX #180 tabs insulin degludec 100 unit/mL 22 unit subcut DAILY 11/11/24 01/24/25 History subcutaneous solution (Tresiba U-100 Insulin) dapagliflozin propanediol 10 mg 10 mg PO DAILY #90 tabs 11/23/24 01/24/25 Rx tablet (Farxiga) cholestyramine (with sugar) 4 gram 4 g PO BID #60 ea 12/07/24 01/24/25 Rx powder for susp in a packet (Questran) dicyclomine 10 mg capsule 10 mg PO TID PRN abdominal pain 12/07/24 01/09/25 Rx #90 caps ondansetron 4 mg disintegrating 4 mg PO Q8H PRN nausea and 12/07/24 01/24/25 Rx tablet vomiting #30 tabs semaglutide 0.25 mg or 0.5 mg (2 0.5 mg subcut WEEKLY 01/09/25 History mg/3 mL) subcutaneous pen injector (Ozempic) Patient hx anesthesia problems: none Family hx anesthesia problems: none Results Review: All pre-operative results and documents have been reviewed as part of the pre-operative evaluation. [facility] Past Medical History Medical History Nausea and vomiting Left sided abdominal pain Chest pain Post-menopausal Rash GERD without esophagitis CKD (chronic kidney disease) stage 3, GFR 30-59 ml/min Pelvic pain in female Vaginal irritation Encounter for gynecological examination (general) (routine) with abnormal findings Encounter for Papanicolaou smear of cervix Screening mammogram, encounter for Stricture, ureter Acute UTI Sepsis Cellulitis and abscess of left leg Abdominal pain Contact dermatitis Obesity Abdominal pain Nephrolithiasis Diabetes mellitus HLD (hyperlipidemia) Hypothyroidism (acquired) Vitamin D deficiency disease GERD (gastroesophageal reflux disease) HTN (hypertension) Surgical History Surgical History S/P breast biopsy, left (~1984) 2 biopsies left breast Benign Hx of cholecystectomy History of knee replacement bilateral knees replaced S/P tubal ligation (~1979) History of ureter stent x 2 Family History Family History Mother Family history of arthritis Heart disease 08/2021 heart attack Father Patient's father is , Onset Age: 75 Grandparent Diabetes mellitus Sibling Acute myocardial infarction brother Other H/O ovarian cancer 2 maternal aunts Social History Social History Smoking packs per day: 2 Smoking cigarettes per day: 40.0 Years smoked: 3 Smoking pack-years: 6.00 Smoking status: Former smoker Tobacco type: cigarettes Additional smoking assessment comments: STATES QUIT OVER 50YRS AGO Alcohol intake: current Alcohol use details: rarely Substance use: never Substance use type: does not use Do You Feel Safe in your Home?: Yes Lack of Transportation: No Lack of Food: Never True Current Housing: I Have Housing Concerned About Future Housing: No Difficulty Paying Gas/Electric Bills: No Difficulty Paying for Meds: No Currently Unemployed: No Education: High School Diploma/GED Difficulty w/ Childcare or Family Care: No Living arrangements: alone Additional living arrangements comments: spouse in fdc Occupation/Education: retired Gender identity (if verbalized by the patient): Female Sexual Orientation (if Verbalized by the Patient): Straight or Heterosexual Spiritual care concerns: No Anes - Eval Final PreProcedure Day of Procedure 01/24/25 12:28 Patient weight: obese Heart: regular rate and rhythm Lungs: decreased breath sounds Airway: Mallampati scale class III Neurological: alert and oriented Last oral intake: >/= 8 hours ASA classification: III Emergent: no Anesthetic plan: proceed Anesthesia type and monitoring: general GIVS and standard monitoring Results Review: All pre-operative results and documents have been reviewed as part of the pre-operative evaluation. Informed Consent: The patient's anesthetic plan and its attendant risks and benefits were discussed with the patient/family/POA. Questions were solicited and answers provided to the satisfaction of the patient/family/POA.
[2025-01-24] MEDS: LACTATED RINGERS 1,000 ML 150 ML IV CONT (12:35)
[2025-01-24] MEDS: SIMETHICONE ORAL SUSPENSION 20 MG/0.3 ML 30 ML BOTTLE 1.8 ML PO (12:36)
--- NOTE | 2025-01-24 12:37 | SUR.PREOP ---
patients blood sugar was 186 via continuous glucose monitor. was notified of blood sugar and okay to proceed with procedure.
--- NOTE | 2025-01-24 13:09 | PM.IMHP ---
H&P: HPI History of Present Illness Date/Time: 01/24/25 13:09 Chief Complaint: Left upper quadrant pain Narrative: this patient has been suffering from left upper quadrant pain, intermittent, sometimes severe associated with vomiting. She has undergone multiple tests with no specific results. Pain is not relieved or aggravated by defecation. she is referred for EGD now. Review of Systems Review of Systems: All systems reviewed & are unremarkable except as noted in HPI and below PMFSH Past Medical History Medical History Nausea and vomiting Left sided abdominal pain Chest pain Post-menopausal Rash GERD without esophagitis CKD (chronic kidney disease) stage 3, GFR 30-59 ml/min Pelvic pain in female Vaginal irritation Encounter for gynecological examination (general) (routine) with abnormal findings Encounter for Papanicolaou smear of cervix Screening mammogram, encounter for Stricture, ureter Acute UTI Sepsis Cellulitis and abscess of left leg Abdominal pain Contact dermatitis Obesity Abdominal pain Nephrolithiasis Diabetes mellitus HLD (hyperlipidemia) Hypothyroidism (acquired) Vitamin D deficiency disease GERD (gastroesophageal reflux disease) HTN (hypertension) Surgical History Surgical History S/P breast biopsy, left (~1984) 2 biopsies left breast Benign Hx of cholecystectomy History of knee replacement bilateral knees replaced S/P tubal ligation (~1979) History of ureter stent x 2 Family History Family History Mother Family history of arthritis Heart disease 08/2021 heart attack Father Patient's father is , Onset Age: 75 Grandparent Diabetes mellitus Sibling Acute myocardial infarction brother Other H/O ovarian cancer 2 maternal aunts Social History Social History Smoking packs per day: 2 Smoking cigarettes per day: 40.0 Years smoked: 3 Smoking pack-years: 6.00 Smoking status: Former smoker Tobacco type: cigarettes Additional smoking assessment comments: STATES QUIT OVER 50YRS AGO Alcohol intake: current Alcohol use details: rarely Substance use: never Substance use type: does not use Do You Feel Safe in your Home?: Yes Lack of Transportation: No Lack of Food: Never True Current Housing: I Have Housing Concerned About Future Housing: No Difficulty Paying Gas/Electric Bills: No Difficulty Paying for Meds: No Currently Unemployed: No Education: High School Diploma/GED Difficulty w/ Childcare or Family Care: No Living arrangements: alone Additional living arrangements comments: spouse in shelter Occupation/Education: retired Gender identity (if verbalized by the patient): Female Sexual Orientation (if Verbalized by the Patient): Straight or Heterosexual Spiritual care concerns: No Meds Home Medications and Allergies Home Medications ?Medication ?Instructions ?Recorded ?Confirmed ?Type aspirin 81 mg tablet,delayed 81 mg PO DAILY 06/21/19 01/24/25 History release omega 4-zus-olf-fish oil 1,000 mg 2 cap PO BID 09/09/23 01/09/25 History (120 mg-180 mg) capsule (Fish Oil) nitrofurantoin macrocrystal 50 mg 50 mg PO DAILY 12/29/23 01/24/25 History capsule ferrous sulfate 325 mg (65 mg See Rx Instructions .Route 07/25/24 01/24/25 Rx iron) tablet (Iron (ferrous .COMPLEX #60 tabs sulfate)) losartan 50 mg-hydrochlorothiazide See Rx Instructions .Route 09/21/24 01/24/25 Rx 12.5 mg tablet .COMPLEX #90 tabs atorvastatin 40 mg tablet See Rx Instructions .Route 10/04/24 01/24/25 Rx .COMPLEX #90 tabs levothyroxine 25 mcg tablet See Rx Instructions .Route 11/02/24 01/24/25 Rx .COMPLEX #90 tabs metformin 1,000 mg tablet See Rx Instructions .Route 11/03/24 01/24/25 Rx .COMPLEX #180 tabs insulin degludec 100 unit/mL 22 unit subcut DAILY 11/11/24 01/24/25 History subcutaneous solution (Tresiba U-100 Insulin) dapagliflozin propanediol 10 mg 10 mg PO DAILY #90 tabs 11/23/24 01/24/25 Rx tablet (Farxiga) cholestyramine (with sugar) 4 gram 4 g PO BID #60 ea 12/07/24 01/24/25 Rx powder for susp in a packet (Questran) dicyclomine 10 mg capsule 10 mg PO TID PRN abdominal pain 12/07/24 01/09/25 Rx #90 caps ondansetron 4 mg disintegrating 4 mg PO Q8H PRN nausea and 12/07/24 01/24/25 Rx tablet vomiting #30 tabs semaglutide 0.25 mg or 0.5 mg (2 0.5 mg subcut WEEKLY 01/09/25 History mg/3 mL) subcutaneous pen injector (Ozempic) Allergies Allergy/AdvReac Type Severity Reaction Status Date / Time Sulfa (Sulfonamide Allergy Severe Fever Verified 01/24/25 12:14 Antibiotics) sulfamethoxazole (From Allergy Severe Fever Verified 01/24/25 12:14 Bactrim) trimethoprim (From Bactrim) Allergy Severe Fever Verified 01/24/25 12:14 ciprofloxacin Allergy Intermediate Anaphylactic Verified 01/24/25 12:14 Shock Vital Signs Vital Signs - 24 hr 01/24/25 12:06 Temperature 96.6 F L Pulse Rate 95 Respiratory Rate 20 Blood Pressure 150/81 H Pulse Oximetry 100 Oxygen Delivery Room Air Exam Const: General: cooperative and healthy appearing Resp: Effort & Inspection: normal respiratory effort and able to speak in complete sentences Auscultation: clear to auscultation bilaterally Cardio: Rate: regular rate Rhythm: regular rhythm GI: Inspection: normal to inspection GI Palp: No No hepatosplenomegaly present Auscultation: normal bowel sounds Rectal Exam: deferred Skin: General skin exam: normal color Psych: Appearance: grossly normal Mental Status: mental status grossly normal Assessment and Plan Assessment and plan (1) Left sided abdominal pain: Code(s): R10.9 - Unspecified abdominal pain Status: Acute Assessment and Plan: The patient is deemed a good candidate for the procedure. Consent signed. Will proceed.
--- NOTE | 2025-01-24 13:20 | S_PTH ---
PATIENT: Deborah Cancino LOC: [facility] U#:[id number] AGE/SX: 79/F ROOM: RE01/24/[address]: Ben Arguelles MD : 1945 BED: DIS: 01/24/2025 SPEC #: [id number] RECD: 01/24/25 13:46 STATUS: DINORAH REQ #: [id number] KAYLA: 01/24/25 13:[address]: Ben Arguelles DEPT: [facility] Surgical RECD BY: Blane Galvez ENTERED: 01/24/25 13:47 SP TYPE: Surgical OTHR DR: Hero Lujan MD Tissues: A - Gastric Biopsy B - Gastric Biopsy Procedures: Hematoxylin and Eosin Stain Gross and Microscopic Level 4
[2025-01-24 13:23] VITALS: BP 123/59; PULSE 87; RESP 21; O2SAT 98
[2025-01-24 13:33] VITALS: BP 130/79; PULSE 84; RESP 23; O2SAT 99
[2025-01-24 13:43] VITALS: BP 139/68; PULSE 82; RESP 23; O2SAT 100
[2025-01-24 13:47] LABS: Glucose Point of Care 147 mg/dl (65-105)
== END 2025-01-24 13:55 | disposition home or self-care (01) ==
PROVIDERS: PCP Emergency Medicine; Referring Provider Nurse Practitioner Family; Visit Provider Internal Medicine Gastroenterology
PROC: 0DJ08ZZ Inspection of Upper Intestinal Tract, Via Natural or Artificial Opening Endoscopic (ICD-10-PCS; CPT 43239; principal; 2025-01-24 13:15)
DX: K29.50 Unspecified chronic gastritis without bleeding (principal); K21.9 Gastro-esophageal reflux disease without esophagitis; E78.5 Hyperlipidemia, unspecified; E03.9 Hypothyroidism, unspecified; E55.9 Vitamin D deficiency, unspecified; I12.9 Hypertensive chronic kidney disease with stage 1 through stage 4 chronic kidney disease, or unspecified chronic kidney disease; E11.22 Type 2 diabetes mellitus with diabetic chronic kidney disease; N18.30 Chronic kidney disease, stage 3 unspecified; L25.9 Unspecified contact dermatitis, unspecified cause; E66.9 Obesity, unspecified; Z68.36 Body mass index [BMI] 36.0-36.9, adult; Z79.82 Long term (current) use of aspirin; Z79.84 Long term (current) use of oral hypoglycemic drugs; Z79.4 Long term (current) use of insulin; Z79.85 Long-term (current) use of injectable non-insulin antidiabetic drugs; Z90.49 Acquired absence of other specified parts of digestive tract; Z98.51 Tubal ligation status; Z96.0 Presence of urogenital implants; Z87.891 Personal history of nicotine dependence; Z87.448 Personal history of other diseases of urinary system; Z80.41 Family history of malignant neoplasm of ovary; Z82.49 Family history of ischemic heart disease and other diseases of the circulatory system
CPT/HCPCS: 43239; 82948; 88305; J2003; J2704; J7120

== ENCOUNTER 2025-02-15 06:48 | Outpatient (CLI) | payer MEDICARE, SELFPAY ==
--- NOTE | ~2025-02-15 | CT_ITS ---
CT of the Abdomen and Pelvis: Indication: Abdominal pain Technique: 2.5 mm axial scans were obtained through the abdomen and pelvis following intravenous adm inistration of 100 cc of Omnipaque 350. Dose reduction technique was used on this scan by utilizing a utomated exposure control and iterative reconstruction technique. The dose-length product (DLP) was 1 244.33 mGy-cm. COMPARISON: 02/25/2023 Findings: Scans through the lung bases are unremarkable. The liver, spleen, pancreas, adrenals and right kidney are within normal limits. Questionable minimal prominence of the left renal pelvis with minimal adjacent haziness. Gallbladder absent. There are at herosclerotic calcifications of the aorta. No lymphadenopathy. No bowel obstruction or bowel wall thickening. There is no evidence to suggest acute appendicitis. Images through the pelvis were performed. Urinary bladder unremarkable. No pelvic mass seen. No ascit es. Impression: Questionable minimal prominence of the left renal pelvis with minimal adjacent haziness. Correlate fo r ascending urinary tract infection. No other significant findings. Reviewed, dictated and finalized at location . Impression: Questionable minimal prominence of the left renal pelvis with minimal adjacent haziness. Correlate for ascending urinary tract infection. No other significant findings.
--- OUTSIDE RECORDS SUMMARY | 2025-02-15 06:51 | XMS_ITS | Patient Health Record ---
Author Organization [facility] Address [address] [place], [place] [address] Care Team Providers Care Academic Program Specialist Name Role Phone Hero Lujan Unavailable Unavailable AMRITA BYRNE Unavailable [phone] Allergies No Known Allergies Reason For Referral [...] Date Provider Diagnosis [facility] [address] [place], [place] [id number] 02/26/2024 AMRITA BYRNE Tinea unguium B35.1 ; Plantar wart B07.0 ; Other hammer toe(s) (acquired), right foot M20.41 ; Other hammer toe(s) (acquired), left foot M20.42 ; Pain in right toe(s) M79.674 ; Pain in left toe(s) M79.675 ; Pain in right foot M79.671 ; Atherosclerosis of qawalangin arteries of extremities with intermittent claudication, bilateral legs I70.213 ; Xerosis cutis L85.3 ; Acquired keratosis [keratoderma] palmaris et plantaris L85.1 and Type 2 diabetes mellitus with diabetic peripheral angiopathy without gangrene E11.51 [facility] [place] [address] [place], [place] [id number] 03/11/2024 AMRITA DAVYDOV Tinea unguium B35.1 ; Plantar wart B07.0 ; Other hammer toe(s) (acquired), right foot M20.41 ; Other hammer toe(s) (acquired), left foot M20.42 ; Type 2 diabetes mellitus with diabetic peripheral angiopathy without gangrene E11.51 and Pain in left foot M79.672 [facility] [place] [address] [place], [place] [id number] 03/25/2024 AMRITA DAVYDOV Tinea unguium B35.1 ; Plantar wart B07.0 ; Other hammer toe(s) (acquired), right foot M20.41 ; Other hammer toe(s) (acquired), left foot M20.42 ; Pain in right toe(s) M79.674 ; Pain in left toe(s) M79.675 ; Pain in right foot M79.671 ; Atherosclerosis of qawalangin arteries of extremities with intermittent claudication, bilateral [...] foot (ICD-10 - M79.671) 03/25/2024 Atherosclerosis of qawalangin arteries of extremities with intermittent claudication, bilateral legs (ICD-10 - I70.213) Patient educated on risks and aggravating factors of PVD, including conservative treatment options such as a diet and exercise regimen to aid in slowing progression of vascular disease 02/26/2024 Atherosclerosis of qawalangin arteries of extremities with intermittent claudication, bilateral [...] Date Coverage End Date Medicare Part [place] [address] [place] [address] [id number] Deborah Cancino Self - patient is the insured [facility] Medicare Supplement [address] [place], [place] [id number] Deborah Cancino Self - patient is the insured
--- OUTSIDE RECORDS SUMMARY | 2025-02-15 06:51 | XMS_ITS | Encounter Summary ---
Author Organization [facility] Address [address] [place] [address] Care Team Providers Care Cinder Crusher Operator Name Role Phone Hero Lujan MD Primary Care Provider [phone] Encounter Details Date Type Department Care Team (Late st Contact Info) Description 08/12/2021 Therapy Plan [facility] One Day Services [address] [place] [address] Evan Klein MD [address] [place] [address] Social History Tobacco Use Types Packs/Day Years Used Date Smoking Tobacco: Never Assessed Comments Unknown Sex and Gender Information Value Date Recorded Sex Assigned at Not on file Legal Sex Female 4:28 PM NOC ENGINEER Gender Identity Female 08/15/2021 11:30 AM NOC ENGINEER Sexual Orientation Not on file COVID-19 Exposure Response Date Recorded In the last month, have you been in contact with someone who was confirmed or suspected to have Coronavirus / COVID-19? No / Unsure 08/15/2021 3:50 PM NOC ENGINEER documented as of this encounter Functional Status * Calculated C-SSRS Risk Score (Lifetime/Recent) Answer Date of Assessment Author Status No Risk Indicated 08/14/2021 2:01 PM Karrie Cavazos RN Active * M[place]one Suicide Severity Rating Scale (Screener/Recent Self-Report) Question Answer Date of Assessment Author Status 1. Wish to be (Past 1 Month) No 08/14/2021 2:01 PM Fabiola Cavazos RN Act billy 2. Non-Specific Active Suicidal Thoughts (Past 1 Month) No 08/14/2021 2:01 PM NOC ENGINEER Fabiola Garcia, CALLIE Act billy documented as of this encounter Plan of Treatment Not on file documented as of this encounter Visit Diagnoses Diagnosis Chronic cystitis without hematuria- Primary documented in this encounter Care Teams Cinder Crusher Operator Relationship Specialty Start Date End Date Hero Lujan MD [address] [place] [address] PCP - General INTERNAL MEDICINE 08/13/21 documented as of this encounter
--- OUTSIDE RECORDS SUMMARY | 2025-02-15 06:51 | XMS_ITS | Clinical Summary ---
Author Organization [facility] Address [address] [place] [address] Care Team Providers Care Medical Assistant Name Role Phone Hero Lujan MD [...] 1 tablet (25 mcg total) by mouth rpg developer before breakfast Active aspirin 81 mg chewable [...] on file Legal Sex Female 3:42 AM STRUCTURAL TEST ENGINEER Gender Identity Not on file Sexual [...] 09/14/2019, 07/28/2018, Additional history exists Insurance [facility]ICARE [facility] MEDICARE [facility] Care Teams Medical Assistant Relationship Specialty Start Date End Date Hero Lujan MD [address] [place] [address] PCP - General Emergency Medicine 11/06/20
--- OUTSIDE RECORDS SUMMARY | 2025-02-15 06:51 | XMS_ITS | Encounter Summary ---
Author Organization [facility] Address [address] [place] [address] Care Team Providers Care Strategic Sourcing Consultant Name Role Phone Odette Webb MD Primary Care Provider [phone] Max Branch MD Unavailable William Abebe MD Unavailable [phone] Hero Lujan MD Primary Care Provider [phone] Encounter Details Date Type Department Care Team [...] Sex Assigned at Female 08/19/2024 9:26 AM LEGGER PRESS OPERATOR Legal Sex Female 6:46 AM LEGGER PRESS OPERATOR Gender Identity Female 08/19/2024 9:26 AM LEGGER PRESS OPERATOR Sexual Orientation Choose not to disclose 2024 9:26 AM LEGGER PRESS OPERATOR documented as of this encounter Plan of Treatment Not on file documented as of this encounter Visit Diagnoses Not on filedocumented in this encounter Care Teams Strategic Sourcing Consultant Relationship Specialty Start Date End Date Odette Webb MD [address] [facility] [address] [place] [id number] PCP - General 06/27/09 01/02/19 Max Branch MD [address] [place] [phone] PCP - OBGYN 06/19/09 Hero Lujan MD [address] [place] [address] [address] [place] [address] PCP - General 01/03/19 William Abebe MD [address] [place] [address] Orthopedic Surgery 10/12/12 documented as of this encounter
--- OUTSIDE RECORDS SUMMARY | 2025-02-15 06:51 | XMS_ITS | Clinical Summary ---
Author Organization [facility] Address [address] [place] [address] Care Team Providers Care Bar Machine Operator Name Role Phone Hero Lujan MD Primary Care Provider [phone] Allergies Active Allergy Reactions Criticality Noted Date [...] on file Legal Sex Female 4:28 PM HEEL WASHER STRINGING MACHINE OPERATOR Gender Identity Female 08/15/2021 11:30 AM HEEL WASHER STRINGING MACHINE OPERATOR Sexual Orientation Not on file Last Filed Vital Signs Vital Sign Reading Time Taken Comments Blood Pressure 151/67 08/20/2021 2:20 PM HEEL WASHER STRINGING MACHINE OPERATOR Pulse 100 08/20/2021 2:20 PM HEEL WASHER STRINGING MACHINE OPERATOR Temperature 37.1 C (98.7 F) 08/20/2021 2:20 PM HEEL WASHER STRINGING MACHINE OPERATOR Respiratory Rate 18 08/20/2021 2:20 PM HEEL WASHER STRINGING MACHINE OPERATOR Oxygen Saturation 99% 08/20/2021 2:20 PM HEEL WASHER STRINGING MACHINE OPERATOR Inhaled Oxygen Concentration - - Weight 79.4 kg (175 lb) 08/14/2021 2:01 PM HEEL WASHER STRINGING MACHINE OPERATOR Height 157.5 cm (5' 2) 08/14/2021 2:01 PM HEEL WASHER STRINGING MACHINE OPERATOR Body Mass Index 32.01 08/14/2021 2:01 PM HEEL WASHER STRINGING MACHINE OPERATOR Plan of Treatment Health Maintenance Due Date [...] age to complete this topic Insurance MEDICARE [facility] Care Teams Bar Machine Operator Relationship Specialty Start Date End Date Hero Lujan MD [address] [place] [address] PCP - General INTERNAL MEDICINE 08/13/21
--- OUTSIDE RECORDS SUMMARY | 2025-02-15 06:51 | XMS_ITS | Referral Summary ---
Author Organization [facility] Address [address] [place] [address] Care Team Providers Care Sales Assistants And Salespersons Name Role Phone Hero Lujan MD Primary [...] 1 tablet (25 mcg total) by mouth thiokol operator before breakfast Active aspirin 81 mg [...] on file Legal Sex Female 3:42 AM OPHTHALMIC TECHNICIAN Gender Identity Not on file Sexual [...] of Treatment Not on file Insurance MEDICARE [facility] Member Subscriber Plan / Payer (Ef fective 2020-Present) Name:Deborah Cancino Relation to Subscriber:Self Name:Deborah Cancino Payer ID:[id number] Group ID:Not on file Type:Mi-Pay Address: [facility] [id number] [place] [phone] MEDICARE [facility] Care Teams Sales Assistants And Salespersons Relationship Specialty Start Date End Date Hero Lujan MD [address] [place] [phone] PCP - General Emergency Medicine 11/06/20
--- OUTSIDE RECORDS SUMMARY | 2025-02-15 06:51 | XMS_ITS | Clinical Summary ---
Author Organization [facility] [employer] [place] Address [address] [place] [address] Care Team Providers Care District Administrator Name Role Phone Max Branch MD Unavailable [phone] William Abebe MD Unavailable [phone] Hero Lujan MD Primary Care Provider [phone] Source Comments [facility],non-owned Affiliates and Associated Physician Practices is amultiple site organization consisting of ambulatory clinics and hospital sitesin [place], [place], [place] and [place]. This disclosure is being madepursuant to the Care Everywhere program and may not contain all information available regarding this patient. Last updated 18.[facility] Allergies Active Allergy Reactions Criticality Noted Date [...] mouth 2 times daily before meals. Active levothyroxine (SYNTHROID) 25 MCG tablet Take 25 mcg by mouth daily before breakfast. Instructed to take AM of surgery Active Multiple Vitamins-Minerals (CENTRUM SILVER PO) Take 1 tablet by mouth once daily Active metFORMIN (GLUCOPHAGE) 1000 MG tablet Take 1 Tab by mouth 2 times daily with morning and evening meal. DO NOT RESUME METFORMIN UNTIL 04/18/2013 0 013 Active aspirin (ASPIRIN) 81 MG tablet Take 81 mg by mouth once daily Active Biotin 1000 MCG Take 1 tablet by mouth once daily Active amitriptyline (ELAVIL) 25 MG tablet Take 1 tablet by mouth once daily Active cyclobenzaprine (FLEXERIL) 5 MG tablet Take 5 mg by mouth 3 times daily as needed Active clotrimazole-betametha sone (LOTRISONE) 1-0.05 % cream Apply to affected area 2 times daily 60 g 4 Active losartan - hydroCHLOROthiazide (Hyzaar) 50-12.5 MG tablet 022 Active Tresiba FlexTouch 100 UNIT/ML pen Inject subcutaneously once daily 025 Active nitrofurantoin macrocrystal (Macrodantin) 50 MG capsule Take 1 (one) capsule by mouth once daily 025 Active Farxiga 10 MG tablet Take 1 (one) tablet by mouth once daily 025 Active ferrous sulfate 325 (65 FE) MG tablet Take 1 (one) tablet by mouth 2 times daily with morning and evening meal Active simvastatin (ZOCOR) 20 MG tablet Take 20 mg by mouth at bedtime. 2024 Disconti nued(Lis t Clean-Up ) lisinopril (PRINIVIL; ZESTRIL) 20 MG tablet Take 20 mg by mouth once daily after breakfast. 2024 Disconti nued(Lis t Clean-Up ) cephalexin (KEFLEX) 250 MG capsule Take 1 capsule by mouth once daily 018 2024 Disconti nued(Lis t Clean-Up ) PREMARIN 0.625 MG/GM vaginal cream Apply 0.5 g to affected area as needed 2024 Disconti nued(Lis t Clean-Up ) oxybutynin CR 24hr (DITROPAN-XL) 10 MG tablet Take 10 mg by mouth once daily 2024 Disconti nued(Lis t Clean-Up ) JANUVIA 50 MG tablet Take 1 tablet by mouth once daily 020 2024 Disconti nued(Lis t Clean-Up ) nitrofurantoin monohyd macro crystals (Macrobid) 100 MG capsuleIndications:Unc omplicated Urinary Tract Infection Take 1 (one) capsule by mouth 2 times daily with morning and evening meal Reasons: Simple Infection of the Urinary Tract 10 capsule 022 2024 Disconti nued(Lis t Clean-Up ) Active Problems Problem Noted Date Diagnosed Date Chronic cystitis without hematuria 08/12/2021 Pyelonephritis, acute 08/13/2017 Lichen sclerosus of female genitalia 07/03/2015 Overview (07/03/2015): MYCOLOG OINT. Knee joint replacement by other means 01/31/2013 Osteoarthrosis involving lower leg 10/12/2012 Overview (10/27/2015): 2015 IMO Updt Encounters Date Type Department Care Team Description 02/13/2025 9:00 AM CDT Office Visit [facility] - PROGRAM ENGINEER [address] [place] [address], [address] [place] [phone] Roly Narayan MD Pap smear, as part of routine gynecological examination (Primary Dx) 02/13/2025 Travel from Last 3 Months Family History Medical [...] Answer Date Recorded Patient Health Questionnaire-2 Score 4 02/11/2025 Comments No Sex and Gender Information Value Date Recorded Sex Assigned at Female 08/19/2024 9:26 AM TRAFFIC POLICE OFFICER Legal Sex Female 6:46 AM TRAFFIC POLICE OFFICER Gender Identity Female 08/19/2024 9:26 AM TRAFFIC POLICE OFFICER Sexual Orientation Choose not to disclose 2024 9:26 AM TRAFFIC POLICE OFFICER Last Filed Vital Signs Vital Sign Reading Time Taken Comments Blood Pressure 118/72 02/13/2025 8:54 AM CDT Pulse 104 08/16/2017 6:10 AM TRAFFIC POLICE OFFICER Temperature 36.9 C (98.4 F) 08/16/2017 6:10 AM TRAFFIC POLICE OFFICER Respiratory Rate 16 08/16/2017 6:10 AM TRAFFIC POLICE OFFICER Oxygen Saturation 93% 08/16/2017 6:10 AM TRAFFIC POLICE OFFICER Inhaled Oxygen Concentration - - Weight 86.7 kg (191 lb 3.2 oz) 02/13/2025 8:54 A M CDT Height 152.4 cm (5') 02/13/2025 8:54 AM CDT Body Mass Index 37.34 02/13/2025 8:54 AM CDT Plan of Treatment Health Maintenance Due Date [...] 2024 05/16/2021, 10/16/2020, 09/25/2020 INFLUENZA VACCINE (#1) 2025 , 05/17/2020, 04/13/2019 DEPRESSION SCREENING Completed 09/07/2024 [...] this topic Medical Devices Implanted Type Area Manufacturing Tech Device Identifier Shelf Expiration Date Model / Serial / Lot Beto Bone La Belle Hv Implanted:Qty: 1 on 01/10/2013 by William Abebe MD at [facility] Left: Knee [employer] 07/12/2014 [id number] / / [id number] Biomet Interlok 75mm Fixed Ibeam Tibial Plate With Locking Bar Implanted:Qty: 1 on 01/10/2013 by William Abebe MD at [facility] Left: Knee 10/10/2022 [id number] / / [id number] Biomet Arcom Patella Single 1/4 Inch Peg With Wire 31mm X 8 Mm Implanted:Qty: 1 on 01/10/2013 by William Abebe MD at [facility] Left: Knee 11/10/2017 [id number] / / [id number] Vanguard Cr Femoral 67.5 Mm Left Interlok Implanted:Qty: 1 on 01/10/2013 by William Abebe MD at [facility] Left: Knee 06/12/2022 [id number] / / [id number] Biomet Vanguard/Tm Dcm Tibial Bearing Anterior Stabilized 12mm X 75mm Implanted:Qty: 1 on 01/10/2013 by William Abebe MD at [facility] Left: Knee 07/12/2017 [id number] / / [id number] Brdg Tib Denise Stbl 12mm X 71mm Implanted:Qty: 1 on 04/13/2013 by William Abebe MD at [facility] Right: Knee [employer] 03/01/2018 [id number] / / [id number] Beto Bone La Belle Hv Implanted:Qty: 1 on 04/13/2013 by William Abebe MD at [facility] Right: Knee [employer] 10/30/2014 [id number] / / [id number] 65mm Cr Femoral Implanted:Qty: 1 on 04/13/2013 by William Abebe MD at [facility] Right: Knee 01/30/2023 [id number] / / [id number] 31mm X 8mm Arcom Patella Implanted:Qty: 1 on 04/13/2013 by William Abebe MD at [facility] Right: Knee 03/01/2018 [id number] / / [id number] Tibial I Beam Fix Bar 71mm Implanted:Qty: 1 on 04/13/2013 by William Abebe MD at [facility] Right: Knee [employer] 12/30/2022 [id number] / / [id number] Insurance MEDICARE [facility] MEDICARE SELF PAY NO INSURANCE Member Subscriber Plan / Payer (Ef fective for All Dates) Name:Deborah Leblanc Member ID:Not on file Relation to Subscriber:Not on file Name:DEBORAH LEBLANC Subscriber ID:Not on file (Home) Address: [address] [place] [address] Payer ID:Not on file Group ID:Not on file Type:Self Pay Address: [place], [place] * Guarantor: DEBORAH LEBLANC Account Type Relation [...] 2:42 PM 01/13/2013 12:28 PM Care Teams District Administrator Relationship Specialty Start Date End Date Max Branch MD [facility] [place] [address] PCP - OBGYN 06/19/09 Hero Lujan MD [address] [place] [address] PCP - General 01/03/19 William Abebe MD [address] [place] [address] Orthopedic Surgery 10/12/12
[2025-02-15 07:11] LABS: Estimated Glomerular Filt Rate 54
== END 2025-02-15 06:49 | disposition home or self-care (01) ==
PROVIDERS: PCP Emergency Medicine; Visit Provider Nurse Practitioner Family
DX: R10.9 Unspecified abdominal pain (principal); R11.2 Nausea with vomiting, unspecified
CPT/HCPCS: 74177; Q9967

== ENCOUNTER 2025-02-22 08:57 | Emergency (ER) | payer MEDICARE, SELFPAY ==
--- NOTE | ~2025-02-22 | CT_ITS ---
EXAMINATION: CT abdomen pelvis w con DATE: 02/22/2025 13:24 INDICATION: Abdominal pain TECHNIQUE: Computed tomography (CT) of the abdomen and pelvis was performed with 100 mL Omnipaque-350 intravenous contrast. Automated exposure control and iterative reconstruction technique were employe d. The dose-length product was 1123.27 mGy-cm. COMPARISON: 02/15/2025 FINDINGS: Unchanged peripheral irregular septal line thickening at the bilateral lung bases consistent with chr onic interstitial lung disease versus atelectasis heart size is normal. A right coronary artery calci fic lesion, aortic valve calcification and mitral annular callus location. No pericardial or pleural effusion. Small sliding-type hiatal hernia. Focal hepatic steatosis ligamentum teres. Status post cho lecystectomy. Spleen, pancreas and bilateral adrenal glands are normal. There are regions of cortical scarring at both kidneys with prompt at the left kidney consistent with sequela of prior infection o r infarction. There is chronic mild left hydroureteronephrosis extending to the distal left ureter wh ich has been present since at least CT dated 10/19/2019 and reportedly related to a distal stricture. Unchanged mild urothelial thickening and enhancement at the left renal pelvis and along the left uret er suggestive of ascending urinary tract infection. Bladder is normal. Unchanged 2.0 cm left adnexal cyst. Uterus and right adnexa are unremarkable. Mild to moderate diverticula surrounding the descendi ng and sigmoid colon without adjacent inflammatory stranding to suggest diverticulitis. No bowel obst ruction. Normal appendix. No free intraperitoneal gas or fluid. No pathologically enlarged abdominal or pelvic lymphadenopathy. Severe lumbar spondylosis. Osteitis pubis. IMPRESSION: 1. Chronic mild left hydroureteronephrosis which may be related to a stricture at the distalmost left ureter noted on prior retrograde polygrams dated 12/03/2018. Mild enhancing urothelial thickening at t he left renal pelvis and ureter suggestive secondary ascending urinary tract infection. Reviewed, dictated and finalized at location A. IMPRESSION: 1. Chronic mild left hydroureteronephrosis which may be related to a stricture at the distalmost left ureter noted on prior retrograde polygrams dated 9. Mild enhancing urothelial thickening at the left renal pelvis and ureter sug gestive secondary ascending urinary tract infection.
[2025-02-22 08:58] VITALS: BP 166/78; PULSE 90; RESP 18; TEMP 36.4; O2SAT 100
--- OUTSIDE RECORDS SUMMARY | 2025-02-22 09:11 | XMS_ITS | Clinical Summary ---
Author Organization [facility] Address [address] [place] [address] Care Team Providers Care Video Coordinator Name Role Phone Max Branch MD Unavailable [phone] William Abebe MD Unavailable [phone] Hero Lujan MD Primary Care Provider [phone] Source Comments [facility],non-owned Affiliates and Associated Physician Practices is amultiple site organization consisting of ambulatory clinics and hospital sitesin [place], [place], [place] and [place]. This disclosure is being madepursuant to the Care Everywhere program and may not contain all information available regarding this patient. Last updated 18.[facility] Allergies Active Allergy Reactions Criticality Noted Date [...] Encounters Date Type Department Care Team Description 02/15/2025 Results Follow-Up [facility] - MACHINE SORTER [address] [place] [address], [address] [address] Halima Alonzo 02/13/2025 9:00 AM CDT Office Visit [facility] - MACHINE SORTER [address] [place] [address], [address] [address] Roly Narayan MD Pap smear, as part [...] Sex Assigned at Female 08/19/2024 9:26 AM SALT OPERATOR Legal Sex Female 6:46 AM SALT OPERATOR Gender Identity Female 08/19/2024 9:26 AM SALT OPERATOR Sexual Orientation Choose not to disclose 2024 9:26 AM SALT OPERATOR Last Filed Vital Signs Vital Sign Reading Time Taken Comments Blood Pressure 118/72 02/13/2025 8:54 AM CDT Pulse 104 08/16/2017 6:10 AM SALT OPERATOR Temperature 36.9 C (98.4 F) 08/16/2017 6:10 AM SALT OPERATOR Respiratory Rate 16 08/16/2017 6:10 AM SALT OPERATOR Oxygen Saturation 93% 08/16/2017 6:10 AM SALT OPERATOR Inhaled Oxygen Concentration - - Weight 86.7 [...] this topic Medical Devices Implanted Type Area Research Environmental Engineer Device Identifier Shelf Expiration Date Model / Serial / Lot Beto Bone [place] Hv Implanted:Qty: 1 on 01/10/2013 by William Abebe MD at [facility] Left: Knee [employer] 07/12/2014 [id number] / / [id number] Biomet Interlok 75mm Fixed Ibeam Tibial Plate With Locking Bar Implanted:Qty: 1 on 01/10/2013 by William Abebe MD at [facility] Left: Knee 10/10/2022 [id number] / / [id number] Biomet Arcom Patella Single 1/4 Inch Peg With Wire 31mm X 8 Mm Implanted:Qty: 1 on 01/10/2013 by William Abebe MD at [facility] Left: Knee 11/10/2017 [id number] / / [id number] Vanguard Cr Femoral 67.5 Mm Left Interlok Implanted:Qty: 1 on 01/10/2013 by William Abebe MD at [facility] Left: Knee 06/12/2022 [id number] / / [id number] Biomet Vanguard/Tm Dcm Tibial Bearing Anterior Stabilized 12mm X 75mm Implanted:Qty: 1 on 01/10/2013 by William Abebe MD at [facility] Left: Knee 07/12/2017 [id number] / / [id number] Brdg Tib Denise Stbl 12mm X 71mm Implanted:Qty: 1 on 04/13/2013 by William Abebe MD at [facility] Right: Knee [employer] Inc 03/01/2018 [id number] / / [id number] Beto Bone [place] Hv Implanted:Qty: 1 on 04/13/2013 by William Abebe MD at [facility] Right: Knee [employer] 10/30/2014 [id number] / / [id number] 65mm Cr Femoral Implanted:Qty: 1 on 04/13/2013 by William Abebe MD at [facility] Right: Knee 01/30/2023 [id number] / / [id number] 31mm X 8mm Arcom Patella Implanted:Qty: 1 on 04/13/2013 by William Abebe MD at [facility] Right: Knee 03/01/2018 [id number] / / [id number] Ty Tibial I Beam Fix Bar 71mm Implanted:Qty: 1 on 04/13/2013 by William Abebe MD at [facility] Right: Knee [employer] 12/30/2022 [id number] / / [id number] Procedures Procedure Name Priority Date/Time Associated Diagnosis Comments PAP IG LB Routine 02/13/2025 9:17 AM CDT Pap smear, as part of routine gynecological examination from Last 3 Months Results * PAP IG LB (02/13/2025 9:17 AM CDT) Diagnosis Comment [email or web address] INSURANCE BILL Comment:NEGATIVE FOR INTRAEP ITHELIAL LESION OR MALIGNANCY. Specimen Adequacy Comment [facility] INSURANCE BILL Comment: Satisfactory for evaluation. Endocervical and/or squamous metaplastic cells (endocervical component) are present. Clinician Provided ICD10 Comment [facility] INSURANCE BILL Comment:Z01.419 Performed by Comment [facility] INSURANCE BILL Comment:Lias Vu, Cytol ogist (ASCP) Comment . [facility] INSURANCE BILL Note Comment [email or web address] INSURANCE BILL Comment: The Pap smear is a screening test designed to aid in the detection of premalignant and malignant conditions of the uterine cervix. It is not a diagnostic procedure and should not be used as the sole means of detecting cervical cancer. Both false-positive and false-negative reports do occur. [facility] CPT Code Automation Comment [email or web address] INSURANCE BILL Comment: This liquid based ThinPrep(R) pap test was screened with the use of an image guided system. Pathology/Cytolog y PART OF UTERINE CERVIX / Unknown 02/13/2025 9:17 AM CDT 02/13/2025 Comment:Cervix Release to pa t Narrative [email or web address] INSURANCE BILL - 02/15/2025 1:10 PM CDT Performed at: 01 - [address] [place] [id number] Dietetic Technician Registered: Linda Kaplan MD, Phone: [phone] Specimen Comment: [id number] Specimen Comment: Source.............Cervix;Endocervix Specimen Comment: No. of containers..01 ThinPrep Vial Roly Narayan MD LAB - PATHOLOGY/CYTOLOGY ORD ERABLES Final Result [facility] INSURANCE BILL [address] [place] [address] from Last 3 Months Insurance MEDICARE [facility] MEDICARE SELF PAY NO INSURANCE Member Subscriber Plan / Payer (Ef fective for All Dates) Name:Barak Deborah Parish Member ID:Not on file Relation to Subscriber:Not on file Name:DEBORAH LEBLANC Subscriber ID:Not on file (Home) Address: [address] [place] [address] [place] [address] Payer ID:Not on file Group ID:Not on file Type:Self Pay Address: [place], [place] * Guarantor: DEBORAH LEBLANC Account Type [...] 2:42 PM 01/13/2013 12:28 PM Care Teams Video Coordinator Relationship Specialty Start Date End Date Max Branch MD [address] [place] [address] [place] [address] PCP - OBGYN 06/19/09 Hero Lujan MD [address] [place] [address] 2 [place] [address] PCP - General 01/03/19 William Abebe MD [address] [place] [address] Orthopedic Surgery 10/12/12
--- OUTSIDE RECORDS SUMMARY | 2025-02-22 09:11 | XMS_ITS | Clinical Summary ---
Author Organization [facility] Address [address] [place] [address] Care Team Providers Care Docking Pilot Name Role Phone Hero Lujan MD Primary [...] 1 tablet (25 mcg total) by mouth press tender incendiary grenade before breakfast Active aspirin 81 mg chewable [...] on file Legal Sex Female 3:42 AM EXECUTIVE SALES ASSISTANT Gender Identity Not on file Sexual Orientation [...] 09/14/2019, 07/28/2018, Additional history exists Insurance MEDICARE [facility] MEDICARE [facility] Care Teams Docking Pilot Relationship Specialty Start Date End Date Hero Lujan MD [address] [place] [address] PCP - General Emergency Medicine 11/06/20
--- OUTSIDE RECORDS SUMMARY | 2025-02-22 09:11 | XMS_ITS | Encounter Summary ---
Author Organization [facility] Address [address] [place] [address] Care Team Providers Care Treatment Coordinator Name Role Phone Max Branch MD Unavailable [phone] William Abebe MD Unavailable [phone] Hero Lujan MD Primary Care Provider [phone] Encounter Details Date Type Department Care Team (Late st Contact Info) Description 02/15/2025 Results Follow-Up [facility] - TAX COMPLIANCE AGENT [address] [place] [address], [address] [place] [phone] Halima Alonzo Social History Tobacco Use Types Packs/Day Years [...] Sex Assigned at Female 08/19/2024 9:26 AM BILINGUAL CUSTOMER SERVICE Legal Sex Female 6:46 AM BILINGUAL CUSTOMER SERVICE Gender Identity Female 08/19/2024 9:26 AM BILINGUAL CUSTOMER SERVICE Sexual Orientation Choose not to disclose 2024 9:26 AM BILINGUAL CUSTOMER SERVICE documented as of this encounter Functional Status * Is person deaf or have serious hearing difficulty? Answer Date of Assessment Author No 08/14/2017 12:45 AM Kellen Wilson RN * Is person blind or have serious difficulty seeing? Answer Date of Assessment Author No 08/14/2017 12:45 AM Kellen Wilson RN * Does person have serious difficulty walking/climbing stairs? Answer Date of Assessment Author Yes 08/14/2017 12:45 AM Kellen Wilson RN * Does person have difficulty dressing/bathing? Answer Date of Assessment Author No 08/14/2017 12:45 AM Kellen Wilson RN * Does person have difficulty doing errands alone? Answer Date of Assessment Author No 08/14/2017 12:45 AM Kellen Wilson RN documented as of this encounter Mental Status * Does person have difficulty concentrating/remembering/making decisions? Answer Entry Date Author No 08/14/2017 12:45 AM Kellen Wilson RN documented in this encounter Plan of Treatment Not on file documented as of this encounter Visit Diagnoses Not on filedocumented in this encounter Care Teams Treatment Coordinator Relationship Specialty Start Date End Date Max Branch MD [address] [place] [place] [id number] PCP - OBGYN 06/19/09 [place] [address] [place] [address] 2 [place] [address] PCP - General 01/03/19 William Abebe MD [address] [place] [place] [address] Orthopedic Surgery 10/12/12 documented as of this encounter
--- OUTSIDE RECORDS SUMMARY | 2025-02-22 09:11 | XMS_ITS | Referral Summary ---
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 Gender Identity Not on file Sexual [...] of Treatment Not on file Insurance MEDICARE [facility] Member Subscriber Plan / Payer (Ef fective 2020-Present) Name:Deborah Cancino Relation to Subscriber:Self Name:Deborah Cancino Payer ID:[id number] Group ID:Not on file Type:[employer] Address: [facility] [address] [place] [phone] MEDICARE [facility] Care Teams Punchboard Inserter Relationship Specialty Start Date End Date Hero Lujan MD [address] [place] [id number] PCP - General Emergency Medicine 11/06/20
--- OUTSIDE RECORDS SUMMARY | 2025-02-22 09:11 | XMS_ITS | Encounter Summary ---
Author Organization [facility] Address [address] [place] [address] Care Team Providers Care Pacs Specialist Name Role Phone Odette Webb MD Primary Care Provider [phone] Max Branch MD Unavailable William Abebe MD Unavailable [phone] Hero Lujan MD Primary Care Provider [phone] Encounter Details Date Type Department Care Team [...] Sex Assigned at Female 08/19/2024 9:26 AM STATISTICAL ANALYST Legal Sex Female 6:46 AM STATISTICAL ANALYST Gender Identity Female 08/19/2024 9:26 AM STATISTICAL ANALYST Sexual Orientation Choose not to disclose 2024 9:26 AM STATISTICAL ANALYST documented as of this encounter Plan of Treatment Not on file documented as of this encounter Visit Diagnoses Not on filedocumented in this encounter Care Teams Pacs Specialist Relationship Specialty Start Date End Date Odette Webb MD [address] [place] [id number] PCP - General 06/27/09 01/02/19 Max Branch MD [address] [place] [place] [id number] PCP - OBGYN 06/19/09 Hero Lujan MD [address] [place] [address] 2 [place] [address] PCP - General 01/03/19 William Abebe MD [address] [place] [place] [id number] Orthopedic Surgery 10/12/12 documented as of this encounter
--- OUTSIDE RECORDS SUMMARY | 2025-02-22 09:12 | XMS_ITS | Clinical Summary ---
Author Organization [facility] Address [address] [place] [address] Care Team Providers Care Standard Machine Stitcher Name Role Phone Unavailable Primary Care Provider Unavailabl e Social History Tobacco Use Types Packs/Day Years Used Date Smoking Tobacco: Never Assessed Comments Unknown Sex and Gender Information Value Date Recorded Sex Assigned at Not on file Legal Sex Female 7:46 PM FILM MOUNTER Gender Identity Not on file Sexual Orientation Not on file Plan of Treatment Upcoming Encounters Date Type Department Care Team (Late st Contact Info) Description 04/18/2025 10:30 AM CDT Office Visit [facility] Oncology and Hematology - [place] [address] [facility] [address] [address] Vince Feng MD [address] [place] [address] Health Maintenance Due Date Last Done Comments DTAP/TDAP/TD VACCINES (1 - Tdap) 1966 PNEUMOCOCCAL VACCINE 50+ YEARS (1 of 1 - PCV) 05/28/19 97 ZOSTER VACCINE (1 of 2) 1997 OSTEOPOROSIS SCREENING 2012 RSV VACCINE (60+ or ) (1 - 1-dose 75+ series) 2022 INFLUENZA VACCINE (#1) 2025 Insurance MEDICARE PART A AND B [place] [id number] [place] [id number]
--- OUTSIDE RECORDS SUMMARY | 2025-02-22 09:12 | XMS_ITS | Patient Health Record ---
Author Organization [facility] Address [address] [place], [place] [id number] Care Team Providers Care Electronics Computer Mechanic Name Role Phone Hero Lujan Unavailable Unavailable AMRITA BYRNE Unavailable [phone] Allergies No Known Allergies Reason For Referral [...] Date Provider Diagnosis [facility] [address] [place], [place] [phone] 02/26/2024 AMRITA BYRNE Tinea unguium B35.1 ; Plantar wart B07.0 ; Other hammer toe(s) (acquired), right foot M20.41 ; Other hammer toe(s) (acquired), left foot M20.42 ; Pain in right toe(s) M79.674 ; Pain in left toe(s) M79.675 ; Pain in right foot M79.671 ; Atherosclerosis of [place] arteries of extremities with intermittent claudication, bilateral legs I70.213 ; Xerosis cutis L85.3 ; Acquired keratosis [keratoderma] palmaris et plantaris L85.1 and Type 2 diabetes mellitus with diabetic peripheral angiopathy without gangrene E11.51 [facility] [place] [address] [place], [place] [id number] 03/11/2024 AMRITA DAVYDOV Tinea unguium B35.1 ; Plantar wart B07.0 ; Other hammer toe(s) (acquired), right foot M20.41 ; Other hammer toe(s) (acquired), left foot M20.42 ; Type 2 diabetes mellitus with diabetic peripheral angiopathy without gangrene E11.51 and Pain in left foot M79.672 [facility] [place] [address] [place], [place] [id number] 03/25/2024 AMRITA DAVYDOV Tinea unguium B35.1 ; Plantar wart B07.0 ; Other hammer toe(s) (acquired), right foot M20.41 ; Other hammer toe(s) (acquired), left foot M20.42 ; Pain in right toe(s) M79.674 ; Pain in left toe(s) M79.675 ; Pain in right foot M79.671 ; Atherosclerosis of [place] arteries of extremities with intermittent claudication, bilateral [...] foot (ICD-10 - M79.671) 03/25/2024 Atherosclerosis of [place] arteries of extremities with intermittent claudication, bilateral legs (ICD-10 - I70.213) Patient educated on risks and aggravating factors of PVD, including conservative treatment options such as a diet and exercise regimen to aid in slowing progression of vascular disease 02/26/2024 Atherosclerosis of [place] arteries of extremities with intermittent claudication, bilateral [...] Date Coverage End Date Medicare Part B [place] [address] [place] [address] [id number] Deborah Cancino Self - patient is the insured [facility] Medicare Supplement [address] [place], [place] [id number] [phone] [id number] Deborah Cancino Self - patient is the insured
--- NOTE | 2025-02-22 11:49 | ECG_ITS ---
Test Date: 2025-02-22 14:02:57 Measurements Intervals Cashion Rate: 85 P: 52 FL: 197 QRS: -8 QRSD: 76 T: 23 QT: 366 QTc: 437 Interpretive Statements SINUS RHYTHM POSSIBLE LEFT ATRIAL ENLARGEMENT [-0.1mV P-WAVE IN V1/V2] LOW QRS VOLTAGE IN PRECORDIAL LEADS [QRS DEFLECTION < 1.0 mV IN CHEST LEADS] INFERIOR MYOCARDIAL INFARCTION , PROBABLY OLD [40+ ms Q WAVE AND/OR ST/T ABNORMALITY IN II/aVF] ANTEROSEPTAL MYOCARDIAL INFARCTION , OF INDETERMINATE AGE [40+ ms Q WAVE IN V1-V4] ABNORMAL ECG No previous ECG available for comparison Electronically Signed On 02-22-2025 14:13:14 CDT by Ramsey Johnston M.D.
--- NOTE | 2025-02-22 11:51 | ED_ITS ---
HPI - General Adult General Chief complaint: Unspecified Stated complaint: chronic L sided pain between rib/stomach x yrs Time Seen by Provider: 02/22/25 11:18 History of Present Illness HPI narrative: Patient is a 79-year-old female who presents to the ER with intermittent abdominal pain this started approximately 1 year ago. She reports the pain and nausea comes and goes but this morning it presented with severe symptoms. Patient endorses a history of diabetes, hypertension, hyperlipidemia. She reports this morning she took Zofran which has helped relieve her vomiting and dry heaving. Patient reports she has a primary care provider, urologist, and hand crown pouncer. Her pain has eased up slightly at the time of examination but she reports earlier it was a ?03/12. Patient denies any recent fevers, chest pain, back pain. Related Data Home Medications ?Medication ?Instructions ?Recorded ?Confirmed ?Last Taken ?Type aspirin 81 mg tablet,delayed 81 mg PO DAILY 06/21/19 02/09/25 01/23/25 History release omega 3-zdq-trf-fish oil 1,000 mg 2 cap PO BID 09/09/23 02/09/25 Unknown History (120 mg-180 mg) capsule (Fish Oil) nitrofurantoin macrocrystal 50 mg 50 mg PO DAILY 12/29/23 02/09/25 01/23/25 History capsule insulin degludec 100 unit/mL 22 unit subcut DAILY 11/11/24 02/09/25 01/23/25 History subcutaneous solution (Tresiba U-100 Insulin) Allergies Allergy/AdvReac Type Severity Reaction Status Date / Time Sulfa (Sulfonamide Allergy Severe Fever Verified 02/09/25 14:03 Antibiotics) sulfamethoxazole (From Allergy Severe Fever Verified 02/09/25 14:03 Bactrim) trimethoprim (From Bactrim) Allergy Severe Fever Verified 02/09/25 14:03 ciprofloxacin Allergy Intermediate Anaphylactic Verified 02/09/25 14:03 Shock Review of Systems 2 Review of Systems: All systems reviewed & are unremarkable except as noted in HPI and below PMFSH Past Medical History Medical History Lower abdominal pain Change in bowel habits Loose stools Nausea and vomiting Left sided abdominal pain Chest pain Post-menopausal Rash GERD without esophagitis CKD (chronic kidney disease) stage 3, GFR 30-59 ml/min Pelvic pain in female Vaginal irritation Encounter for gynecological examination (general) (routine) with abnormal findings Encounter for Papanicolaou smear of cervix Screening mammogram, encounter for Stricture, ureter Acute UTI Sepsis Cellulitis and abscess of left leg Abdominal pain Contact dermatitis Obesity Abdominal pain Nephrolithiasis Diabetes mellitus HLD (hyperlipidemia) Hypothyroidism (acquired) Vitamin D deficiency disease GERD (gastroesophageal reflux disease) HTN (hypertension) Surgical History Surgical History S/P breast biopsy, left (~1984) 2 biopsies left breast Benign Hx of cholecystectomy History of knee replacement bilateral knees replaced S/P tubal ligation (~1979) History of ureter stent x 2 Family History Family History Mother Family history of arthritis Heart disease 08/2021 heart attack Father Patient's father is , Onset Age: 75 Grandparent Diabetes mellitus Sibling Acute myocardial infarction brother Other H/O ovarian cancer 2 maternal aunts Social History Social History Smoking packs per day: 2 Smoking cigarettes per day: 40.0 Years smoked: 3 Smoking pack-years: 6.00 Smoking status: Former smoker Tobacco type: cigarettes Additional smoking assessment comments: STATES QUIT OVER 50YRS AGO Alcohol intake: current Alcohol use details: rarely Substance use: never Substance use type: does not use Do You Feel Safe in your Home?: Yes Lack of Transportation: No Lack of Food: Never True Current Housing: I Have Housing Concerned About Future Housing: No Difficulty Paying Gas/Electric Bills: No Difficulty Paying for Meds: No Currently Unemployed: No Education: High School Diploma/GED Difficulty w/ Childcare or Family Care: No Living arrangements: alone Additional living arrangements comments: spouse in prison Occupation/Education: retired Gender identity (if verbalized by the patient): Female Sexual Orientation (if Verbalized by the Patient): Straight or Heterosexual Spiritual care concerns: No Exam 2 Narrative: GENERAL: Well appearing, well-nourished, non-toxic, in no acute distress. HEAD: Normocephalic, atraumatic. NECK: Supple. No adenopathy, no masses. RESPIRATORY: Airway patent, respirations nonlabored. Clear to auscultation bilaterally, no rales, rhonchi, wheezing. CARDIOVASCULAR: Regular rate and rhythm without murmurs, rubs, or gallops. Peripheral pulses 2+ and equal bilaterally. ABDOMINAL: Soft, tender lower quadrants with palpation, nondistended, no hepatosplenomegaly. Normoactive BS. MUSCULOSKELETAL: Moves all extremities. Strength/ROM intact without gross deformities. SKIN: Warm, dry, normal color. No rashes. NEURO: A&O X3. Speech clear. Cranial nerves II-XII intact. No ataxic movements. PSYCHIATRIC: Appropriate mood and affect. Normal interaction. Course Vital Signs Vital signs: Vital Signs Temperature 36.4 C 02/22/25 08:58 Pulse Rate 90 02/22/25 08:58 Respiratory Rate 18 02/22/25 08:58 Blood Pressure 166/78 H 02/22/25 08:58 Pulse Oximetry 100 02/22/25 08:58 Oxygen Delivery Room Air 02/22/25 08:58 Temperature 36.4 C 02/22/25 08:58 Pulse Rate 90 02/22/25 08:58 Respiratory Rate 18 02/22/25 08:58 Blood Pressure 166/78 H 02/22/25 08:58 Pulse Oximetry 100 02/22/25 08:58 Oxygen Delivery Room Air 02/22/25 08:58 Medical Decision Making [facility] Narrative Medical decision making narrative: Patient is a 79-year-old female who presents to the ER with intermittent abdominal pain this started approximately 1 year ago. She reports the pain and nausea comes and goes but this morning it presented with severe symptoms. Patient endorses a history of diabetes, hypertension, hyperlipidemia. She reports this morning she took Zofran which has helped relieve her vomiting and dry heaving. Patient reports she has a primary care provider, urologist, and hand crown pouncer. Her pain has eased up slightly at the time of examination but she reports earlier it was a ?03/12. Patient denies any recent fevers, chest pain, back pain. Labs Ordered: CBC, CMP, UA, lipase, PTT, INR, troponin, UDS Imaging Ordered: CT abdomen pelvis Medications Ordered: 1 L normal saline IV bolus, Keflex p.o. Results: Patient's CT abdomen pelvis indicate Chronic mild left hydroureteronephrosis which may be related to a stricture at the distalmost left ureter noted on prior retrograde polygrams dated 12/03/2018. Mild enhancing urothelial thickening at the left renal pelvis and ureter suggestive secondary ascending urinary tract infection. Patient's urinalysis indicates patient has urinary tract infection Diagnosis: Urinary tract infection Consults: Spoke with Urology, who advised patient get started on Keflex. She should follow-up with Urology outpatient next week. Patient's urine should be sent for culture. Patient Education/Shared MDM: Results of lab work and imaging shared with patient. She endorses improvement of symptoms following medication administration. Patient strongly advised to maintain hydration status upon discharge and follow-up with Urology next week. She will be discharged home with a prescription for Keflex. Patient advised to complete her full dose of antibiotics. Strict return precautions provided. Patient verbalized understanding and is in agreement with plan. Vital signs stable at time of discharge. All questions answered. * Pt requesting pain medication upon discharge. Pt was told she could receive a [place] here in the ER before discharge. Vital Signs Vital Signs: Vital Signs Temperature 36.4 C 02/22/25 08:58 Pulse Rate 90 02/22/25 08:58 Respiratory Rate 18 02/22/25 08:58 Blood Pressure 166/78 H 02/22/25 08:58 Pulse Oximetry 100 02/22/25 08:58 Oxygen Delivery Room Air 02/22/25 08:58 Temperature 36.4 C 02/22/25 08:58 Pulse Rate 90 02/22/25 08:58 Respiratory Rate 18 02/22/25 08:58 Blood Pressure 166/78 H 02/22/25 08:58 Pulse Oximetry 100 02/22/25 08:58 Oxygen Delivery Room Air 02/22/25 08:58 Lab Data Lab results reviewed: Yes I reviewed the patient's lab results. 02/22/25 12:01 02/22/25 12:01 Labs: Lab Results 02/22/25 02/22/25 Range/Units 12:01 12:01 WBC 9.7 (4.5-10.0) K/mm3 RBC 4.74 (4.2-5.4) M/mm3 Hgb 14.6 (12.0-15.0) g/dL Hct 45.0 (37.0-47.0) % MCV 94.9 (80-100) fl MCH 30.8 (26-34) pg MCHC 32.4 (32-36) g/dl RDW 13.3 (11.5-14.5) % Plt Count 276 (150-375) k/mm3 MPV 9.3 (7.4-10.4) fl Immature Gran % (Auto) 0.4 (0-0.5) % Neut % (Auto) 70.8 (45.5-73.1) % Lymph % (Auto) 17.1 L (18.3-44.2) % [place] % (Auto) 6.4 (2.6-8.5) % Eos % (Auto) 4.5 H (0-4.4) % Baso % (Auto) 0.8 (0.2-1.2) % Lymph # (Auto) 1.66 (0.9-3.2) K/mm3 [place] # (Auto) 0.6 (0.1-0.6) K/mm3 Eos # (Auto) 0.4 H (0-0.3) K/mm3 Baso # (Auto) 0.1 (0.0-0.1) K/mm3 Abs Immat Gran (auto) 0.04 H (0.00-0.031) K/mm3 Absolute Neuts (auto) 6.9 H (1.3-6.7) K/mm3 Absolute Nucleated RBC 0.000 (0.0-0.012) K/mm3 Nucleated RBC % 0.0 (0.0-0.2) % PT 13.0 (11.1-14.7) Seconds INR 1.0 APTT 24.0 (22.3-36.8) Seconds Sodium 137 (137-145) mmol/L Potassium 4.4 (3.4-5.0) mmol/L Chloride 101 (98-107) mmol/L Carbon Dioxide 27 (22-30) mmol/L Anion Gap 9 (4-12) mmol/L BUN 33 H (7-17) mg/dL Creatinine 1.00 (0.7-1.0) mg/dL Estim Creat Clear Calc 41 ml/min Estimated GFR 54 L (59 - ) Glucose 167 H (65-110) mg/dL Calcium 10.0 (8.4-10.2) mg/dL Total Bilirubin 0.5 (0.2-1.3) mg/dL AST 35 (14-36) U/L ALT 30 (6-35) U/L Alkaline Phosphatase 82 (38-126) U/L Troponin I < 0.012 (0.000-0.034) ng/mL Total Protein 7.1 (6.3-8.2) g/dL Albumin 4.3 (3.5-5.1) g/dL Lipase 202 (23-300) U/L Urine Color Yellow (Yellow) Urine Appearance Clear (Clear) Urine pH 5.5 (5.0-9.0) Ur Specific [place] 1.023 (1.001-1.035) Urine Protein Trace (Negative) mg/dL Urine Glucose (UA) 3+ H (Negative) mg/dL Urine Ketones Negative (Negative) mg/dL Ur Blood (Man) 1+ H (Negative) Urine Nitrate Negative (Negative) Urine Bilirubin Negative (Negative) Urine Urobilinogen 0.2 (<2.0) mg/dL Leukocyte Esterase Rfl Trace H (Negative) CLAUDIA/UL Urine RBC 11-20 H (0-2) /hpf Urine WBC 11-20 H (0-3) /hpf Ur Squamous Epith Cells None seen (Few) /hpf Urine Bacteria None seen /hpf Urine Casts 0-2 Urine Opiates Screen Negative (Negative) Urine Methadone Screen Negative (Negative) Ur Barbiturates Screen Negative (Negative) Ur Phencyclidine Scrn Negative (Negative) Ur Amphetamine Screen Negative (Negative) U Benzodiazepines Scrn Negative (Negative) Urine Cocaine Screen Negative (Negative) U Cannabinoids Screen Negative (Negative) Ethyl Alcohol < 10 Cancelled (<10) mg/dL Imaging Data Attestation: I personally reviewed and interpreted this imaging study as follows: Radiologist's impression: Impressions Abdomen/Pelvis CT 02/22/25 13:34 IMPRESSION: 1. Chronic mild left hydroureteronephrosis which may be related to a stricture at the distalmost left ureter noted on prior retrograde polygrams dated 12/03/2018. Mild enhancing urothelial thickening at the left renal pelvis and ureter suggestive secondary ascending urinary tract infection. Discharge Plan Discharge Clinical Impression: Urinary tract infection, Lower abdominal pain Patient Disposition: Home Condition: Stable Instructions: Antibiotic Form, Urinary Tract Infection in Women (ED) Additional Instructions: Please return to the ER with any worsening symptoms. Follow-up with urology next week. Take all medications as prescribed, including regularly scheduled medications. You may use Tylenol and azo for pain control. Please complete your full dose of antibiotics. Patient Language: Amharic Prescriptions: New cephalexin 500 mg capsule 500 mg PO Q8H 7 Days Qty: 21 0RF phenazopyridine [Pyridium] 200 mg tablet 200 mg PO TID Qty: 6 0RF No Action nitrofurantoin macrocrystal 50 mg capsule 50 mg PO DAILY insulin degludec [Tresiba U-100 Insulin] 100 unit/mL solution 22 unit SUBCUT DAILY aspirin 81 mg tablet,delayed release (DR/EC) 81 mg PO DAILY losartan-hydrochlorothiazide 50-12.5 mg tablet See Rx Instructions .ROUTE .COMPLEX Qty: 90 3RF Dose Instruction: TAKE 1 TABLET BY MOUTH DAILY Rx Instructions: TAKE 1 TABLET BY MOUTH DAILY dapagliflozin propanediol [Farxiga] 10 mg tablet 10 mg PO DAILY Qty: 90 2RF ondansetron 4 mg tablet,disintegrating 4 mg PO Q8H PRN (Reason: nausea and vomiting) Qty: 30 0RF cholestyramine (with sugar) [Questran] 4 gram powder in packet 4 g PO BID Qty: 60 5RF Rx Instructions: administer w/meal; avoid other meds within 1hr before or 4-6hr after dose amitriptyline 25 mg tablet 25 mg PO QHS 30 Days Qty: 30 5RF omega 9-zrg-hfq-fish oil [Fish Oil] 1,000 mg (120 mg-180 mg) capsule 2 cap PO BID ferrous sulfate [Iron (ferrous sulfate)] 325 mg (65 mg iron) tablet See Rx Instructions .ROUTE .COMPLEX Qty: 60 5RF Dose Instruction: Take 1 tablet by mouth twice daily Rx Instructions: Take 1 tablet by mouth twice daily atorvastatin 40 mg tablet See Rx Instructions .ROUTE .COMPLEX Qty: 90 2RF Dose Instruction: TAKE 1 TABLET BY MOUTH DAILY Rx Instructions: TAKE 1 TABLET BY MOUTH DAILY levothyroxine 25 mcg tablet See Rx Instructions .ROUTE .COMPLEX Qty: 90 3RF Dose Instruction: TAKE 1 TABLET BY MOUTH DAILY Rx Instructions: TAKE 1 TABLET BY MOUTH DAILY metformin 1,000 mg tablet See Rx Instructions .ROUTE .COMPLEX Qty: 180 3RF Dose Instruction: TAKE 1 TABLET BY MOUTH TWICE DAILY WITH MORNING AND EVENING MEALS Rx Instructions: TAKE 1 TABLET BY MOUTH TWICE DAILY WITH MORNING AND EVENING MEALS Follow-up/Referrals: Hero Lujan MD [Primary Care Provider] - Time of Disposition: 16:02
[2025-02-22] MEDS: SODIUM CHLORIDE 0.9% IV 1,000 ML 999 ML IV CONT (12:00)
[2025-02-22 12:13] LABS: Hematocrit 45.0 % (37.0-47.0); Hemoglobin 14.6 g/dL (12.0-15.0); Immature Granulocyte Percent A 0.4 % (0-0.5); Lymphocytes Absolute Auto 1.66 K/mm3 (0.9-3.2); Mean Corpuscular HGB Conc 32.4 g/dl (32-36); Mean Corpuscular Hemoglobin 30.8 pg (26-34); Mean Corpuscular Volume 94.9 fl (80-100); Nucleated Red Blood Cells Absolute Auto 0.000 K/mm3 (0.0-0.012); Nucleated Red Blood Cells Perc 0.0 % (0.0-0.2); Platelet Count Result 276 k/mm3 (150-375); Red Blood Count 4.74 M/mm3 (4.2-5.4); White Blood Count 9.7 K/mm3 (4.5-10.0)
[2025-02-22 12:26] LABS: INR 1.0; Prothrombin Time 13.0 Seconds (11.1-14.7)
[2025-02-22 12:27] LABS: Partial Thromboplastin Time 24.0 Seconds (22.3-36.8)
--- OUTSIDE RECORDS SUMMARY | 2025-02-22 12:28 | XMS_ITS | Encounter Summary ---
Author Organization [facility] Address [address] [place] [address] Care Team Providers Care Senior Systems Developer Name Role Phone Max Branch MD Unavailable William Abebe MD Unavailable [phone] Hero Lujan MD Primary Care Provider [phone] Encounter Details Date Type Department Care Team (Late st Contact Info) Description 02/15/2025 Results Follow-Up [facility] - VARNISHING UNIT OPERATOR [address] [place] [address], [address] [place] [phone] Halima Alonzo Social History Tobacco Use Types [...] Sex Assigned at Female 08/19/2024 9:26 AM AUTOMOTIVE MAINTENANCE TECHNICIAN Legal Sex Female 6:46 AM AUTOMOTIVE MAINTENANCE TECHNICIAN Gender Identity Female 08/19/2024 9:26 AM AUTOMOTIVE MAINTENANCE TECHNICIAN Sexual Orientation Choose not to disclose 2024 9:26 AM AUTOMOTIVE MAINTENANCE TECHNICIAN documented as of this encounter Functional Status [...] on filedocumented in this encounter Care Teams Senior Systems Developer Relationship Specialty Start Date End Date Max Branch MD [address] [place] [place] [address] PCP - OBGYN 06/19/09 [place] [address] [place] [address] 2 [place] [address] PCP - General 01/03/19 William Abebe MD [address] [place] [address] [place] [id number] Orthopedic Surgery 10/12/12 documented as of this encounter
--- OUTSIDE RECORDS SUMMARY | 2025-02-22 12:28 | XMS_ITS | Clinical Summary ---
Author Organization [facility] Address [address] [place] [address] Care Team Providers Care Paint Supervisor Name Role Phone Hero Lujan MD Primary Care Provider [phone] Allergies Active Allergy Reactions Criticality Noted Date [...] on file Legal Sex Female 4:28 PM ACADEMIC SUPPORT COORDINATOR Gender Identity Female 08/15/2021 11:30 AM ACADEMIC SUPPORT COORDINATOR Sexual Orientation Not on file Last Filed Vital Signs Vital Sign Reading Time Taken Comments Blood Pressure 151/67 08/20/2021 2:20 PM ACADEMIC SUPPORT COORDINATOR Pulse 100 08/20/2021 2:20 PM ACADEMIC SUPPORT COORDINATOR Temperature 37.1 C (98.7 F) 08/20/2021 2:20 PM ACADEMIC SUPPORT COORDINATOR Respiratory Rate 18 08/20/2021 2:20 PM ACADEMIC SUPPORT COORDINATOR Oxygen Saturation 99% 08/20/2021 2:20 PM ACADEMIC SUPPORT COORDINATOR Inhaled Oxygen Concentration - - Weight 79.4 kg (175 lb) 08/14/2021 2:01 PM ACADEMIC SUPPORT COORDINATOR Height 157.5 cm (5' 2) 08/14/2021 2:01 PM ACADEMIC SUPPORT COORDINATOR Body Mass Index 32.01 08/14/2021 2:01 PM ACADEMIC SUPPORT COORDINATOR Plan of Treatment Health Maintenance Due Date [...] age to complete this topic Insurance MEDICARE [facility] Care Teams Paint Supervisor Relationship Specialty Start Date End Date Hero Lujan MD [address] [place] [id number] PCP - General INTERNAL MEDICINE 08/13/21
--- OUTSIDE RECORDS SUMMARY | 2025-02-22 12:28 | XMS_ITS | Clinical Summary ---
Author Organization [facility] Address [address] [place] [address] Care Team Providers Care Standards Analyst Name Role Phone Max Branch MD Unavailable William Abebe MD Unavailable [phone] Hero Lujan MD Primary Care Provider [phone] Source Comments [facility],non-owned Affiliates and Associated Physician Practices is amultiple site organization consisting of ambulatory clinics and hospital sitesin [place], [place], [place] and [place]. This disclosure is being madepursuant to the Care Everywhere program and may not contain all information available regarding this patient. Last updated 18.[facility] Allergies Active Allergy Reactions Criticality Noted Date [...] Department Care Team Description 02/15/2025 Results Follow-Up [facility] - WASH OPERATOR [address] [place] [address], [address] [phone] Halima Alonzo 02/13/2025 9:00 AM CDT Office Visit [facility] - WASH OPERATOR [address] [place] [address], [address] [phone] Roly Narayan MD Pap smear, as part [...] Sex Assigned at Female 08/19/2024 9:26 AM WHEAT INSPECTOR Legal Sex Female 6:46 AM WHEAT INSPECTOR Gender Identity Female 08/19/2024 9:26 AM WHEAT INSPECTOR Sexual Orientation Choose not to disclose 2024 9:26 AM WHEAT INSPECTOR Last Filed Vital Signs Vital Sign Reading Time Taken Comments Blood Pressure 118/72 02/13/2025 8:54 AM CDT Pulse 104 08/16/2017 6:10 AM WHEAT INSPECTOR Temperature 36.9 C (98.4 F) 08/16/2017 6:10 AM WHEAT INSPECTOR Respiratory Rate 16 08/16/2017 6:10 AM WHEAT INSPECTOR Oxygen Saturation 93% 08/16/2017 6:10 AM WHEAT INSPECTOR Inhaled Oxygen Concentration - - Weight 86.7 [...] this topic Medical Devices Implanted Type Area Adult Family Home Program Manager Device Identifier Shelf Expiration Date Model / Serial / Lot Beto Bone Wilburn Hv Implanted:Qty: 1 on 01/10/2013 by William Abebe MD at [facility] Left: Knee [employer] 07/12/2014 [id number] / / [id number] Biomet Interlok 75mm Fixed Ibeam Tibial Plate With Locking Bar Implanted:Qty: 1 on 01/10/2013 by William Abebe MD at [facility] Left: Knee 10/10/2022 [id number] / / [id number] Biomet Arcom Patella Single 1/4 Inch Peg With Wire 31mm X 8 Mm Implanted:Qty: 1 on 01/10/2013 by William Abebe MD at [facility] Left: Knee 11/10/2017 [id number] / / [id number] Vanguard Cr Femoral 67.5 Mm Left Interlok Implanted:Qty: 1 on 01/10/2013 by William Abebe MD at [facility] Left: Knee 06/12/2022 [id number] / / [id number] Biomet Vanguard/Tm Dcm Tibial Bearing Anterior Stabilized 12mm X 75mm Implanted:Qty: 1 on 01/10/2013 by William Abebe MD at [facility] Left: Knee 07/12/2017 [id number] / / [id number] Brdg Tib Denise Stbl 12mm X 71mm Implanted:Qty: 1 on 04/13/2013 by William Abebe MD at [facility] Right: Knee [employer] 03/01/2018 [id number] / / [id number] Beto Bone Wilburn Hv Implanted:Qty: 1 on 04/13/2013 by William Abebe MD at [facility] Right: Knee [employer] 10/30/2014 [id number] / / [id number] 65mm Cr Femoral Implanted:Qty: 1 on 04/13/2013 by William Abebe MD at [facility] Right: Knee 01/30/2023 [id number] / / [id number] 31mm X 8mm Arcom Patella Implanted:Qty: 1 on 04/13/2013 by William Abebe MD at [facility] Right: Knee 03/01/2018 [id number] / / [id number] Ty Tibial I Beam Fix Bar 71mm Implanted:Qty: 1 on 04/13/2013 by William Abebe MD at [facility] Right: Knee [employer] 12/30/2022 [id number] / / [id number] Procedures Procedure Name Priority Date/Time Associated Diagnosis Comments PAP IG LB Routine 02/13/2025 9:17 AM CDT Pap smear, as part of routine gynecological examination from Last 3 Months Results * PAP IG LB (02/13/2025 9:17 AM CDT) Diagnosis Comment [facility] INSURANCE BILL Comment:NEGATIVE FOR INTRAEP ITHELIAL LESION OR MALIGNANCY. Specimen Adequacy Comment [facility] INSURANCE BILL Comment: Satisfactory for evaluation. Endocervical and/or squamous metaplastic cells (endocervical component) are present. Clinician Provided ICD10 Comment [facility] INSURANCE BILL Comment:Z01.419 Performed by Comment [facility] INSURANCE BILL Comment:Lisa Vu, Cytol ogist (ASCP) Comment . [facility] INSURANCE BILL Note Comment [facility] INSURANCE BILL Comment: The Pap smear is a screening test designed to aid in the detection of premalignant and malignant conditions of the uterine cervix. It is not a diagnostic procedure and should not be used as the sole means of detecting cervical cancer. Both false-positive and false-negative reports do occur. [facility] CPT Code Automation Comment [facility] INSURANCE BILL Comment: This liquid based ThinPrep(R) pap test was screened with the use of an image guided system. Pathology/Cytolog y PART OF UTERINE CERVIX / Unknown 02/13/2025 9:17 AM CDT 02/13/2025 Comment:Cervix Release to pa t Narrative [facility] INSURANCE BILL - 02/15/2025 1:10 PM CDT Performed at: 01 - [address] [place] [id number] President Practicing Urologist: Linda Kaplan MD, Phone: [phone] Specimen Comment: [id number] Specimen Comment: Source.............Cervix;Endocervix Specimen Comment: No. of containers..01 ThinPrep Vial Roly Narayan MD LAB - PATHOLOGY/CYTOLOGY ORD ERABLES Final Result [facility] INSURANCE BILL [address] [place] [address] from Last 3 Months Insurance MEDICARE [facility] MEDICARE SELF PAY NO INSURANCE Member Subscriber Plan / Payer (Ef fective for All Dates) Name:Barak Deborah Parish Member ID:Not on file Relation to Subscriber:Not on file Name:DEBORAH LEBLANC Subscriber ID:Not on file (Home) Address: [address] [place] [address] [place] [address] Payer ID:Not on file Group ID:Not on file Type:Self Pay Address: [place], [place] * Guarantor: DEBORAH LEBLANC Account Type [...] 2:42 PM 01/13/2013 12:28 PM Care Teams Standards Analyst Relationship Specialty Start Date End Date Max Branch MD [address] [place] [address] [place] [address] PCP - OBGYN 06/19/09 Hero Lujan MD [address] [place] [address] 2 [place] [address] PCP - General 01/03/19 William Abebe MD [address] [place] [address] Orthopedic Surgery 10/12/12
--- OUTSIDE RECORDS SUMMARY | 2025-02-22 12:28 | XMS_ITS | Referral Summary ---
Author Organization [facility] Address [address] [place] [address] Care Team Providers Care Chemicals Fermentation Operator Name Role Phone Hero Lujan MD [...] 1 tablet (25 mcg total) by mouth first assistant before breakfast Active aspirin 81 mg chewable [...] on file Legal Sex Female 3:42 AM AIRCRAFT LAY OUT WORKER Gender Identity Not on file Sexual [...] of Treatment Not on file Insurance MEDICARE [facility] Member Subscriber Plan / Payer (Ef fective 2020-Present) Name:Deborah Cancino Relation to Subscriber:Self Name:Deborah Cancino Payer ID:[id number] Group ID:Not on file Type:[employer] Address: [facility] [id number] [place] [id number] MEDICARE [facility] Care Teams Chemicals Fermentation Operator Relationship Specialty Start Date End Date Hero Lujan MD [address] [place] [id number] PCP - General Emergency Medicine 11/06/20
--- OUTSIDE RECORDS SUMMARY | 2025-02-22 12:28 | XMS_ITS | Clinical Summary ---
Author Organization [facility] Address [address] [place] [address] Care Team Providers Care Nurse Specialist Name Role Phone Unavailable Primary Care Provider Unavailabl e Social History Tobacco Use Types Packs/Day Years Used Date Smoking Tobacco: Never Assessed Comments Unknown Sex and Gender Information Value Date Recorded Sex Assigned at Not on file Legal Sex Female 7:46 PM LEAD RADIATION THERAPIST Gender Identity Not on file Sexual Orientation Not on file Plan of Treatment Upcoming Encounters Date Type Department Care Team (Late st Contact Info) Description 04/18/2025 10:30 AM CDT Office Visit [facility] Oncology and Hematology - Neeraj [address] [facility] [address] [address] Vince Feng MD [address] [facility] [address] [place] [address] Health Maintenance Due Date Last Done Comments DTAP/TDAP/TD VACCINES (1 - Tdap) 1966 PNEUMOCOCCAL VACCINE 50+ YEARS (1 of 1 - PCV) 05/28/19 97 ZOSTER VACCINE (1 of 2) 1997 OSTEOPOROSIS SCREENING 2012 RSV VACCINE (60+ or ) (1 - 1-dose 75+ series) 2022 INFLUENZA VACCINE (#1) 2025 Insurance MEDICARE PART A AND B [place] [id number] [place] [id number]
--- OUTSIDE RECORDS SUMMARY | 2025-02-22 12:28 | XMS_ITS | Clinical Summary ---
Author Organization [facility] Address [address] [place] [address] Care Team Providers Care Binding Cutter Name Role Phone Hero Lujan MD Primary [...] on file Legal Sex Female 3:42 AM YARD LABORER Gender Identity Not on file Sexual Orientation [...] 09/14/2019, 07/28/2018, Additional history exists Insurance [facility] Care Teams Binding Cutter Relationship Specialty Start Date End Date Hero Lujan MD [address] [place] [address] PCP - General Emergency Medicine 11/06/20
--- OUTSIDE RECORDS SUMMARY | 2025-02-22 12:28 | XMS_ITS | Encounter Summary ---
Author Organization [facility] Address [address] [place] [address] Care Team Providers Care Commercial Real Estate Broker Name Role Phone Hero Lujan MD Primary Care Provider [phone] Encounter Details Date Type Department Care Team (Late st Contact Info) Description 08/12/2021 Therapy Plan [facility] One Day Services [address] [place] [address] Evan Klein MD [address] [place] [address] Social History Tobacco Use Types Packs/Day Years Used Date Smoking Tobacco: Never Assessed Comments Unknown Sex and Gender Information Value Date Recorded Sex Assigned at Not on file Legal Sex Female 4:28 PM CONFERENCE SERVICES COORDINATOR Gender Identity Female 08/15/2021 11:30 AM CONFERENCE SERVICES COORDINATOR Sexual Orientation Not on file COVID-19 Exposure Response Date Recorded In the last month, have you been in contact with someone who was confirmed or suspected to have Coronavirus / COVID-19? No / Unsure 08/15/2021 3:50 PM CONFERENCE SERVICES COORDINATOR documented as of this encounter Functional Status * Calculated C-SSRS Risk Score (Lifetime/Recent) Answer Date of Assessment Author Status No Risk Indicated 08/14/2021 2:01 PM Karrie Cavazos RN Active * [place] Suicide Severity Rating Scale (Screener/Recent Self-Report) Question Answer Date of Assessment Author Status 1. Wish to be (Past 1 Month) No 08/14/2021 2:01 PM Fabiola Cavazos RN Act billy 2. Non-Specific Active Suicidal Thoughts (Past 1 Month) No 08/14/2021 2:01 PM CONFERENCE SERVICES COORDINATOR Fabiola Garcia, CALLIE Act billy documented as of this encounter Plan of Treatment Not on file documented as of this encounter Visit Diagnoses Diagnosis Chronic cystitis without hematuria- Primary documented in this encounter Care Teams Commercial Real Estate Broker Relationship Specialty Start Date End Date Hero Lujan MD [address] [place] [address] PCP - General INTERNAL MEDICINE 08/13/21 documented as of this encounter
--- OUTSIDE RECORDS SUMMARY | 2025-02-22 12:28 | XMS_ITS | Encounter Summary ---
Author Organization [facility] Address [address] [place] [address] Care Team Providers Care Psychometrician Name Role Phone Odette Webb MD Primary Care Provider [phone] Max Branch MD Unavailable William Abebe MD Unavailable [phone] Hero Lujan MD Primary Care Provider [phone] Encounter Details Date Type Department Care Team [...] Sex Assigned at Female 08/19/2024 9:26 AM INDUSTRIAL SPRAY PAINTER Legal Sex Female 6:46 AM INDUSTRIAL SPRAY PAINTER Gender Identity Female 08/19/2024 9:26 AM INDUSTRIAL SPRAY PAINTER Sexual Orientation Choose not to disclose 2024 9:26 AM INDUSTRIAL SPRAY PAINTER documented as of this encounter Plan of Treatment Not on file documented as of this encounter Visit Diagnoses Not on filedocumented in this encounter Care Teams Psychometrician Relationship Specialty Start Date End Date Odette Webb MD [address] [facility] [address] [place] [id number] PCP - General 06/27/09 01/02/19 Max Branch MD [address] [place] [id number] PCP - OBGYN 06/19/09 Hero Lujan MD [address] [place] [address] 2 [place] [address] PCP - General 01/03/19 William Abebe MD [address] [place] [address] Orthopedic Surgery 10/12/12 documented as of this encounter
[2025-02-22 12:33] LABS: Alanine Aminotransferase 30 U/L (6-35); Albumin Level 4.3 g/dL (3.5-5.1); Alkaline Phosphatase 82 U/L (38-126); Anion Gap 9 mmol/L (4-12); Aspartate Amino Transferase 35 U/L (14-36); Bilirubin,Total 0.5 mg/dL (0.2-1.3); Blood Urea Nitrogen 33 mg/dL (7-17); Calcium 10.0 mg/dL (8.4-10.2); Carbon Dioxide 27 mmol/L (22-30); Chloride 101 mmol/L (98-107); Estimated CRCL calculation 41 ml/min; Estimated Glomerular Filt Rate 54; Glucose 167 mg/dL (65-110); Lipase 202 U/L (23-300); Potassium 4.4 mmol/L (3.4-5.0); Sodium 137 mmol/L (137-145); Total Protein 7.1 g/dL (6.3-8.2)
[2025-02-22 12:44] LABS: Troponin I < 0.012 ng/mL (0.000-0.034)
[2025-02-22 12:51] LABS: Add Urine Microscopic? YES; Appearance Urine Clear (Clear); Glucose Urine UA 3+ mg/dL (Negative); Leukocyte Esterase Ur Trace LEU/UL (Negative); Nitrate Urine Negative (Negative); Non Pathogenic Casts 0-2; Specific Grav Ur 1.023 (1.001-1.035)
[2025-02-22 13:03] LABS: Cannabinoid Screen Urine Negative (Negative)
[2025-02-22] MEDS: CEPHALEXIN 500 MG CAPSULE PO (16:30)
[2025-02-22] MEDS: HYDROcodone/acetaminophen (*CRX) 5-325 MG TABLET 1 TAB PO (16:30)
== END 2025-02-22 17:00 | disposition home or self-care (01) ==
PROVIDERS: Emergency Provider Registered Nurse; PCP Emergency Medicine
DX: N39.0 Urinary tract infection, site not specified (principal); R10.30 Lower abdominal pain, unspecified; I12.9 Hypertensive chronic kidney disease with stage 1 through stage 4 chronic kidney disease, or unspecified chronic kidney disease; N18.30 Chronic kidney disease, stage 3 unspecified; E11.22 Type 2 diabetes mellitus with diabetic chronic kidney disease; E78.5 Hyperlipidemia, unspecified; E55.9 Vitamin D deficiency, unspecified; E03.9 Hypothyroidism, unspecified; K21.9 Gastro-esophageal reflux disease without esophagitis; Z96.653 Presence of artificial knee joint, bilateral; Z87.891 Personal history of nicotine dependence; Z90.49 Acquired absence of other specified parts of digestive tract; Z79.82 Long term (current) use of aspirin; Z79.4 Long term (current) use of insulin; Z79.899 Other long term (current) drug therapy; Z79.84 Long term (current) use of oral hypoglycemic drugs; N13.30 Unspecified hydronephrosis
CPT/HCPCS: 36415; 74177; 80053; 80307; 81001; 82077; 83690; 84484; 85025; 85610; 85730; 87086; 93005; 96360; 99284; A9270; J7030; Q9967

== ENCOUNTER 2025-03-13 07:47 | Outpatient (CLI) | payer MEDICARE, SELFPAY ==
--- OUTSIDE RECORDS SUMMARY | 2025-03-13 07:54 | XMS_ITS | Patient Health Record ---
Author Organization [facility] Address [address] [place], [place] [id number] Care Team Providers Care Compensation Vice President Name Role Phone Hero Lujan Unavailable Unavailable AMRITA BYRNE Unavailable [phone] Allergies No Known Allergies Reason For Referral [...] Date Provider Diagnosis [facility] [address] [place], [place] [id number] 03/25/2024 AMRITA BYRNE Tinea unguium B35.1 ; Plantar wart B07.0 ; Other hammer toe(s) (acquired), right foot M20.41 ; Other hammer toe(s) (acquired), left foot M20.42 ; Pain in right toe(s) M79.674 ; Pain in left toe(s) M79.675 ; Pain in right foot M79.671 ; Atherosclerosis of [place] arteries of extremities with intermittent claudication, bilateral legs I70.213 ; Xerosis cutis L85.3 ; Acquired keratosis [keratoderma] palmaris et plantaris L85.1 and Type 2 diabetes mellitus with diabetic peripheral angiopathy without gangrene E11.51 Assessments Encounter Date Diagnosis (ICD Code) Assessment Notes Treatment Notes Treatment Clinical Notes Section Notes 03/25/2024 Plantar wart (ICD-10 - B07.0) I [...] regarding both OTC and prescription treatments. 03/25/2024 Other hammer toe(s) (acquired), right foot [...] foot (ICD-10 - M79.671) 03/25/2024 Atherosclerosis of [place] arteries of extremities with intermittent claudication, bilateral [...] Date Coverage End Date Medicare Part B [place] [address] [place] [address] [id number] Deborah Cancino Self - patient is the insured [facility] Medicare Supplement [address] [place], [place] [id number] [phone] [id number] Deborah Cancino Self - patient is the insured
--- OUTSIDE RECORDS SUMMARY | 2025-03-13 07:54 | XMS_ITS | Clinical Summary ---
Author Organization [facility] Address [address] [place] [address] Care Team Providers Care Quality Management Coordinator Name Role Phone Unavailable Primary Care Provider Unavailabl e Social History Tobacco Use Types Packs/Day Years Used Date Smoking Tobacco: Never Assessed Comments Unknown Sex and Gender Information Value Date Recorded Sex Assigned at Not on file Legal Sex Female 7:46 PM SENIOR COST ANALYST Gender Identity Not on file Sexual Orientation Not on file Plan of Treatment Upcoming Encounters Date Type Department Care Team (Late st Contact Info) Description 04/18/2025 10:30 AM CDT Office Visit [facility] Oncology and Hematology - Neeraj [address] [facility] [address] [address] Vince Feng MD [address] [facility] [address] [place] [address] Health Maintenance Due Date Last Done Comments DTAP/TDAP/TD VACCINES (1 - Tdap) 1966 PNEUMOCOCCAL VACCINE 50+ YEARS (1 of 1 - PCV) 05/28/19 97 ZOSTER VACCINE (1 of 2) 1997 OSTEOPOROSIS SCREENING 2012 RSV VACCINE (60+ or ) (1 - 1-dose 75+ series) 2022 INFLUENZA VACCINE (#1) 2025 Insurance MEDICARE PART A AND B [place] [id number] [place] [id number]
--- OUTSIDE RECORDS SUMMARY | 2025-03-13 07:54 | XMS_ITS | Encounter Summary ---
Author Organization [facility] Address [address] [place] [address] Care Team Providers Care Transport Tank Technician Name Role Phone Max Branch MD Unavailable William Abebe MD Unavailable [phone] Hero Lujan MD Primary Care Provider [phone] Encounter Details Date Type Department Care Team (Late st Contact Info) Description 02/15/2025 Results Follow-Up [facility] - CPR INSTRUCTOR [address] [place] [address], [address] [place] [phone] Halima Alonzo Social History Tobacco Use Types [...] Sex Assigned at Female 08/19/2024 9:26 AM FOSTER CARE WORKER Legal Sex Female 6:46 AM FOSTER CARE WORKER Gender Identity Female 08/19/2024 9:26 AM FOSTER CARE WORKER Sexual Orientation Choose not to disclose 2024 9:26 AM FOSTER CARE WORKER documented as of this encounter Functional Status [...] on filedocumented in this encounter Care Teams Transport Tank Technician Relationship Specialty Start Date End Date Max Branch MD [address] [place] [address] PCP - OBGYN 06/19/09 [place] [address] [place] [address] 2 [place] [address] PCP - General 01/03/19 William Abebe MD [address] [place] [address] Orthopedic Surgery 10/12/12 documented as of this encounter
--- OUTSIDE RECORDS SUMMARY | 2025-03-13 07:54 | XMS_ITS | Encounter Summary ---
Author Organization [facility] Address [address] [place] [address] Care Team Providers Care Infusion Rn Name Role Phone Hero Lujan MD Primary Care Provider [phone] Encounter Details Date Type Department Care Team (Late st Contact Info) Description 08/12/[address] [facility] One Day Services [address] [place] [address] Evan Klein MD [address] [place] [address] Social History Tobacco Use Types Packs/Day Years Used Date Smoking Tobacco: Never Assessed Comments Unknown Sex and Gender Information Value Date Recorded Sex Assigned at Not on file Legal Sex Female 4:28 PM MICROSTRATEGY ARCHITECT DEVELOPER Gender Identity Female 08/15/2021 11:30 AM MICROSTRATEGY ARCHITECT DEVELOPER Sexual Orientation Not on file COVID-19 Exposure Response Date Recorded In the last month, have you been in contact with someone who was confirmed or suspected to have Coronavirus / COVID-19? No / Unsure 08/15/2021 3:50 PM MICROSTRATEGY ARCHITECT DEVELOPER documented as of this encounter Functional Status * Calculated C-SSRS Risk Score (Lifetime/Recent) Answer Date of Assessment Author Status No Risk Indicated 08/14/2021 2:01 PM Karrie Cavazos RN Active * [place] Suicide Severity Rating Scale (Screener/Recent Self-Report) Question Answer Date of Assessment Author Status 1. Wish to be (Past 1 Month) No 08/14/2021 2:01 PM Fabiola Cavazos RN Act billy 2. Non-Specific Active Suicidal Thoughts (Past 1 Month) No 08/14/2021 2:01 PM MICROSTRATEGY ARCHITECT DEVELOPER Fabiola Garcia, CALLIE Act billy documented as of this encounter Plan of Treatment Not on file documented as of this encounter Visit Diagnoses Diagnosis Chronic cystitis without hematuria- Primary documented in this encounter Care Teams Infusion Rn Relationship Specialty Start Date End Date Hero Lujan MD [address] [place] [address] PCP - General INTERNAL MEDICINE 08/13/21 documented as of this encounter
--- OUTSIDE RECORDS SUMMARY | 2025-03-13 07:54 | XMS_ITS | Encounter Summary ---
Author Organization [facility] Address [address] [facility] [place] [address] Care Team Providers Care Marketing Forecaster Name Role Phone Odette Webb MD Primary Care Provider [phone] Max Branch MD Unavailable [phone] William Abebe MD Unavailable [phone] Hero Lujan MD Primary Care Provider [phone] Encounter Details Date Type Department Care Team [...] Sex Assigned at Female 08/19/2024 9:26 AM FARMER DIVERSIFIED CROPS Legal Sex Female 6:46 AM FARMER DIVERSIFIED CROPS Gender Identity Female 08/19/2024 9:26 AM FARMER DIVERSIFIED CROPS Sexual Orientation Choose not to disclose 2024 9:26 AM FARMER DIVERSIFIED CROPS documented as of this encounter Plan of Treatment Not on file documented as of this encounter Visit Diagnoses Not on filedocumented in this encounter Care Teams Marketing Forecaster Relationship Specialty Start Date End Date Odette Webb MD [address] [facility] [address] [place] [phone] PCP - General 06/27/09 01/02/19 Max Branch MD [address] [place] [address] [place] [id number] PCP - OBGYN 06/19/09 Hero Lujan MD [address] [place] [address] 2 [place] [address] PCP - General 01/03/19 William Abebe MD [address] [place] [address] Orthopedic Surgery 10/12/12 documented as of this encounter
--- OUTSIDE RECORDS SUMMARY | 2025-03-13 07:54 | XMS_ITS | Clinical Summary ---
Author Organization [facility] [employer] Address [address] [place] [address] Care Team Providers Care Private Equity Analyst Name Role Phone Max Branch MD Unavailable [phone] William Abebe MD Unavailable [phone] Hero Lujan MD Primary Care Provider [phone] Source Comments [facility],non-owned Affiliates and Associated Physician Practices is amultiple site organization consisting of ambulatory clinics and hospital sitesin [place], [place], [place] and [place]. This disclosure is being madepursuant to the Care Everywhere program and may not contain all information available regarding this patient. Last updated 18.[facility] Allergies Active Allergy Reactions Criticality Noted [...] Department Care Team Description 02/15/2025 Results Follow-Up [facility] [address] [place] [address], [address] [address] Halima Alonzo 02/13/2025 9:00 AM CDT Office Visit [facility] [address] [place] [address], [address] [address] Roly Narayan MD Pap smear, as part [...] Sex Assigned at Female 08/19/2024 9:26 AM SAFE TECHNICIAN Legal Sex Female 6:46 AM SAFE TECHNICIAN Gender Identity Female 08/19/2024 9:26 AM SAFE TECHNICIAN Sexual Orientation Choose not to disclose 2024 9:26 AM SAFE TECHNICIAN Last Filed Vital Signs Vital Sign Reading Time Taken Comments Blood Pressure 118/72 02/13/2025 8:54 AM CDT Pulse 104 08/16/2017 6:10 AM SAFE TECHNICIAN Temperature 36.9 C (98.4 F) 08/16/2017 6:10 AM SAFE TECHNICIAN Respiratory Rate 16 08/16/2017 6:10 AM SAFE TECHNICIAN Oxygen Saturation 93% 08/16/2017 6:10 AM SAFE TECHNICIAN Inhaled Oxygen Concentration - - Weight 86.7 [...] this topic Medical Devices Implanted Type Area Wiring Technician Device Identifier Shelf Expiration Date Model / Serial / Lot Beto Bone [place] Hv Implanted:Qty: 1 on 01/10/2013 by William Abebe MD at [facility] Left: Knee [employer] Inc 07/12/2014 [id number] / / [id number] Biomet Interlok 75mm Fixed Ibeam Tibial Plate With Locking Bar Implanted:Qty: 1 on 01/10/2013 by William Abebe MD at [facility] Left: Knee 10/10/2022 [id number] / / [id number] Biomet Arcom Patella Single 1/4 Inch Peg With Wire 31mm X 8 Mm Implanted:Qty: 1 on 01/10/2013 by William Abebe MD at [facility] Left: Knee 11/10/2017 [id number] / / [id number] Vanguard Cr Femoral 67.5 Mm Left Interlok Implanted:Qty: 1 on 01/10/2013 by William Abebe MD at [facility] Left: Knee 06/12/2022 [id number] / / [id number] Biomet Vanguard/Tm Dcm Tibial Bearing Anterior Stabilized 12mm X 75mm Implanted:Qty: 1 on 01/10/2013 by William Abebe MD at [facility] Left: Knee 07/12/2017 [id number] / / [id number] Brdg Tib Denise Stbl 12mm X 71mm Implanted:Qty: 1 on 04/13/2013 by William Abebe MD at [facility] Right: Knee Biomet Inc 03/01/2018 [id number] / / [id number] Beto Bone [place] Hv Implanted:Qty: 1 on 04/13/2013 by William Abebe MD at [facility] Right: Knee [employer] Inc 10/30/2014 [id number] / / [id number] 65mm Cr Femoral Implanted:Qty: 1 on 04/13/2013 by William Abebe MD at [facility] Right: Knee 01/30/2023 [id number] / / [id number] 31mm X 8mm Arcom Patella Implanted:Qty: 1 on 04/13/2013 by William Abebe MD at [facility] Right: Knee 03/01/2018 [id number] / / [id number] Ty Tibial I Beam Fix Bar 71mm Implanted:Qty: 1 on 04/13/2013 by William Abebe MD at [facility] Right: Knee [employer] Inc 12/30/2022 [id number] / / [id number] Procedures Procedure Name Priority Date/Time Associated Diagnosis Comments PAP IG LB Routine 02/13/2025 9:17 AM CDT Pap smear, as part of routine gynecological examination from Last 3 Months Results * PAP IG LB (02/13/2025 9:17 AM CDT) Diagnosis Comment [facility] INSURANCE BILL Comment:NEGATIVE FOR INTRAEP ITHELIAL LESION OR MALIGNANCY. Specimen Adequacy Comment [facility] INSURANCE BILL Comment: Satisfactory for evaluation. Endocervical and/or squamous metaplastic cells (endocervical component) are present. Clinician Provided ICD10 Comment [facility] INSURANCE BILL Comment:Z01.419 Performed by Comment [facility] INSURANCE BILL Comment:Lisa Vu, Cytol ogist (ASCP) Comment . [facility] INSURANCE BILL Note Comment [facility] INSURANCE BILL Comment: The Pap smear is a screening test designed to aid in the detection of premalignant and malignant conditions of the uterine cervix. It is not a diagnostic procedure and should not be used as the sole means of detecting cervical cancer. Both false-positive and false-negative reports do occur. [facility] CPT Code Automation Comment [facility] INSURANCE BILL Comment: This liquid based ThinPrep(R) pap test was screened with the use of an image guided system. Pathology/Cytolog y PART OF UTERINE CERVIX / Unknown 02/13/2025 9:17 AM CDT 02/13/2025 Comment:Cervix Release to pa t Narrative [facility] INSURANCE BILL - 02/15/2025 1:10 PM CDT Performed at: 01 - [address] [place] [id number] Bus Attendant: Linda Kaplan MD, Phone: [phone] Specimen Comment: [id number] Specimen Comment: Source.............Cervix;Endocervix Specimen Comment: No. of containers..01 ThinPrep Vial Roly Narayan MD LAB - PATHOLOGY/CYTOLOGY ORD ERABLES Final Result [facility] INSURANCE BILL [address] [place] [address] from Last 3 Months Insurance MEDICARE [facility] MEDICARE SELF PAY NO INSURANCE Member Subscriber Plan / Payer (Ef fective for All Dates) Name:Barak Deborah Parish Member ID:Not on file Relation to Subscriber:Not on file Name:DEBORAH LEBLANC Subscriber ID:Not on file (Home) Address: [address] [place] [address] [place] [address] Payer ID:Not on file Group ID:Not on file Type:Self Pay Address: [place], [place] * Guarantor: DEBORAH LEBLANC Account Type [...] 2:42 PM 01/13/2013 12:28 PM Care Teams Private Equity Analyst Relationship Specialty Start Date End Date Max Branch MD [address] [place] [address] [place] [address] PCP - OBGYN 06/19/09 Hero Lujan MD [address] [place] [address] 2 [place] [address] PCP - General 01/03/19 William Abebe MD [address] [place] [address] Orthopedic Surgery 10/12/12
--- OUTSIDE RECORDS SUMMARY | 2025-03-13 07:54 | XMS_ITS | Clinical Summary ---
Author Organization [facility] Address [address] [place] [address] Care Team Providers Care Peoplesoft Consultant Name Role Phone Hero Lujan MD Primary Care Provider [phone] Allergies Active Allergy Reactions Criticality Noted Date [...] on file Legal Sex Female 4:28 PM HATCH TENDER Gender Identity Female 08/15/2021 11:30 AM HATCH TENDER Sexual Orientation Not on file Last Filed Vital Signs Vital Sign Reading Time Taken Comments Blood Pressure 151/67 08/20/2021 2:20 PM HATCH TENDER Pulse 100 08/20/2021 2:20 PM HATCH TENDER Temperature 37.1 C (98.7 F) 08/20/2021 2:20 PM HATCH TENDER Respiratory Rate 18 08/20/2021 2:20 PM HATCH TENDER Oxygen Saturation 99% 08/20/2021 2:20 PM HATCH TENDER Inhaled Oxygen Concentration - - Weight 79.4 kg (175 lb) 08/14/2021 2:01 PM HATCH TENDER Height 157.5 cm (5' 2) 08/14/2021 2:01 PM HATCH TENDER Body Mass Index 32.01 08/14/2021 2:01 PM HATCH TENDER Plan of Treatment Health Maintenance Due Date [...] age to complete this topic Insurance MEDICARE [facility] Care Teams Peoplesoft Consultant Relationship Specialty Start Date End Date Hero Lujan MD [address] [place] [address] PCP - General INTERNAL MEDICINE 08/13/21
--- OUTSIDE RECORDS SUMMARY | 2025-03-13 07:54 | XMS_ITS | Clinical Summary ---
Author Organization [facility] Address [address] [place] [address] Care Team Providers Care Butter Wrapper Name Role Phone Hero Lujan MD Primary [...] 1 tablet (25 mcg total) by mouth boiler water tester before breakfast Active aspirin 81 mg chewable [...] on file Legal Sex Female 3:42 AM REGULATORY AFFAIRS COORDINATOR Gender Identity Not on file Sexual Orientation [...] - PCV) 05/17/2021 05/17/2020 Influenza Vaccine (#1) 2025 0, 04/13/2019, 05/18/2017, Additional history exists DTaP/Tdap/Td Vaccine (2 - Td or Tdap) 03/24/2029 03/24/2019 Breast Cancer Screening-Mammogram Discontinued 10/25/2020, 09/14/2019, 07/28/2018, Additional history exists Insurance MEDICARE [facility] MEDICARE [facility] Care Teams Butter Wrapper Relationship Specialty Start Date End Date Hero Lujan MD [address] [place] [address] PCP - General Emergency Medicine 11/06/20
[2025-03-13 09:25] LABS: Toxigenic C. Diff NEGATIVE (NEGATIVE)
[2025-03-15 07:09] LABS: Calprotectin, Fecal 251 ug/g (0-120)
== END 2025-03-13 07:48 | disposition home or self-care (01) ==
PROVIDERS: PCP Emergency Medicine; Visit Provider Nurse Practitioner Family
DX: R10.9 Unspecified abdominal pain (principal); R19.5 Other fecal abnormalities; R19.4 Change in bowel habit
CPT/HCPCS: 83993; 87493

== ENCOUNTER 2025-04-18 11:03 | Outpatient (CLI) | payer MEDICARE, SELFPAY ==
--- OUTSIDE RECORDS SUMMARY | 2025-04-18 10:30 | XMS_ITS | Encounter Summary ---
Author Organization [facility] Address [address] [place] [address] Care Team Providers Care Private Advisor Name Role Phone Unavailable Primary Care Provider Unavailabl e Reason for Visit * Reason Comments Establish Care Encounter Details Date Type Department Care Team (Late st Contact Info) Description 04/18/2025 10:30 AM CDT Office Visit [facility] Oncology and Hematology - Neeraj [address] [facility] [address] [place] [address] Vince Feng MD [address] [facility] [address] [place] [address] Chronic anemia (Primary Dx) Social [...] on file Legal Sex Female 7:46 PM MINERAL ECONOMIST Gender Identity Not on file Sexual Orientation [...] Fever Immunizations: Immunization History Administered Date(s) Administered ([employer])(12 YR UP) COVID-19 VACCINE - EMERGENCY USE AUTHORIZATION, MRNA, [id number](PF) 30 MCG/0.3 MLIM SUSP 05/16/2021 Family History [...] dysuria; no frequency; no hesitancy; no hematuria 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 CC:? documented in this encounter Plan of Treatment Upcoming Encounters Date Type Department Care Team (Late st Contact Info) Description 04/25/2025 4:30 PM CDT Telephone Check Up [facility] Oncology and Hematology - Neeraj [address] [facility] [address] [place] [address] Vince Feng MD [address] [facility] [address] [place] [address] Scheduled Orders Name Type Priority [...]
[2025-04-18 11:20] LABS: Hematocrit 36.2 % (37.0-47.0); Hemoglobin 12.2 g/dL (12.0-15.0); Immature Granulocyte Percent A 0.4 % (0-0.5); Lymphocytes Absolute Auto 0.52 K/mm3 (0.9-3.2); Mean Corpuscular HGB Conc 33.7 g/dl (32-36); Mean Corpuscular Hemoglobin 30.9 pg (26-34); Mean Corpuscular Volume 91.6 fl (80-100); Nucleated Red Blood Cells Absolute Auto 0.000 K/mm3 (0.0-0.012); Nucleated Red Blood Cells Perc 0.0 % (0.0-0.2); Platelet Count Result 201 k/mm3 (150-375); Red Blood Count 3.95 M/mm3 (4.2-5.4); White Blood Count 11.3 K/mm3 (4.5-10.0)
[2025-04-18 11:54] LABS: Iron 30 ug/dL (37-170)
[2025-04-18 11:56] LABS: Alanine Aminotransferase 26 U/L (6-35); Albumin Level 3.7 g/dL (3.5-5.1); Alkaline Phosphatase 80 U/L (38-126); Anion Gap 10 mmol/L (4-12); Aspartate Amino Transferase 39 U/L (14-36); Bilirubin,Total 0.8 mg/dL (0.2-1.3); Blood Urea Nitrogen 36 mg/dL (7-17); Calcium 9.0 mg/dL (8.4-10.2); Carbon Dioxide 23 mmol/L (22-30); Chloride 97 mmol/L (98-107); Estimated Glomerular Filt Rate 39; Glucose 250 mg/dL (65-110); Potassium 4.7 mmol/L (3.4-5.0); Sodium 130 mmol/L (137-145); Total Protein 7.0 g/dL (6.3-8.2)
[2025-04-18 12:04] LABS: Percent Iron Saturation 13 % (20-50)
[2025-04-18 12:35] LABS: Ferritin 734.00 ng/mL (11.1-264)
[2025-04-18 13:07] LABS: Vitamin B12 775.0 pg/mL (239-931)
--- OUTSIDE RECORDS SUMMARY | 2025-04-18 13:10 | XMS_ITS | Patient Health Record ---
Author Organization [facility] Address [address] [place], [place] [address] Care Team Providers Care Finishing Area Supervisor Name Role Phone Hero Lujan Unavailable Unavailable Allergies No Known Allergies Reason For Referral [...] since you last smoked? > 10 years Plan Of Treatment No Information Insurance Providers Payer Name Payer Address Payer Phone Subscriber Number Group Number Insured Name Patient Relationship to Insured Coverage Start Date Coverage End Date Medicare Part B [place] [address] [place] [address] [id number] Deborah Cancino Self - patient is the insured [facility] Medicare Supplement [address] [place], [place] [id number] Deborah Cancino Self - patient is the insured
--- OUTSIDE RECORDS SUMMARY | 2025-04-18 13:10 | XMS_ITS | Clinical Summary ---
Author Organization [facility] Address [address] [place] [address] Care Team Providers Care Card Cutter Helper Name Role Phone Max Branch MD Unavailable [phone] William Abebe MD Unavailable [phone] Hero Lujan MD Primary Care Provider [phone] Source Comments [facility],non-owned Affiliates and Associated Physician Practices is amultiple site organization consisting of ambulatory clinics and hospital sitesin [place], [place], [place] and [place]. This disclosure is being madepursuant to the Care Everywhere program and may not contain all information available regarding this patient. Last updated 18.[facility] Allergies Active Allergy Reactions Criticality Noted Date [...] 1 tablet by mouth once daily 020 Active cyclobenzaprine (FLEXERIL) 5 MG tablet Take 5 mg by mouth 3 times daily as needed 020 Active clotrimazole-betametha sone (LOTRISONE) 1-0.05 % cream Apply to affected area 2 times daily 60 g 4 020 Active losartan - hydroCHLOROthiazide (Hyzaar) 50-12.5 MG [...] daily with morning and evening meal Active Active Problems Problem Noted Date Diagnosed Date Chronic cystitis without hematuria 08/12/2021 Pyelonephritis, acute 08/13/2017 Lichen sclerosus of female genitalia 07/03/2015 Overview (07/03/2015): MYCOLOG OINT. Knee joint replacement by other means 01/31/2013 Osteoarthrosis involving lower leg 10/12/2012 Overview (10/27/2015): 2015 IMO Updt Encounters Date Type Department Care Team Description 02/15/2025 Results Follow-Up [facility] - ENVIRONMENTAL ENGINEERING ASSISTANT [address] [place] [address], [address] [place] [phone] Halima Alonzo 02/13/2025 9:00 AM CDT Office Visit [facility] - ENVIRONMENTAL ENGINEERING ASSISTANT [address] [place] [address], [address] [place] [address] Roly Narayan MD Pap smear, as [...] Sex Assigned at Female 08/19/2024 9:26 AM FRONT LINE SUPERVISOR Legal Sex Female 6:46 AM FRONT LINE SUPERVISOR Gender Identity Female 08/19/2024 9:26 AM FRONT LINE SUPERVISOR Sexual Orientation Choose not to disclose 2024 9:26 AM FRONT LINE SUPERVISOR Last Filed Vital Signs Vital Sign Reading Time Taken Comments Blood Pressure 118/72 02/13/2025 8:54 AM CDT Pulse 104 08/16/2017 6:10 AM FRONT LINE SUPERVISOR Temperature 36.9 C (98.4 F) 08/16/2017 6:10 AM FRONT LINE SUPERVISOR Respiratory Rate 16 08/16/2017 6:10 AM FRONT LINE SUPERVISOR Oxygen Saturation 93% 08/16/2017 6:10 AM FRONT LINE SUPERVISOR Inhaled Oxygen Concentration - - Weight 86.7 [...] - 1-dose 75+ series) 2022 COVID-19 VACCINE (2024-2 6 season) 2025 05/16/2021, 10/16/2020, 09/25/2020 INFLUENZA VACCINE (#1) 2025 [...] this topic Medical Devices Implanted Type Area Candy Separator Enrobing Device Identifier Shelf Expiration Date Model / Serial / Lot Beto Bone Independence Hv Implanted:Qty: 1 on 01/10/2013 by William Abebe MD at [facility] Left: Knee [employer] 07/12/2014 [id number] / / [id number] Biomet Interlok 75mm Fixed Ibeam Tibial Plate With Locking Bar Implanted:Qty: 1 on 01/10/2013 by William Abebe MD at [facility] Left: Knee 10/10/2022 [id number] / / [id number] [employer] Arcom Patella Single 1/4 Inch Peg With Wire 31mm X 8 Mm Implanted:Qty: 1 on 01/10/2013 by William Abebe MD at [facility] Left: Knee 11/10/2017 [id number] / / [id number] Vanguard Cr Femoral 67.5 Mm Left Interlok Implanted:Qty: 1 on 01/10/2013 by William Abebe MD at [facility] Left: Knee 06/12/2022 [id number] / / [id number] Biomet Vanguard/Tm Dcm Tibial Bearing Anterior Stabilized 12mm X 75mm Implanted:Qty: 1 on 01/10/2013 by William Abebe MD at [facility] Left: Knee 07/12/2017 [id number] / / [id number] Brdg Tib Denise Stbl 12mm X 71mm Implanted:Qty: 1 on 04/13/2013 by William Abebe MD at [facility] Right: Knee [employer] 03/01/2018 [id number] / / [id number] Beto Bone Independence Hv Implanted:Qty: 1 on 04/13/2013 by William Abebe MD at [facility] Right: Knee [employer] 10/30/2014 [id number] / / [id number] 65mm Cr Femoral Implanted:Qty: 1 on 04/13/2013 by William Abebe MD at [facility] Right: Knee 01/30/2023 [id number] / / [id number] 31mm X 8mm Arcom Patella Implanted:Qty: 1 on 04/13/2013 by William Abebe MD at [facility] Right: Knee 03/01/2018 [id number] / / [id number] Ty Tibial I Beam Fix Bar 71mm Implanted:Qty: 1 on 04/13/2013 by William Abebe MD at [facility] Right: Knee [employer] 12/30/2022 [id number] / / [id number] Procedures Procedure Name Priority Date/Time Associated Diagnosis Comments PAP IG LB Routine 02/13/2025 9:17 AM CDT Pap smear, as part of routine gynecological examination from Last 3 Months Results * PAP IG LB (02/13/2025 9:17 AM CDT) Diagnosis Comment [facility] INSURANCE BILL Comment:NEGATIVE FOR INTRAEP ITHELIAL LESION OR MALIGNANCY. Specimen Adequacy Comment [facility] INSURANCE BILL Comment: Satisfactory for evaluation. Endocervical and/or squamous metaplastic cells (endocervical component) are present. Clinician Provided ICD10 Comment [facility] INSURANCE BILL Comment:Z01.419 Performed by Comment [facility] INSURANCE BILL Comment:Lisa Vu Cytol ogist (ASCP) Comment . [facility] INSURANCE BILL Note Comment [facility] INSURANCE BILL Comment: The Pap smear is a screening test designed to aid in the detection of premalignant and malignant conditions of the uterine cervix. It is not a diagnostic procedure and should not be used as the sole means of detecting cervical cancer. Both false-positive and false-negative reports do occur. [facility] CPT Code Automation Comment [facility] INSURANCE BILL Comment: This liquid based ThinPrep(R) pap test was screened with the use of an image guided system. Pathology/Cytolog y PART OF UTERINE CERVIX / Unknown 02/13/2025 9:17 AM CDT 02/13/2025 Comment:Cervix Release to ut fabien Chiu [facility] INSURANCE BILL - 02/15/2025 1:10 PM CDT Performed at: [address] [place] [id number] Manager Investment: Linda Kaplan MD, Phone: [phone] Specimen Comment: [id number] Specimen Comment: Source.............Cervix;Endocervix Specimen Comment: No. of containers..01 ThinPrep Vial us Roly Narayan MD LAB - PATHOLOGY/CYTOLOGY ORD ERABLES Final Result [facility] INSURANCE BILL [address] [place] [address] from Last [address] [place] [address] MEDICARE AAR MEDICARE SELF PAY NO INSURANCE Member Subscriber Plan / Payer (Ef fective for All Dates) Name:BenjiKristina giang Марина Member ID:Not on file Relation to Subscriber:Not on file Name:BENJIDEEPIKAKRISTINA Subscriber ID:Not on file (Home) Address[address] [place] [address] Payer ID:Not on file Group ID:Not on file Type:Self Pay Address: [place], [place] * Guarantor: KRISTINA LEBLANC Account Type Relation to Patient Date of Phone Billing Address Personal/Family 1945 [address] [place] [address] * Guarantor: KRISTINA LEBLANC Account Type Relation to Patient Date [...] 2:42 PM 01/13/2013 12:28 PM Care Teams Card Cutter Helper Relationship Specialty Start Date End Date Max Branch MD [address] [place] [id number] PCP - OBGYN 06/19/09 Hero Lujan MD [address] [place] [address] [address] [place] [address] PCP - General 01/03/19 William Abebe MD [address] [place] [address] [place] [id number] Orthopedic Surgery 10/12/12
--- OUTSIDE RECORDS SUMMARY | 2025-04-18 13:10 | XMS_ITS | Encounter Summary ---
Author Organization [facility] Address [address] [place] [address] Care Team Providers Care Radio Mechanic Apprentice Name Role Phone Max Branch MD Unavailable [phone] William Abebe MD Unavailable [phone] Hero Lujan MD Primary Care Provider [phone] Encounter Details Date Type Department Care Team (Late st Contact Info) Description 02/15/2025 Results Follow-Up [facility] - ATTIC FANS MECHANIC [address] [place] [address], [address] [place] [phone] Halima Alonzo Social History Tobacco Use Types [...] Sex Assigned at Female 08/19/2024 9:26 AM LEARNING AND DEVELOPMENT INTERN Legal Sex Female 6:46 AM LEARNING AND DEVELOPMENT INTERN Gender Identity Female 08/19/2024 9:26 AM LEARNING AND DEVELOPMENT INTERN Sexual Orientation Choose not to disclose 2024 9:26 AM LEARNING AND DEVELOPMENT INTERN documented as of this encounter Functional Status [...] on filedocumented in this encounter Care Teams Radio Mechanic Apprentice Relationship Specialty Start Date End Date Max Branch MD [address] [place] [address] PCP - OBGYN 06/19/09 [place] [address] [place] [address] 2 [place] [address] PCP - General 01/03/19 William Abebe MD [address] [place] [address] Orthopedic Surgery 10/12/12 documented as of this encounter
--- OUTSIDE RECORDS SUMMARY | 2025-04-18 13:10 | XMS_ITS | Clinical Summary ---
Author Organization [facility] Renae rojas [facility] Address [address] [facility] [place] [address] Care Team Providers Care Senior Living Advisor Name Role Phone Unavailable Primary Care Provider Unavailabl e Allergies Active Allergy Reactions Criticality Noted Date Comments Ciprofloxacin Fever Low 04/18/2025 Sulfa (Sulfonamide Antibiotics) Fever Low 04/03 Sulfamethoxazole-Trimethoprim Fever Low 2024 Medications atorvastatin (LIPITOR) 40 mg tablet Take 40 mg by mouth daily. 5 Active ferrous sulfate 325 mg (65 mg iron) tablet by Other route. 4 Active metformin HCl (metFORMIN, bulk,) 100 % Powder Active nitrofurantoin macrocrystaL (MACRODANTIN) 50 mg capsule Take 1 Capsule by mouth daily. 5 Active losartan-hydroCH LOROthiazide (HYZAAR) 50-12.5 mg tablet Take 1 Tablet by mouth daily. Active dapagliflozin propanediol (Farxiga) 5 mg Tablet Take 10 mg by mouth daily. Active insulin degludec (Tresiba FlexTouch U-100) 100 unit/mL pen syringe Inject by subcutaneous injection. Active levothyroxine 25 mcg tablet Take 25 mcg by mouth daily in the morning. Active Active Problems No known active problems Encounters Date Type Department Care Team Description 04/18/2025 10:30 AM CDT Office Visit [facility] Oncology and Hematology - Neeraj [address] [place] [address] Vince Feng MD Chronic anemia (Primary Dx) from Last 3 Months Family History Medical History Relation Name Comments Heart Disease Brother No Known Problems Child Heart Disease Mother Relation Name Status Comments Brother Alive Child Alive Father Mother Social History Tobacco Use Types Packs/Day Years Used Date Smoking Tobacco: Former Cigarettes 2 3 0 04/18/1972 - 04/18/1975 Smokeless Tobacco: Never Alcohol Use Standard Drinks/Week Comments Yes 0 (1 standard drink = 0.6 oz pur e alcohol) occassionally Comments Unknown Sex and Gender Information Value Date Recorded Sex Assigned at Not on file Legal Sex Female 7:46 PM ROLL CONTOUR GRINDER Gender Identity Not on file Sexual Orientation Not on file Last Filed [...] Mass Index 36.83 04/18/2025 10:21 AM CDT Plan of Treatment Upcoming Encounters Date Type Department Care Team (Late st Contact Info) Description 04/25/2025 4:30 PM CDT Telephone Check Up [facility] Oncology and Hematology - Neeraj [address] [facility] [address] [place] [address] Vince Feng MD [address] [facility] [address] [place] [address] Health Maintenance Due Date Last Done Comments DIABETES ANNUAL FOOT EXAM 1965 DIABETES ANNUAL RETINAL EXAM 1965 DIABETES MICROALBUMIN ANNUAL SCREEN 1965 LDL CHOLESTEROL ANNUAL 1965 Traditional Medicare (ACO) A nnual Wellness Visit 1966 ZOSTER VACCINE (1 of 2) 1997 OSTEOPOROSIS SCREENING 2012 DIABETES HBA1C Q 6 MONTHS 02/11/2018 08/14/2017 PNEUMOCOCCAL VACCINE 50+ YEA RS (2 of 2 - PCV) 05/17/2021 05/17/2020 RSV VACCINE (60+ or ) (1 - 1-dose 75+ series) 2022 INFLUENZA VACCINE (#1) 2025 , 07/01/2021, 07/01/2021, Additional history exists COVID-19 Vaccine (2024-2 6 season) 2025 05/07/2022, 05/16/2021, 10/16/2020, Additional history exists DTAP/TDAP/TD VACCINES (2 - T d or Tdap) 03/24/2029 03/24/2019 Insurance MEDICARE PART A AND B [facility] [id number]
--- OUTSIDE RECORDS SUMMARY | 2025-04-18 13:10 | XMS_ITS | Encounter Summary ---
Author Organization [facility] Address [address] [place] [address] Care Team Providers Care Sales Service Promoter Name Role Phone Odette Webb MD Primary Care Provider [phone] Max Branch MD Unavailable William Abebe MD Unavailable [phone] Hero Lujan MD Primary Care Provider [phone] Encounter Details Date Type Department Care Team [...] Sex Assigned at Female 08/19/2024 9:26 AM MACHINE FANCY STITCHER Legal Sex Female 6:46 AM MACHINE FANCY STITCHER Gender Identity Female 08/19/2024 9:26 AM MACHINE FANCY STITCHER Sexual Orientation Choose not to disclose 2024 9:26 AM MACHINE FANCY STITCHER documented as of this encounter Plan of Treatment Not on file documented as of this encounter Visit Diagnoses Not on filedocumented in this encounter Care Teams Sales Service Promoter Relationship Specialty Start Date End Date Odette Webb MD [address] [facility] [address] [place] [phone] PCP - General 06/27/09 01/02/19 Max Branch MD [address] [place] [phone] PCP - OBGYN 06/19/09 Hero Lujan MD [address] [place] [address] 2 [place] [address] PCP - General 01/03/19 William Abebe MD [address] [place] [address] Orthopedic Surgery 10/12/12 documented as of this encounter
--- OUTSIDE RECORDS SUMMARY | 2025-04-18 13:10 | XMS_ITS | Clinical Summary ---
Author Organization [facility] Address [address] [place] [address] Care Team Providers Care Biomedical Equipment Support Specialist Name Role Phone Hero Lujan MD [...] 1 tablet (25 mcg total) by mouth employment trainer before breakfast Active aspirin 81 mg chewable [...] on file Legal Sex Female 3:42 AM SEISMIC INTERPRETER Gender Identity Not on file Sexual Orientation [...] 09/14/2019, 07/28/2018, Additional history exists Insurance MEDICARE [facility] MEDICARE [facility] Care Teams Biomedical Equipment Support Specialist Relationship Specialty Start Date End Date Hero Lujan MD [address] [place] [address] PCP - General Emergency Medicine 11/06/20
--- OUTSIDE RECORDS SUMMARY | 2025-04-18 13:10 | XMS_ITS | Clinical Summary ---
Author Organization [facility] Address [address] [place] [address] Care Team Providers Care Chief Librarian Extension Department Name Role Phone Hero Lujan MD Primary Care Provider [phone] Allergies Active Allergy Reactions Criticality Noted Date [...] on file Legal Sex Female 4:28 PM WEED CONTROL INSPECTOR Gender Identity Female 08/15/2021 11:30 AM WEED CONTROL INSPECTOR Sexual Orientation Not on file Last Filed Vital Signs Vital Sign Reading Time Taken Comments Blood Pressure 151/67 08/20/2021 2:20 PM WEED CONTROL INSPECTOR Pulse 100 08/20/2021 2:20 PM WEED CONTROL INSPECTOR Temperature 37.1 C (98.7 F) 08/20/2021 2:20 PM WEED CONTROL INSPECTOR Respiratory Rate 18 08/20/2021 2:20 PM WEED CONTROL INSPECTOR Oxygen Saturation 99% 08/20/2021 2:20 PM WEED CONTROL INSPECTOR Inhaled Oxygen Concentration - - Weight 79.4 kg (175 lb) 08/14/2021 2:01 PM WEED CONTROL INSPECTOR Height 157.5 cm (5' 2) 08/14/2021 2:01 PM WEED CONTROL INSPECTOR Body Mass Index 32.01 08/14/2021 2:01 PM WEED CONTROL INSPECTOR Plan of Treatment Health Maintenance Due Date Last Done Comments Hepatitis C 1965 Zoster Vaccines (1 of 2) 1997 Annual Medicare Wellness Visit 2012 Dexa Scan (General) 2012 Pneumococcal Vaccine: 50+ Years (2 of 2 - PCV) 05/17/2021 05/17/2020 RSV Immunization or 60+ Years (1 - 1-dose 75+ series) 2022 COVID-19 Vaccine (4 - 2024-2 6 season) 2025 05/16/2021, 10/16/2020, 09/25/2020 DTaP, Tdap and Td [...] age to complete this topic Insurance MEDICARE [facility] Care Teams Chief Librarian Extension Department Relationship Specialty Start Date End Date Hero Lujan MD [address] [place] [address] PCP - General INTERNAL MEDICINE 08/13/21
--- OUTSIDE RECORDS SUMMARY | 2025-04-18 13:10 | XMS_ITS | Encounter Summary ---
Author Organization [facility] Address [address] [place] [address] Care Team Providers Care Spinner Concrete Pipe Name Role Phone Hero Lujan MD Primary Care Provider [phone] Encounter Details Date Type Department Care Team (Late st Contact Info) Description 08/12/[address] [facility] Day [facility] [address] [place] [address] Evan Klein MD [address] [place] [address] Social History Tobacco Use Types Packs/Day Years Used Date Smoking Tobacco: Never Assessed Comments Unknown Sex and Gender Information Value Date Recorded Sex Assigned at Not on file Legal Sex Female 4:28 PM CHILD NUTRITION ASSISTANT Gender Identity Female 08/15/2021 11:30 AM CHILD NUTRITION ASSISTANT Sexual Orientation Not on file COVID-19 Exposure Response Date Recorded In the last month, have you been in contact with someone who was confirmed or suspected to have Coronavirus / COVID-19? No / Unsure 08/15/2021 3:50 PM CHILD NUTRITION ASSISTANT documented as of this encounter Functional Status * Calculated C-SSRS Risk Score (Lifetime/Recent) Answer Date of Assessment Author Status No Risk Indicated 08/14/2021 2:01 PM Karrie Cavazos RN Active * [place] Suicide Severity Rating Scale (Screener/Recent Self-Report) Question Answer Date of Assessment Author Status 1. Wish to be (Past 1 Month) No 08/14/2021 2:01 PM Fabiola Cavazos RN Act billy 2. Non-Specific Active Suicidal Thoughts (Past 1 Month) No 08/14/2021 2:01 PM CHILD NUTRITION ASSISTANT Fabiola Garcia, CALLIE Act billy documented as of this encounter Plan of Treatment Not on file documented as of this encounter Visit Diagnoses Diagnosis Chronic cystitis without hematuria- Primary documented in this encounter Care Teams Spinner Concrete Pipe Relationship Specialty Start Date End Date Hero Lujan MD [address] [place] [address] PCP - General INTERNAL MEDICINE 08/13/21 documented as of this encounter
== END 2025-04-18 11:04 | disposition home or self-care (01) ==
PROVIDERS: PCP Emergency Medicine; Visit Provider Internal Medicine Hematology & Oncology
DX: D64.9 Anemia, unspecified (principal)
CPT/HCPCS: 36415; 80053; 82607; 82728; 82746; 83540; 83550; 84238; 85025

== ENCOUNTER 2025-04-18 12:00 | Emergency (ER) | payer MEDICARE, SELFPAY ==
--- NOTE | ~2025-04-18 | CT_ITS ---
EXAMINATION: CT brain & sinus wo con DATE: 04/18/2025 13:57 INDICATION: Dizziness. Sinusitis. TECHNIQUE: Computed tomography (CT) of the head and paranasal sinuses was performed without intravenous contrast. The mA was adjusted according to patient size. Iterative reconstruction technique was employed. The dose-length product was 756.67 mGy-cm. COMPARISON: Head CT 02/25/2023 FINDINGS: CT HEAD: There are scattered areas of low attenuation in the cerebral white matter. There is no intracranial hemorrhage, acute infarction, or abnormal intracranial mass lesion. The ventricles are normal in size. There are likely changes of ocular lens replacement surgeries. 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 There are likely changes of ocular lens replacement surgeries. There is a small right mastoid effusion. CT SINUSES: There is mucosal thickening in the frontal sinuses with near occlusion of the frontal recesses. There is mild mucosal thickening in the bilateral ethmoid and sphenoid sinuses and right maxillary sinus. There is moderate mucosal thickening in left maxillary sinus. There is rightward deviatio n of the nasal septum. There are bilateral Arelis cells. Right middle turbinate is paradoxical. There is christina bullosa involving right middle turbinate. The ostiomeatal units are patent. IMPRESSION: 1. Stable moderate nonspecific cerebral white matter disease, which likely represents chronic small vessel ischemic disease. 2. Mucosal thickening in the paranasal sinuses. Reviewed, dictated and finalized at location E. IMPRESSION: 1. Stable moderate nonspecific cerebral white matter disease, which likely repr esents chronic small vessel ischemic disease. 2. Mucosal thickening in the paranasal sinuses.
--- OUTSIDE RECORDS SUMMARY | 2025-04-18 10:30 | XMS_ITS | Encounter Summary ---
Author Organization [email or web address] Address [address] [place] [address] Care Team Providers Care Oxygen Equipment Preparer Name Role Phone Unavailable Primary Care Provider Unavailabl e Reason for Visit * Reason Comments Establish Care Encounter Details Date Type Department Care Team (Late st Contact Info) Description 04/18/2025 10:30 AM CDT Office Visit [facility] Oncology and Hematology - Neeraj [address] [facility] [address] [place] [address] Vince Feng MD [address] [facility] [address] [place] [address] Chronic anemia (Primary Dx) Social History Tobacco Use Types Packs/Day Years Used Date Smoking Tobacco: Former Cigarettes 2 3 0 04/18/1972 - 04/18/1975 Smokeless Tobacco: Never Alcohol Use Standard Drinks/Week Comments Yes 0 (1 standard drink = 0.6 oz pur e alcohol) occassionally Comments Unknown Sex and Gender Information Value Date Recorded Sex Assigned at Not on file Legal Sex Female 7:46 PM WHEEL FILLER Gender Identity Not on file Sexual Orientation Not on file documented as of this encounter Last Filed Vital Signs Vital Sign Reading Time Taken Comments Blood Pressure 160/71 04/18/2025 10:26 AM CDT Pulse 120 04/18/2025 10:21 AM CDT Temperature 37.4 C (99.4 F) 04/18/2025 10:21 AM CDT Respiratory Rate 18 04/18/2025 10:21 AM CDT Oxygen Saturation 96% 04/18/2025 10:21 AM CDT Inhaled Oxygen Concentration - - Weight 85.5 kg (188 lb 9.6 oz) 04/18/2025 10:21 AM CDT Height 152.4 cm (5') 04/18/2025 10:21 AM CDT Body Mass Index 36.83 04/18/2025 10:21 AM CDT documented in this encounter Progress Notes * Vince Feng MD - 04/18/2025 12:08 PM CDT Hematology-oncology consult Note Requesting Physician Primary Care Physician No primary care provider on file. Problem list There is no problem list on file for this patient. Previous TREATMENT ? Measurable Disease ? Reason for Visit Deborah Cancino is a 79 y.o. female who was referred for consultation for iron deficiency anemia. History of present illness This is a 79-year-old obese female with history of type 2 diabetes, hyperlipidemia, hypothyroidism and hypertension referred to me for anemia. She has been taking iron 325 mg twice a day for 6 months duration. She denies any bleeding including melena and hematochezia. She denies being a vegetarian. She denies any previous stomach surgery. She is been complaining of tiredness and fatigueand exhaustion. She has been dealing with intermittent abdominal pain for 1 year duration. He just returned back from [place] trip last night and dealing with some sinus infection. She has not received iron infusion and blood transfusion. Patient had last EGD done in January 24, 2025 that showed gastritis. Her last colonoscopy was in August 2022 that showed diverticulitis. She has appointment with GI doctor for repeat colonoscopy. Her labs from January 2025 showed normal hemoglobin of 14.6. Her iron studies from November 2024 was normal iron of 73 with iron saturation of 22%. Denies any other new complaints. Past Medical History Past Medical History: Diagnosis Date Diabetes mellitus (CMS/HCC) Diverticulitis Hyperlipidemia Hypertension Surgical History Past Surgical History: Procedure Laterality Date HX CHOLECYSTECTOMY HX KNEE REPLACEMENT Bilateral 2023 Medications Current Outpatient Medications Medication Sig Dispense Refill atorvastatin (LIPITOR) 40 mg tablet Take 40 mg by mouth daily. ferrous sulfate 325 mg (65 mg iron) tablet by Other route. nitrofurantoin macrocrystaL (MACRODANTIN) 50 mg capsule Take 1 Capsule by mouth daily. losartan-hydroCHLOROthiazide (HYZAAR) 50-12.5 mg tablet Take 1 Tablet by mouth daily. dapagliflozin propanediol (Farxiga) 5 mg Tablet Take 10 mg by mouth daily. insulin degludec (Tresiba FlexTouch U-100) 100 unit/mL pen syringe Inject by subcutaneous injection. levothyroxine 25 mcg tablet Take 25 mcg by mouth daily in the morning. metformin HCl (metFORMIN, bulk,) 100 % Powder No current facility-administered medications for this visit. Allergies Allergies Allergen Reactions Ciprofloxacin Fever Sulfa (Sulfonamide Antibiotics) Fever Sulfamethoxazole-Trimethoprim Fever Immunizations: Immunization History Administered Date(s) Administered ([employer])(12 YR UP) COVID-19 VACCINE - EMERGENCY USE AUTHORIZATION, MRNA, [id number](PF) 30 MCG/0.3 MLIM SUSP 05/16/2021 Family History Family History Problem Relation Name Age of Onset Heart Disease Mother Heart Disease Brother No Known Problems Child Social History Social History Tobacco Use Smoking status: Former Current packs/day: 0.00 Average packs/day: 2.0 packs/day for 3.0 years (6.0 ttl pk-yrs) Types: Cigarettes Start date: 04/18/1972 Quit date: 04/18/1975 Years since quittin.0 Smokeless tobacco: Never Substance Use Topics Alcohol use: Yes Comment: occassionally Review of Systems Constitutional: Patient did not mention fever; no night sweats; no anorexia; no weight loss; complain of tiredness and fatigue NEENT: Patient did not mention headache; no change in vision; no change in hearing; no sore throat;no dysphagia Respiratory: Patient did not mention shortness of breath; no pleuritic chest pain; no cough; no hemoptysis Cardiac: Patient did not mention cardiac-like chest pain; no palpitations; no orthopnea; no PND; noDOE Breasts: Patient did not mention tenderness; no masses GI: Patient did not mention abdominal pain; no nausea; no vomiting; no diarrhea; no hematochezia; no melena : Patient did not mention dysuria; no frequency; no hesitancy; no hematuria CAFETERIA ATTENDANT: Musculosketetal: Patient did not mention bone pain; no arthralgia; no joint swelling; no myalgia; Skin: Patient did not mention pruritis; no rash; no petechiae; no ecchymoses Endocrine: Patient did not mention polydipsia; no polyuria; no unusual weight gain Neuro: Patient did not mention headache; no change in vision; no sensory changes; no muscle weakness; no confusion; no seizures Psych: Patient did not mention anxiety; no depression; Physical Exam Vitals: As per nursing note Constitutional: Well developed, well nourished, no acute distress, non-toxic appearance Teeth and gum. No signs of infection or swelling. Eyes: PERRL, conjunctiva normal HEENT: Atraumatic, external ears normal, nose normal, oropharynx moist, no pharyngeal exudates. no sinus tenderness Neck- normal range of motion, no tenderness, supple Respiratory: No respiratory distress, normal breath sounds, no rales, no wheezing Cardiovascular: Normal rate, normal rhythm, no murmurs, no gallops, no rubs GI: Soft, nondistended, normal bowel sounds, nontender, no splenomegaly, no hepatomegaly, no mass, no rebound, no guarding : No costovertebral angle tenderness Musculoskeletal: No edema, no tenderness, no deformities. Back- no tenderness Integument: Well hydrated, no rash, Digits and nails inspection normal Lymphatic: No lymphadenopathy noted Neurologic: Alert & oriented x 3, CN 2-12 normal, normal motor function, normal sensory function, no focal deficits noted Psychiatric: Speech and behavior appropriate ? labs No results found for this or any previous visit (from the past 24 hours). Labs from November 2024 showed iron 73 saturation 22% ferritin 39 hemoglobin 14.2. Pathology ? Imaging & Other Studies Performance Status? Assessment / Plan: ? Iron deficiency anemia. Patient is a 79-year-old obese female with history of type 2 diabetes, hypertension, hyperlipidemia and hypothyroidism referred to me for history of iron deficiency anemia. Clinically she is quite tired and fatigue. She denies any bleeding including melena and hematochezia. She is dealing with sinus infection and just returned back from her trip of [place]. Sheis quite symptomatic. She denies any bleeding including melena hematochezia. Denies any previous stomach surgeries. Denies being a vegetarian. She is taking iron 325 mg twice a day for 6 months duration. EGD was done in January 2025 that showed gastritis. Her last colonoscopy was done in August 2022 t hat showed diverticula. I will repeat labs including iron panel, soluble transferrin receptor, CBC,B12 level and methylmalonic acid level. Based on the labs we will decide about iron infusion as patient is not responding to the oral iron that she has been taking for 6 months duration. I have answered all the questions to patient satisfaction. Follow-up visit in 2 weeks. Type 2 diabetes. She is on metformin. Hypertension. Patient is on Hyzaar. Hypothyroidism. She is on levothyroxine. Hyperlipidemia. Patient is on Lipitor. Thank you very much for allowing me to participate in Deborah Cancino's evaluation and management. Please feel free to contact if I can be of any further assistance in your patient???s care requiring hematology or oncology evaluation. Sincerely, ? ? Vince Feng M.D. cell TOBACCO COUNSELING She is not a tobacco/nicotine user. Vince Feng MD ,04/18/2025 12:08 PM ? Total time spent 60 minutes, two third of the total time spent counseling patient [id number]. CC:? documented in this encounter Plan of Treatment Upcoming Encounters Date Type Department Care Team (Late st Contact Info) Description 04/25/2025 4:30 PM CDT Telephone Check Up [facility] Oncology and Hematology - Neeraj [address] [facility] [address] [place] [address] Vince Feng MD [address] [facility] [address] [place] [address] Scheduled Orders Name Type Priority Associated Diagnoses Orde r Schedule CBC WITH DIFFERENTIAL Lab Stat Chronic anemia Expected: 04/18/2025, Expires: 04/18/2026 COMPREHENSIVE METABOLIC PANEL Lab Stat Chronic anemia Expected: 04/18/2025, Expires: 04/18/2026 FERRITIN Lab Routine Chronic anemia Expected: 04/18/2025, Expires: 04/18/2026 IRON, TIBC, AND PERCENT SATURATION Lab Routine Chronic anemia Expected: 04/18/2025, Expires: 04/18/2026 TRANSFERRIN RECEPTOR TFR SOLUBLE Lab Routine Chronic anemia Expected: 04/18/2025, Expires: 04/18/2026 VITAMIN B12 AND FOLATE Lab Routine Chronic anemia Expected: 04/18/2025, Expires: 04/18/2026 documented as of this encounter Visit Diagnoses Diagnosis Chronic anemia- Primary Anemia, unspecified documented in this encounter
--- OUTSIDE RECORDS SUMMARY | 2025-04-18 10:30 | XMS_ITS | Encounter Summary ---
Author Organization [facility] Address [address] [place] [address] Care Team Providers Care Crankshaft Balancer Name Role Phone Unavailable Primary Care Provider Unavailabl e Reason for Visit * Reason Comments Establish Care Encounter Details Date Type Department Care Team (Late st Contact Info) Description 04/18/2025 10:30 AM CDT Office Visit [facility] Oncology and Hematology - Neeraj [address] [facility] [address] [place] [address] Vince Feng MD [address] [facility] [address] [place] [address] Chronic anemia (Primary Dx) Social [...] on file Legal Sex Female 7:46 PM LINEN 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 CC:? documented in this encounter Plan of Treatment Upcoming Encounters Date Type Department Care Team (Late st Contact Info) Description 04/25/2025 4:30 PM CDT Telephone Check Up [facility] Oncology and Hematology - Neeraj [address] [facility] [address] [place] [address] Vince Feng MD [address] [facility] [address] [place] [address] Scheduled Orders Name Type Priority [...]
[2025-04-18 12:41] VITALS: BP 142/58; PULSE 105; RESP 16; TEMP 36.6; O2SAT 97
[2025-04-18 13:06] VITALS: BP 128/62; PULSE 98; RESP 28; O2SAT 97
--- OUTSIDE RECORDS SUMMARY | 2025-04-18 13:55 | XMS_ITS | Encounter Summary ---
Author Organization [facility] Address [address] [place] [address] Care Team Providers Care Escrow Representative Name Role Phone Odette Webb MD Primary Care Provider [phone] Max Branch MD Unavailable William Abebe MD Unavailable [phone] Hero Lujan MD Primary Care Provider [phone] Encounter Details Date Type Department Care Team [...] Sex Assigned at Female 08/19/2024 9:26 AM MEAT SPECIALIST Legal Sex Female 6:46 AM MEAT SPECIALIST Gender Identity Female 08/19/2024 9:26 AM MEAT SPECIALIST Sexual Orientation Choose not to disclose 2024 9:26 AM MEAT SPECIALIST documented as of this encounter Plan of Treatment Not on file documented as of this encounter Visit Diagnoses Not on filedocumented in this encounter Care Teams Escrow Representative Relationship Specialty Start Date End Date Odette Webb MD [address] [facility] [address] [place] [phone] PCP - General 06/27/09 01/02/19 Max Branch MD [address] [place] [phone] PCP - OBGYN 06/19/09 Hero Lujan MD [address] [place] [address] 2 [place] [address] PCP - General 01/03/19 William Abebe MD [address] [place] [address] Orthopedic Surgery 10/12/12 documented as of this encounter
--- OUTSIDE RECORDS SUMMARY | 2025-04-18 13:55 | XMS_ITS | Encounter Summary ---
Author Organization [facility] Address [address] [place] [address] Care Team Providers Care Head Of Conservation Name Role Phone Max Branch MD Unavailable William Abebe MD Unavailable [phone] Hero Lujan MD Primary Care Provider [phone] Encounter Details Date Type Department Care Team (Late st Contact Info) Description 02/15/2025 Results Follow-Up [facility] - FARMWORKER ANIMAL [address] [place] [address], [address] [place] [phone] Halima Alonzo Social History Tobacco Use Types [...] Sex Assigned at Female 08/19/2024 9:26 AM OIL WELL SERVICES DISPATCHER Legal Sex Female 6:46 AM OIL WELL SERVICES DISPATCHER Gender Identity Female 08/19/2024 9:26 AM OIL WELL SERVICES DISPATCHER Sexual Orientation Choose not to disclose 2024 9:26 AM OIL WELL SERVICES DISPATCHER documented as of this encounter Functional Status [...] on filedocumented in this encounter Care Teams Head Of Conservation Relationship Specialty Start Date End Date Max Branch MD [address] [place] [address] PCP - OBGYN 06/19/09 [place] [address] [place] [address] 2 [place] [address] PCP - General 01/03/19 William Abebe MD [address] [place] [address] Orthopedic Surgery 10/12/12 documented as of this encounter
--- OUTSIDE RECORDS SUMMARY | 2025-04-18 13:55 | XMS_ITS | Clinical Summary ---
Author Organization [facility] Address [address] [facility] [place] [address] Care Team Providers Care Sinker Puller Name Role Phone Unavailable Primary Care Provider [...] Description 04/18/2025 10:30 AM CDT Office Visit [facility] Oncology and Hematology - Neeraj [address] [place] [address] Vince Feng MD Chronic anemia [...] on file Legal Sex Female 7:46 PM ELECTRICAL PROJECT ENGINEER Gender Identity Not on file Sexual [...] 04/25/2025 4:30 PM CDT Telephone Check Up [facility] Oncology and Hematology - Neeraj [address] [facility] [address] [place] [address] Vince Feng MD [address] [facility] [address] [place] [address] Health Maintenance Due Date Last [...] 03/24/2019 Insurance MEDICARE PART A AND B [facility] [id number]
--- OUTSIDE RECORDS SUMMARY | 2025-04-18 13:55 | XMS_ITS | Clinical Summary ---
Author Organization [facility] [employer] Address [address] [place] [address] Care Team Providers Care Pressure Washer Name Role Phone Max Branch MD Unavailable William Abebe MD Unavailable [phone] Hero Lujan MD Primary Care Provider [phone] Source Comments [facility],non-owned Affiliates and Associated Physician Practices is amultiple site organization consisting of ambulatory clinics and hospital sitesin [place], [place], [place] and [place]. This disclosure is being madepursuant to the Care Everywhere program and may not contain all information available regarding this patient. Last updated 18.[facility] Allergies Active Allergy Reactions Criticality Noted [...] Department Care Team Description 02/15/2025 Results Follow-Up [facility] - PRODUCT DEVELOPMENT [address] [place] [address], [address] [place] [phone] Halima Alonzo 02/13/2025 9:00 AM CDT Office Visit [facility] - PRODUCT DEVELOPMENT [address] [place] [address], [address] [place] [address] Roly Narayan MD Pap smear, [...] Sex Assigned at Female 08/19/2024 9:26 AM MIDDLE SCHOOL DIRECTOR Legal Sex Female 6:46 AM MIDDLE SCHOOL DIRECTOR Gender Identity Female 08/19/2024 9:26 AM MIDDLE SCHOOL DIRECTOR Sexual Orientation Choose not to disclose 2024 9:26 AM MIDDLE SCHOOL DIRECTOR Last Filed Vital Signs Vital Sign Reading Time Taken Comments Blood Pressure 118/72 02/13/2025 8:54 AM CDT Pulse 104 08/16/2017 6:10 AM MIDDLE SCHOOL DIRECTOR Temperature 36.9 C (98.4 F) 08/16/2017 6:10 AM MIDDLE SCHOOL DIRECTOR Respiratory Rate 16 08/16/2017 6:10 AM MIDDLE SCHOOL DIRECTOR Oxygen Saturation 93% 08/16/2017 6:10 AM MIDDLE SCHOOL DIRECTOR Inhaled Oxygen Concentration - - Weight 86.7 [...] this topic Medical Devices Implanted Type Area Landscape Contractor Device Identifier Shelf Expiration Date Model / Serial / Lot Beto Bone [place] Hv Implanted:Qty: 1 on 01/10/2013 by William Abebe MD at [facility] Left: Knee [employer] 07/12/2014 [id number] / / [id number] Biomet Interlok 75mm Fixed Ibeam Tibial Plate With Locking Bar Implanted:Qty: 1 on 01/10/2013 by William Abebe MD at [facility] Left: Knee 10/10/2022 [id number] / / [id number] Biomet Arcom Patella Single 1/4 Inch Peg With Wire 31mm X 8 Mm Implanted:Qty: 1 on 01/10/2013 by William Abebe MD at [facility] Left: Knee 11/10/2017 [id number] / / [id number] Vanguard Cr Femoral 67.5 Mm Left Interlok Implanted:Qty: 1 on 01/10/2013 by William Abebe MD at [facility] Left: Knee 06/12/2022 [id number] / / [id number] Biomet Vanguard/Tm Dcm Tibial Bearing Anterior Stabilized 12mm X 75mm Implanted:Qty: 1 on 01/10/2013 by William Abebe MD at [facility] Left: Knee 07/12/2017 [id number] / / [id number] Brdg Tib Denise Stbl 12mm X 71mm Implanted:Qty: 1 on 04/13/2013 by William Abebe MD at [facility] Right: Knee [employer] 03/01/2018 [id number] / / [id number] Beto Bone [place] Hv Implanted:Qty: 1 on 04/13/2013 by William Abebe MD at [facility] Right: Knee [employer] 10/30/2014 [id number] / / [id number] 65mm Cr Femoral Implanted:Qty: 1 on 04/13/2013 by William Abebe MD at [facility] Right: Knee 01/30/2023 [id number] / / [id number] 31mm X 8mm Arcom Patella Implanted:Qty: 1 on 04/13/2013 by William Abebe MD at [facility] Right: Knee 03/01/2018 [id number] / / [id number] Ty Tibial I Beam Fix Bar 71mm Implanted:Qty: 1 on 04/13/2013 by William Abebe MD at [facility] Right: Knee [employer] 12/30/2022 [id number] / / [id number] Procedures Procedure Name Priority Date/Time Associated Diagnosis [...] Comment . [facility] INSURANCE BILL Note Comment [facility] INSURANCE BILL Comment: The Pap smear is a screening test designed to aid in the detection of premalignant and malignant conditions of the uterine cervix. It is not a diagnostic procedure and should not be used as the sole means of detecting cervical cancer. Both false-positive and false-negative reports do occur. [facility] CPT Code Automation Comment [facility] INSURANCE BILL Comment: This liquid based ThinPrep(R) pap test was screened with the use of an image guided system. Pathology/Cytolog y PART OF UTERINE CERVIX / Unknown 02/13/2025 9:17 AM CDT 02/13/2025 Comment:Cervix Release to sd fabien Chiu [facility] INSURANCE BILL - 02/15/2025 1:10 PM CDT Performed at: [address] [place] [id number] Globe Changer: Linda Kaplan MD, Phone: [phone] Specimen Comment: [id number] Specimen Comment: Source.............Cervix;Endocervix Specimen Comment: No. of containers..01 ThinPrep Vial us Roly Narayan MD LAB - PATHOLOGY/CYTOLOGY ORD ERABLES Final Result [facility] INSURANCE BILL [address] [place] [address] from Last [address] [place] [address] [place] [address] MEDICARE AAR MEDICARE SELF PAY NO INSURANCE Member Subscriber Plan / Payer (Ef fective for All Dates) Name:BenjiKristina giang Марниа Member ID:Not on file Relation to Subscriber:Not on file Name:BENJIDEEPIKAKRISTINA Subscriber ID:Not on file (Home) Address: [address] [address] Payer ID:Not on file Group ID:Not on file Type:Self Pay Address: [place], [place] * Guarantor: KRISTINA LEBLANC Account Type Relation to Patient Date of Phone Billing Address Personal/Family 1945 [address] [place] [address] * Guarantor: KRISTINA LEBLANC Account Type Relation [...] 2:42 PM 01/13/2013 12:28 PM Care Teams Pressure Washer Relationship Specialty Start Date End Date Max Branch MD [address] [place] [address] PCP - OBGYN 06/19/09 Hero Lujan MD [address] [place] [address] [address] [place] [address] PCP - General 01/03/19 William Abebe MD [address] [place] [address] Orthopedic Surgery 10/12/12
--- OUTSIDE RECORDS SUMMARY | 2025-04-18 13:55 | XMS_ITS | Clinical Summary ---
Author Organization [facility] Address [address] [place] [address] Care Team Providers Care Applied Statistician Name Role Phone Hero Lujan MD Primary [...] tablet (25 mcg total) by mouth early childhood specialist before breakfast Active aspirin 81 mg [...] on file Legal Sex Female 3:42 AM WINTER SPORTS MANAGER Gender Identity Not on file Sexual Orientation [...] 09/14/2019, 07/28/2018, Additional history exists Insurance MEDICARE [facility] MEDICARE [facility] Care Teams Applied Statistician Relationship Specialty Start Date End Date Hero Lujan MD [address] [place] [address] PCP - General Emergency Medicine 11/06/20
[2025-04-18 14:05] VITALS: BP 136/70; PULSE 92; RESP 22; O2SAT 97
[2025-04-18 14:19] LABS: Hematocrit 35.2 % (37.0-47.0); Hemoglobin 11.6 g/dL (12.0-15.0); Immature Granulocyte Percent A 0.5 % (0-0.5); Lymphocytes Absolute Auto 0.79 K/mm3 (0.9-3.2); Mean Corpuscular HGB Conc 33.0 g/dl (32-36); Mean Corpuscular Hemoglobin 30.1 pg (26-34); Mean Corpuscular Volume 91.4 fl (80-100); Nucleated Red Blood Cells Absolute Auto 0.000 K/mm3 (0.0-0.012); Nucleated Red Blood Cells Perc 0.0 % (0.0-0.2); Platelet Count Result 211 k/mm3 (150-375); Red Blood Count 3.85 M/mm3 (4.2-5.4); White Blood Count 9.6 K/mm3 (4.5-10.0)
[2025-04-18 14:31] LABS: Alanine Aminotransferase 26 U/L (6-35); Albumin Level 3.6 g/dL (3.5-5.1); Alkaline Phosphatase 76 U/L (38-126); Anion Gap 10 mmol/L (4-12); Aspartate Amino Transferase 38 U/L (14-36); Bilirubin,Total 0.7 mg/dL (0.2-1.3); Blood Urea Nitrogen 39 mg/dL (7-17); Calcium 9.0 mg/dL (8.4-10.2); Carbon Dioxide 22 mmol/L (22-30); Chloride 97 mmol/L (98-107); Estimated CRCL calculation 31 ml/min; Estimated Glomerular Filt Rate 39; Glucose 247 mg/dL (65-110); Potassium 4.3 mmol/L (3.4-5.0); Sodium 129 mmol/L (137-145); Total Protein 6.8 g/dL (6.3-8.2)
[2025-04-18 14:55] LABS: Influenza A QL RT-PCR Negative (Negative); Influenza B QL RT-PCR Negative (Negative); RSV RNA, RT-PCR Negative (Negative); SARS-CoV-2 RNA PCR Positive (Negative)
--- OUTSIDE RECORDS SUMMARY | 2025-04-18 15:08 | XMS_ITS | Clinical Summary ---
Author Organization [facility] Address [address] [place] [address] Care Team Providers Care Property Field Inspector Name Role Phone Hero Lujan MD [...] 1 tablet (25 mcg total) by mouth pipe bowls paint trimmer before breakfast Active aspirin 81 mg chewable [...] on file Legal Sex Female 3:42 AM POST ANESTHESIA NURSE Gender Identity Not on file Sexual Orientation [...] 09/14/2019, 07/28/2018, Additional history exists Insurance MEDICARE [facility] MEDICARE [facility] Care Teams Property Field Inspector Relationship Specialty Start Date End Date Hero Lujan MD [address] [place] [address] PCP - General Emergency Medicine 11/06/20
--- OUTSIDE RECORDS SUMMARY | 2025-04-18 15:08 | XMS_ITS | Encounter Summary ---
Author Organization [facility] Address [address] [place] [address] Care Team Providers Care Cigar Brander Name Role Phone Hero Lujan MD Primary Care Provider [phone] Encounter Details Date Type Department Care Team (Late st Contact Info) Description 08/12/2021 Therapy Plan [facility] [address] [place] [address] Evan Klein MD [address] [place] [address] Social History Tobacco Use Types Packs/Day Years Used Date Smoking Tobacco: Never Assessed Comments Unknown Sex and Gender Information Value Date Recorded Sex Assigned at Not on file Legal Sex Female 4:28 PM CLEANER SIGNS Gender Identity Female 08/15/2021 11:30 AM CLEANER SIGNS Sexual Orientation Not on file COVID-19 Exposure Response Date Recorded In the last month, have you been in contact with someone who was confirmed or suspected to have Coronavirus / COVID-19? No / Unsure 08/15/2021 3:50 PM CLEANER SIGNS documented as of this encounter Functional Status * Calculated C-SSRS Risk Score (Lifetime/Recent) Answer Date of Assessment Author Status No Risk Indicated 08/14/2021 2:01 PM Karrie Cavazos RN Active * [place] Suicide Severity Rating Scale (Screener/Recent Self-Report) Question Answer Date of Assessment Author Status 1. Wish to be (Past 1 Month) No 08/14/2021 2:01 PM Fabiola Cavazos RN Act billy 2. Non-Specific Active Suicidal Thoughts (Past 1 Month) No 08/14/2021 2:01 PM CLEANER SIGNS Fabiola Garcia, CALLIE Act billy documented as of this encounter Plan of Treatment Not on file documented as of this encounter Visit Diagnoses Diagnosis Chronic cystitis without hematuria- Primary documented in this encounter Care Teams Cigar Brander Relationship Specialty Start Date End Date Hero Lujan MD [address] [place] [address] PCP - General INTERNAL MEDICINE 08/13/21 documented as of this encounter
--- OUTSIDE RECORDS SUMMARY | 2025-04-18 15:08 | XMS_ITS | Clinical Summary ---
Author Organization [facility]jas [facility] Address [address] [facility] [address] Care Team Providers Care Cone Worker Name Role Phone Unavailable Primary Care Provider [...] and Hematology - Neeraj [address] [place] [address] Vince Feng MD Chronic anemia [...] on file Legal Sex Female 7:46 PM SURGICAL SUPERVISOR Gender Identity Not on file Sexual Orientation [...] 04/25/2025 4:30 PM CDT Telephone Check Up [facility] Oncology and Hematology - Neeraj [address] [facility] [address] [place] [address] Vince Feng MD [address] [facility] [address] [place] [address] Health Maintenance Due Date Last [...] Insurance MEDICARE PART A AND B [facility] [id number]
--- OUTSIDE RECORDS SUMMARY | 2025-04-18 15:08 | XMS_ITS | Encounter Summary ---
Author Organization [facility] Address [address] [place] [address] Care Team Providers Care Drum Builder Name Role Phone Max Branch MD Unavailable William Abebe MD Unavailable [phone] Hero Lujan MD Primary Care Provider [phone] Encounter Details Date Type Department Care Team (Late st Contact Info) Description 02/15/2025 Results Follow-Up [facility] - SENIOR LEAD SOFTWARE ENGINEER [address] [place] [address], [address] [place] [phone] Halima Alonzo Social History Tobacco Use Types [...] Sex Assigned at Female 08/19/2024 9:26 AM QUARANTINE INSPECTOR Legal Sex Female 6:46 AM QUARANTINE INSPECTOR Gender Identity Female 08/19/2024 9:26 AM QUARANTINE INSPECTOR Sexual Orientation Choose not to disclose 2024 9:26 AM QUARANTINE INSPECTOR documented as of this encounter Functional Status [...] on filedocumented in this encounter Care Teams Drum Builder Relationship Specialty Start Date End Date Max Branch MD [address] [place] [address] PCP - OBGYN 06/19/09 [place] [address] [place] [address] [address] [place] [address] PCP - General 01/03/19 William Abebe MD [address] [place] [address] Orthopedic Surgery 10/12/12 documented as of this encounter
--- OUTSIDE RECORDS SUMMARY | 2025-04-18 15:08 | XMS_ITS | Encounter Summary ---
Author Organization [facility] Address [address] [place] [address] Care Team Providers Care Machine Hoop Maker Name Role Phone Odette Webb MD Primary Care Provider [phone] Max Branch MD Unavailable William Abebe MD Unavailable [phone] Hero Lujan MD Primary Care Provider [phone] Encounter Details Date Type Department Care Team [...] Sex Assigned at Female 08/19/2024 9:26 AM CHECKOUT OPERATOR Legal Sex Female 6:46 AM CHECKOUT OPERATOR Gender Identity Female 08/19/2024 9:26 AM CHECKOUT OPERATOR Sexual Orientation Choose not to disclose 2024 9:26 AM CHECKOUT OPERATOR documented as of this encounter Plan of Treatment Not on file documented as of this encounter Visit Diagnoses Not on filedocumented in this encounter Care Teams Machine Hoop Maker Relationship Specialty Start Date End Date Odette Webb MD [address] [facility] [address] [place] [id number] PCP - General 06/27/09 01/02/19 Max Branch MD [address] [place] [id number] PCP - OBGYN 06/19/09 Hero Lujan MD [address] [place] [address] 2 [place] [address] PCP - General 01/03/19 William Abebe MD [address] [place] [address] Orthopedic Surgery 10/12/12 documented as of this encounter
--- OUTSIDE RECORDS SUMMARY | 2025-04-18 15:08 | XMS_ITS | Clinical Summary ---
Author Organization [facility] Address [address] [place] [address] Care Team Providers Care Vice President Of Business Development Name Role Phone Max Branch MD Unavailable [phone] William Abebe MD Unavailable [phone] Hero Lujan MD Primary Care Provider [phone] Source Comments [facility],non-owned Affiliates and Associated Physician Practices is amultiple site organization consisting of ambulatory clinics and hospital sitesin [place], [place], [place] and [place]. This disclosure is being madepursuant to the Care Everywhere program and may not contain all information available regarding this patient. Last updated 18.[facility] Allergies Active Allergy Reactions Criticality Noted [...] Department Care Team Description 02/15/2025 Results Follow-Up [facility] - CABIN CLEANING SUPERVISOR [address] [place] [address], [address] [place] [phone] Halima Alonzo 02/13/2025 9:00 AM CDT Office Visit [facility] - CABIN CLEANING SUPERVISOR [address] [place] [address], [address] [place] [address] Roly Narayan MD Pap smear, [...] Sex Assigned at Female 08/19/2024 9:26 AM SOFTWARE RELEASE ENGINEER Legal Sex Female 6:46 AM SOFTWARE RELEASE ENGINEER Gender Identity Female 08/19/2024 9:26 AM SOFTWARE RELEASE ENGINEER Sexual Orientation Choose not to disclose 2024 9:26 AM SOFTWARE RELEASE ENGINEER Last Filed Vital Signs Vital Sign Reading Time Taken Comments Blood Pressure 118/72 02/13/2025 8:54 AM CDT Pulse 104 08/16/2017 6:10 AM SOFTWARE RELEASE ENGINEER Temperature 36.9 C (98.4 F) 08/16/2017 6:10 AM SOFTWARE RELEASE ENGINEER Respiratory Rate 16 08/16/2017 6:10 AM SOFTWARE RELEASE ENGINEER Oxygen Saturation 93% 08/16/2017 6:10 AM SOFTWARE RELEASE ENGINEER Inhaled Oxygen Concentration - - Weight 86.7 [...] this topic Medical Devices Implanted Type Area Loan Operations Manager Device Identifier Shelf Expiration Date Model / Serial / Lot Beto Bone Hartford Hv Implanted:Qty: 1 on 01/10/2013 by William Abebe MD at [facility] Left: Knee [employer] 07/12/2014 [id number] / / [id number] Biomet Interlok 75mm Fixed Ibeam Tibial Plate With Locking Bar Implanted:Qty: 1 on 01/10/2013 by William Abebe MD at [facility] Left: Knee 10/10/2022 [id number] / / [id number] Biomet Arcom Patella Single 1/4 Inch Peg With Wire 31mm X 8 Mm Implanted:Qty: 1 on 01/10/2013 by William Abebe MD at [facility] Left: Knee 11/10/2017 [id number] / / [id number] Vanguard Cr Femoral 67.5 Mm Left Interlok Implanted:Qty: 1 on 01/10/2013 by William Abebe MD at [facility] Left: Knee 06/12/2022 [id number] / / [id number] Biomet Vanguard/Tm Dcm Tibial Bearing Anterior Stabilized 12mm X 75mm Implanted:Qty: 1 on 01/10/2013 by William Abebe MD at [facility] Left: Knee 07/12/2017 [id number] / / [id number] Brdg Tib Denise Stbl 12mm X 71mm Implanted:Qty: 1 on 04/13/2013 by William Abebe MD at [facility] Right: Knee [employer] Inc 03/01/2018 [id number] / / [id number] Beto Bone Hartford Hv Implanted:Qty: 1 on 04/13/2013 by William Abebe MD at [facility] Right: Knee [employer] 10/30/2014 [id number] / / [id number] 65mm Cr Femoral Implanted:Qty: 1 on 04/13/2013 by William Abebe MD at [facility] Right: Knee 01/30/2023 [id number] / / [id number] 31mm X 8mm Arcom Patella Implanted:Qty: 1 on 04/13/2013 by William Abebe MD at [facility] Right: Knee 03/01/2018 [id number] / / [id number] Ty Tibial I Beam Fix Bar 71mm Implanted:Qty: 1 on 04/13/2013 by William Abebe MD at [facility] Right: Knee [employer] 12/30/2022 [id number] / / [id number] Procedures Procedure Name Priority Date/Time Associated Diagnosis [...] Comment . [facility] INSURANCE BILL Note Comment [facility] Comment: The Pap smear is a screening test designed to aid in the detection of premalignant and malignant conditions of the uterine cervix. It is not a diagnostic procedure and should not be used as the sole means of detecting cervical cancer. Both false-positive and false-negative reports do occur. [facility] CPT Code Automation Comment [facility] Comment: This liquid based ThinPrep(R) pap test was screened with the use of an image guided system. Pathology/Cytolog y PART OF UTERINE CERVIX / Unknown 02/13/2025 9:17 AM CDT 02/13/2025 Comment:Cervix Release to vt fabien Chiu [facility] INSURANCE BILL - 02/15/2025 1:10 PM CDT Performed at: [address] [place] [id number] Basketball Scout: Linda Kaplan MD, Phone: [phone] Specimen Comment: [id number] Specimen Comment: Source.............Cervix;Endocervix Specimen Comment: No. of containers..01 ThinPrep Vial us Roly Narayan MD LAB - PATHOLOGY/CYTOLOGY ORD ERABLES Final Result [facility] INSURANCE BILL [address] [place] [address] from Last [address] [place] [address] [address] MEDICARE AAR MEDICARE SELF PAY NO INSURANCE Member Subscriber Plan / Payer (Ef fective for All Dates) Name:BenjiKristina giang Марина Member ID:Not on file Relation to Subscriber:Not on file Name:BENJIDEEPIKAKRISTINA Subscriber ID:Not on file (Home) Address: [address] [place] [address] Payer ID:Not on file Group ID:Not on file Type:Self Pay Address: [place], [place] * Guarantor: KRISTINA LEBLANC Account Type Relation to Patient Date of Phone Billing Address Personal/Family 1945 [address] [place] [address] * Guarantor: KRISTINA LEBLANC Account Type Relation [...] 2:42 PM 01/13/2013 12:28 PM Care Teams Vice President Of Business Development Relationship Specialty Start Date End Date Max Branch MD [address] [place] [id number] PCP - OBGYN 06/19/09 Hero Lujan MD [address] [place] [address] [address] [place] [address] PCP - General 01/03/19 William Abebe MD [address] [place] [id number] Orthopedic Surgery 10/12/12
--- OUTSIDE RECORDS SUMMARY | 2025-04-18 15:08 | XMS_ITS | Clinical Summary ---
Author Organization [facility] Address [address] [place] [address] Care Team Providers Care Rn Imaging Name Role Phone Hero Lujan MD Primary Care Provider [phone] Allergies Active Allergy Reactions Criticality Noted Date [...] on file Legal Sex Female 4:28 PM HALL SUPERVISOR Gender Identity Female 08/15/2021 11:30 AM HALL SUPERVISOR Sexual Orientation Not on file Last Filed Vital Signs Vital Sign Reading Time Taken Comments Blood Pressure 151/67 08/20/2021 2:20 PM HALL SUPERVISOR Pulse 100 08/20/2021 2:20 PM HALL SUPERVISOR Temperature 37.1 C (98.7 F) 08/20/2021 2:20 PM HALL SUPERVISOR Respiratory Rate 18 08/20/2021 2:20 PM HALL SUPERVISOR Oxygen Saturation 99% 08/20/2021 2:20 PM HALL SUPERVISOR Inhaled Oxygen Concentration - - Weight 79.4 kg (175 lb) 08/14/2021 2:01 PM HALL SUPERVISOR Height 157.5 cm (5' 2) 08/14/2021 2:01 PM HALL SUPERVISOR Body Mass Index 32.01 08/14/2021 2:01 PM HALL SUPERVISOR Plan of Treatment Health Maintenance Due Date [...] age to complete this topic Insurance MEDICARE [facility] Care Teams Rn Imaging Relationship Specialty Start Date End Date Hero Lujan MD [address] [place] [address] PCP - General INTERNAL MEDICINE 08/13/21
--- NOTE | 2025-04-18 16:36 | ED.URI ---
HPI - URI/Sore Throat General Chief Complaint: Upper Respiratory Infection Stated Complaint: sinus infection Time Seen by Provider: 04/18/25 13:20 Source: patient Limitations: no limitations History of Present Illness HPI Narrative: 79-year-old with a history of hypertension, diabetes, hypercholesteremia here with a complains of not feeling well, sinus congestion and occasional nonproductive cough his last 1 day. Patient states that he had 18 day trip to [place] and new [facility] is treated last night. Denies any fever chills. No history of nausea or vomiting. MD elicited complaint: nasal congestion and sinus pain Onset (ago): day(s) (1) Consistency: constant Severity: moderate Exacerbating factors: nothing Relieving factors: nothing Associated symptoms: denies other symptoms Related Data Home Medications ?Medication ?Instructions ?Recorded ?Confirmed ?Last Taken ?Type aspirin 81 mg tablet,delayed 81 mg PO DAILY 06/21/19 02/09/25 01/23/25 History release omega 7-mlr-qrh-fish oil 1,000 mg 2 cap PO BID 09/09/23 02/09/25 Unknown History (120 mg-180 mg) capsule (Fish Oil) nitrofurantoin macrocrystal 50 mg 50 mg PO DAILY 12/29/23 02/09/25 01/23/25 History capsule insulin degludec 100 unit/mL 22 unit subcut DAILY 11/11/24 02/09/25 01/23/25 History subcutaneous solution (Tresiba U-100 Insulin) cholecalciferol (vitamin D3) 50 50 mcg PO DAILY 02/24/25 Unknown History mcg (2,000 unit) capsule Allergies Allergy/AdvReac Type Severity Reaction Status Date / Time Sulfa (Sulfonamide Allergy Severe Fever Verified 04/18/25 12:02 Antibiotics) sulfamethoxazole (From Allergy Severe Fever Verified 04/18/25 12:02 Bactrim) trimethoprim (From Bactrim) Allergy Severe Fever Verified 04/18/25 12:02 ciprofloxacin Allergy Intermediate Anaphylactic Verified 04/18/25 12:02 Shock Review of Systems Review of Systems: All systems reviewed & are unremarkable except as noted in HPI and below Constitutional: Constitutional: Reports no additional constitutional complaints Eyes: Eyes: Reports no additional eye complaints ENT: Reports system reviewed and no additional complaints, except as documented Cardiovascular: Cardiovascular: Reports no additional cardiovascular complaints Respiratory: Respiratory: Reports no additional respiratory complaints Gastrointestinal: Gastrointestinal: Reports no additional gastrointestinal complaints Musculoskeletal: Musculoskeletal: Reports no additional musculoskeletal complaints [facility] Past Medical History Medical History Lower abdominal pain Change in bowel habits Loose stools Nausea and vomiting Left sided abdominal pain Chest pain Post-menopausal Rash GERD without esophagitis CKD (chronic kidney disease) stage 3, GFR 30-59 ml/min Pelvic pain in female Vaginal irritation Encounter for gynecological examination (general) (routine) with abnormal findings Encounter for Papanicolaou smear of cervix Screening mammogram, encounter for Stricture, ureter Acute UTI Sepsis Cellulitis and abscess of left leg Abdominal pain Contact dermatitis Obesity Abdominal pain Nephrolithiasis Diabetes mellitus HLD (hyperlipidemia) Hypothyroidism (acquired) Vitamin D deficiency disease GERD (gastroesophageal reflux disease) HTN (hypertension) Surgical History Surgical History S/P breast biopsy, left (~1984) 2 biopsies left breast Benign Hx of cholecystectomy History of knee replacement bilateral knees replaced S/P tubal ligation (~1979) History of ureter stent x 2 Family History Family History Mother Family history of arthritis Heart disease 08/2021 heart attack Father Patient's father is , Onset Age: 75 Grandparent Diabetes mellitus Sibling Acute myocardial infarction brother Other H/O ovarian cancer 2 maternal aunts Social History Social History Smoking packs per day: 2 Smoking cigarettes per day: 40.0 Years smoked: 3 Smoking pack-years: 6.00 Smoking status: Former smoker Tobacco type: cigarettes Additional smoking assessment comments: STATES QUIT OVER 50YRS AGO Alcohol intake: current Alcohol use details: rarely Substance use: never Substance use type: does not use Do You Feel Safe in your Home?: Yes Lack of Transportation: No Lack of Food: Never True Current Housing: I Have Housing Concerned About Future Housing: No Difficulty Paying Gas/Electric Bills: No Difficulty Paying for Meds: No Currently Unemployed: No Education: High School Diploma/GED Difficulty w/ Childcare or Family Care: No Living arrangements: alone Additional living arrangements comments: spouse in [facility] Occupation/Education: retired Gender identity (if verbalized by the patient): Female Sexual Orientation (if Verbalized by the Patient): Straight or Heterosexual Spiritual care concerns: No Exam Narrative: GENERAL: Well-appearing, well-nourished, and in no acute distress. HEAD: Normocephalic, atraumatic. EYES: PERRLA and EOMI.. NECK: Supple. CHEST: Clear to auscultation. No respiratory distress. HEART: Regular rate and rhythm. No murmur heard. Normal peripheral pulses. ABDOMEN: Soft, nontender, nondistended, normal active bowel sounds. EXTREMITIES: Normal range of motion. No edema. SKIN: Warm, dry, no rash. NEURO: No focal deficits. Alert and oriented x3. PSYCH: Normal mood and affect. Course Course Emergency Course: Informed patient about her lab work, CT findings. She has COVID advised conservative management at this time. She feels comfortable going home. Vital Signs Vital signs: Vital Signs Temperature 36.6 C 04/18/25 12:41 Pulse Rate 105 H 04/18/25 12:41 Respiratory Rate 16 04/18/25 12:41 Blood Pressure 142/58 H 04/18/25 12:41 Pulse Oximetry 97 04/18/25 12:41 Temperature 36.6 C 04/18/25 12:41 Pulse Rate 92 04/18/25 14:05 Respiratory Rate 22 H 04/18/25 14:05 Blood Pressure 136/70 04/18/25 14:05 Pulse Oximetry 97 04/18/25 14:05 Oxygen Delivery Room Air 04/18/25 13:06 MDM - URI/Sore Throat Differential Diagnosis Differential diagnosis: Likely upper respiratory infection, sinusitis, viral infection and influenza Medical Records Attestation: I reviewed the patient's medical records. Lab Data Attestation: I reviewed the patient's lab results. 04/18/25 14:12 04/18/25 14:12 Labs: Lab Results 04/18/25 Range/Units 14:12 WBC 9.6 (4.5-10.0) K/mm3 RBC 3.85 L (4.2-5.4) M/mm3 Hgb 11.6 L (12.0-15.0) g/dL Hct 35.2 L (37.0-47.0) % MCV 91.4 (80-100) fl MCH 30.1 (26-34) pg MCHC 33.0 (32-36) g/dl RDW 13.6 (11.5-14.5) % Plt Count 211 (150-375) k/mm3 MPV 9.6 (7.4-10.4) fl Immature Gran % (Auto) 0.5 (0-0.5) % Neut % (Auto) 82.8 H (45.5-73.1) % Lymph % (Auto) 8.2 L (18.3-44.2) % [place] % (Auto) 8.3 (2.6-8.5) % Eos % (Auto) 0.0 (0-4.4) % Baso % (Auto) 0.2 (0.2-1.2) % Lymph # (Auto) 0.79 L (0.9-3.2) K/mm3 [place] # (Auto) 0.8 H (0.1-0.6) K/mm3 Eos # (Auto) 0.0 (0-0.3) K/mm3 Baso # (Auto) 0.0 (0.0-0.1) K/mm3 Abs Immat Gran (auto) 0.05 H (0.00-0.031) K/mm3 Absolute Neuts (auto) 8.0 H (1.3-6.7) K/mm3 Absolute Nucleated RBC 0.000 (0.0-0.012) K/mm3 Nucleated RBC % 0.0 (0.0-0.2) % Sodium 129 L (137-145) mmol/L Potassium 4.3 (3.4-5.0) mmol/L Chloride 97 L (98-107) mmol/L Carbon Dioxide 22 (22-30) mmol/L Anion Gap 10 (4-12) mmol/L BUN 39 H (7-17) mg/dL Creatinine 1.31 H (0.7-1.0) mg/dL Estim Creat Clear Calc 31 ml/min Estimated GFR 39 L (59 - ) Glucose 247 H (65-110) mg/dL Calcium 9.0 (8.4-10.2) mg/dL Total Bilirubin 0.7 (0.2-1.3) mg/dL AST 38 H (14-36) U/L ALT 26 (6-35) U/L Alkaline Phosphatase 76 (38-126) U/L Total Protein 6.8 (6.3-8.2) g/dL Albumin 3.6 (3.5-5.1) g/dL Influenza A (RT-PCR) Negative (Negative) Influenza B (RT-PCR) Negative (Negative) RSV (RT-PCR) Negative (Negative) SARS-CoV-2 RNA (RT-PCR) Positive A (Negative) Imaging Data Radiologist's impression: ITS Impressions Head/Sinuses CT 04/18/25 14:01 IMPRESSION: 1. Stable moderate nonspecific cerebral white matter disease, which likely represents chronic small vessel ischemic disease. 2. Mucosal thickening in the paranasal sinuses. Discharge Plan Discharge Clinical Impression: Acute viral syndrome, COVID Patient Disposition: Home Condition: Stable Instructions: Antibiotic Form, COVID-19 (Coronavirus Disease 2019) (ED) Additional Instructions: Continue home medication, can take Tylenol or ibuprofen for body aches and fever Patient Language: Tristanian Prescriptions: No Action nitrofurantoin macrocrystal 50 mg capsule 50 mg PO DAILY insulin degludec [Tresiba U-100 Insulin] 100 unit/mL solution 22 unit SUBCUT DAILY aspirin 81 mg tablet,delayed release (DR/EC) 81 mg PO DAILY losartan-hydrochlorothiazide 50-12.5 mg tablet See Rx Instructions .ROUTE .COMPLEX Qty: 90 3RF Dose Instruction: TAKE 1 TABLET BY MOUTH DAILY Rx Instructions: TAKE 1 TABLET BY MOUTH DAILY cholecalciferol (vitamin D3) 50 mcg (2,000 unit) capsule 50 mcg PO DAILY insulin aspart U-100 [Novolog FlexPen U-100 Insulin] 100 unit/mL (3 mL) insulin pen 4 unit subcut .before meals MDD 20 Qty: 15 0RF Rx Instructions: 4 units before each meal plus scale no meal and no shot ondansetron 4 mg tablet,disintegrating 4 mg PO Q8H PRN (Reason: nausea and vomiting) Qty: 30 0RF cholestyramine (with sugar) [Questran] 4 gram powder in packet 4 g PO BID Qty: 60 5RF Rx Instructions: administer w/meal; avoid other meds within 1hr before or 4-6hr after dose amitriptyline 25 mg tablet 25 mg PO QHS 30 Days Qty: 30 5RF cephalexin 500 mg capsule 500 mg PO Q8H 7 Days Qty: 21 0RF phenazopyridine [Pyridium] 200 mg tablet 200 mg PO TID Qty: 6 0RF omega 0-hzc-jew-fish oil [Fish Oil] 1,000 mg (120 mg-180 mg) capsule 2 cap PO BID atorvastatin 40 mg tablet See Rx Instructions .ROUTE .COMPLEX Qty: 90 2RF Dose Instruction: TAKE 1 TABLET BY MOUTH DAILY Rx Instructions: TAKE 1 TABLET BY MOUTH DAILY levothyroxine 25 mcg tablet See Rx Instructions .ROUTE .COMPLEX Qty: 90 3RF Dose Instruction: TAKE 1 TABLET BY MOUTH DAILY Rx Instructions: TAKE 1 TABLET BY MOUTH DAILY metformin 1,000 mg tablet See Rx Instructions .ROUTE .COMPLEX Qty: 180 3RF Dose Instruction: TAKE 1 TABLET BY MOUTH TWICE DAILY WITH MORNING AND EVENING MEALS Rx Instructions: TAKE 1 TABLET BY MOUTH TWICE DAILY WITH MORNING AND EVENING MEALS IRON 65MG TAB See Rx Instructions .ROUTE .COMPLEX Qty: 60 2RF Dose Instruction: Take 1 tablet by mouth twice daily Rx Instructions: Take 1 tablet by mouth twice daily Follow-up/Referrals: Hero Lujan MD [Primary Care Provider, Internal Medicine] Time of Disposition: 16:42
[2025-04-18 16:45] VITALS: BP 124/60; PULSE 89; RESP 20; O2SAT 98
[2025-04-18 17:11] VITALS: BP 124/60; PULSE 90; RESP 16; O2SAT 98
== END 2025-04-18 17:12 | disposition home or self-care (01) ==
PROVIDERS: Emergency Provider Family Medicine; PCP Emergency Medicine
DX: U07.1 COVID-19 (principal); E11.22 Type 2 diabetes mellitus with diabetic chronic kidney disease; I12.9 Hypertensive chronic kidney disease with stage 1 through stage 4 chronic kidney disease, or unspecified chronic kidney disease; N18.30 Chronic kidney disease, stage 3 unspecified; E78.00 Pure hypercholesterolemia, unspecified; E03.9 Hypothyroidism, unspecified; E55.9 Vitamin D deficiency, unspecified; K21.9 Gastro-esophageal reflux disease without esophagitis; Z87.440 Personal history of urinary (tract) infections; Z87.891 Personal history of nicotine dependence; Z96.653 Presence of artificial knee joint, bilateral; Z90.49 Acquired absence of other specified parts of digestive tract; Z79.82 Long term (current) use of aspirin; Z79.4 Long term (current) use of insulin; Z79.899 Other long term (current) drug therapy; Z79.84 Long term (current) use of oral hypoglycemic drugs
CPT/HCPCS: 36415; 70450; 70486; 80053; 85025; 87637; 99284

== ENCOUNTER 2025-04-25 10:51 | Inpatient (IN) | payer MEDICARE, SELFPAY ==
--- NOTE | ~2025-04-25 | CT_ITS ---
EXAMINATION: CT abdomen pelvis w con DATE: 04/25/2025 12:48 INDICATION: Right lower quadrant abdominal pain TECHNIQUE: Computed tomography (CT) of the abdomen and pelvis was performed with 100 mL Omnipaque-350 intravenous contrast. Automated exposure control and iterative reconstruction technique were employed. The dose-length product was 1028.91 mGy-cm. COMPARISON: 02/22/2025 FINDINGS: Mild bibasilar atelectasis. Heart size is normal. Atherosclerotic coronary artery calcifications. Small pericardial effusion. Gallbladder is nonvisualized and likely surgically absent. Liver, spleen, pancreas and bilateral adrenal glands are normal. There is scattered cortical scarring at both kidneys. There is urothelial enhancement along the bilateral ureters and at the bilateral renal pelvises sees consistent with ascending urinary tract infection. There are small geographic regions of decreased parenchymal enhancement the left kidney which appear relatively swollen suspicious for pyelonephritis. Bladder is normal. Age- appropriate uterine and bilateral ovarian atrophy. 1.4 cm left ovarian cyst. Mild diverticulosis along the descending and sigmoid colon without adjacent inflammatory stranding to suggest diverticular colitis. Small bowel and appendix are normal. No free intraperitoneal gas or fluid. No pathologically enlarged abdominal or pelvic lymphadenopathy. Severe lumbar spondylosis. IMPRESSION: 1. Urothelial enhancement at the bilateral ureters and renal pelvises sees suspicious for ascending urinary tract infection with regions of decreased parenchymal enhancement the left kidney suspicious for pyelonephritis. Correlate with urinalysis. 2. No other acute intra-abdominal/pelvic process. Specifically the appendix is normal. Reviewed, dictated and finalized at location A. IMPRESSION: 1. Urothelial enhancement at the bilateral ureters and renal pelvises sees susp icious for ascending urinary tract infection with regions of decreased parenchy mal enhancement the left kidney suspicious for pyelonephritis. Correlate with u rinalysis. 2. No other acute intra-abdominal/pelvic process. Specifically the appendix is normal.
[2025-04-25 10:47] VITALS: BP 159/73; PULSE 84; RESP 20; TEMP 36.4; O2SAT 100
--- NOTE | 2025-04-25 11:41 | ED.GENADULT ---
HPI - General Adult General Chief complaint: Abdominal Pain Stated complaint: abd pain with N/V Time Seen by Provider: 04/25/25 11:07 History of Present Illness HPI narrative: Deborah Cancino is a 79 y/o female who presents with daughter. Daughter states patient has had 'debilitating abdominal pain for a year off and on'. She states her pain is typically on the left lower quadrant. She comes in today with complaints of nausea/vomiting that started at 1900 last night and now having right lower abdominal pain. She feels that her abdominal pain gets better after she vomits. Denies urinary symptoms/ last BM was 1-2 days ago Related Data Home Medications ?Medication ?Instructions ?Recorded ?Confirmed ?Last Taken ?Type aspirin 81 mg tablet,delayed 81 mg PO DAILY 06/21/19 04/25/25 04/24/25 History release omega 7-xvs-zow-fish oil 1,000 mg 2 cap PO BID 09/09/23 04/25/25 04/24/25 History (120 mg-180 mg) capsule (Fish Oil) insulin degludec 100 unit/mL 22 unit subcut DAILY 11/11/24 04/25/25 04/24/25 History subcutaneous solution (Tresiba U-100 Insulin) cholecalciferol (vitamin D3) 50 50 mcg PO DAILY 02/24/25 04/25/25 04/24/25 History mcg (2,000 unit) capsule dicyclomine 10 mg capsule 10 mg PO DAILY PRN abdominal pain 04/25/25 04/25/25 04/21/25 History Allergies Allergy/AdvReac Type Severity Reaction Status Date / Time Sulfa (Sulfonamide Allergy Severe Fever Verified 04/25/25 10:57 Antibiotics) sulfamethoxazole (From Allergy Severe Fever Verified 04/25/25 10:57 Bactrim) trimethoprim (From Bactrim) Allergy Severe Fever Verified 04/25/25 10:57 ciprofloxacin Allergy Intermediate Anaphylactic Verified 04/25/25 10:57 Shock Review of Systems Review of Systems: All systems reviewed & are unremarkable except as noted in HPI and below PMFSH Past Medical History Medical History (Updated 04/25/25 @ 19:41 by Marilee Bernal, MEDICAL OFFICE PROFESSIONAL INSTRUCTOR) Diverticulosis Diabetes mellitus HLD (hyperlipidemia) Change in bowel habits Loose stools Nausea and vomiting Chest pain Post-menopausal CKD (chronic kidney disease) stage 3, GFR 30-59 ml/min Encounter for gynecological examination (general) (routine) with abnormal findings Encounter for Papanicolaou smear of cervix Screening mammogram, encounter for Stricture, ureter Sepsis Cellulitis and abscess of left leg Contact dermatitis Obesity Nephrolithiasis Hypothyroidism (acquired) Vitamin D deficiency disease GERD (gastroesophageal reflux disease) HTN (hypertension) Surgical History Surgical History (Updated 04/25/25 @ 19:34 by Marilee Bernal APRN) History of cataract extraction S/P breast biopsy, left (~1984) 2 biopsies left breast Benign Hx of cholecystectomy History of knee replacement bilateral knees replaced S/P tubal ligation (~1979) History of ureter stent x 2 Family History Family History (Updated 04/25/25 @ 22:31 by Dalila Mckeon, RN) Mother Family history of arthritis Heart disease 08/2021 heart attack Father Patient's father is , Onset Age: 75 Hypertension Grandparent Diabetes mellitus Sibling Acute myocardial infarction brother Other H/O ovarian cancer 2 maternal aunts Social History Social History Smoking packs per day: 2 Smoking cigarettes per day: 40.0 Years smoked: 3 Smoking pack-years: 6.00 Smoking status: Never smoker Tobacco type: cigarettes Second hand tobacco smoke exposure: No Additional smoking assessment comments: STATES QUIT OVER 50YRS AGO Alcohol intake: never Alcohol use details: rarely Substance use: never Substance use type: does not use Do You Feel Safe in your Home?: Yes Lack of Transportation: No Lack of Food: Never True Current Housing: I Have Housing Concerned About Future Housing: No Difficulty Paying Gas/Electric Bills: No Difficulty Paying for Meds: No Currently Unemployed: No Education: High School Diploma/GED Difficulty w/ Childcare or Family Care: No Living arrangements: alone Additional living arrangements comments: spouse in [facility] Occupation/Education: retired Gender identity (if verbalized by the patient): Female Sexual Orientation (if Verbalized by the Patient): Straight or Heterosexual Spiritual care concerns: No Exam Narrative: GENERAL: Well-appearing, well-nourished, and in no acute distress. HEAD: Normocephalic, atraumatic. EYES: PERRLA and EOMI. ENT: Nares clear, no rhinorrhea or epistaxis. Mucous membranes moist. Oropharynx without tonsillar hypertrophy exudate or other lesions. NECK: Supple. No adenopathy or masses. No carotid bruits or JVD CHEST: Clear to auscultation. No respiratory distress. No wheezes rales or rhonchi HEART: Regular rate and rhythm. No murmur heard. Normal peripheral pulses. ABDOMEN: Soft nondistended, normal active bowel sounds.+ pain to the right and left lower quadrant EXTREMITIES: Normal range of motion. No edema. SKIN: Warm, dry, no rash. NEURO: No focal deficits. Alert and oriented x3. PSYCH: Normal mood and affect. Course Vital Signs Vital signs: Vital Signs Temperature 36.4 C 04/25/25 10:47 Pulse Rate 84 04/25/25 10:47 Respiratory Rate 20 04/25/25 10:47 Blood Pressure 159/73 H 04/25/25 10:47 Pulse Oximetry 100 04/25/25 10:47 Oxygen Delivery Room Air 04/25/25 10:47 Temperature 36.4 C 04/26/25 14:00 Pulse Rate 93 04/26/25 14:00 Respiratory Rate 16 04/26/25 14:00 Blood Pressure 155/66 H 04/26/25 14:00 Pulse Oximetry 97 04/26/25 14:00 Oxygen Delivery Room Air 04/26/25 08:48 Medical Decision Making [facility] Narrative Medical decision making narrative: 72-year-old female who presents with complaints of having nausea vomiting that has been coming on off and on over the past year so that several testing done. However last night at around 7:00 p.m. she started to have nausea vomiting that did not quit and feeling worse. She states she is having lower abdominal pain. Labs are show weighted acute urinary tract infection CTA showing acute pyelonephritis patient has had continued nausea vomited x1 in the ER. Discussed with hospitalist about admitting for hydration antiemetics and IV antibiotics she wanted her to at least try a p.o. challenge I discussed this with patient and family we did this and eating did make her feel worse she said her pain was returning and she was feeling very nauseous. Patient was given another round of antiemetics talked with the hospitalist again and she was admitted observation for pyelonephritis, hydration and antiemetics and pain control. Medical Records Medical records reviewed: Yes I reviewed the external patient's medical records. Vital Signs Vital Signs: Vital Signs Temperature 36.4 C 04/25/25 10:47 Pulse Rate 84 04/25/25 10:47 Respiratory Rate 20 04/25/25 10:47 Blood Pressure 159/73 H 04/25/25 10:47 Pulse Oximetry 100 04/25/25 10:47 Oxygen Delivery Room Air 04/25/25 10:47 Temperature 36.4 C 04/26/25 14:00 Pulse Rate 93 04/26/25 14:00 Respiratory Rate 16 04/26/25 14:00 Blood Pressure 155/66 H 04/26/25 14:00 Pulse Oximetry 97 04/26/25 14:00 Oxygen Delivery Room Air 04/26/25 08:48 Vitals reviewed by me Lab Data Lab results reviewed: Yes I reviewed the patient's lab results. 04/26/25 13:12 04/26/25 13:12 Labs: Lab Results 04/25/25 04/25/25 04/25/25 Range/Units 11:28 11:40 13:14 WBC 8.1 (4.5-10.0) K/mm3 RBC 3.86 L (4.2-5.4) M/mm3 Hgb 11.6 L (12.0-15.0) g/dL Hct 36.0 L (37.0-47.0) % MCV 93.3 (80-100) fl MCH 30.1 (26-34) pg MCHC 32.2 (32-36) g/dl RDW 13.8 (11.5-14.5) % Plt Count 401 H D (150-375) k/mm3 MPV 8.9 (7.4-10.4) fl Immature Gran % (Auto) 0.7 H (0-0.5) % Neut % (Auto) 82.8 H (45.5-73.1) % Lymph % (Auto) 9.5 L (18.3-44.2) % [place] % (Auto) 5.9 (2.6-8.5) % Eos % (Auto) 0.7 (0-4.4) % Baso % (Auto) 0.4 (0.2-1.2) % Lymph # (Auto) 0.77 L (0.9-3.2) K/mm3 [place] # (Auto) 0.5 (0.1-0.6) K/mm3 Eos # (Auto) 0.1 (0-0.3) K/mm3 Baso # (Auto) 0.0 (0.0-0.1) K/mm3 Abs Immat Gran (auto) 0.06 H (0.00-0.031) K/mm3 Absolute Neuts (auto) 6.7 (1.3-6.7) K/mm3 Absolute Nucleated RBC 0.000 (0.0-0.012) K/mm3 Nucleated RBC % 0.0 (0.0-0.2) % Sodium 139 (137-145) mmol/L Potassium 3.8 (3.4-5.0) mmol/L Chloride 107 (98-107) mmol/L Carbon Dioxide 23 (22-30) mmol/L Anion Gap 9 (4-12) mmol/L BUN 25 H D (7-17) mg/dL Creatinine 0.89 (0.7-1.0) mg/dL Estim Creat Clear Calc 45 ml/min Estimated GFR > 60 (59 - ) Glucose 178 H (65-110) mg/dL POC Capillary Glucose (65-105) mg/dl Lactic Acid 1.1 (0.7-2.0) mmol/L Calcium 9.5 (8.4-10.2) mg/dL Total Bilirubin 0.4 (0.2-1.3) mg/dL AST 28 (14-36) U/L ALT 20 (6-35) U/L Alkaline Phosphatase 78 (38-126) U/L Total Protein 6.6 (6.3-8.2) g/dL Albumin 3.5 (3.5-5.1) g/dL Lipase 109 (23-300) U/L Urine Color Yellow (Yellow) Urine Appearance Cloudy H (Clear) Urine pH 5.5 (5.0-9.0) Ur Specific [place] 1.018 (1.001-1.035) Urine Protein 1+ H (Negative) mg/dL Urine Glucose (UA) Negative (Negative) mg/dL Urine Ketones Trace H (Negative) mg/dL Ur Blood (Man) 3+ H (Negative) Urine Nitrate Negative (Negative) Urine Bilirubin Negative (Negative) Urine Urobilinogen 0.2 (<2.0) mg/dL Leukocyte Esterase Rfl 3+ H (Negative) CLAUDIA/UL Urine RBC >100 H (0-2) /hpf Urine WBC >100 H (0-3) /hpf Ur Squamous Epith Cells None seen (Few) /hpf Urine Bacteria None seen /hpf Urine Casts 3-5 SARS-CoV-2 RNA (RT-PCR) Negative (Negative) 04/25/25 04/26/25 Range/Units 21:21 07:29 WBC (4.5-10.0) K/mm3 RBC (4.2-5.4) M/mm3 Hgb (12.0-15.0) g/dL Hct (37.0-47.0) % MCV (80-100) fl MCH (26-34) pg MCHC (32-36) g/dl RDW (11.5-14.5) % Plt Count (150-375) k/mm3 MPV (7.4-10.4) fl Immature Gran % (Auto) (0-0.5) % Neut % (Auto) (45.5-73.1) % Lymph % (Auto) (18.3-44.2) % [place] % (Auto) (2.6-8.5) % Eos % (Auto) (0-4.4) % Baso % (Auto) (0.2-1.2) % Lymph # (Auto) (0.9-3.2) K/mm3 [place] # (Auto) (0.1-0.6) K/mm3 Eos # (Auto) (0-0.3) K/mm3 Baso # (Auto) (0.0-0.1) K/mm3 Abs Immat Gran (auto) (0.00-0.031) K/mm3 Absolute Neuts (auto) (1.3-6.7) K/mm3 Absolute Nucleated RBC (0.0-0.012) K/mm3 Nucleated RBC % (0.0-0.2) % Sodium (137-145) mmol/L Potassium (3.4-5.0) mmol/L Chloride (98-107) mmol/L Carbon Dioxide (22-30) mmol/L Anion Gap (4-12) mmol/L BUN (7-17) mg/dL Creatinine (0.7-1.0) mg/dL Estim Creat Clear Calc ml/min Estimated GFR (59 - ) Glucose (65-110) mg/dL POC Capillary Glucose 221 H 266 H (65-105) mg/dl Lactic Acid (0.7-2.0) mmol/L Calcium (8.4-10.2) mg/dL Total Bilirubin (0.2-1.3) mg/dL AST (14-36) U/L ALT (6-35) U/L Alkaline Phosphatase (38-126) U/L Total Protein (6.3-8.2) g/dL Albumin (3.5-5.1) g/dL Lipase (23-300) U/L Urine Color (Yellow) Urine Appearance (Clear) Urine pH (5.0-9.0) Ur Specific [place] (1.001-1.035) Urine Protein (Negative) mg/dL Urine Glucose (UA) (Negative) mg/dL Urine Ketones (Negative) mg/dL Ur Blood (Man) (Negative) Urine Nitrate (Negative) Urine Bilirubin (Negative) Urine Urobilinogen (<2.0) mg/dL Leukocyte Esterase Rfl (Negative) CLAUDIA/UL Urine RBC (0-2) /hpf Urine WBC (0-3) /hpf Ur Squamous Epith Cells (Few) /hpf Urine Bacteria /hpf Urine Casts SARS-CoV-2 RNA (RT-PCR) (Negative) Imaging Data Radiologist's impression: Impressions Abdomen/Pelvis CT 04/25/25 12:50 IMPRESSION: 1. Urothelial enhancement at the bilateral ureters and renal pelvises sees suspicious for ascending urinary tract infection with regions of decreased parenchymal enhancement the left kidney suspicious for pyelonephritis. Correlate with urinalysis. 2. No other acute intra-abdominal/pelvic process. Specifically the appendix is normal. Discharge Plan Discharge Clinical Impression: Acute pyelonephritis Nausea & vomiting Qualifiers: Vomiting type: unspecified Qualified Code(s): R11.2 - Nausea with vomiting, unspecified Abdominal pain Qualifiers: Abdominal location: unspecified location Qualified Code(s): R10.9 - Unspecified abdominal pain Patient Disposition: Still a Patient Condition: Stable Time of Disposition: 19:08
[2025-04-25 11:49] LABS: Hematocrit 36.0 % (37.0-47.0); Hemoglobin 11.6 g/dL (12.0-15.0); Immature Granulocyte Percent A 0.7 % (0-0.5); Lymphocytes Absolute Auto 0.77 K/mm3 (0.9-3.2); Mean Corpuscular HGB Conc 32.2 g/dl (32-36); Mean Corpuscular Hemoglobin 30.1 pg (26-34); Mean Corpuscular Volume 93.3 fl (80-100); Nucleated Red Blood Cells Absolute Auto 0.000 K/mm3 (0.0-0.012); Nucleated Red Blood Cells Perc 0.0 % (0.0-0.2); Platelet Count Result 401 k/mm3 (150-375); Red Blood Count 3.86 M/mm3 (4.2-5.4); White Blood Count 8.1 K/mm3 (4.5-10.0)
--- OUTSIDE RECORDS SUMMARY | 2025-04-25 11:56 | XMS_ITS | Encounter Summary ---
Author Organization [facility] Address [address] [place] [address] Care Team Providers Care Homeopathic Doctor Name Role Phone Hero Lujan MD Primary Care Provider [phone] Encounter Details Date Type Department Care Team (Late st Contact Info) Description 08/12/2021 Therapy Plan [facility] [address] [place] [address] Evan Klein MD [address] [place] [id number] Social History Tobacco Use Types Packs/Day Years Used Date Smoking Tobacco: Never Assessed Comments Unknown Sex and Gender Information Value Date Recorded Sex Assigned at Not on file Legal Sex Female 4:28 PM STILE RIPSAW OPERATOR Gender Identity Female 08/15/2021 11:30 AM STILE RIPSAW OPERATOR Sexual Orientation Not on file COVID-19 Exposure Response Date Recorded In the last month, have you been in contact with someone who was confirmed or suspected to have Coronavirus / COVID-19? No / Unsure 08/15/2021 3:50 PM STILE RIPSAW OPERATOR documented as of this encounter Functional Status * Calculated C-SSRS Risk Score (Lifetime/Recent) Answer Date of Assessment Author Status No Risk Indicated 08/14/2021 2:01 PM Karrie Cavazos RN Active * [place] Suicide Severity Rating Scale (Screener/Recent Self-Report) Question Answer Date of Assessment Author Status 1. Wish to be (Past 1 Month) No 08/14/2021 2:01 PM Fabiola Cavazos RN Act billy 2. Non-Specific Active Suicidal Thoughts (Past 1 Month) No 08/14/2021 2:01 PM STILE RIPSAW OPERATOR Fabiola Garcia, CALLIE Act billy documented as of this encounter Plan of Treatment Not on file documented as of this encounter Visit Diagnoses Diagnosis Chronic cystitis without hematuria- Primary documented in this encounter Care Teams Homeopathic Doctor Relationship Specialty Start Date End Date Hero Lujan MD [address] [place] [id number] PCP - General INTERNAL MEDICINE 08/13/21 documented as of this encounter
--- OUTSIDE RECORDS SUMMARY | 2025-04-25 11:56 | XMS_ITS | Patient Health Record ---
Author Organization [facility] Address [address] [place], [place] [id number] Care Team Providers Care Silo Operator Name Role Phone Hero Lujan Unavailable [...] [place] [address] [place] [address] [id number] Deborah Cancino Self - patient is the insured [facility] Medicare Supplement [address] [place], [place] [id number] Deborah Cancino Self - patient is the insured
--- OUTSIDE RECORDS SUMMARY | 2025-04-25 11:56 | XMS_ITS | Encounter Summary ---
Author Organization [facility] Address [address] [facility] [place] [address] Care Team Providers Care Exhibit Specialist Name Role Phone Odette Webb MD Primary Care Provider Max Branch MD Unavailable William Abebe MD Unavailable [phone] Hero Lujan MD Primary Care Provider [phone] Encounter Details Date Type Department Care Team [...] Sex Assigned at Female 08/19/2024 9:26 AM ADJUNCT PROFESSOR OF VOICE Legal Sex Female 6:46 AM ADJUNCT PROFESSOR OF VOICE Gender Identity Female 08/19/2024 9:26 AM ADJUNCT PROFESSOR OF VOICE Sexual Orientation Choose not to disclose 2024 9:26 AM ADJUNCT PROFESSOR OF VOICE documented as of this encounter Plan of Treatment Not on file documented as of this encounter Visit Diagnoses Not on filedocumented in this encounter Care Teams Exhibit Specialist Relationship Specialty Start Date End Date Odette Webb MD [address] [facility] [address] [place] [phone] PCP - General 06/27/09 01/02/19 Max Branch MD [address] [place] [id number] PCP - OBGYN 06/19/09 Hero Lujan MD [address] [place] [address] [address] [place] [address] PCP - General 01/03/19 William Abebe MD [address] [place] [id number] Orthopedic Surgery 10/12/12 documented as of this encounter
--- OUTSIDE RECORDS SUMMARY | 2025-04-25 11:56 | XMS_ITS | Clinical Summary ---
Author Organization [facility] [employer] Address [address] [place] [address] Care Team Providers Care Dynamometer Tester Name Role Phone Max Branch MD Unavailable [phone] William Abebe MD Unavailable [phone] Hero Lujan MD Primary Care Provider [phone] Source Comments [facility],non-owned Affiliates and Associated Physician Practices is amultiple site organization consisting of ambulatory clinics and hospital sitesin [place], [place], [place] and [place]. This disclosure is being madepursuant to the Care Everywhere program and may not contain all information available regarding this patient. Last updated 18.[facility] Allergies Active Allergy Reactions Criticality Noted [...] Department Care Team Description 02/15/2025 Results Follow-Up [facility] - RECRUIT INSTRUCTOR [address] [place] [address], [address] [place] [phone] Halima Alonzo 02/13/2025 9:00 AM CDT Office Visit [facility] - RECRUIT INSTRUCTOR [address] [place] [address], [address] [place] [address] Roly Narayan MD Pap smear, [...] Sex Assigned at Female 08/19/2024 9:26 AM CHIEF WELLNESS OFFICER Legal Sex Female 6:46 AM CHIEF WELLNESS OFFICER Gender Identity Female 08/19/2024 9:26 AM CHIEF WELLNESS OFFICER Sexual Orientation Choose not to disclose 2024 9:26 AM CHIEF WELLNESS OFFICER Last Filed Vital Signs Vital Sign Reading Time Taken Comments Blood Pressure 118/72 02/13/2025 8:54 AM CDT Pulse 104 08/16/2017 6:10 AM CHIEF WELLNESS OFFICER Temperature 36.9 C (98.4 F) 08/16/2017 6:10 AM CHIEF WELLNESS OFFICER Respiratory Rate 16 08/16/2017 6:10 AM CHIEF WELLNESS OFFICER Oxygen Saturation 93% 08/16/2017 6:10 AM CHIEF WELLNESS OFFICER Inhaled Oxygen Concentration - - Weight [...] this topic Medical Devices Implanted Type Area Reconnaissance Crewmember Device Identifier Shelf Expiration Date Model / Serial / Lot Beto Bone Wilsall Hv Implanted:Qty: 1 on 01/10/2013 by William Abebe MD at [facility] Left: Knee [employer] 07/12/2014 [id number] / / [id number] Biomet Interlok 75mm Fixed Ibeam Tibial Plate With Locking Bar Implanted:Qty: 1 on 01/10/2013 by William Abebe MD at [facility] Left: Knee 10/10/2022 [id number] / / [id number] Biomet Arcom Patella Single 1/4 Inch Peg With Wire 31mm X 8 Mm Implanted:Qty: 1 on 01/10/2013 by William Abebe MD at [facility] Left: Knee 11/10/2017 [id number] / / [id number] Vanguard Cr Femoral 67.5 Mm Left Interlok Implanted:Qty: 1 on 01/10/2013 by William Abebe MD at [facility] Left: Knee 06/12/2022 [id number] / / [id number] Biomet Vanguard/Tm Dcm Tibial Bearing Anterior Stabilized 12mm X 75mm Implanted:Qty: 1 on 01/10/2013 by William Abebe MD at [facility] Left: Knee 07/12/2017 [id number] / / [id number] Brdg Tib Denise Stbl 12mm X 71mm Implanted:Qty: 1 on 04/13/2013 by William Abebe MD at [facility] Right: Knee [employer] Inc 03/01/2018 [id number] / / [id number] Beto Bone Wilsall Hv Implanted:Qty: 1 on 04/13/2013 by William Abebe MD at [facility] Right: Knee [employer] 10/30/2014 [id number] / / [id number] 65mm Cr Femoral Implanted:Qty: 1 on 04/13/2013 by William Abebe MD at [facility] Right: Knee 01/30/2023 [id number] / / [id number] 31mm X 8mm Arcom Patella Implanted:Qty: 1 on 04/13/2013 by William Abebe MD at [facility] Right: Knee 03/01/2018 [id number] / / [id number] Ty Tibial I Beam Fix Bar 71mm Implanted:Qty: 1 on 04/13/2013 by William Abebe MD at [facility] Right: Knee [employer] 12/30/2022 [id number] / / [id number] Procedures Procedure Name Priority Date/Time Associated Diagnosis [...] Comment . [facility] INSURANCE BILL Note Comment [facility] Comment: The Pap smear is a screening test designed to aid in the detection of premalignant and malignant conditions of the uterine cervix. It is not a diagnostic procedure and should not be used as the sole means of detecting cervical cancer. Both false-positive and false-negative reports do occur. [facility] CPT Code Automation Comment [facility] Comment: This liquid based ThinPrep(R) pap test was screened with the use of an image guided system. Pathology/Cytolog y PART OF UTERINE CERVIX / Unknown 02/13/2025 9:17 AM CDT 02/13/2025 Comment:Cervix Release to md fabien Chiu [facility] INSURANCE BILL - 02/15/2025 1:10 PM CDT Performed at: [address] [place] [id number] Field Service Analyst: Linda Kaplan MD, Phone: [phone] Specimen Comment: [id number] Specimen Comment: Source.............Cervix;Endocervix Specimen Comment: No. of containers..01 ThinPrep Vial us Roly Narayan MD LAB - PATHOLOGY/CYTOLOGY ORD ERABLES Final Result [facility] INSURANCE BILL [address] [place] [address] from Last [address] [place] [address] MEDICARE AAR MEDICARE SELF PAY NO INSURANCE Member Subscriber Plan / Payer (Ef fective for All Dates) Name:BenjiKristina giang Марина Member ID:Not on file Relation to Subscriber:Not on file Name:BENJIDEEPIKAKRISTINA Subscriber ID:Not on file (Home) Address[address] [place] [address] Payer ID:Not on file Group ID:Not on file Type:Self Pay Address: [place], [place] * Guarantor: KRISTINA LEBLANC Account Type Relation to Patient Date of Phone Billing Address Personal/Family 1945 [address] [place] [address] * Guarantor: KRISTINA LEBLANC Account Type Relation [...] 2:42 PM 01/13/2013 12:28 PM Care Teams Dynamometer Tester Relationship Specialty Start Date End Date Max Branch MD [address] [place] [id number] PCP - OBGYN 06/19/09 Hero Lujan MD [address] [place] [address] [address] [place] [address] PCP - General 01/03/19 William Abebe MD [address] [place] [id number] Orthopedic Surgery 10/12/12
--- OUTSIDE RECORDS SUMMARY | 2025-04-25 11:56 | XMS_ITS | Clinical Summary ---
Author Organization [facility] Renae rojas Jesuswilliam Address [address] [place] [address] Care Team Providers Care Project Controls Scheduler Name Role Phone Unavailable Primary Care Provider [...] Encounters Date Type Department Care Team Description 04/21/2025 Orders Only [facility] Oncology and Hematology - [place] [address] [place] [address] Vince Feng MD 04/20/2025 Orders Only [facility] Oncology and Hematology - [place] [place] [address] Vince Feng MD 04/18/2025 10:30 AM CDT Office Visit [facility] Oncology and Hematology - [place] [place] [address] Vince Feng MD Chronic anemia [...] on file Legal Sex Female 7:46 PM CMO Gender Identity Not on file Sexual Orientation [...] 04/25/2025 4:30 PM CDT Telephone Check Up [facility] Oncology and Hematology - [place] [place] [address] Vince Feng MD [address] [facility] [address] [place] [address] Health Maintenance Due Date Last Done Comments DIABETES ANNUAL FOOT EXAM 1965 DIABETES ANNUAL RETINAL EXAM 1965 DIABETES MICROALBUMIN ANNUAL SCREEN 1965 LDL CHOLESTEROL ANNUAL 1965 ZOSTER VACCINE (1 of 2) 1997 OSTEOPOROSIS SCREENING 2012 DIABETES HBA1C Q 6 MONTHS 02/11/2018 08/14/2017 PNEUMOCOCCAL VACCINE 50+ YEA RS (2 of 2 - PCV) 05/17/2021 05/17/2020 RSV VACCINE (60+ or ) (1 - 1-dose 75+ series) 2022 INFLUENZA VACCINE (#1) 2025 , 07/01/2021, 07/01/2021, Additional history exists COVID-19 Vaccine ( - 2024-2 6 season) 2025 05/07/2022, 05/16/2021, 10/16/2020, Additional history exists DTAP/TDAP/TD VACCINES (2 - T d or Tdap) 03/24/2029 03/24/2019 Procedures Procedure Name Priority Date/Time Associated Diagnosis Comments CHG SOLUBLE TRANSFERRIN RECEPTOR Routine 04/18/2025 11:35 AM CDT COMPREHENSIVE METABOLIC PANEL Routine 04/18/2025 7:57 AM CDT from Last 3 Months Results * CHG SOLUBLE TRANSFERRIN RECEPTOR (04/18/2025 11:35 AM CDT) Vince Feng MD CHG - LABORATORY Final Result * COMPREHENSIVE METABOLIC PANEL (04/18/2025 7:57 AM CDT) Blood Vince Feng MD CHEMISTRY ORDERABLES Final Resu lt from Last 3 Months Insurance MEDICARE PART A AND B [facility] [id number] [address] [place] [id number]
--- OUTSIDE RECORDS SUMMARY | 2025-04-25 11:56 | XMS_ITS | Clinical Summary ---
Author Organization [facility] Address [address] [place] [address] Care Team Providers Care Electronic Tester Name Role Phone Hero Lujan MD Primary [...] 1 tablet (25 mcg total) by mouth hospitality host before breakfast Active aspirin 81 mg chewable [...] on file Legal Sex Female 3:42 AM SEMICONDUCTOR TESTING GROUP LEADER Gender Identity Not on file Sexual Orientation [...] 09/14/2019, 07/28/2018, Additional history exists Insurance MEDICARE [facility] MEDICARE [facility] Care Teams Electronic Tester Relationship Specialty Start Date End Date Hero Lujan MD [address] [place] [address] PCP - General Emergency Medicine 11/06/20
--- OUTSIDE RECORDS SUMMARY | 2025-04-25 11:56 | XMS_ITS | Clinical Summary ---
Author Organization [facility] Address [address] [place] [address] Care Team Providers Care Brine Supervisor Name Role Phone Hero Lujan MD Primary Care Provider [phone] Allergies Active Allergy Reactions Criticality Noted Date [...] on file Legal Sex Female 4:28 PM CANDLE WRAPPING MACHINE OPERATOR Gender Identity Female 08/15/2021 11:30 AM CANDLE WRAPPING MACHINE OPERATOR Sexual Orientation Not on file Last Filed Vital Signs Vital Sign Reading Time Taken Comments Blood Pressure 151/67 08/20/2021 2:20 PM CANDLE WRAPPING MACHINE OPERATOR Pulse 100 08/20/2021 2:20 PM CANDLE WRAPPING MACHINE OPERATOR Temperature 37.1 C (98.7 F) 08/20/2021 2:20 PM CANDLE WRAPPING MACHINE OPERATOR Respiratory Rate 18 08/20/2021 2:20 PM CANDLE WRAPPING MACHINE OPERATOR Oxygen Saturation 99% 08/20/2021 2:20 PM CANDLE WRAPPING MACHINE OPERATOR Inhaled Oxygen Concentration - - Weight 79.4 kg (175 lb) 08/14/2021 2:01 PM CANDLE WRAPPING MACHINE OPERATOR Height 157.5 cm (5' 2) 08/14/2021 2:01 PM CANDLE WRAPPING MACHINE OPERATOR Body Mass Index 32.01 08/14/2021 2:01 PM CANDLE WRAPPING MACHINE OPERATOR Plan of Treatment Health Maintenance [...] age to complete this topic Insurance MEDICARE [facility] Care Teams Brine Supervisor Relationship Specialty Start Date End Date Hero Lujan MD [address] [place] [id number] PCP - General INTERNAL MEDICINE 08/13/21
--- OUTSIDE RECORDS SUMMARY | 2025-04-25 11:56 | XMS_ITS | Encounter Summary ---
Author Organization [facility] [employer] [facility] Address [address] [place] [address] Care Team Providers Care In Flight Refueling System Repairer Name Role Phone Unavailable Primary Care Provider Unavailabl e Encounter Details Date Type Department Care Team (Late Contact Info) Description 04/20/2025 Orders Only [facility] Oncology and Hematology [place] [address] [place] [address] Vince Feng MD [address] [place] [address] [address] [place] [address] Social History Tobacco Use Types Packs/Day Years Used Date Smoking Tobacco: Former Cigarettes 2 3 0 04/18/1972 - 04/18/1975 Smokeless Tobacco: Never Alcohol Use Standard Drinks/Week Comments Yes 0 (1 standard drink = 0.6 oz pur e alcohol) occassionally Comments Unknown Sex and Gender Information Value Date Recorded Sex Assigned at Not on file Legal Sex Female 7:46 PM PAPER CARRIER Gender Identity Not on file Sexual Orientation Not on file documented as of this encounter Plan of Treatment Upcoming Encounters Date Type Department Care Team (Late Contact Info) Description 04/25/2025 4:30 PM CDT Telephone Check Up [facility] Oncology and Hematology - [place] [address] [place] [address] [place] [address] [place] [address] [address] [place] [address] documented as of this encounter Procedures Procedure Name Priority Date/Time Associated Diagnosis Comments COMPREHENSIVE METABOLIC PANEL Routine 04/18/2025 7:57 AM CDT documented in this encounter Results * COMPREHENSIVE METABOLIC PANEL (04/18/2025 7:57 AM CDT) Blood Vince Feng MD CHEMISTRY ORDERABLES Final Resu lt documented in this encounter Visit Diagnoses Not on filedocumented in this encounter
--- OUTSIDE RECORDS SUMMARY | 2025-04-25 11:56 | XMS_ITS | Encounter Summary ---
Author Organization [facility] Address [address] [place] [address] Care Team Providers Care Residential Concierge Name Role Phone Unavailable Primary Care Provider Unavailabl e Encounter Details Date Type Department Care Team ([facility] Contact Info) Description 04/21/2025 Orders Only [facility] Oncology and Hematology [place] [address] [place] [address] Vince Feng MD [address] [place] [address] [employer] [address] [place] [address] Social History Tobacco Use Types Packs/Day Years Used Date Smoking Tobacco: Former Cigarettes 2 3 0 04/18/1972 - 04/18/1975 Smokeless Tobacco: Never Alcohol Use Standard Drinks/Week Comments Yes 0 (1 standard drink = 0.6 oz pur e alcohol) occassionally Comments Unknown Sex and Gender Information Value Date Recorded Sex Assigned at Not on file Legal Sex Female 7:46 PM SEISMIC OBSERVER Gender Identity Not on file Sexual Orientation Not on file documented as of this encounter Plan of Treatment Upcoming Encounters Date Type Department Care Team (Late Contact Info) Description 04/25/2025 4:30 PM CDT Telephone Check Up [facility] Oncology and Hematology - [place] [address] [place] [address] [place] [address] [place] [address] [employer] [address] [place] [address] documented as of this encounter Procedures Procedure Name Priority Date/Time Associated Diagnosis Comments CHG SOLUBLE TRANSFERRIN RECEPTOR Routine 04/18/2025 11:35 AM CDT documented in this encounter Results * CHG SOLUBLE TRANSFERRIN RECEPTOR (04/18/2025 11:35 AM CDT) Vince Feng MD CHG - LABORATORY Final Result documented in this encounter Visit Diagnoses Not on filedocumented in this encounter
[2025-04-25 11:59] LABS: Alanine Aminotransferase 20 U/L (6-35); Albumin Level 3.5 g/dL (3.5-5.1); Alkaline Phosphatase 78 U/L (38-126); Anion Gap 9 mmol/L (4-12); Aspartate Amino Transferase 28 U/L (14-36); Bilirubin,Total 0.4 mg/dL (0.2-1.3); Blood Urea Nitrogen 25 mg/dL (7-17); Calcium 9.5 mg/dL (8.4-10.2); Carbon Dioxide 23 mmol/L (22-30); Chloride 107 mmol/L (98-107); Estimated CRCL calculation 45 ml/min; Estimated Glomerular Filt Rate > 60; Glucose 178 mg/dL (65-110); Lipase 109 U/L (23-300); Potassium 3.8 mmol/L (3.4-5.0); Sodium 139 mmol/L (137-145); Total Protein 6.6 g/dL (6.3-8.2)
[2025-04-25 12:08] VITALS: BP 143/65; PULSE 94; RESP 20; O2SAT 98
[2025-04-25 12:26] LABS: SARS-CoV-2 RNA PCR Negative (Negative)
[2025-04-25 13:31] LABS: Add Urine Microscopic? YES; Appearance Urine Cloudy (Clear); Glucose Urine UA Negative (Negative); Leukocyte Esterase Ur 3+ LEU/UL (Negative); Nitrate Urine Negative (Negative); Specific Grav Ur 1.018 (1.001-1.035)
[2025-04-25] MEDS: ONDANSETRON INJ 4 MG/2 ML VIAL IV PUSH (14:07)
[2025-04-25] MEDS: SODIUM CHLORIDE 0.9% IV 1,000 ML 999 ML IV CONT (14:07)
[2025-04-25] MEDS: cefTRIAXone 1 GM in SODIUM CHLORIDE 0.9% IV 50 ML 100 ML IVPB (14:07)
[2025-04-25 16:06] VITALS: BP 152/72; PULSE 91; RESP 20; O2SAT 97
--- OUTSIDE RECORDS SUMMARY | 2025-04-25 16:30 | XMS_ITS | Encounter Summary ---
Author Organization [facility] Address [address] [place] [address] Care Team Providers Care Scourer Name Role Phone Unavailable Primary Care Provider Unavailabl e Encounter Details Date Type Department Care Team (Late st Contact Info) Description 04/25/2025 4:30 PM CDT Telephone Check Up [facility] Oncology and Hematology - [place] [facility] [address] [place] [address] Vince Feng MD [address] [facility] [address] [place] [address] Chronic anemia (Primary Dx) Social [...] on file Legal Sex Female 7:46 PM FEATHER BONER Gender Identity Not on file Sexual Orientation Not on file documented as of this encounter Progress Notes * Vince Feng MD - 04/25/2025 5:34 PM CDT HEMATOLOGY / ONCOLOGY PROGRESS NOTE Patient Identification: Name: Deborah Cancino Age: 79 y.o. Sex: female : 1945 DIAGNOSIS Chronic anemia CURRENT TREATMENT Iron once a day TREATMENT HISTORY SUBJECTIVE This is a phone visit with patient. She is in the ER with nausea vomiting and possible infection. She is trying to get admitted. Review of system Constitutional: Patient did not mention fevers, sweats, complain of tiredness and fatigue HEENT: Patient did not mention sinus congestion, hearing or vision problems Respiratory: Patient did not mention cough, dyspnea, wheeze Cardiovascular: Patient did not mention chest pain, exertional chest pressure/discomfort, nausea, syncope, shortness of breath GI: Patient did not mention constipation, diarrhea, dsyphagia, reflux symptoms, vomiting, melena : Patient did not mention dysuria, frequency, incontinence, urgency Integumentary system: no lymphadenopathy, sweats, flushing Musculoskeletal: Patient not mention: myalgia, arthralgia Neurological: Patient did not mention blurry or disturbed vision, numbness/weakness, dizziness Skin: No lumps, bumps or rashes. Objective: Vital signs in last 24 hours: As per nursing note Exam: This is a phone visit [facility] Labs from April 18 showed WBC 11.3 hemoglobin 12.2 creatinine 1.3 GFR 39 B12 775 iron 30 saturation 13 ferritin 734 soluble transferrin receptor normal at 15.5 @IMAGEIMP@ Assessment: Plan: There are no active problems to display for this patient. Chronic anemia. Labs showed normal soluble transferrin receptor but slightly low iron and iron saturation. B12 is normal. Kidney function was low at 39%. Hemoglobin was normal at 12.2. Her anemia is likely multifactorial with chronic kidney disease/infection and mild iron deficiency. She is taking iron supplement once a day that she will continue. No need for iron infusion. I recommended contacting primary care physician regarding renal insufficiency. I will see her back in 3 months with repeatlabs. Type 2 diabetes. She is on metformin. Hypertension. She is on Hyzaar. ? TOBACCO COUNSELING She is not a tobacco/nicotine user. 04/25/2025 Vince Feng MD Patient's identity confirmed yes Patient gave verbal consent to have these services billed to their insurance and expressed understanding that co-insurance and deductible may apply: yes Patient was located At home This encounter was completed via two-way synchronous audio only communication. Video technology available to provider, but patient not capable of, or doesn't consent to, use of video. Time spent in discussion with patient: 15 minutes. documented in this encounter Plan of Treatment Scheduled Orders Name Type Priority Associated Diagnoses Orde r Schedule BASIC METABOLIC PANEL Lab Stat Chronic anemia Expected: 07/18/2025, Expires: 04/25/2026 CBC WITH DIFFERENTIAL Lab Stat Chronic anemia Expected: 07/18/2025, Expires: 04/25/2026 FERRITIN Lab Routine Chronic anemia Expected: 07/18/2025, Expires: 04/25/2026 IRON, TIBC, AND PERCENT SATURATION Lab Routine Chronic anemia Expected: 07/18/2025, Expires: 04/25/2026 documented as of this encounter Visit Diagnoses Diagnosis Chronic anemia- Primary Anemia, unspecified documented in this encounter
[2025-04-25] MEDS: PROCHLORPERAZINE EDISYLATE 10 MG/2 ML VIAL IV PUSH (18:59)
--- NOTE | 2025-04-25 19:25 | PM.IMHP ---
H&P: HPI History of Present Illness Date/Time: 04/25/25 19:25 Chief Complaint: Abdominal Pain, N/V Narrative: 79 y/o F with PMH of CKD, GERD, diabetes, hyperlipidemia, hypothyroidism, chronic abdominal pain, and nephrolithiasis presents here with abdominal pain, nausea, and vomiting. The patient presents here from home via EMS for further evaluation of abdominal pain on 04/25. The abdominal pain is described as RLQ, dull, achy, intermittent radiation into her back, with no modifying factors. Reports the pain started at around 7 p.m. Thursday night (04/24). Reports accompanying generalized weakness, nausea, vomiting, diarrhea, chills, dizziness, and diaphoresis. Denies fever, chest pain, or palpitations. Patient has a history of chronic abdominal pain and sees GI, however this is typically in the LLQ. Patient also has chronic nausea and vomiting, but she states it is not usually to this degree. Patient reports she gets UTIs frequently, last occurrence was four weeks ago. Reports her glucose at home has been controlled, 150s when its good and when its not as well controlled it can get into the 300's but on average has been in the 200s. Initial VS at presentation: 97.6? F, HR 84, R 20, 159/73, and 100% on RA. ED workup showed: No leukocytosis, hemoglobin 11.6, no significant electrolyte derangements, creatinine 0.89 and GFR >60, glucose 178, and UA suspicious for UTI. COVID negative. CT of the abdomen/pelvis showed urothelial enhancement of the bilateral ureters and renal pelvis sees suspicious for ascending urinary tract infection with regions of decreased parenchymal enhancement of the left kidney suspicious for pyelonephritis, no other acute intra-abdominal/pelvic process, specifically the appendix is normal. Review of Systems Review of Systems: All systems reviewed & are unremarkable except as noted in HPI and below [facility] Past Medical History Medical History (Updated 04/25/25 @ 19:41 by Marilee Bernal APRN) Diverticulosis Diabetes mellitus HLD (hyperlipidemia) Change in bowel habits Loose stools Nausea and vomiting Chest pain Post-menopausal CKD (chronic kidney disease) stage 3, GFR 30-59 ml/min Encounter for gynecological examination (general) (routine) with abnormal findings Encounter for Papanicolaou smear of cervix Screening mammogram, encounter for Stricture, ureter Sepsis Cellulitis and abscess of left leg Contact dermatitis Obesity Nephrolithiasis Hypothyroidism (acquired) Vitamin D deficiency disease GERD (gastroesophageal reflux disease) HTN (hypertension) Surgical History Surgical History (Updated 04/25/25 @ 19:34 by Marilee Bernal APRN) History of cataract extraction S/P breast biopsy, left (~1984) 2 biopsies left breast Benign Hx of cholecystectomy History of knee replacement bilateral knees replaced S/P tubal ligation (~1979) History of ureter stent x 2 Family History Family History (Updated 04/25/25 @ 22:31 by Dalila Mckeon, CALLIE) Mother Family history of arthritis Heart disease 08/2021 heart attack Father Patient's father is , Onset Age: 75 Hypertension Grandparent Diabetes mellitus Sibling Acute myocardial infarction brother Other H/O ovarian cancer 2 maternal aunts Social History Social History Smoking packs per day: 2 Smoking cigarettes per day: 40.0 Years smoked: 3 Smoking pack-years: 6.00 Smoking status: Former smoker Tobacco type: cigarettes Additional smoking assessment comments: STATES QUIT OVER 50YRS AGO Alcohol intake: never Alcohol use details: rarely Substance use: never Substance use type: does not use Do You Feel Safe in your Home?: Yes Lack of Transportation: No Lack of Food: Never True Current Housing: I Have Housing Concerned About Future Housing: No Difficulty Paying Gas/Electric Bills: No Difficulty Paying for Meds: No Currently Unemployed: No Education: High School Diploma/GED Difficulty w/ Childcare or Family Care: No Living arrangements: alone Additional living arrangements comments: spouse in long term Occupation/Education: retired Gender identity (if verbalized by the patient): Female Sexual Orientation (if Verbalized by the Patient): Straight or Heterosexual Spiritual care concerns: No Meds Home Medications and Allergies Home Medications ?Medication ?Instructions ?Recorded ?Confirmed ?Type aspirin 81 mg tablet,delayed 81 mg PO DAILY 06/21/19 04/25/25 History release omega 2-qsj-ezw-fish oil 1,000 mg 2 cap PO BID 09/09/23 04/25/25 History (120 mg-180 mg) capsule (Fish Oil) losartan 50 mg-hydrochlorothiazide See Rx Instructions .Route 09/21/24 04/25/25 Rx 12.5 mg tablet .COMPLEX #90 tabs atorvastatin 40 mg tablet See Rx Instructions .Route 10/04/24 04/25/25 Rx .COMPLEX #90 tabs levothyroxine 25 mcg tablet See Rx Instructions .Route 11/02/24 04/25/25 Rx .COMPLEX #90 tabs metformin 1,000 mg tablet See Rx Instructions .Route 11/03/24 04/25/25 Rx .COMPLEX #180 tabs insulin degludec 100 unit/mL 22 unit subcut DAILY 11/11/24 04/25/25 History subcutaneous solution (Tresiba U-100 Insulin) cholestyramine (with sugar) 4 gram 4 g PO BID #60 ea 12/07/24 04/25/25 Rx powder for susp in a packet (Questran) ondansetron 4 mg disintegrating 4 mg PO Q8H PRN nausea and 12/07/24 04/25/25 Rx tablet vomiting #30 tabs amitriptyline 25 mg tablet 25 mg PO QHS 1 month #30 tabs 02/09/25 04/25/25 Rx cholecalciferol (vitamin D3) 50 50 mcg PO DAILY 02/24/25 04/25/25 History mcg (2,000 unit) capsule insulin aspart U-100 100 unit/mL 4 unit (0.04 mL) subcut .before 02/24/25 04/25/25 Rx (3 mL) subcutaneous pen (Novolog meals #15 mL FlexPen U-100 Insulin aspart) IRON 65MG TAB See Rx Instructions .Route 03/28/25 04/25/25 Rx .COMPLEX #60 tabs dicyclomine 10 mg capsule 10 mg PO DAILY PRN abdominal pain 04/25/25 04/25/25 History Allergies Allergy/AdvReac Type Severity Reaction Status Date / Time Sulfa (Sulfonamide Allergy Severe Fever Verified 04/25/25 10:57 Antibiotics) sulfamethoxazole (From Allergy Severe Fever Verified 04/25/25 10:57 Bactrim) trimethoprim (From Bactrim) Allergy Severe Fever Verified 04/25/25 10:57 ciprofloxacin Allergy Intermediate Anaphylactic Verified 04/25/25 10:57 Shock Vital Signs Vital Signs - 24 hr 04/25/25 10:47 04/25/25 12:08 04/25/25 16:06 Temperature 97.6 F Pulse Rate 84 94 91 Respiratory Rate 20 20 20 Blood Pressure 159/73 H 143/65 H 152/72 H Pulse Oximetry 100 98 97 Oxygen Delivery Room Air Exam Const: General: comfortable and no acute distress Other: , female, elderly, modestly ill-appearing HENMT: Face/Nose/Sinus: Normal nares present Mouth: Yes moist mucous membranes Eyes: General: appearance normal, both eyes and all related structures Sclera: sclerae normal Pupils: Equal, round and reactive pupils present EOM: EOMs intact bilaterally Resp: Effort & Inspection: normal respiratory effort Auscultation: clear to auscultation bilaterally Cardio: Rate: regular rate Rhythm: regular rhythm Other: S1-S2 present without murmur, rub, ectopy GI: Other: Abdomen soft, nondistended. Does have diffuse tenderness in all quadrants, more specifically at the right lower quadrant. Normoactive bowel sounds in all quadrants. Skin: General skin exam: normal color and no rashes or lesions noted Wounds: no wounds Neuro: Speech: normal speech Motor exam (neuro): 5/5 motor strength present throughout Sensory Exam: normal sensation Other: A&O x4 Extrem: General: normal to inspection Psych: Mental Status: mental status grossly normal Affect: normal affect Other: Good insight and judgment, pleasant H&P: Results Labs Labs: Short CBC 04/25/25 Range/Units 11:28 WBC 8.1 (4.5-10.0) K/mm3 Hgb 11.6 L (12.0-15.0) g/dL Hct 36.0 L (37.0-47.0) % Plt Count 401 H D (150-375) k/mm3 BMP 04/25/25 11:28 Sodium 139 Potassium 3.8 Chloride 107 Carbon Dioxide 23 BUN 25 H D Creatinine 0.89 Glucose 178 H Calcium 9.5 Liver Function 04/25/25 Range/Units 11:28 Total Bilirubin 0.4 (0.2-1.3) mg/dL AST 28 (14-36) U/L ALT 20 (6-35) U/L Alkaline Phosphatase 78 (38-126) U/L Albumin 3.5 (3.5-5.1) g/dL Urine 04/25/25 Range/Units 13:14 Urine Color Yellow (Yellow) Urine Appearance Cloudy H (Clear) Urine pH 5.5 (5.0-9.0) Ur Specific Mark Center 1.018 (1.001-1.035) Urine Protein 1+ H (Negative) mg/dL Urine Glucose (UA) Negative (Negative) mg/dL Assessment and Plan Assessment and plan (1) Acute pyelonephritis: Code(s): N10 - Acute pyelonephritis Status: Acute Assessment and Plan: Patient admitted due to nausea and vomiting and inability to tolerate p.o., concern patient will not be able to tolerate p.o. antibiotics outpatient. Started on ceftriaxone and antiemetics including Zofran and Compazine. - CT abd/pelvis: 1. Urothelial enhancement at the bilateral ureters and renal pelvises sees suspicious for ascending urinary tract infection with regions of decreased parenchymal enhancement the left kidney suspicious for pyelonephritis. Correlate with urinalysis. 2. No other acute intra-abdominal/pelvic process. Specifically the appendix is normal. - UA: Cloudy, 1+ protein, trace ketones, 3+ blood, 3+ leuk esterase, greater than 100 RBC and WBC, no epithelial cells or bacteria - UC pending - previous micro reviewed, distant history of Proteus mirabilis (2022) and Pseudomonas (2021) - started on Ceftriaxone on 04/25 (2) GERD (gastroesophageal reflux disease): Qualifiers: Esophagitis presence: without esophagitis Qualified Code(s): K21.9 - Gastro-esophageal reflux disease without esophagitis Code(s): K21.9 - Gastro-esophageal reflux disease without esophagitis Status: Chronic Assessment and Plan: - reviewed most recent GI note from January of 2025, patient has chronic abdominal pain and nausea/vomiting. Underwent EGD in January of 2025 which showed chronic mild gastritis without H pylori or intestinal metaplasia. She was started on amitriptyline and her Bentyl was discontinued. Patient additionally noted to have chronic diarrhea, continued on Questran. However patient did not start amitriptyline due to fear of side effects and has not been taking cholestyramine as she believes it is not needed. Patient reporting she is on Bentyl, continued. - history likely contributing to poorly controlled nausea/vomiting (3) Diabetes mellitus with multiple complications: Code(s): E11.8 - Type 2 diabetes mellitus with unspecified complications Status: Chronic Assessment and Plan: - hypoglycemia protocol - POC blood glucose ACHS - home medication: Continue NovoLog 4 units subQ prior to meals, Tresiba 22 units daily. Hold metformin in case of need for contrast. - correct regimen ordered - high dose TIDWM, based off BMI - A1C 6.5% in 2022 (4) CKD (chronic kidney disease) stage 3, GFR 30-59 ml/min: Qualifiers: Chronic kidney disease stage 3 subtype: stage 3a (GFR 45-59) Qualified Code(s): N18.31 - Chronic kidney disease, stage 3a Code(s): N18.30 - Chronic kidney disease, stage 3 unspecified Status: Chronic Assessment and Plan: - creatinine 0.89, BUN 25, GFR greater than 60 upon admission - baseline creatinine 0.8-1.0 - trend renal function - trend electrolytes, correct as needed (5) HLD (hyperlipidemia): Qualifiers: Hyperlipidemia type: mixed hyperlipidemia Qualified Code(s): E78.2 - Mixed hyperlipidemia Code(s): E78.5 - Hyperlipidemia, unspecified Status: Chronic Assessment and Plan: - continue atorvastatin 40 mg daily (6) HTN (hypertension): Qualifiers: Hypertension type: essential hypertension Qualified Code(s): I10 - Essential (primary) hypertension Code(s): I10 - Essential (primary) hypertension Status: Acute Assessment and Plan: - chronic, currently 152/72, stable. - continue home medications: Losartan-hydrochlorothiazide - monitor Plan Diet: Diabetic GI Prophylaxis: N/a DVT Prophylaxis: SCDs IV fluids: 1L -> 150 mL/hr x1L Lines/Tubes: Peripheral IV Code Status: Full code Quality VTE Prophylaxis VTE prophylaxis: mechanical ordered Hospitalist MIPS Advance Care Plan I have confirmed that the patient's Advanced Care Plan is present, code status is documented, or surrogate decision maker is listed in patient medical record.: Yes Medication Reconciliation I have utilized all available resources to obtain, update and review the patients current medications (includes all prescriptions, OTC, herbals, cannabis, and nutritional supplements).: Yes
[2025-04-25 19:50] VITALS: BP 159/97; PULSE 114; RESP 16; O2SAT 100
[2025-04-25 21:50] VITALS: BMI 41.1
[2025-04-25 22:00] VITALS: BP 140/52; PULSE 106; RESP 19; TEMP 36.9; O2SAT 99
[2025-04-25] MEDS: SODIUM CHLORIDE 0.9% IV 1,000 ML 150 ML IV CONT (22:30)
--- NOTE | 2025-04-25 22:45 | PC.NURSE ---
Patient arrive to floor VIA transport, and admitted to room 305-2. Alert and orient with complaints of abdomen pain in the lower right quadrant. Assessment performed.
[2025-04-25] MEDS: ATORVASTATIN 40 MG TABLET PO (23:10)
[2025-04-25] MEDS: MORPHINE SULFATE (*CRX) 2 MG/ML INJ IV PUSH (23:10)
[2025-04-26 05:04] VITALS: BP 157/68; PULSE 103; RESP 16; TEMP 37; O2SAT 96
[2025-04-26] MEDS: LEVOTHYROXINE SODIUM 25 MCG TABLET PO (05:37)
[2025-04-26] MEDS: HYDROcodone/acetaminophen (*CRX) 5-325 MG TABLET 1 TAB PO ×2 (05:38→20:47)
[2025-04-26 08:48] VITALS: PULSE 80; O2SAT 95
[2025-04-26] MEDS: ASPIRIN 81 MG ENTERIC TABLET PO (08:50)
[2025-04-26] MEDS: ATORVASTATIN 40 MG TABLET PO (08:50)
[2025-04-26] MEDS: CHOLECALCIFEROL (VITAMIN D3) 25 MCG (1,000 UNITS) TABLET 50 MCG PO (08:50)
[2025-04-26] MEDS: LOSARTAN POTASSIUM 50 MG TABLET PO (08:50)
[2025-04-26] MEDS: OMEGA 3 POLYUNSAT FATTY ACIDS 1 GM CAP 2 GM PO ×2 (08:50→17:22)
--- NOTE | 2025-04-26 08:50 | P.CDI_ITS ---
CDI Query Clarification Request Patient with a BMI of 41.1 please provide a diagnosis to accompany this finding: * Overweight * Obesity * Morbid Obesity * Other/Unknown <Maryse Randle RN - Last Filed: 04/26/25 08:50> Clarified Diagnosis Clarified Diagnosis: Morbid Obesity <Deepali Head APRN - Last Filed: 04/27/25 13:52>
[2025-04-26] MEDS: INSULIN ASPART (*BKC) 100 UNITS/ML SUB-Q ×5 (08:51→17:23)
[2025-04-26] MEDS: INSULIN GLARGINE (*BKC) 100 UNITS/ML 22 UNITS SUB-Q (08:52)
--- OUTSIDE RECORDS SUMMARY | 2025-04-26 08:53 | XMS_ITS | Encounter Summary ---
Author Organization [facility] Address [address] [place] [address] Care Team Providers Care Rn Staff Name Role Phone Unavailable Primary Care Provider Unavailabl e Encounter Details Date Type Department Care Team (Late st Contact Info) Description 04/25/2025 External Device Data [facility] ABSTRACTION Provider, Abstract NO ADDRESS ON FILE Social History Tobacco Use Types Packs/Day Years Used Date Smoking Tobacco: Former Cigarettes 2 3 0 04/18/1972 - 04/18/1975 Smokeless Tobacco: Never Alcohol Use Standard Drinks/Week Comments Yes 0 (1 standard drink = 0.6 oz pur e alcohol) occassionally Comments Unknown Sex and Gender Information Value Date Recorded Sex Assigned at Not on file Legal Sex Female 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
--- OUTSIDE RECORDS SUMMARY | 2025-04-26 08:53 | XMS_ITS | Encounter Summary ---
Author Organization [facility] Address 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
--- OUTSIDE RECORDS SUMMARY | 2025-04-26 08:53 | XMS_ITS | Clinical Summary ---
Author Organization [facility] Address [address] [place] [address] Care Team Providers Care Cloth Weaver Name Role Phone Max Branch MD Unavailable [phone] William Abebe MD Unavailable [phone] Hero Luajn MD Primary Care Provider [phone] Source Comments [facility],non-owned Affiliates and Associated Physician Practices is amultiple site organization consisting of ambulatory clinics and hospital sitesin [place], [place], [place] and [place]. This disclosure is being madepursuant to the [...] Department Care Team Description 02/15/2025 Results Follow-Up [facility] - PROGRAMMING INTERN [address] [place] [address], [address] [place] [phone] Halima Alonzo 02/13/2025 9:00 AM CDT Office Visit [facility] - PROGRAMMING INTERN [address] [place] [address], [address] [place] [address] Roly Narayan MD Pap smear, [...] Sex Assigned at Female 08/19/2024 9:26 AM ICU MANAGER Legal Sex Female 6:46 AM ICU MANAGER Gender Identity Female 08/19/2024 9:26 AM ICU MANAGER Sexual Orientation Choose not to disclose 2024 9:26 AM ICU MANAGER Last Filed Vital Signs Vital Sign Reading Time Taken Comments Blood Pressure 118/72 02/13/2025 8:54 AM CDT Pulse 104 08/16/2017 6:10 AM ICU MANAGER Temperature 36.9 C (98.4 F) 08/16/2017 6:10 AM ICU MANAGER Respiratory Rate 16 08/16/2017 6:10 AM ICU MANAGER Oxygen Saturation 93% 08/16/2017 6:10 AM ICU MANAGER Inhaled Oxygen Concentration - - Weight 86.7 [...] this topic Medical Devices Implanted Type Area Bath Attendant Device Identifier Shelf Expiration Date Model / Serial / Lot Beto Bone [place] Hv Implanted:Qty: 1 on 01/10/2013 by William Abebe MD at [facility] Left: Knee [employer] 07/12/2014 [id number] / / [id number] Biomet Interlok 75mm Fixed Ibeam Tibial Plate With Locking Bar Implanted:Qty: 1 on 01/10/2013 by William Abebe MD at [facility] Left: Knee 10/10/2022 [id number] / / [id number] Biomet Arcom Patella Single 1/4 Inch Peg With Wire 31mm X 8 Mm Implanted:Qty: 1 on 01/10/2013 by William Abebe MD at [facility] Left: Knee 11/10/2017 [id number] / / [id number] Vanguard Cr Femoral 67.5 Mm Left Interlok Implanted:Qty: 1 on 01/10/2013 by William Abebe MD at [facility] Left: Knee 06/12/2022 [id number] / / [id number] Biomet Vanguard/Tm Dcm Tibial Bearing Anterior Stabilized 12mm X 75mm Implanted:Qty: 1 on 01/10/2013 by William Abebe MD at [facility] Left: Knee 07/12/2017 [id number] / / [id number] Brdg Tib Denise Stbl 12mm X 71mm Implanted:Qty: 1 on 04/13/2013 by William Abebe MD at [facility] Right: Knee [employer] Inc 03/01/2018 [id number] / / [id number] Beto Bone [place] Hv Implanted:Qty: 1 on 04/13/2013 by William Abebe MD at [facility] Right: Knee [employer] 10/30/2014 [id number] / / [id number] 65mm Cr Femoral Implanted:Qty: 1 on 04/13/2013 by William Abebe MD at [facility] Right: Knee 01/30/2023 [id number] / / [id number] 31mm X 8mm Arcom Patella Implanted:Qty: 1 on 04/13/2013 by William Abebe MD at [facility] Right: Knee 03/01/2018 [id number] / / [id number] Ty Tibial I Beam Fix Bar 71mm Implanted:Qty: 1 on 04/13/2013 by William Abebe MD at [facility] Right: Knee [employer] 12/30/2022 [id number] / / [id number] Procedures Procedure Name Priority Date/Time Associated Diagnosis [...] Comment . [facility] INSURANCE BILL Note Comment [facility] INSURANCE BILL Comment: The Pap smear is a screening test designed to aid in the detection of premalignant and malignant conditions of the uterine cervix. It is not a diagnostic procedure and should not be used as the sole means of detecting cervical cancer. Both false-positive and false-negative reports do occur. [facility] CPT Code Automation Comment [facility] INSURANCE BILL Comment: This liquid based ThinPrep(R) pap test was screened with the use of an image guided system. Pathology/Cytolog y PART OF UTERINE CERVIX / Unknown 02/13/2025 9:17 AM CDT 02/13/2025 Comment:Cervix Release to ct fabien Chiu [facility] INSURANCE BILL - 02/15/2025 1:10 PM CDT Performed at: [address] [place] [id number] Field Handyman: Linda Kaplan MD, Phone: [phone] Specimen Comment: [id number] Specimen Comment: Source.............Cervix;Endocervix Specimen Comment: No. of containers..01 ThinPrep Vial us Roly Narayan MD LAB - PATHOLOGY/CYTOLOGY ORD ERABLES Final Result [facility] INSURANCE BILL [address] [place] [address] from Last [address] [place] [address] [place] [address] MEDICARE AAR MEDICARE SELF PAY NO INSURANCE Member Subscriber Plan / Payer (Ef fective for All Dates) Name:BenjiKristina giang Марина Member ID:Not on file Relation to Subscriber:Not on file Name:BENJIDEEPIKAKRISTINA Subscriber ID:Not on file (Home) Address[address] [place] [id number] Payer ID:Not on file Group ID:Not on file Type:Self Pay Address: [place], [place] * Guarantor: KRISTINA LEBLANC Account Type Relation to Patient Date of Phone Billing Address Personal/Family 1945 [address] [place] [id number] * Guarantor: KRISTINA LEBLANC Account Type Relation [...] 2:42 PM 01/13/2013 12:28 PM Care Teams Cloth Weaver Relationship Specialty Start Date End Date Max Branch MD [address] [place] [address] [place] [id number] PCP - OBGYN 06/19/09 Hero Lujan MD [address] [place] [address] [address] [place] [address] PCP - General 01/03/19 William Abebe MD [address] [place] [address] [place] [id number] Orthopedic Surgery 10/12/12
--- OUTSIDE RECORDS SUMMARY | 2025-04-26 08:53 | XMS_ITS | Clinical Summary ---
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
--- OUTSIDE RECORDS SUMMARY | 2025-04-26 08:54 | XMS_ITS | Encounter Summary ---
Author Organization [facility] CHANELLAdapt [facility] Address [address] [place] [address] Care Team Providers Care Shank Sorter Name Role Phone Unavailable Primary Care Provider Unavailabl e Encounter Details Date Type Department Care Team (Late st Contact Info) Description 04/20/2025 Orders Only [facility] Oncology and Hematology - Neeraj [address] [facility] [address] [place] [address] Vince Feng MD [address] [facility] [address] [place] [address] Social History Tobacco Use Types Packs/Day Years Used Date Smoking Tobacco: Former Cigarettes 2 3 0 04/18/1972 - 04/18/1975 Smokeless Tobacco: Never Alcohol Use Standard Drinks/Week Comments Yes 0 (1 standard drink = 0.6 oz pur e alcohol) occassionally Comments Unknown Sex and Gender Information Value Date Recorded Sex Assigned at Not on file Legal Sex Female 7:46 PM CITRUS PEELER Gender Identity Not on file Sexual Orientation Not on file documented as of this encounter Plan of Treatment Not on file documented as of this encounter Procedures Procedure Name Priority Date/Time Associated Diagnosis Comments COMPREHENSIVE METABOLIC PANEL Routine 04/18/2025 7:57 AM CDT documented in this encounter Results * COMPREHENSIVE METABOLIC PANEL (04/18/2025 7:57 AM CDT) Blood Vince Feng MD CHEMISTRY ORDERABLES Final Resu lt documented in this encounter Visit Diagnoses Not on filedocumented in this encounter
--- OUTSIDE RECORDS SUMMARY | 2025-04-26 08:54 | XMS_ITS | Clinical Summary ---
Author Organization [facility] Renae rojas [facility] Address [address] [facility] [place] [address] Care Team Providers Care Inside Wirer Name Role Phone Unavailable Primary Care Provider Unavailabl e Allergies Active Allergy Reactions Criticality Noted Date Comments Ciprofloxacin Fever Low 04/18/2025 Sulfa (Sulfonamide Antibiotics) Fever Low 04/03 Sulfamethoxazole-Trimethoprim Fever Low 2024 Medications atorvastatin (LIPITOR) 40 mg tablet Take 40 mg by mouth daily. Active ferrous sulfate 325 mg (65 mg [...] Encounters Date Type Department Care Team Description 04/25/2025 4:30 PM CDT Telephone Check Up [facility] Oncology and Hematology - Neeraj [address] [facility] [place] [address] Vince Feng MD Chronic anemia (Primary Dx) 04/25/2025 External Device Data STL ABSTRACTION Provider, Abstract 04/25/2025 External Device Data STL ABSTRACTION Provider, Abstract 04/25/2025 External Device Data STL ABSTRACTION Provider, Abstract 04/21/2025 Orders Only [facility] Oncology and Hematology - Neeraj [address] [place] [id number] Vince Feng MD 04/20/2025 Orders Only [facility] Oncology and Hematology - Neeraj [address] [place] [address] Vince Feng MD 04/18/2025 10:30 AM CDT Office Visit [facility] Oncology and Hematology - Neeraj [address] [place] [address] Vince Feng MD Chronic anemia (Primary Dx) [...] on file 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 Gender Identity Not on file [...] 04/18/2025 10:21 AM CDT Plan of Treatment Health Maintenance Due Date Last Done Comments DIABETES ANNUAL FOOT EXAM 1965 DIABETES ANNUAL RETINAL EXAM 1965 DIABETES MICROALBUMIN ANNUAL SCREEN 1965 LDL CHOLESTEROL ANNUAL 1965 DTAP/TDAP/TD VACCINES (1 - Tdap) 1966 PNEUMOCOCCAL VACCINE 50+ YEARS (1 of 2 - PCV) 05/28/19 66 ZOSTER VACCINE (1 of 2) 1997 OSTEOPOROSIS SCREENING 2012 DIABETES HBA1C Q 6 MONTHS 02/11/2018 08/14/2017 RSV VACCINE (60+ or ) (1 - 1-dose 75+ series) 2022 INFLUENZA VACCINE (#1) 2025 Procedures Procedure Name Priority Date/Time Associated Diagnosis Comments CHG SOLUBLE TRANSFERRIN RECEPTOR Routine 04/18/2025 11:35 AM CDT COMPREHENSIVE METABOLIC PANEL Routine 04/18/2025 7:57 AM CDT from Last 3 Months Results * CHG SOLUBLE TRANSFERRIN RECEPTOR (04/18/2025 11:35 AM CDT) us Vince Feng MD CHG - LABORATORY Final Result * COMPREHENSIVE METABOLIC PANEL (04/18/2025 7:57 AM CDT) Blood us Vince Feng MD CHEMISTRY ORDERABLES Final Resu lt from Last 3 Months Insurance MEDICARE PART A AND B [facility] [id number] [address] [id number]
--- OUTSIDE RECORDS SUMMARY | 2025-04-26 08:54 | XMS_ITS | Encounter Summary ---
Author Organization [facility]ANELL[facility]imus [facility] Address [address] [place] [address] Care Team Providers Care Sas Sql Developer Name Role Phone Unavailable Primary Care Provider Unavailabl e Encounter Details Date Type Department Care Team (Late st Contact Info) Description 04/21/2025 Orders Only [facility] Oncology and Hematology - Neeraj [address] [facility] [address] [place] [address] Vince Feng MD [address] [facility] [address] [place] [address] Social History Tobacco Use Types Packs/Day Years Used Date Smoking Tobacco: Former Cigarettes 2 3 0 04/18/1972 - 04/18/1975 Smokeless Tobacco: Never Alcohol Use Standard Drinks/Week Comments Yes 0 (1 standard drink = 0.6 oz pur e alcohol) occassionally Comments Unknown Sex and Gender Information Value Date Recorded Sex Assigned at Not on file 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
--- OUTSIDE RECORDS SUMMARY | 2025-04-26 08:54 | XMS_ITS | Encounter Summary ---
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 [address] [place] [id number] PCP - General 06/27/09 01/02/19 Max Branch MD [address] [place] [id number] PCP - OBGYN 06/19/09 Hero Lujan MD [address] [place] [address] [address] [place] [address] PCP - General 01/03/19 William Abebe MD [address] [place] [address] [place] [place] [address] Orthopedic Surgery 10/12/12 documented as of this encounter
--- OUTSIDE RECORDS SUMMARY | 2025-04-26 08:54 | XMS_ITS | Patient Health Record ---
Author Organization [facility] Address [address] [place], [place] [id number] Care Team Providers Care Fire Technology Instructor Name Role Phone Hero Lujan Unavailable Unavailable [...] [place] [address] [place] [address] [id number] Deborah Cancino Self - patient is the insured [facility] Medicare Supplement [address] [place], [place] [id number] Deborah Cancino Self - patient is the insured
--- OUTSIDE RECORDS SUMMARY | 2025-04-26 08:54 | XMS_ITS | Encounter Summary ---
Author Organization [facility] Address 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
[2025-04-26] MEDS: MORPHINE SULFATE (*CRX) 4 MG/ML INJ 2 MG IV PUSH (10:40)
[2025-04-26 13:21] LABS: Hematocrit 36.8 % (37.0-47.0); Hemoglobin 11.6 g/dL (12.0-15.0); Mean Corpuscular HGB Conc 31.5 g/dl (32-36); Mean Corpuscular Hemoglobin 29.8 pg (26-34); Mean Corpuscular Volume 94.6 fl (80-100); Platelet Count Result 344 k/mm3 (150-375); Red Blood Count 3.89 M/mm3 (4.2-5.4); White Blood Count 14.1 K/mm3 (4.5-10.0)
[2025-04-26 13:40] LABS: Alanine Aminotransferase 19 U/L (6-35); Albumin Level 3.5 g/dL (3.5-5.1); Alkaline Phosphatase 74 U/L (38-126); Anion Gap 7 mmol/L (4-12); Aspartate Amino Transferase 30 U/L (14-36); Bilirubin,Total 0.7 mg/dL (0.2-1.3); Blood Urea Nitrogen 16 mg/dL (7-17); Calcium 8.9 mg/dL (8.4-10.2); Carbon Dioxide 26 mmol/L (22-30); Chloride 101 mmol/L (98-107); Estimated CRCL calculation 44 ml/min; Estimated Glomerular Filt Rate 56; Glucose 178 mg/dL (65-110); Magnesium 1.2 mg/dL (1.6-2.3); Potassium 3.7 mmol/L (3.4-5.0); Sodium 134 mmol/L (137-145); Total Protein 6.8 g/dL (6.3-8.2)
[2025-04-26 14:00] VITALS: BP 155/66; PULSE 93; RESP 16; TEMP 36.4; O2SAT 97
[2025-04-26] MEDS: cefTRIAXone 2 GM in SODIUM CHLORIDE 0.9% IV 100 ML 200 ML IVPB (14:41)
[2025-04-26] MEDS: SODIUM CHLORIDE 0.9% IV 1,000 ML 100 ML IV CONT (14:41)
--- NOTE | 2025-04-26 15:17 | P.PNIM_ITS ---
Progress Note: A&P Assessment and Plan (1) Acute pyelonephritis: Code(s): N10 - Acute pyelonephritis Status: Acute Assessment and Plan: Patient admitted due to nausea and vomiting and inability to tolerate p.o., concern patient will not be able to tolerate p.o. antibiotics outpatient. Started on ceftriaxone and antiemetics including Zofran and Compazine. CT abd/pelvis: Urothelial enhancement at the bilateral ureters and renal pelvises sees suspicious for ascending urinary tract infection with regions of decreased parenchymal enhancement the left kidney suspicious for pyelonephritis. With UA suspicious for urinary tract infection. previous micro reviewed, distant history of Proteus mirabilis (2022) and Pseudomonas (2021). Patient still continues to have monitor severe pain requiring IV pain management. * UC pending * started on Ceftriaxone 2 gram on 04/25 * Pain management with [place] and IV Dilaudid 0.5 mg q.3 hours as needed * Toradol * IV fluids (2) GERD (gastroesophageal reflux disease): Qualifiers: Esophagitis presence: without esophagitis Qualified Code(s): K21.9 - Gastro-esophageal reflux disease without esophagitis Code(s): K21.9 - Gastro-esophageal reflux disease without esophagitis Status: Chronic Assessment and Plan: reviewed most recent GI note from January of 2025, patient has chronic abdominal pain and nausea/vomiting. Underwent EGD in January of 2025 which showed chronic mild gastritis without H pylori or intestinal metaplasia. She was started on amitriptyline and her Bentyl was discontinued. Patient additionally noted to have chronic diarrhea, continued on Questran. However patient did not start amitriptyline due to fear of side effects and has not been taking cholestyramine as she believes it is not needed. * Continue Bentyl p.r.n. * Antiemetics to include is Zofran and Reglan * PPI b.i.d. 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 Hold metformin in case of need for contrast. * correct regimen ordered - high dose TIDWM, based off BMI * Diabetic diet (4) CKD (chronic kidney disease) stage 3, GFR 30-59 ml/min: Qualifiers: Chronic kidney disease stage 3 subtype: stage 3a (GFR 45-59) Qualified Code(s): N18.31 - Chronic kidney disease, stage 3a Code(s): N18.30 - Chronic kidney disease, stage 3 unspecified Status: Chronic Assessment and Plan: creatinine 0.89, BUN 25, GFR greater than 60 upon admission * baseline creatinine 0.8-1.0 * trend renal function * trend electrolytes, correct as needed (5) HLD (hyperlipidemia): Qualifiers: Hyperlipidemia type: mixed hyperlipidemia Qualified Code(s): E78.2 - Mixed hyperlipidemia Code(s): E78.5 - Hyperlipidemia, unspecified Status: Chronic Assessment and Plan: * continue atorvastatin 40 mg daily (6) HTN (hypertension): Qualifiers: Hypertension type: essential hypertension Qualified Code(s): I10 - Essential (primary) hypertension Code(s): I10 - Essential (primary) hypertension Status: Acute Assessment and Plan: chronic, mildly hypertensive * Discontinued patient's hydrochlorothiazide * Increase patient's losartan from 50 mg to 100 mg daily * Monitor BP per unit protocol Plan Code status: Full code per patient DVT prophylaxis: Lovenox Stress ulcer prophylaxis: Protonix 40 daily PT/OT notes: NA Disposition: Patient continues admission for pyelonephritis will continue with IV fluids and IV pain management monitor and trend renal function pending urine culture patient is from home and plan is to return home when medically stable. Time Spent With Patient Time with patient: 15 - 25 minutes Subjective Date/time seen: 04/26/25 15:17 Interval history: Patient is a 79-year-old female admitted to the medical unit for further evaluation and treatment of pyelonephritis. 04/26/2025: Assumed Care Patient still with moderate to severe abdominal pain radiating to CVA pain. Patient still reporting some nausea but no vomiting did report urinary urgency denied any dysuria. Review of Systems Review of Systems: All systems reviewed & are unremarkable except as noted in HPI and below Exam Const: General: comfortable and no acute distress Other: , female, elderly, modestly ill-appearing HENMT: Face/Nose/Sinus: Normal nares present Mouth: Yes moist mucous membranes Eyes: General: appearance normal, both eyes and all related structures Sclera: sclerae normal Pupils: Equal, round and reactive pupils present EOM: EOMs intact bilaterally Resp: Effort & Inspection: normal respiratory effort Auscultation: clear to auscultation bilaterally Cardio: Rate: regular rate Rhythm: regular rhythm Other: S1-S2 present without murmur, rub, ectopy GI: Other: Abdomen soft, nondistended. Does have diffuse tenderness in all quadrants, more specifically at the right lower quadrant. Normoactive bowel sounds in all quadrants. with CVA tenderness Skin: General skin exam: normal color and no rashes or lesions noted Wounds: no wounds Neuro: Cranial nerves: Yes Equal, round and reactive pupils present Speech: normal speech Motor exam (neuro): 5/5 motor strength present throughout Sensory Exam: normal sensation Other: A&O x4 Extrem: General: normal to inspection Psych: Mental Status: mental status grossly normal Affect: normal affect Other: Good insight and judgment, pleasant Objective Data Vital Signs Vital Signs: Vital Signs - 24 hr 04/25/25 16:06 04/25/25 19:50 04/25/25 22:00 Temperature 98.4 F Pulse Rate 91 114 H 106 H Respiratory Rate 20 16 19 Blood Pressure 152/72 H 159/97 H 140/52 L Pulse Oximetry 97 100 99 Oxygen Delivery 04/26/25 05:04 04/26/25 08:48 04/26/25 14:00 Temperature 98.6 F 97.6 F Pulse Rate 103 H 80 93 Respiratory Rate 16 16 Blood Pressure 157/68 H 155/66 H Pulse Oximetry 96 95 97 Oxygen Delivery Room Air Intake/Output Intake/Output: Intake & Output 04/23/25 04/24/25 04/25/25 04/26/25 23:59 23:59 23:59 23:59 Intake Total 1050 476 Output Total 400 Balance 1050 76 Meds/Results Medications: Active Medications Generic Name Dose Route Start Last Admin Trade Name Freq PRN Reason Stop Dose Admin Acetaminophen 650 mg 04/25/25 22:02 Acetaminophen 325 Mg Tablet PO Q6H PRN Mild Pain (1-3) or Fever Hydrocodone Bitart/Acetaminophen 1 tab 04/25/25 22:02 04/26/25 05:38 Hydrocodone/Acetaminophen (*Crx) 5-325 Mg Tablet PO 1 tab Q6H PRN Administration Pain Rated 4-6 Aspirin 81 mg 04/26/25 09:00 04/26/25 08:50 Aspirin 81 Mg Enteric Tablet PO 81 mg DAILY CYNDIE Administration Atorvastatin Calcium 40 mg 04/25/25 22:40 04/26/25 08:50 Atorvastatin 40 Mg Tablet PO 40 mg DAILY CYNDIE Administration Dextrose 12.5 gm 04/25/25 19:39 Dextrose 50% 25 Gm/50 Ml Syringe IV PUSH PRN PRN Hypoglycemia Protocol Dicyclomine HCl 10 mg 04/25/25 22:41 Dicyclomine Hcl 10 Mg Capsule PO DAILY PRN abdominal pain Fish Oil 2 gm 04/26/25 09:00 04/26/25 08:50 [place] 3 Polyunsat Fatty Acids 1 Gm Cap PO 2 gm BID CYNDIE Administration Glucagon 1 mg 04/25/25 19:39 Glucagon For Inj 1 Mg Vial IM PRN PRN Hypoglycemia Protocol Glucose 15 gm 04/25/25 19:39 Glucose Oral Gel 15 Gm Of Glucse In 37.5 Gm Tube PO PRN PRN Hypoglycemia Protocol Hydrochlorothiazide 12.5 mg 04/26/25 09:00 04/26/25 08:50 Hydrochlorothiazide 12.5 Mg Capsule PO 12.5 mg QAM CYNDIE Administration Dextrose 1,000 mls @ 100 mls/hr 04/25/25 19:39 Dextrose 5% 1,000 Ml IVPB PRN PRN Hypoglycemia Protocol Ceftriaxone Sodium 2 gm/ 100 mls @ 200 mls/hr 04/26/25 12:30 04/26/25 14:41 Sodium Chloride IVPB 200 mls/hr DAILY CYNDIE Administration Sodium Chloride 1,000 mls @ 100 mls/hr 04/26/25 14:30 04/26/25 14:41 Normal Saline Iv IV CONT 100 mls/hr .Q10H CYNDIE Administration Insulin Aspart 4 - 8 units 04/26/25 08:00 04/26/25 12:00 Insulin Aspart (*Bkc) 100 Units/Ml SUB-Q 4 units TIDWM CYNDIE Administration Protocol Insulin Aspart 4 units 04/26/25 06:30 04/26/25 12:00 Insulin Aspart (*Bkc) 100 Units/Ml SUB-Q 4 units AC CYNDIE Administration Insulin Glargine 22 units 04/26/25 09:00 04/26/25 08:52 Insulin Glargine (*Bkc) 100 Units/Ml SUB-Q 22 units DAILY CYNDIE Administration Levothyroxine Sodium 25 mcg 04/26/25 06:30 04/26/25 05:37 Levothyroxine Sodium 25 Mcg Tablet PO 25 mcg DAILY@0630 CYNDIE Administration Losartan Potassium 50 mg 04/26/25 09:00 04/26/25 08:50 Losartan Potassium 50 Mg Tablet PO 50 mg QAM CYNDIE Administration Morphine Sulfate 2 mg 04/26/25 08:11 04/26/25 10:40 Morphine Sulfate (*Crx) 4 Mg/Ml Inj IV PUSH 2 mg Q4H PRN Administration Pain Rated 7-10 Ondansetron HCl 4 mg 04/25/25 19:37 Ondansetron Inj 4 Mg/2 Ml Vial IV PUSH Q6H PRN Nausea And Vomiting Polysaccharide Iron Complex 150 mg 04/26/25 12:00 04/26/25 14:43 Polysaccharide Iron Complex 150 Mg Capsule PO 150 mg 1200,1700 CYNDIE Administration Prochlorperazine Edisylate 10 mg 04/25/25 19:37 Prochlorperazine Edisylate 10 Mg/2 Ml Vial IV PUSH Q6H PRN Nausea And Vomiting Vitamin D 50 mcg 04/26/25 09:00 04/26/25 08:50 Cholecalciferol (Vitamin D3) 25 Mcg (1,000 Units) Tablet PO 50 mcg DAILY CYNDIE Administration Radiology Results: ITS Impressions Abdomen/Pelvis CT 04/25/25 12:50 IMPRESSION: 1. Urothelial enhancement at the bilateral ureters and renal pelvises sees suspicious for ascending urinary tract infection with regions of decreased parenchymal enhancement the left kidney suspicious for pyelonephritis. Correlate with urinalysis. 2. No other acute intra-abdominal/pelvic process. Specifically the appendix is normal. Labs Labs: Laboratory Results - last 24 hr 04/25/25 04/26/25 04/26/25 21:21 07:29 11:12 WBC RBC Hgb Hct MCV MCH MCHC RDW Plt Count MPV Sodium Potassium Chloride Carbon Dioxide Anion Gap BUN Creatinine Estim Creat Clear Calc Estimated GFR Glucose POC Capillary Glucose 221 H 266 H 213 H Calcium Magnesium Total Bilirubin AST ALT Alkaline Phosphatase Total Protein Albumin 04/26/25 13:12 WBC 14.1 H RBC 3.89 L Hgb 11.6 L Hct 36.8 L MCV 94.6 MCH 29.8 MCHC 31.5 L RDW 14.6 H Plt Count 344 MPV 8.4 Sodium 134 L Potassium 3.7 Chloride 101 Carbon Dioxide 26 Anion Gap 7 BUN 16 Creatinine 0.97 Estim Creat Clear Calc 44 Estimated GFR 56 L Glucose 178 H POC Capillary Glucose Calcium 8.9 Magnesium 1.2 L Total Bilirubin 0.7 AST 30 ALT 19 Alkaline Phosphatase 74 Total Protein 6.8 Albumin 3.5 Quality VTE Prophylaxis VTE prophylaxis: mechanical ordered and pharmacologic ordered -Patient's previous records reviewed on admission -ER notes reviewed in detail on admission -discussed all findings and current treatment plan with patient -Patient's disposition for safe discharge discussed with pillowcase maker Dictation performed by Button direct speech recognition software, therefore neck skewer variants and typographical errors may occur. Hospitalist [facility] Advance Care Plan I have confirmed that the patient's Advanced Care Plan is present, code status is documented, or surrogate decision maker is listed in patient medical record.: Yes Medication Reconciliation I have utilized all available resources to obtain, update and review the patients current medications (includes all prescriptions, OTC, herbals, cannabis, and nutritional supplements).: Yes The patient is not eligible for med reconciliation; the patient is in a emergent medical situation where delaying treatment would jeopardize the patients health.: No
[2025-04-26 20:00] VITALS: BP 142/51; PULSE 96; RESP 18; TEMP 37; O2SAT 96
[2025-04-26] MEDS: PANTOPRAZOLE 40 MG TABLET PO (20:48)
[2025-04-27] MEDS: SODIUM CHLORIDE 0.9% IV 1,000 ML 100 ML IV CONT ×2 (01:04→11:28)
[2025-04-27] MEDS: HYDROcodone/acetaminophen (*CRX) 5-325 MG TABLET 1 TAB PO ×3 (03:11→20:31)
[2025-04-27 05:10] VITALS: BP 140/52; PULSE 84; RESP 20; TEMP 35.8; O2SAT 96
[2025-04-27] MEDS: LEVOTHYROXINE SODIUM 25 MCG TABLET PO (06:08)
[2025-04-27] MEDS: MORPHINE SULFATE (*CRX) 4 MG/ML INJ 2 MG IV PUSH ×2 (06:57→11:27)
[2025-04-27 07:18] LABS: Hematocrit 35.9 % (37.0-47.0); Hemoglobin 11.5 g/dL (12.0-15.0); Mean Corpuscular HGB Conc 32.0 g/dl (32-36); Mean Corpuscular Hemoglobin 30.1 pg (26-34); Mean Corpuscular Volume 94.0 fl (80-100); Platelet Count Result 303 k/mm3 (150-375); Red Blood Count 3.82 M/mm3 (4.2-5.4); White Blood Count 11.8 K/mm3 (4.5-10.0)
[2025-04-27 07:50] LABS: Alanine Aminotransferase 22 U/L (6-35); Albumin Level 3.2 g/dL (3.5-5.1); Alkaline Phosphatase 76 U/L (38-126); Anion Gap 8 mmol/L (4-12); Aspartate Amino Transferase 35 U/L (14-36); Bilirubin,Total 0.6 mg/dL (0.2-1.3); Blood Urea Nitrogen 16 mg/dL (7-17); Calcium 8.2 mg/dL (8.4-10.2); Carbon Dioxide 21 mmol/L (22-30); Chloride 102 mmol/L (98-107); Estimated CRCL calculation 45 ml/min; Estimated Glomerular Filt Rate 57; Glucose 144 mg/dL (65-110); Magnesium 1.3 mg/dL (1.6-2.3); Potassium 3.5 mmol/L (3.4-5.0); Sodium 131 mmol/L (137-145); Total Protein 6.4 g/dL (6.3-8.2)
[2025-04-27] MEDS: INSULIN ASPART (*BKC) 100 UNITS/ML SUB-Q ×3 (09:37→17:54)
[2025-04-27] MEDS: INSULIN GLARGINE (*BKC) 100 UNITS/ML 22 UNITS SUB-Q (09:37)
[2025-04-27] MEDS: cefTRIAXone 2 GM in SODIUM CHLORIDE 0.9% IV 100 ML IVPB (09:43)
[2025-04-27] MEDS: CHOLECALCIFEROL (VITAMIN D3) 25 MCG (1,000 UNITS) TABLET 50 MCG PO (09:48)
[2025-04-27] MEDS: ATORVASTATIN 40 MG TABLET PO (09:48)
[2025-04-27] MEDS: ASPIRIN 81 MG ENTERIC TABLET PO (09:48)
[2025-04-27] MEDS: LOSARTAN POTASSIUM 50 MG TABLET 100 MG PO (09:48)
[2025-04-27] MEDS: OMEGA 3 POLYUNSAT FATTY ACIDS 1 GM CAP 2 GM PO ×2 (09:48→17:54)
[2025-04-27] MEDS: PANTOPRAZOLE 40 MG TABLET PO ×2 (09:48→20:30)
[2025-04-27] MEDS: ENOXAPARIN 40 MG/0.4 ML SYRINGE SUB-Q (09:49)
--- NOTE | 2025-04-27 13:52 | P.PNIM_ITS ---
Progress Note: A&P Assessment and Plan (1) Acute pyelonephritis: Code(s): N10 - Acute pyelonephritis Status: Acute Assessment and Plan: Patient admitted due to nausea and vomiting and inability to tolerate p.o., concern patient will not be able to tolerate p.o. antibiotics outpatient. Started on ceftriaxone and antiemetics including Zofran and Compazine. I personally reviewed and agree with CT abd/pelvis: Urothelial enhancement at the bilateral ureters and renal pelvises sees suspicious for ascending urinary tract infection with regions of decreased parenchymal enhancement the left kidney suspicious for pyelonephritis. With UA suspicious for urinary tract infection. previous micro reviewed, distant history of Proteus mirabilis (2022) and Pseudomonas (2021). Patient still continues to have monitor severe pain requiring IV pain management. * UC Gram-negative bacilli * started on Ceftriaxone 2 gram on 04/25 * Pain management with Haddock and IV Dilaudid 0.5 mg q.3 hours as needed * Toradol * IV fluids (2) GERD (gastroesophageal reflux disease): Qualifiers: Esophagitis presence: without esophagitis Qualified Code(s): K21.9 - Gastro-esophageal reflux disease without esophagitis Code(s): K21.9 - Gastro-esophageal reflux disease without esophagitis Status: Chronic Assessment and Plan: reviewed most recent GI note from January of 2025, patient has chronic abdominal pain and nausea/vomiting. Underwent EGD in January of 2025 which showed chronic mild gastritis without H pylori or intestinal metaplasia. She was started on amitriptyline and her Bentyl was discontinued. Patient additionally noted to have chronic diarrhea, continued on Questran. However patient did not start amitriptyline due to fear of side effects and has not been taking cholestyramine as she believes it is not needed. * Continue Bentyl p.r.n. * Antiemetics to include is Zofran and Reglan * PPI b.i.d. 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 Hold metformin in case of need for contrast. * correct regimen ordered - high dose TIDWM, based off BMI * Diabetic diet (4) CKD (chronic kidney disease) stage 3, GFR 30-59 ml/min: Qualifiers: Chronic kidney disease stage 3 subtype: stage 3a (GFR 45-59) Qualified Code(s): N18.31 - Chronic kidney disease, stage 3a Code(s): N18.30 - Chronic kidney disease, stage 3 unspecified Status: Chronic Assessment and Plan: creatinine 0.89, BUN 25, GFR greater than 60 upon admission * baseline creatinine 0.8-1.0 * trend renal function * trend electrolytes, correct as needed (5) HLD (hyperlipidemia): Qualifiers: Hyperlipidemia type: mixed hyperlipidemia Qualified Code(s): E78.2 - Mixed hyperlipidemia Code(s): E78.5 - Hyperlipidemia, unspecified Status: Chronic Assessment and Plan: * continue atorvastatin 40 mg daily (6) HTN (hypertension): Qualifiers: Hypertension type: essential hypertension Qualified Code(s): I10 - Essential (primary) hypertension Code(s): I10 - Essential (primary) hypertension Status: Acute Assessment and Plan: chronic, mildly hypertensive * Discontinued patient's hydrochlorothiazide * Increase patient's losartan from 50 mg to 100 mg daily * Monitor BP per unit protocol Plan Code status: Full code per patient DVT prophylaxis: Lovenox Stress ulcer prophylaxis: Protonix 40 daily PT/OT notes: NA Disposition: Patient continues admission for pyelonephritis will continue with IV fluids and IV pain management monitor and trend renal function pending urine culture patient is from home and plan is to return home when medically stable. Time Spent With Patient Time with patient: 15 - 25 minutes Subjective Date/time seen: 04/27/25 13:52 Interval history: Patient is a 79-year-old female admitted to the medical unit for further evaluation and treatment of pyelonephritis. 04/27/2025: Assumed Care Patient reports mild improvement to pain and urination. She is tolerated full liquids and will attempt a sandwich at dinner. She reports nausea improving but still reporting some chills overnight and feeling feverish. Review of Systems Review of Systems: All systems reviewed & are unremarkable except as noted in HPI and below Exam Const: General: comfortable and no acute distress Other: , female, elderly, modestly ill-appearing HENMT: Face/Nose/Sinus: Normal nares present Mouth: Yes moist mucous membranes Eyes: General: appearance normal, both eyes and all related structures Sclera: sclerae normal Pupils: Equal, round and reactive pupils present EOM: EOMs intact bilaterally Resp: Effort & Inspection: normal respiratory effort Auscultation: clear to auscultation bilaterally Cardio: Rate: regular rate Rhythm: regular rhythm Other: S1-S2 present without murmur, rub, ectopy GI: Other: Abdomen soft, nondistended. Does have diffuse tenderness in all quadrants, more specifically at the right lower quadrant. Normoactive bowel sounds in all quadrants. with CVA tenderness Skin: General skin exam: normal color and no rashes or lesions noted Wounds: no wounds Neuro: Cranial nerves: Yes Equal, round and reactive pupils present Speech: normal speech Motor exam (neuro): 5/5 motor strength present throughout Sensory Exam: normal sensation Other: A&O x4 Extrem: General: normal to inspection Psych: Mental Status: mental status grossly normal Affect: normal affect Other: Good insight and judgment, pleasant Objective Data Vital Signs Vital Signs: Vital Signs - 24 hr 04/26/25 14:00 04/26/25 20:00 04/26/25 23:22 Temperature 97.6 F 98.6 F Pulse Rate 93 96 Respiratory Rate 16 18 Blood Pressure 155/66 H 142/51 H Pulse Oximetry 97 96 Oxygen Delivery Room Air 04/27/25 05:10 04/27/25 08:15 Temperature 96.4 F L Pulse Rate 84 Respiratory Rate 20 Blood Pressure 140/52 L Pulse Oximetry 96 Oxygen Delivery Room Air Intake/Output Intake/Output: Intake & Output 04/24/25 04/25/25 04/26/25 04/27/25 23:59 23:59 23:59 23:59 Intake Total 0910 486 8865 Output Total 1050 1400 Balance 1050 -234 1710 Meds/Results Medications: Active Medications Generic Name Dose Route Start Last Admin Trade Name Freq PRN Reason Stop Dose Admin Acetaminophen 650 mg 04/25/25 22:02 Acetaminophen 325 Mg Tablet PO Q6H PRN Mild Pain (1-3) or Fever Hydrocodone Bitart/Acetaminophen 1 tab 04/25/25 22:02 04/27/25 03:11 Hydrocodone/Acetaminophen (*Crx) 5-325 Mg Tablet PO 1 tab Q6H PRN Administration Pain Rated 4-6 Aspirin 81 mg 04/26/25 09:00 04/27/25 09:48 Aspirin 81 Mg Enteric Tablet PO 81 mg DAILY CYNDIE Administration Atorvastatin Calcium 40 mg 04/25/25 22:40 04/27/25 09:48 Atorvastatin 40 Mg Tablet PO 40 mg DAILY CYNDIE Administration Dextrose 12.5 gm 04/25/25 19:39 Dextrose 50% 25 Gm/50 Ml Syringe IV PUSH PRN PRN Hypoglycemia Protocol Dicyclomine HCl 10 mg 04/25/25 22:41 Dicyclomine Hcl 10 Mg Capsule PO DAILY PRN abdominal pain Enoxaparin Sodium 40 mg 04/27/25 09:00 04/27/25 09:49 Enoxaparin 40 Mg/0.4 Ml Syringe SUB-Q 40 mg DAILY CYNDIE Administration Fish Oil 2 gm 04/26/25 09:00 04/27/25 09:48 [place] 3 Polyunsat Fatty Acids 1 Gm Cap PO 2 gm BID CYNDIE Administration Glucagon 1 mg 04/25/25 19:39 Glucagon For Inj 1 Mg Vial IM PRN PRN Hypoglycemia Protocol Glucose 15 gm 04/25/25 19:39 Glucose Oral Gel 15 Gm Of Glucse In 37.5 Gm Tube PO PRN PRN Hypoglycemia Protocol Hydromorphone HCl 0.5 mg 04/26/25 15:18 Hydromorphone Hcl Inj (*Crx) 1 Mg/Ml Syr IV PUSH Q3H PRN Pain Rated 7-10 Dextrose 1,000 mls @ 100 mls/hr 04/25/25 19:39 Dextrose 5% 1,000 Ml IVPB PRN PRN Hypoglycemia Protocol Ceftriaxone Sodium 2 gm/ 100 mls @ 200 mls/hr 04/26/25 12:30 04/27/25 09:43 Sodium Chloride IVPB 100 mls/hr DAILY CYNDIE Administration Sodium Chloride 1,000 mls @ 100 mls/hr 04/26/25 14:30 04/27/25 11:28 Normal Saline Iv IV CONT 100 mls/hr .Q10H CYNDIE Administration Magnesium Sulfate 2 gm in 50 mls @ 25 mls/hr 04/27/25 13:49 Magnesium Sulf 2 Gm/Water 50ml IVPB 04/27/25 15:48 ONCE ONE Insulin Aspart 4 - 8 units 04/26/25 08:00 04/27/25 13:03 Insulin Aspart (*Bkc) 100 Units/Ml SUB-Q Not Given TIDWM CYNDIE Protocol Insulin Aspart 4 units 04/27/25 08:00 04/27/25 13:03 Insulin Aspart (*Bkc) 100 Units/Ml SUB-Q 4 units ACINSULIN CYNDIE Administration Insulin Glargine 22 units 04/26/25 09:00 04/27/25 09:37 Insulin Glargine (*Bkc) 100 Units/Ml SUB-Q 22 units DAILY CYNDIE Administration Ketorolac Tromethamine 30 mg 04/26/25 21:00 Ketorolac 30 Mg/Ml Vial (*Bkc) IV PUSH Q6H PRN Pain Rated 4-6 Levothyroxine Sodium 25 mcg 04/26/25 06:30 04/27/25 06:08 Levothyroxine Sodium 25 Mcg Tablet PO 25 mcg DAILY@0630 CYNDIE Administration Losartan Potassium 100 mg 04/27/25 09:00 04/27/25 09:48 Losartan Potassium 50 Mg Tablet PO 100 mg QAM CYNDIE Administration Morphine Sulfate 2 mg 04/26/25 08:11 04/27/25 11:27 Morphine Sulfate (*Crx) 4 Mg/Ml Inj IV PUSH 2 mg Q4H PRN Administration Pain Rated 7-10 Ondansetron HCl 4 mg 04/25/25 19:37 Ondansetron Inj 4 Mg/2 Ml Vial IV PUSH Q6H PRN Nausea And Vomiting Pantoprazole Sodium 40 mg 04/26/25 21:00 04/27/25 09:48 Pantoprazole 40 Mg Tablet PO 40 mg Q12HR CYNDIE Administration Polysaccharide Iron Complex 150 mg 04/26/25 12:00 04/27/25 13:02 Polysaccharide Iron Complex 150 Mg Capsule PO 150 mg 1200,1700 CYNDIE Administration Prochlorperazine Edisylate 10 mg 04/25/25 19:37 Prochlorperazine Edisylate 10 Mg/2 Ml Vial IV PUSH Q6H PRN Nausea And Vomiting Vitamin D 50 mcg 04/26/25 09:00 04/27/25 09:48 Cholecalciferol (Vitamin D3) 25 Mcg (1,000 Units) Tablet PO 50 mcg DAILY CYNDIE Administration Radiology Results: ITS Impressions Abdomen/Pelvis CT 04/25/25 12:50 IMPRESSION: 1. Urothelial enhancement at the bilateral ureters and renal pelvises sees suspicious for ascending urinary tract infection with regions of decreased parenchymal enhancement the left kidney suspicious for pyelonephritis. Correlate with urinalysis. 2. No other acute intra-abdominal/pelvic process. Specifically the appendix is normal. Labs Labs: Laboratory Results - last 24 hr 04/26/25 04/26/25 04/27/25 16:15 20:06 06:43 WBC 11.8 H RBC 3.82 L Hgb 11.5 L Hct 35.9 L MCV 94.0 MCH 30.1 MCHC 32.0 RDW 14.2 Plt Count 303 MPV 9.2 Sodium 131 L Potassium 3.5 Chloride 102 Carbon Dioxide 21 L Anion Gap 8 BUN 16 Creatinine 0.95 Estim Creat Clear Calc 45 Estimated GFR 57 L Glucose 144 H POC Capillary Glucose 137 H 153 H Calcium 8.2 L Magnesium 1.3 L Total Bilirubin 0.6 AST 35 ALT 22 Alkaline Phosphatase 76 Total Protein 6.4 Albumin 3.2 L 04/27/25 04/27/25 08:37 12:15 WBC RBC Hgb Hct MCV MCH MCHC RDW Plt Count MPV Sodium Potassium Chloride Carbon Dioxide Anion Gap BUN Creatinine Estim Creat Clear Calc Estimated GFR Glucose POC Capillary Glucose 139 H 180 H Calcium Magnesium Total Bilirubin AST ALT Alkaline Phosphatase Total Protein Albumin Quality VTE Prophylaxis VTE prophylaxis: mechanical ordered and pharmacologic ordered -Patient's previous records reviewed on admission -ER notes reviewed in detail on admission -discussed all findings and current treatment plan with patient/Family/POA -Consultations reviewed for recommendations -Patient's disposition for safe discharge discussed with case maker Dictation performed by [employer] direct speech recognition software, therefore fitness coordinator variants and typographical errors may occur. Hospitalist MIPS Advance Care Plan I have confirmed that the patient's Advanced Care Plan is present, code status is documented, or surrogate decision maker is listed in patient medical record.: Yes Medication Reconciliation I have utilized all available resources to obtain, update and review the patients current medications (includes all prescriptions, OTC, herbals, cannabis, and nutritional supplements).: Yes The patient is not eligible for med reconciliation; the patient is in a emergent medical situation where delaying treatment would jeopardize the patients health.: No
[2025-04-27] MEDS: MAGNESIUM SULF 2 GM/WATER 50ML 2 GM/50 ML BAG IVPB (14:02)
[2025-04-27 16:04] VITALS: BP 105/42; PULSE 77; RESP 20; TEMP 36.2; O2SAT 94
[2025-04-27 20:50] VITALS: BP 120/40; PULSE 96; RESP 18; TEMP 36.4; O2SAT 100
[2025-04-28] MEDS: SODIUM CHLORIDE 0.9% IV 1,000 ML 100 ML IV CONT ×2 (02:39→14:33)
[2025-04-28 05:05] VITALS: BP 117/41; PULSE 85; RESP 20; TEMP 37.3; O2SAT 96
[2025-04-28] MEDS: LEVOTHYROXINE SODIUM 25 MCG TABLET PO (05:29)
[2025-04-28 05:30] LABS: Hematocrit 29.6 % (37.0-47.0); Hemoglobin 9.5 g/dL (12.0-15.0); Mean Corpuscular HGB Conc 32.1 g/dl (32-36); Mean Corpuscular Hemoglobin 30.3 pg (26-34); Mean Corpuscular Volume 94.3 fl (80-100); Platelet Count Result 232 k/mm3 (150-375); Red Blood Count 3.14 M/mm3 (4.2-5.4); White Blood Count 6.3 K/mm3 (4.5-10.0)
[2025-04-28 05:54] LABS: Alanine Aminotransferase 19 U/L (6-35); Albumin Level 2.4 g/dL (3.5-5.1); Alkaline Phosphatase 63 U/L (38-126); Anion Gap 3 mmol/L (4-12); Aspartate Amino Transferase 35 U/L (14-36); Bilirubin,Total 0.3 mg/dL (0.2-1.3); Blood Urea Nitrogen 13 mg/dL (7-17); Calcium 7.2 mg/dL (8.4-10.2); Carbon Dioxide 23 mmol/L (22-30); Chloride 106 mmol/L (98-107); Estimated CRCL calculation 45 ml/min; Estimated Glomerular Filt Rate 56; Glucose 125 mg/dL (65-110); Magnesium 1.7 mg/dL (1.6-2.3); Potassium 3.4 mmol/L (3.4-5.0); Sodium 132 mmol/L (137-145); Total Protein 5.0 g/dL (6.3-8.2)
[2025-04-28] MEDS: HYDROcodone/acetaminophen (*CRX) 5-325 MG TABLET 1 TAB PO (08:20)
[2025-04-28] MEDS: INSULIN GLARGINE (*BKC) 100 UNITS/ML 22 UNITS SUB-Q (08:21)
[2025-04-28] MEDS: INSULIN ASPART (*BKC) 100 UNITS/ML SUB-Q ×3 (08:21→17:20)
[2025-04-28] MEDS: cefTRIAXone 2 GM in SODIUM CHLORIDE 0.9% IV 100 ML IVPB (08:22)
[2025-04-28] MEDS: ASPIRIN 81 MG ENTERIC TABLET PO (08:22)
[2025-04-28] MEDS: OMEGA 3 POLYUNSAT FATTY ACIDS 1 GM CAP 2 GM PO ×2 (08:22→17:17)
[2025-04-28] MEDS: CHOLECALCIFEROL (VITAMIN D3) 25 MCG (1,000 UNITS) TABLET 50 MCG PO (08:22)
[2025-04-28] MEDS: PANTOPRAZOLE 40 MG TABLET PO ×2 (08:22→21:06)
[2025-04-28] MEDS: LOSARTAN POTASSIUM 50 MG TABLET 100 MG PO (08:22)
[2025-04-28] MEDS: ATORVASTATIN 40 MG TABLET PO (08:23)
[2025-04-28] MEDS: ENOXAPARIN 40 MG/0.4 ML SYRINGE SUB-Q (08:23)
--- NOTE | 2025-04-28 14:15 | P.PNIM_ITS ---
Progress Note: A&P Assessment and Plan (1) Acute pyelonephritis: Code(s): N10 - Acute pyelonephritis <Rashid Chaudhry, Student - Last Filed: 04/28/25 14:24> Status: Acute <Rashid Chaudhry, Student - Last Filed: 04/28/25 14:24> Assessment and Plan: Patient admitted due to nausea and vomiting and inability to tolerate p.o., concern patient will not be able to tolerate p.o. antibiotics outpatient. Started on ceftriaxone and antiemetics including Zofran and Compazine. I personally reviewed and agree with CT abd/pelvis: Urothelial enhancement at the bilateral ureters and renal pelvises sees suspicious for ascending urinary tract infection with regions of decreased parenchymal enhancement the left kidney suspicious for pyelonephritis. With UA suspicious for urinary tract infection. previous micro reviewed, distant history of Proteus mirabilis (2022) and Pseudomonas (2021). Patient still continues to have monitor severe pain requiring IV pain management. * UC Gram-negative bacilli * started on Ceftriaxone 2 gram on 04/25 * Pain management with [place] and IV Dilaudid 0.5 mg q.3 hours as needed and IV toradol 30mg q6 hours as needed * IV fluids * Tolerating some oral intake today <Rashid Chaudhry, Student - Last Filed: 04/28/25 14:24> (2) GERD (gastroesophageal reflux disease): Qualifiers: Esophagitis presence: without esophagitis Qualified Code(s): K21.9 - Gastro-esophageal reflux disease without esophagitis <Rashid Chaudhry, Student - Last Filed: 04/28/25 14:24> Code(s): K21.9 - Gastro-esophageal reflux disease without esophagitis <Rashid Chaudhry, Student - Last Filed: 04/28/25 14:24> Status: Chronic <Rashid Chaudhry, Student - Last Filed: 04/28/25 14:24> Assessment and Plan: reviewed most recent GI note from January of 2025, patient has chronic abdominal pain and nausea/vomiting. Underwent EGD in January of 2025 which showed chronic mild gastritis without H pylori or intestinal metaplasia. She was started on amitriptyline and her Bentyl was discontinued. Patient additionally noted to have chronic diarrhea, continued on Questran. However patient did not start amitriptyline due to fear of side effects and has not been taking cholestyramine as she believes it is not needed. * Continue Bentyl p.r.n. * Antiemetics to include is Zofran and Reglan * PPI b.i.d. 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 Hold metformin in case of need for contrast. * correct regimen ordered - high dose TIDWM, based off BMI * Diabetic diet <Rashid Chaudhry, Student - Last Filed: 04/28/25 14:24> (4) CKD (chronic kidney disease) stage 3, GFR 30-59 ml/min: Qualifiers: Chronic kidney disease stage 3 subtype: stage 3a (GFR 45-59) Qualified Code(s): N18.31 - Chronic kidney disease, stage 3a <Rashid Chaudhry, Student - Last Filed: 04/28/25 14:24> Code(s): N18.30 - Chronic kidney disease, stage 3 unspecified <Rashid Hernandezkianna, Student - Last Filed: 04/28/25 14:24> Status: Chronic <Rashid Casasbenry, - Last Filed: 04/28/25 14:24> Assessment and Plan: creatinine 0.89, BUN 25, GFR greater than 60 on admission * baseline creatinine 0.8-1.0 * trend renal function, currently at baseline * trend electrolytes, correct as needed <Rashid ChanelBritt Chaudhry, - Last Filed: 04/28/25 14:24> (5) HLD (hyperlipidemia): Qualifiers: Hyperlipidemia type: mixed hyperlipidemia Qualified Code(s): E78.2 - Mixed hyperlipidemia <Rashid BuchananBritt Chaudhry, Student - Last Filed: 04/28/25 14:24> Code(s): E78.5 - Hyperlipidemia, unspecified <Rashid Hernandezkianna, Student - Last Filed: 04/28/25 14:24> Status: Chronic <Rashid Hernandezkianna, Student - Last Filed: 04/28/25 14:24> Assessment and Plan: * continue atorvastatin 40 mg daily <Rashid Chaudhry, Last Filed: 04/28/25 14:24> (6) HTN (hypertension): Qualifiers: Hypertension type: essential hypertension Qualified Code(s): I10 - Essential (primary) hypertension <Rashid Chaudhry, Last Filed: 04/28/25 14:24> Code(s): I10 - Essential (primary) hypertension <Rashid Chaudhry, - Last Filed: 04/28/25 14:24> Status: Acute <Rashid Chaudhry Last Filed: 04/28/25 14:24> Assessment and Plan: chronic, mildly hypertensive * Discontinued patient's hydrochlorothiazide * Increase patient's losartan from 50 mg to 100 mg daily * Monitor BP per unit protocol <Rashid Chaudhry, Last Filed: 04/28/25 14:24> Assessment and Plan: Code status: Full code per patient DVT prophylaxis: Lovenox Stress ulcer prophylaxis: Protonix 40 daily PT/OT notes: NA Disposition: Patient continues admission for pyelonephritis will continue with IV fluids and IV pain management. Monitor and trend renal function pending urine culture. Patient is from home and plan is to return home when medically stable. <Rashid Chaudhry, - Last Filed: 04/28/25 14:24> Time Spent With Patient Time with patient: 15 - 25 minutes <Rashid Chaudhry, - Last Filed: 04/28/25 14:24> Subjective Date/time seen: 04/28/25 14:16 <Rashid Chaudhry - Last Filed: 04/28/25 14:24> Interval history: Patient is a 79-year-old female admitted to the medical unit for further evaluation and treatment of pyelonephritis. 04/28/2025: Patient reports improvement in pain and nausea though both still persist. Tolerating diabetic diet today. Denies chest pain, shortness of breath, and chills. <Rashid Chaudhry - Last Filed: 04/28/25 14:24> Review of Systems Review of Systems: All systems reviewed & are unremarkable except as noted in HPI and below <Rashid Chaudhry Last Filed: 04/28/25 14:24> Exam Const: General: comfortable and no acute distress <Rashid Chaudhry - Last Filed: 04/28/25 14:24> Other: , female, elderly, modestly ill-appearing <Rashid Chaudhry - Last Filed: 04/28/25 14:24> HENMT: Face/Nose/Sinus: Normal nares present <Rashid Chaudhry - Last Filed: 04/28/25 14:24> Mouth: Yes moist mucous membranes <Rashid Chaudhry - Last Filed: 04/28/25 14:24> Eyes: General: appearance normal, both eyes and all related structures <Rashid Chaudhry - Last Filed: 04/28/25 14:24> Sclera: sclerae normal <Rashid Chaudhry - Last Filed: 04/28/25 14:24> Pupils: Equal, round and reactive pupils present <Rashid Chaudhry - Last Filed: 04/28/25 14:24> EOM: EOMs intact bilaterally <Rashid Chaudhry - Last Filed: 04/28/25 14:24> Neck: Neck: supple and no JVD <Rashid Chaudhry - Last Filed: 04/28/25 14:24> Resp: Effort & Inspection: normal respiratory effort <Rashid Chaudhry Last Filed: 04/28/25 14:24> Auscultation: clear to auscultation bilaterally <Rashid Chaudhry - Last Filed: 04/28/25 14:24> Cardio: Rate: regular rate <Rashid Chaudhry - Last Filed: 04/28/25 14:24> Rhythm: regular rhythm <Rashid Casaser, - Last Filed: 04/28/25 14:24> Other: S1-S2 present without murmur, rub, ectopy <Rashid ChanelBritt Chaudhry Last Filed: 04/28/25 14:24> GI: Other: Abdomen soft, nondistended. Does have diffuse tenderness in all quadrants, more specifically at the right lower quadrant. Normoactive bowel sounds in all quadrants. with CVA tenderness <Rashid Chaudhry - Last Filed: 04/28/25 14:24> Skin: General skin exam: normal color and no rashes or lesions noted <Rashid ChanelBritt Chaudhry, - Last Filed: 04/28/25 14:24> Wounds: no wounds <Rashid ChanelBritt Chaudhry, Last Filed: 04/28/25 14:24> Neuro: Cranial nerves: Yes Equal, round and reactive pupils present <Rashid Chaudhry - Last Filed: 04/28/25 14:24> Speech: normal speech <Rashid ChanelBritt Chaudhry, Last Filed: 04/28/25 14:24> Motor exam (neuro): 5/5 motor strength present throughout <Rashidjenny Chaudhry, - Last Filed: 04/28/25 14:24> Sensory Exam: normal sensation <Rashid ChanelBritt Davidkianna, - Last Filed: 04/28/25 14:24> Other: A&O x4 <Rashid Chaudhry Last Filed: 04/28/25 14:24> Extrem: General: normal to inspection <Rashid Chaudhry Last Filed: 04/28/25 14:24> Psych: Mental Status: mental status grossly normal <Rashid Chaudhry Last Filed: 04/28/25 14:24> Affect: normal affect <Rashid Chaudhry Last Filed: 04/28/25 14:24> Other: Good insight and judgment, pleasant <Rashid Chaudhry Last Filed: 04/28/25 14:24> Objective Data Vital Signs Vital Signs: Vital Signs - 24 hr 04/27/25 16:04 04/27/25 20:50 04/28/25 05:05 Temperature 97.2 F L 97.5 F L 99.1 F Pulse Rate 77 96 85 Respiratory Rate 20 18 20 Blood Pressure 105/42 L 120/40 L 117/41 L Pulse Oximetry 94 100 96 Oxygen Delivery 04/28/25 08:15 Temperature Pulse Rate Respiratory Rate Blood Pressure Pulse Oximetry Oxygen Delivery Room Air <Rashid Chaudhry, Student - Last Filed: 04/28/25 14:24> Intake/Output Intake/Output: Intake & Output 04/25/25 04/26/25 04/27/25 04/28/25 23:59 23:59 23:59 23:59 Intake Total 9971 895 2574 1110 Output Total 1050 1800 450 Balance 1050 -234 3000 660 <Rashid Chaudhry, Student - Last Filed: 04/28/25 14:24> Meds/Results Medications: Active Medications Generic Name Dose Route Start Last Admin Trade Name Freq PRN Reason Stop Dose Admin Acetaminophen 650 mg 04/25/25 22:02 Acetaminophen 325 Mg Tablet PO Q6H PRN Mild Pain (1-3) or Fever Hydrocodone Bitart/Acetaminophen 1 tab 04/25/25 22:02 04/28/25 08:20 Hydrocodone/Acetaminophen (*Crx) 5-325 Mg Tablet PO 1 tab Q6H PRN Administration Pain Rated 4-6 Aspirin 81 mg 04/26/25 09:00 04/28/25 08:22 Aspirin 81 Mg Enteric Tablet PO 81 mg DAILY CYNDIE Administration Atorvastatin Calcium 40 mg 04/25/25 22:40 04/28/25 08:23 Atorvastatin 40 Mg Tablet PO 40 mg DAILY CYNDIE Administration Dextrose 12.5 gm 04/25/25 19:39 Dextrose 50% 25 Gm/50 Ml Syringe IV PUSH PRN PRN Hypoglycemia Protocol Dicyclomine HCl 10 mg 04/25/25 22:41 Dicyclomine Hcl 10 Mg Capsule PO DAILY PRN abdominal pain Enoxaparin Sodium 40 mg 04/27/25 09:00 04/28/25 08:23 Enoxaparin 40 Mg/0.4 Ml Syringe SUB-Q 40 mg DAILY CYNDIE Administration Fish Oil 2 gm 04/26/25 09:00 04/28/25 08:22 [place] 3 Polyunsat Fatty Acids 1 Gm Cap PO 2 gm BID CYNDIE Administration Glucagon 1 mg 04/25/25 19:39 Glucagon For Inj 1 Mg Vial IM PRN PRN Hypoglycemia Protocol Glucose 15 gm 04/25/25 19:39 Glucose Oral Gel 15 Gm Of Glucse In 37.5 Gm Tube PO PRN PRN Hypoglycemia Protocol Hydromorphone HCl 0.5 mg 04/26/25 15:18 Hydromorphone Hcl Inj (*Crx) 1 Mg/Ml Syr IV PUSH Q3H PRN Pain Rated 7-10 Dextrose 1,000 mls @ 100 mls/hr 04/25/25 19:39 Dextrose 5% 1,000 Ml IVPB PRN PRN Hypoglycemia Protocol Ceftriaxone Sodium 2 gm/ 100 mls @ 200 mls/hr 04/26/25 12:30 04/28/25 08:22 Sodium Chloride IVPB 100 mls/hr DAILY CYNDIE Administration Sodium Chloride 1,000 mls @ 100 mls/hr 04/26/25 14:30 04/28/25 02:39 Normal Saline Iv IV CONT 100 mls/hr .Q10H CYNDIE Administration Insulin Aspart 4 - 8 units 04/26/25 08:00 04/28/25 12:58 Insulin Aspart (*Bkc) 100 Units/Ml SUB-Q Not Given TIDWM CYNDIE Protocol Insulin Aspart 4 units 04/27/25 08:00 04/28/25 12:54 Insulin Aspart (*Bkc) 100 Units/Ml SUB-Q 4 units ACINSULIN CYNDIE Administration Insulin Glargine 22 units 04/26/25 09:00 04/28/25 08:21 Insulin Glargine (*Bkc) 100 Units/Ml SUB-Q 22 units DAILY CYNDIE Administration Ketorolac Tromethamine 30 mg 04/26/25 21:00 Ketorolac 30 Mg/Ml Vial (*Bkc) IV PUSH Q6H PRN Pain Rated 4-6 Levothyroxine Sodium 25 mcg 04/26/25 06:30 04/28/25 05:29 Levothyroxine Sodium 25 Mcg Tablet PO 25 mcg DAILY@0630 CYNDIE Administration Losartan Potassium 100 mg 04/27/25 09:00 04/28/25 08:22 Losartan Potassium 50 Mg Tablet PO 100 mg QAM CYNDIE Administration Morphine Sulfate 2 mg 04/26/25 08:11 04/27/25 11:27 Morphine Sulfate (*Crx) 4 Mg/Ml Inj IV PUSH 2 mg Q4H PRN Administration Pain Rated 7-10 Ondansetron HCl 4 mg 04/25/25 19:37 Ondansetron Inj 4 Mg/2 Ml Vial IV PUSH Q6H PRN Nausea And Vomiting Pantoprazole Sodium 40 mg 04/26/25 21:00 04/28/25 08:22 Pantoprazole 40 Mg Tablet PO 40 mg Q12HR CYNDIE Administration Polysaccharide Iron Complex 150 mg 04/26/25 12:00 04/28/25 12:56 Polysaccharide Iron Complex 150 Mg Capsule PO 150 mg 1200,1700 CYNDIE Administration Prochlorperazine Edisylate 10 mg 04/25/25 19:37 Prochlorperazine Edisylate 10 Mg/2 Ml Vial IV PUSH Q6H PRN Nausea And Vomiting Vitamin D 50 mcg 04/26/25 09:00 04/28/25 08:22 Cholecalciferol (Vitamin D3) 25 Mcg (1,000 Units) Tablet PO 50 mcg DAILY CYNDIE Administration <Rashid Chaudhry, Student - Last Filed: 04/28/25 14:24> Radiology Results: ITS Impressions Abdomen/Pelvis CT 04/25/25 12:50 IMPRESSION: 1. Urothelial enhancement at the bilateral ureters and renal pelvises sees suspicious for ascending urinary tract infection with regions of decreased parenchymal enhancement the left kidney suspicious for pyelonephritis. Correlate with urinalysis. 2. No other acute intra-abdominal/pelvic process. Specifically the appendix is normal. <Rashid Chaudhry, Student - Last Filed: 04/28/25 14:24> Labs Labs: Laboratory Results - last 24 hr 04/27/25 04/27/25 04/28/25 16:44 20:58 05:13 WBC 6.3 RBC 3.14 L Hgb 9.5 L Hct 29.6 L MCV 94.3 MCH 30.3 MCHC 32.1 RDW 14.2 Plt Count 232 MPV 8.7 Sodium 132 L Potassium 3.4 Chloride 106 Carbon Dioxide 23 Anion Gap 3 L BUN 13 Creatinine 0.96 Estim Creat Clear Calc 45 Estimated GFR 56 L Glucose 125 H POC Capillary Glucose 128 H 155 H Calcium 7.2 L Magnesium 1.7 Total Bilirubin 0.3 AST 35 ALT 19 Alkaline Phosphatase 63 Total Protein 5.0 L Albumin 2.4 L 04/28/25 04/28/25 07:53 12:57 WBC RBC Hgb Hct MCV MCH MCHC RDW Plt Count MPV Sodium Potassium Chloride Carbon Dioxide Anion Gap BUN Creatinine Estim Creat Clear Calc Estimated GFR Glucose POC Capillary Glucose 134 H 185 H Calcium Magnesium Total Bilirubin AST ALT Alkaline Phosphatase Total Protein Albumin <Rashid Chaudhry Student - Last Filed: 04/28/25 14:24> Quality VTE Prophylaxis VTE prophylaxis: mechanical ordered and pharmacologic ordered <Rashid Chaudhry Student - Last Filed: 04/28/25 14:24> -Patient's previous records reviewed on admission -ER notes reviewed in detail on admission -discussed all findings and current treatment plan with patient/Family/POA -Consultations reviewed for recommendations -Patient's disposition for safe discharge discussed with comp field case manager Dictation performed by [employer] speech recognition software, therefore vulcanizer rubber plate variants and typographical errors may occur. <Rashid Chaudhry Student - Last Filed: 04/28/25 14:24> -Patient's previous records reviewed on admission -ER notes reviewed in detail on admission -discussed all findings and current treatment plan with patient/Family/POA -Consultations reviewed for recommendations -Patient's disposition for safe discharge discussed with comp field case manager -radiology imaging, EKG and test results personally reviewed and interpreted unless otherwise specified Dictation performed by [employer] speech recognition software, therefore vulcanizer rubber plate variants and typographical errors may occur. <Deepali Head, CURTAIN [employer]TER - Last Filed: 04/28/25 14:52> Hospitalist [facility] Advance Care Plan I have confirmed that the patient's Advanced Care Plan is present, code status is documented, or surrogate decision maker is listed in patient medical record.: Yes <Rashid Chaudhry Student - Last Filed: 04/28/25 14:24> Medication Reconciliation I have utilized all available resources to obtain, update and review the patients current medications (includes all prescriptions, OTC, herbals, cannabis, and nutritional supplements).: Yes <Rashid Chaudhry Student - Last Filed: 04/28/25 14:24> The patient is not eligible for med reconciliation; the patient is in a emergent medical situation where delaying treatment would jeopardize the patients health.: No <Rashid W. Ketterer, Student - Last Filed: 04/28/25 14:24> Attestation Supervising Provider Attestation I have personally reviewed and assessed patient agree with the following documentation <Deepali Head APRN - Last Filed: 04/28/25 14:52>
[2025-04-28 14:34] VITALS: BP 120/43; PULSE 78; RESP 16; TEMP 36.3; O2SAT 98
[2025-04-28 22:00] VITALS: BP 118/44; PULSE 84; RESP 18; TEMP 36.7; O2SAT 100
[2025-04-29] MEDS: SODIUM CHLORIDE 0.9% IV 1,000 ML 100 ML IV CONT ×3 (01:16→11:59)
[2025-04-29 06:00] VITALS: BP 113/35; PULSE 78; RESP 18; TEMP 36.2; O2SAT 97
[2025-04-29] MEDS: LEVOTHYROXINE SODIUM 25 MCG TABLET PO (06:08)
[2025-04-29 06:34] LABS: Hematocrit 31.3 % (37.0-47.0); Hemoglobin 10.0 g/dL (12.0-15.0); Mean Corpuscular HGB Conc 31.9 g/dl (32-36); Mean Corpuscular Hemoglobin 29.9 pg (26-34); Mean Corpuscular Volume 93.4 fl (80-100); Platelet Count Result 249 k/mm3 (150-375); Red Blood Count 3.35 M/mm3 (4.2-5.4); White Blood Count 5.2 K/mm3 (4.5-10.0)
[2025-04-29 07:03] LABS: Alanine Aminotransferase 22 U/L (6-35); Albumin Level 2.6 g/dL (3.5-5.1); Alkaline Phosphatase 69 U/L (38-126); Anion Gap 3 mmol/L (4-12); Aspartate Amino Transferase 33 U/L (14-36); Bilirubin,Total 0.3 mg/dL (0.2-1.3); Blood Urea Nitrogen 11 mg/dL (7-17); Calcium 8.0 mg/dL (8.4-10.2); Carbon Dioxide 24 mmol/L (22-30); Chloride 108 mmol/L (98-107); Estimated CRCL calculation 51 ml/min; Estimated Glomerular Filt Rate > 60; Glucose 141 mg/dL (65-110); Magnesium 1.6 mg/dL (1.6-2.3); Potassium 3.5 mmol/L (3.4-5.0); Sodium 135 mmol/L (137-145); Total Protein 5.5 g/dL (6.3-8.2)
[2025-04-29] MEDS: INSULIN ASPART (*BKC) 100 UNITS/ML SUB-Q ×3 (08:55→12:45)
[2025-04-29] MEDS: cefTRIAXone 2 GM in SODIUM CHLORIDE 0.9% IV 100 ML IVPB (08:56)
[2025-04-29] MEDS: ATORVASTATIN 40 MG TABLET PO (08:56)
[2025-04-29] MEDS: ASPIRIN 81 MG ENTERIC TABLET PO (08:56)
[2025-04-29] MEDS: CHOLECALCIFEROL (VITAMIN D3) 25 MCG (1,000 UNITS) TABLET 50 MCG PO (08:57)
[2025-04-29] MEDS: ENOXAPARIN 40 MG/0.4 ML SYRINGE SUB-Q (08:58)
[2025-04-29] MEDS: OMEGA 3 POLYUNSAT FATTY ACIDS 1 GM CAP 2 GM PO (08:59)
[2025-04-29] MEDS: LOSARTAN POTASSIUM 50 MG TABLET 100 MG PO (08:59)
[2025-04-29] MEDS: PANTOPRAZOLE 40 MG TABLET PO (08:59)
[2025-04-29] MEDS: INSULIN GLARGINE (*BKC) 100 UNITS/ML 22 UNITS SUB-Q (09:01)
[2025-04-29 13:06] VITALS: BP 127/47; PULSE 79; RESP 16; TEMP 36.2; O2SAT 99
--- NOTE | 2025-04-29 14:47 | P.DS_ITS ---
DS: Admitting Diagnosis Discharge Date 04/29/2025 Admitting Diagnosis Acute pyelonephritis DS: Discharge Diagnosis Discharge Diagnosis (1) Acute pyelonephritis: Code(s): N10 - Acute pyelonephritis Status: Acute (2) GERD (gastroesophageal reflux disease): Qualifiers: Esophagitis presence: without esophagitis Qualified Code(s): K21.9 - Gastro-esophageal reflux disease without esophagitis Code(s): K21.9 - Gastro-esophageal reflux disease without esophagitis Status: Chronic (3) Diabetes mellitus with multiple complications: Code(s): E11.8 - Type 2 diabetes mellitus with unspecified complications Status: Chronic (4) CKD (chronic kidney disease) stage 3, GFR 30-59 ml/min: Qualifiers: Chronic kidney disease stage 3 subtype: stage 3a (GFR 45-59) Qualified Code(s): N18.31 - Chronic kidney disease, stage 3a Code(s): N18.30 - Chronic kidney disease, stage 3 unspecified Status: Chronic (5) HLD (hyperlipidemia): Qualifiers: Hyperlipidemia type: mixed hyperlipidemia Qualified Code(s): E78.2 - Mixed hyperlipidemia Code(s): E78.5 - Hyperlipidemia, unspecified Status: Chronic (6) HTN (hypertension): Qualifiers: Hypertension type: essential hypertension Qualified Code(s): I10 - Essential (primary) hypertension Code(s): I10 - Essential (primary) hypertension Status: Acute DS: Summary Hospital Course Reason for hospitalization: Acute pyelonephritis Hospital Course: Admission: Patient was a 79 y/o F with PMH of CKD, GERD, diabetes, hyperlipidemia, hypothyroidism, chronic abdominal pain, and nephrolithiasis presents here with abdominal pain, nausea, and vomiting. The patient presents here from home via EMS for further evaluation of abdominal pain on 04/25. The abdominal pain is described as RLQ, dull, achy, intermittent radiation into her back, with no modifying factors. Reports the pain started at around 7 p.m. Thursday night (04/24). Reports accompanying generalized weakness, nausea, vomiting, diarrhea, chills, dizziness, and diaphoresis. Denies fever, chest pain, or palpitations. Patient has a history of chronic abdominal pain and sees GI, however this is typically in the LLQ. Patient also has chronic nausea and vomiting, but she states it is not usually to this degree. Patient had reported she gets UTIs frequently, last occurrence was four weeks ago. ED workup showed: No leukocytosis, hemoglobin 11.6, no significant electrolyte derangements, creatinine 0.89 and GFR >60, glucose 178, and UA suspicious for UTI. COVID negative. CT of the abdomen/pelvis showed urothelial enhancement of the bilateral ureters and renal pelvis sees suspicious for ascending urinary tract infection with regions of decreased parenchymal enhancement of the left kidney suspicious for pyelonephritis, no other acute intra-abdominal/pelvic process, specifically the appendix is normal. Hospital course: Patient was admitted to the medical unit and initiated on IV fluids, and increased her Rocephin to 2 g. Patient still with moderate to severe pain so I transition to IV Toradol Q 6, and IV push Dilaudid for better pain management. Patient continued to report some fevers and chills overnight stated pain was improving slowly. Patient remained hospitalized pending culture which came back with Klebsiella pneumoniae after today's treatment she had overall improvement symptoms and was discharged home oral Augmentin for 9 more days to complete therapy we discussed about up with her urologist in due to her frequent UTIs with kidney infection is recommended she follow-up with a woodwind instrument repairer information was provided. Patient to assessed prior to discharge in no acute distress with no new complaints understood to complete her antibiotic therapy as prescribed even if feeling better. Status at Discharge Functional status at discharge: independent ambulation Overall status at discharge: patient is back to baseline Time Spent with Patient Time attestation: Total time spent providing and/or coordinating discharge services: Time spent: Greater than 30 minutes Exam Const: General: comfortable and no acute distress Other: , female, elderly, modestly ill-appearing HENMT: Face/Nose/Sinus: Normal nares present Mouth: Yes moist mucous membranes Eyes: General: appearance normal, both eyes and all related structures Sclera: sclerae normal Pupils: Equal, round and reactive pupils present EOM: EOMs intact bilaterally Resp: Effort & Inspection: normal respiratory effort Auscultation: clear to auscultation bilaterally Cardio: Rate: regular rate Rhythm: regular rhythm Other: S1-S2 present without murmur, rub, ectopy GI: Other: Abdomen soft, nondistended. Does have diffuse tenderness in all quadrants, more specifically at the right lower quadrant. Normoactive bowel sounds in all quadrants. with CVA tenderness Skin: General skin exam: normal color and no rashes or lesions noted Wounds: no wounds Neuro: Cranial nerves: Yes Equal, round and reactive pupils present Speech: normal speech Motor exam (neuro): 5/5 motor strength present throughout Sensory Exam: normal sensation Other: A&O x4 Extrem: General: normal to inspection Psych: Mental Status: mental status grossly normal Affect: normal affect Other: Good insight and judgment, pleasant DS: Data Data Completed and Pending Labs on day of discharge: Labs from last 24 hours 04/29/25 04/29/25 04/29/25 12:22 07:39 06:24 WBC 5.2 RBC 3.35 L Hgb 10.0 L Hct 31.3 L MCV 93.4 MCH 29.9 MCHC 31.9 L RDW 14.1 Plt Count 249 MPV 8.6 Sodium 135 L Potassium 3.5 Chloride 108 H Carbon Dioxide 24 Anion Gap 3 L BUN 11 Creatinine 0.83 Estim Creat Clear Calc 51 Estimated GFR > 60 Glucose 141 H POC Capillary Glucose 258 H 128 H Calcium 8.0 L Magnesium 1.6 Total Bilirubin 0.3 AST 33 ALT 22 Alkaline Phosphatase 69 Total Protein 5.5 L Albumin 2.6 L 04/28/25 04/28/25 19:56 17:01 WBC RBC Hgb Hct MCV MCH MCHC RDW Plt Count MPV Sodium Potassium Chloride Carbon Dioxide Anion Gap BUN Creatinine Estim Creat Clear Calc Estimated GFR Glucose POC Capillary Glucose 186 H 156 H Calcium Magnesium Total Bilirubin AST ALT Alkaline Phosphatase Total Protein Albumin Discharge Plan Discharge Attending physician on discharge: Gorge Cabral Consulting providers: Deepali Head; Rashid Chaudhry Discharging Clinician: Deepali Head Anticipated Discharge Date/Time: 04/29/25 14:40 Patient Disposition: Home Activity: as tolerated Diet: diabetic Discharge Instructions: 1). Pyelonephritis * Your being discharged on antibiotic therapy please take as indicated incomplete even if feeling better * Pain follow-up with your urologist outpatient * Information attached regarding her diagnosis * I have also provided information a woodwind instrument repairer will need referral from her primary care physician How can you care for yourself at home? ? Keep track of any new symptoms or changes in your symptoms. ? Rest until you feel better. ? Be safe with medicines. Take your medicines exactly as prescribed. Call your doctor if you think you are having a problem with your medicine. ? Do not drive after taking a prescription pain medicine. ? Ensure to follow-up with primary care physician as indicated and provide updated medication list provided to you at discharge. When should you call for help? Call 911 anytime you think you may need emergency care. For example, call if: ? You passed out (lost consciousness). Call your doctor now or seek immediate medical care if: ? You have new symptoms like fever, difficulty breathing, Chest pain, vomiting, or rash. ? You have new or different pain. ? You are confused and are having trouble thinking clearly. ? Your symptoms are getting worse. Watch closely for changes in your health, and be sure to contact your doctor if: ? You do not get better as expected. Patient Instructions: Antibiotic Form, Kidney Infection (DC) Patient Language: Japanese Stand Alone Forms: General Discharge Information Follow-up/Referrals: Hero Lujan MD [Primary Care Provider, Internal Medicine] - 2 Weeks Evan Klein MD [Physician, Urology] Tuan Ramos MD [Physician, Nephrology] Discharge Medications: New amoxicillin-pot clavulanate 875-125 mg tablet 1 tablet PO Q12H Qty: 18 0RF Continued insulin degludec [Tresiba U-100 Insulin] 100 unit/mL solution 22 unit SUBCUT DAILY aspirin 81 mg tablet,delayed release (DR/EC) 81 mg PO DAILY losartan-hydrochlorothiazide 50-12.5 mg tablet See Rx Instructions .ROUTE .COMPLEX Qty: 90 3RF Dose Instruction: TAKE 1 TABLET BY MOUTH DAILY Rx Instructions: TAKE 1 TABLET BY MOUTH DAILY cholecalciferol (vitamin D3) 50 mcg (2,000 unit) capsule 50 mcg PO DAILY insulin aspart U-100 [Novolog FlexPen U-100 Insulin] 100 unit/mL (3 mL) insulin pen 4 unit subcut .before meals MDD 20 Qty: 15 0RF Rx Instructions: 4 units before each meal plus scale no meal and no shot ondansetron 4 mg tablet,disintegrating 4 mg PO Q8H PRN (Reason: nausea and vomiting) Qty: 30 0RF cholestyramine (with sugar) [Questran] 4 gram powder in packet 4 g PO BID Qty: 60 5RF Rx Instructions: administer w/meal; avoid other meds within 1hr before or 4-6hr after dose amitriptyline 25 mg tablet 25 mg PO QHS 30 Days Qty: 30 5RF dicyclomine 10 mg capsule 10 mg PO DAILY PRN (Reason: abdominal pain) omega 1-mmx-trd-fish oil [Fish Oil] 1,000 mg (120 mg-180 mg) capsule 2 cap PO BID atorvastatin 40 mg tablet See Rx Instructions .ROUTE .COMPLEX Qty: 90 2RF Dose Instruction: TAKE 1 TABLET BY MOUTH DAILY Rx Instructions: TAKE 1 TABLET BY MOUTH DAILY levothyroxine 25 mcg tablet See Rx Instructions .ROUTE .COMPLEX Qty: 90 3RF Dose Instruction: TAKE 1 TABLET BY MOUTH DAILY Rx Instructions: TAKE 1 TABLET BY MOUTH DAILY metformin 1,000 mg tablet See Rx Instructions .ROUTE .COMPLEX Qty: 180 3RF Dose Instruction: TAKE 1 TABLET BY MOUTH TWICE DAILY WITH MORNING AND EVENING MEALS Rx Instructions: TAKE 1 TABLET BY MOUTH TWICE DAILY WITH MORNING AND EVENING MEALS IRON 65MG TAB See Rx Instructions .ROUTE .COMPLEX Qty: 60 2RF Dose Instruction: Take 1 tablet by mouth twice daily Rx Instructions: Take 1 tablet by mouth twice daily Date of admission: 04/26/25 08:26 Primary Care Provider: Hero Lujan Admitting Provider: Abhijit Winston Attending physician on admission: Abhijit Winston Condition: Stable Quality VTE Prophylaxis VTE prophylaxis: mechanical ordered and pharmacologic ordered -Patient's previous records reviewed on admission -ER notes reviewed in detail on admission -discussed all findings and current treatment plan with patient/Family/POA -Consultations reviewed for recommendations -Patient's disposition for safe discharge discussed with top case assembler -radiology imaging, EKG and test results I have personally reviewed and interpreted unless otherwise specified Dictation performed by [employer] direct speech recognition software, therefore correspondence specialist variants and typographical errors may occur. Hospitalist MIPS Heart Failure (Exclusion) Patient has history of Heart Transplant or Left Ventricular Assistive Device?: No IF YES, STOP HERE Heart Failure (Qualifier) Patient has current or prior documentation of LVEF less than or equal to 40%, or mod/servere depressed LVSF?: No IF NO, STOP HERE
== END 2025-04-29 16:00 | disposition home or self-care (01) | DRG 690 ==
LOC: ANHED 19:09 → ANH3MEDSUR 04-26 08:37
PROVIDERS: Emergency Medicine; Admitting Provider Internal Medicine; Emergency Provider Nurse Practitioner Family; PCP Emergency Medicine; Visit Provider Nurse Practitioner Family
DX: N10 Acute pyelonephritis (principal); Z68.41 Body mass index [BMI] 40.0-44.9, adult; B96.1 Klebsiella pneumoniae [K. pneumoniae] as the cause of diseases classified elsewhere; E11.22 Type 2 diabetes mellitus with diabetic chronic kidney disease; N18.30 Chronic kidney disease, stage 3 unspecified; I12.9 Hypertensive chronic kidney disease with stage 1 through stage 4 chronic kidney disease, or unspecified chronic kidney disease; K21.9 Gastro-esophageal reflux disease without esophagitis; E78.5 Hyperlipidemia, unspecified; E03.9 Hypothyroidism, unspecified; K57.90 Diverticulosis of intestine, part unspecified, without perforation or abscess without bleeding; Z96.653 Presence of artificial knee joint, bilateral; E66.01 Morbid (severe) obesity due to excess calories; Z90.49 Acquired absence of other specified parts of digestive tract; Z87.891 Personal history of nicotine dependence
CPT/HCPCS: 36415; 74177; 80053; 81001; 82948; 83605; 83690; 83735; 85025; 85027; 87086; 87186; 87635; 96365; 96375; 99285; A9270; G0378; J0696; J0780; J1650; J1815; J2270; J2405; J3475; J7030; Q9967

== ENCOUNTER 2025-05-05 07:57 | Outpatient (CLI) | payer MEDICARE, SELFPAY ==
--- OUTSIDE RECORDS SUMMARY | 2025-05-05 08:04 | XMS_ITS | Clinical Summary ---
Author Organization [facility] Address [address] [place] [address] Care Team Providers Care Dead Mail Checker Name Role Phone Hero Lujan MD Primary Care Provider [phone] Allergies Active Allergy Reactions Criticality Noted Date [...] on file Legal Sex Female 4:28 PM DEBURRER STRIP Gender Identity Female 08/15/2021 11:30 AM DEBURRER STRIP Sexual Orientation Not on file Last Filed Vital Signs Vital Sign Reading Time Taken Comments Blood Pressure 151/67 08/20/2021 2:20 PM DEBURRER STRIP Pulse 100 08/20/2021 2:20 PM DEBURRER STRIP Temperature 37.1 C (98.7 F) 08/20/2021 2:20 PM DEBURRER STRIP Respiratory Rate 18 08/20/2021 2:20 PM DEBURRER STRIP Oxygen Saturation 99% 08/20/2021 2:20 PM DEBURRER STRIP Inhaled Oxygen Concentration - - Weight 79.4 kg (175 lb) 08/14/2021 2:01 PM DEBURRER STRIP Height 157.5 cm (5' 2) 08/14/2021 2:01 PM DEBURRER STRIP Body Mass Index 32.01 08/14/2021 2:01 PM DEBURRER STRIP Plan of Treatment Health Maintenance Due Date Last Done Comments Hepatitis C 1965 Zoster Vaccines (1 of 2) 1997 Annual Medicare Wellness Visit 2012 Dexa Scan (General) 2012 Pneumococcal Vaccine: 50+ Years (2 of 2 - PCV) 05/17/2021 05/17/2020 RSV Immunization or 60+ Years (1 - 1-dose 75+ series) 2022 COVID-19 Vaccine (4 - season) 2025 05/16/2021, 10/16/2020, 09/25/2020 Influenza Adult (#1) 2025 05/17/2020, 04/13/2019, 05/18/2017, Additional history exists DTaP, Tdap and Td Vaccines (2 - Td or Tdap) 03/24/2029 03/24/2019 Meningococcal B Vaccine Aged Out No l onger eligible based on patient's age to complete this topic Meningococcal Vaccine Aged Out No uan thang eligible based on patient's age to complete this topic RSV Immunizations Under 20 Months Aged Out No longer eligible based on patient's age to complete this topic Insurance MEDICARE [facility] Care Teams Dead Mail Checker Relationship Specialty Start Date End Date Hero Lujan MD [address] [place] [address] PCP - General INTERNAL MEDICINE 08/13/21
--- OUTSIDE RECORDS SUMMARY | 2025-05-05 08:04 | XMS_ITS | Encounter Summary ---
Author Organization [facility] Address [address] [place] [address] Care Team Providers Care Demolition Worker Name Role Phone Odette Webb MD Primary Care Provider [phone] Max Branch MD Unavailable William Abebe MD Unavailable [phone] Hero Lujan MD Primary Care Provider [phone] Encounter Details Date Type Department Care Team [...] Sex Assigned at Female 08/19/2024 9:26 AM SHOE SEWING MACHINE OPERATOR AND TENDER Legal Sex Female 6:46 AM SHOE SEWING MACHINE OPERATOR AND TENDER Gender Identity Female 08/19/2024 9:26 AM SHOE SEWING MACHINE OPERATOR AND TENDER Sexual Orientation Choose not to disclose 2024 9:26 AM SHOE SEWING MACHINE OPERATOR AND TENDER documented as of this encounter Plan of Treatment Not on file documented as of this encounter Visit Diagnoses Not on filedocumented in this encounter Care Teams Demolition Worker Relationship Specialty Start Date End Date Odette Webb MD [address] [facility] [address] [place] [phone] PCP - General 06/27/09 01/02/19 Max Branch MD [address] [place] [id number] PCP - OBGYN 06/19/09 Hero Lujan MD [address] [place] [address] [address] [place] [address] PCP - General 01/03/19 William Abebe MD [address] [place] [address] Orthopedic Surgery 10/12/12 documented as of this encounter
--- OUTSIDE RECORDS SUMMARY | 2025-05-05 08:04 | XMS_ITS | Encounter Summary ---
Author Organization [facility] Address [address] [place] [address] Care Team Providers Care Mds Coordinator Name Role Phone Hero Lujan MD Primary Care Provider [phone] Encounter Details Date Type Department Care Team (Late st Contact Info) Description 08/12/[address] [facility] [address] [place] [address] Evan Klein MD [address] [place] [address] Social History Tobacco Use Types Packs/Day Years Used Date Smoking Tobacco: Never Assessed Comments Unknown Sex and Gender Information Value Date Recorded Sex Assigned at Not on file Legal Sex Female 4:28 PM INSULATION HOSEMAN Gender Identity Female 08/15/2021 11:30 AM INSULATION HOSEMAN Sexual Orientation Not on file COVID-19 Exposure Response Date Recorded In the last month, have you been in contact with someone who was confirmed or suspected to have Coronavirus / COVID-19? No / Unsure 08/15/2021 3:50 PM INSULATION HOSEMAN documented as of this encounter Functional Status * Calculated C-SSRS Risk Score (Lifetime/Recent) Answer Date of Assessment Author Status No Risk Indicated 08/14/2021 2:01 PM Karrie Cavazos RN Active * [place] Suicide Severity Rating Scale (Screener/Recent Self-Report) Question Answer Date of Assessment Author Status 1. Wish to be (Past 1 Month) No 08/14/2021 2:01 PM Fabiola Cavazos RN Act billy 2. Non-Specific Active Suicidal Thoughts (Past 1 Month) No 08/14/2021 2:01 PM INSULATION HOSEMAN Fabiola Garcia, CALLIE Act billy documented as of this encounter Plan of Treatment Not on file documented as of this encounter Visit Diagnoses Diagnosis Chronic cystitis without hematuria- Primary documented in this encounter Care Teams Mds Coordinator Relationship Specialty Start Date End Date Hero Lujan MD [address] [place] [id number] PCP - General INTERNAL MEDICINE 08/13/21 documented as of this encounter
--- OUTSIDE RECORDS SUMMARY | 2025-05-05 08:04 | XMS_ITS | Clinical Summary ---
Author Organization [facility] Address [address] [place] [address] Care Team Providers Care Machining Supervisor Name Role Phone Hero Lujan MD [...] 1 tablet (25 mcg total) by mouth health policy manager before breakfast Active aspirin 81 mg [...] on file Legal Sex Female 3:42 AM SLASHER TENDER Gender Identity Not on file Sexual [...] MEDICARE [facility] Care Teams Machining Supervisor Relationship Specialty Start Date End Date Hero Lujan MD [address] [place] [address] PCP - General Emergency Medicine 11/06/20
--- OUTSIDE RECORDS SUMMARY | 2025-05-05 08:04 | XMS_ITS | Patient Health Record ---
Author Organization [facility] Address [address] [place], [place] [id number] Care Team Providers Care Housekeeping Cleaner Name Role Phone Hero Lujan Unavailable Unavailable [...] [place] [address] [place] [address] [id number] Deborah Cancino Self - patient is the insured [facility] Medicare Supplement [address] [place], [place] [id number] Deborah Cancino Self - patient is the insured
--- OUTSIDE RECORDS SUMMARY | 2025-05-05 08:04 | XMS_ITS | Clinical Summary ---
Author Organization [facility] Address [address] [place] [address] Care Team Providers Care Innersole Maker Name Role Phone Max Branch MD Unavailable [phone] William Abebe MD Unavailable [phone] Hero Lujan MD Primary Care Provider [phone] Source Comments [facility],non-owned Affiliates and Associated Physician Practices is amultiple site organization consisting of ambulatory clinics and hospital sitesin [place], [place], [place] and [place]. This disclosure is being madepursuant to the Care Everywhere program and may not contain all information available regarding this patient. Last updated 18.[facility] Allergies Active Allergy Reactions Criticality Noted [...] Department Care Team Description 02/15/2025 Results Follow-Up [facility] - S[facility] [address] [place] [address], [address] [place] [phone] Halima Alonzo 02/13/2025 9:00 AM CDT Office Visit [facility] SCREED[facility] [address] [place] [address], [address] [place] [address] Roly Narayan MD Pap smear, [...] Sex Assigned at Female 08/19/2024 9:26 AM ATOMIC PHYSICS PROFESSOR Legal Sex Female 6:46 AM ATOMIC PHYSICS PROFESSOR Gender Identity Female 08/19/2024 9:26 AM ATOMIC PHYSICS PROFESSOR Sexual Orientation Choose not to disclose 2024 9:26 AM ATOMIC PHYSICS PROFESSOR Last Filed Vital Signs Vital Sign Reading Time Taken Comments Blood Pressure 118/72 02/13/2025 8:54 AM CDT Pulse 104 08/16/2017 6:10 AM ATOMIC PHYSICS PROFESSOR Temperature 36.9 C (98.4 F) 08/16/2017 6:10 AM ATOMIC PHYSICS PROFESSOR Respiratory Rate 16 08/16/2017 6:10 AM ATOMIC PHYSICS PROFESSOR Oxygen Saturation 93% 08/16/2017 6:10 AM ATOMIC PHYSICS PROFESSOR Inhaled Oxygen Concentration - - Weight 86.7 [...] this topic Medical Devices Implanted Type Area Timber Treating Tank Operator Device Identifier Shelf Expiration Date Model / Serial / Lot Beto Bone Compton Hv Implanted:Qty: 1 on 01/10/2013 by William Abebe MD at [facility] Left: Knee [employer] 07/12/2014 [id number] / / [id number] Biomet Interlok 75mm Fixed Ibeam Tibial Plate With Locking Bar Implanted:Qty: 1 on 01/10/2013 by William Abebe MD at [facility] Left: Knee 10/10/2022 [id number] / / [id number] Biomet Arcom Patella Single 1/4 Inch Peg With Wire 31mm X 8 Mm Implanted:Qty: 1 on 01/10/2013 by William Abebe MD at [facility] Left: Knee 11/10/2017 [id number] / / [id number] Vanguard Cr Femoral 67.5 Mm Left Interlok Implanted:Qty: 1 on 01/10/2013 by William Abebe MD at [facility] Left: Knee 06/12/2022 [id number] / / [id number] Biomet Vanguard/Tm Dcm Tibial Bearing Anterior Stabilized 12mm X 75mm Implanted:Qty: 1 on 01/10/2013 by William Abebe MD at [facility] Left: Knee 07/12/2017 [id number] / / [id number] Brdg Tib Denise Stbl 12mm X 71mm Implanted:Qty: 1 on 04/13/2013 by William Abeeb MD at [facility] Right: Knee [employer] 03/01/2018 [id number] / / [id number] Beto Bone Compton Hv Implanted:Qty: 1 on 04/13/2013 by William Abebe MD at [facility] Right: Knee [employer] 10/30/2014 [id number] / / [id number] 65mm Cr Femoral Implanted:Qty: 1 on 04/13/2013 by William Abebe MD at [facility] Right: Knee 01/30/2023 [id number] / / [id number] 31mm X 8mm Arcom Patella Implanted:Qty: 1 on 04/13/2013 by William Abebe MD at [facility] Right: Knee 03/01/2018 [id number] / / [id number] Ty Tibial I Beam Fix Bar 71mm Implanted:Qty: 1 on 04/13/2013 by William Abebe MD at [facility] Right: Knee [employer] 12/30/2022 [id number] / / [id number] Procedures Procedure Name Priority Date/Time Associated Diagnosis [...] Comment . [facility] INSURANCE BILL Note Comment [facility] Comment: The Pap smear is a screening test designed to aid in the detection of premalignant and malignant conditions of the uterine cervix. It is not a diagnostic procedure and should not be used as the sole means of detecting cervical cancer. Both false-positive and false-negative reports do occur. [facility] CPT Code Automation Comment [facility] Comment: This liquid based ThinPrep(R) pap test was screened with the use of an image guided system. Pathology/Cytolog y PART OF UTERINE CERVIX / Unknown 02/13/2025 9:17 AM CDT 02/13/2025 Comment:Cervix Release to tx fabien Chiu [facility] INSURANCE BILL - 02/15/2025 1:10 PM CDT Performed at: [address] [place] [id number] [employer]: Linda Kaplan MD, Phone: [phone] Specimen Comment: [id number] Specimen Comment: Source.............Cervix;Endocervix Specimen Comment: No. of containers..01 ThinPrep Vial us Roly Narayan MD LAB - PATHOLOGY/CYTOLOGY ORD ERABLES Final Result [facility] INSURANCE BILL [address] [place] [address] from Last [address] [place] [address] [place] [address] MEDICARE AAR MEDICARE SELF PAY NO INSURANCE Member Subscriber Plan / Payer (Ef fective for All Dates) Name:BenjiKristina giang Марина Member ID:Not on file Relation to Subscriber:Not on file Name:BENJIDEEPIKAKRISTINA Subscriber ID:Not on file (Home) Address: [address] [place] [address] Payer ID:Not on file Group ID:Not on file Type:Self Pay Address: [place], [place] * Guarantor: KRISTINA LEBLANC Account Type Relation to Patient Date of Phone Billing Address Personal/Family 1945 [address] [place] [address] * Guarantor: KRISTINA LEBLANC Account Type Relation [...] 2:42 PM 01/13/2013 12:28 PM Care Teams Innersole Maker Relationship Specialty Start Date End Date Max Branch MD [address] [place] [address] PCP - OBGYN 06/19/09 Hero Lujan MD [address] [place] [address] [address] [place] [address] PCP - General 01/03/19 William Abebe MD [address] [place] [address] Orthopedic Surgery 10/12/12
--- OUTSIDE RECORDS SUMMARY | 2025-05-05 08:04 | XMS_ITS | Clinical Summary ---
Author Organization [facility] Renae rojas [facility] Address [address] [facility] [place] [address] Care Team Providers Care Pulp Bleacher Name Role Phone Unavailable Primary Care Provider [...] 04/25/2025 4:30 PM CDT Telephone Check Up [facility] Oncology and Hematology - Neeraj [address] [facility] [place] [address] Vince Feng MD Chronic anemia (Primary Dx) 04/25/2025 External Device Data STL ABSTRACTION Provider, Abstract 04/25/2025 External Device Data STL ABSTRACTION Provider, Abstract 04/25/2025 External Device Data STL ABSTRACTION Provider, Abstract 04/21/2025 Orders Only [facility] Oncology and Hematology - Neeraj [address] [place] [address] Vince Feng MD 04/20/2025 Orders Only [facility] [place] Oncology and Hematology - Neeraj [address] [place] [address] Vince Feng MD 04/18/2025 10:30 AM CDT Office Visit [facility] Oncology and Hematology - Neeraj [address] [place] [address] Vince Feng MD Chronic anemia (Primary Dx) [...] on file Legal Sex Female 7:46 PM AUTOMATION ENGINEERING TECHNICIAN Gender Identity Not on file Sexual [...] Care Team (Late st Contact Info) Description 08/10/2025 11:00 AM AUTOMATION ENGINEERING TECHNICIAN Office Visit [facility] [place] Oncology and Hematology - Neeraj [address] [facility] [address] [place] [address] Vince Feng MD [address] [facility] [address] [place] [address] Health Maintenance Due Date Last [...] Months Insurance MEDICARE PART A AND B [facility] [id number]
[2025-05-05 09:00] LABS: Alanine Aminotransferase 21 U/L (6-35); Albumin Level 3.5 g/dL (3.5-5.1); Alkaline Phosphatase 69 U/L (38-126); Anion Gap 7 mmol/L (4-12); Aspartate Amino Transferase 29 U/L (14-36); Bilirubin,Total 0.6 mg/dL (0.2-1.3); Blood Urea Nitrogen 19 mg/dL (7-17); Calcium 10.4 mg/dL (8.4-10.2); Carbon Dioxide 31 mmol/L (22-30); Chloride 101 mmol/L (98-107); Cholesterol 106 mg/dL (0-200); Estimated Glomerular Filt Rate > 60; Glucose 140 mg/dL (65-110); HDL Direct 35 mg/dL; Potassium 4.3 mmol/L (3.4-5.0); Sodium 139 mmol/L (137-145); Total Protein 6.6 g/dL (6.3-8.2); Triglycerides 189 mg/dL (<150)
[2025-05-05 09:07] LABS: Free T4 Free Thyroxine 1.17 ng/dL (0.78-2.19)
[2025-05-05 09:35] LABS: Thyroid Stimulating Hormone 3.690 uIU/mL (0.465-4.680)
== END 2025-05-05 07:58 | disposition home or self-care (01) ==
LOC: ANHLAB 07:59
PROVIDERS: PCP Emergency Medicine; Referring Provider Emergency Medicine; Visit Provider Internal Medicine
DX: E55.9 Vitamin D deficiency, unspecified (principal); E78.5 Hyperlipidemia, unspecified; R53.83 Other fatigue; E78.2 Mixed hyperlipidemia; I10 Essential (primary) hypertension; E03.9 Hypothyroidism, unspecified; E66.9 Obesity, unspecified; M85.80 Other specified disorders of bone density and structure, unspecified site
CPT/HCPCS: 36415; 80053; 80061; 82306; 84439; 84443

== ENCOUNTER 2025-05-31 10:44 | Outpatient (CLI) | payer MEDICARE, SELFPAY ==
--- OUTSIDE RECORDS SUMMARY | 2025-05-31 12:14 | XMS_ITS | Clinical Summary ---
Author Organization [facility] Address [address] [place] [address] Care Team Providers Care Life Care Planner Name Role Phone Hero Lujan MD Primary [...] 1 tablet (25 mcg total) by mouth spray gun repairer before breakfast Active aspirin 81 mg chewable [...] on file Legal Sex Female 3:42 AM ART HISTORY INSTRUCTOR Gender Identity Not on file Sexual Orientation [...] 09/14/2019, 07/28/2018, Additional history exists Insurance MEDICARE [facility] MEDICARE [facility] Care Teams Life Care Planner Relationship Specialty Start Date End Date Hero Lujan MD [address] [place] [address] PCP - General Emergency Medicine 11/06/20
--- OUTSIDE RECORDS SUMMARY | 2025-05-31 12:15 | XMS_ITS | Encounter Summary ---
Author Organization [facility] Health Address [address] [facility] [place] [address] Care Team Providers Care Knitting Machine Operator Helper Name Role Phone Odette Webb MD Primary Care Provider [phone] Max Branch MD Unavailable William Abebe MD Unavailable [phone] Hero Lujan MD Primary Care Provider [phone] Encounter Details Date Type Department Care Team [...] Sex Assigned at Female 08/19/2024 9:26 AM DEBONE PROCESSING SUPERVISOR Legal Sex Female 6:46 AM DEBONE PROCESSING SUPERVISOR Gender Identity Female 08/19/2024 9:26 AM DEBONE PROCESSING SUPERVISOR Sexual Orientation Choose not to disclose 2024 9:26 AM DEBONE PROCESSING SUPERVISOR documented as of this encounter Plan of Treatment Not on file documented as of this encounter Visit Diagnoses Not on filedocumented in this encounter Care Teams Knitting Machine Operator Helper Relationship Specialty Start Date End Date Odette Webb MD [address] [facility] [address] [place] [phone] PCP - General 06/27/09 01/02/19 Max Branch MD [address] [place] [id number] PCP - OBGYN 06/19/09 Hero Lujan MD [address] [place] [address] 2 [place] [address] PCP - General 01/03/19 William Abebe MD [address] [place] [address] Orthopedic Surgery 10/12/12 documented as of this encounter
--- OUTSIDE RECORDS SUMMARY | 2025-05-31 12:15 | XMS_ITS | Encounter Summary ---
Author Organization [facility] Address [address] [place] [address] Care Team Providers Care Interpreter Name Role Phone Hero Lujan MD Primary Care Provider [phone] Encounter Details Date Type Department Care Team (Late st Contact Info) Description 08/12/2021 Therapy Plan [facility] Day Services [address] [place] [address] Evan Klein MD [address] [place] [address] Social History Tobacco Use Types Packs/Day Years Used Date Smoking Tobacco: Never Assessed Comments Unknown Sex and Gender Information Value Date Recorded Sex Assigned at Not on file Legal Sex Female 4:28 PM INSULATION WORKER APPRENTICE Gender Identity Female 08/15/2021 11:30 AM INSULATION WORKER APPRENTICE Sexual Orientation Not on file COVID-19 Exposure Response Date Recorded In the last month, have you been in contact with someone who was confirmed or suspected to have Coronavirus / COVID-19? No / Unsure 08/15/2021 3:50 PM INSULATION WORKER APPRENTICE documented as of this encounter Functional Status * Calculated C-SSRS Risk Score (Lifetime/Recent) Answer Date of Assessment Author Status No Risk Indicated 08/14/2021 2:01 PM Karrie Cavazos RN Active * [place] Suicide Severity Rating Scale (Screener/Recent Self-Report) Question Answer Date of Assessment Author Status 1. Wish to be (Past 1 Month) No 08/14/2021 2:01 PM Fabiola Cavazos RN Act billy 2. Non-Specific Active Suicidal Thoughts (Past 1 Month) No 08/14/2021 2:01 PM INSULATION WORKER APPRENTICE Fabiola Garcia, CALLIE Act billy documented as of this encounter Plan of Treatment Not on file documented as of this encounter Visit Diagnoses Diagnosis Chronic cystitis without hematuria- Primary documented in this encounter Care Teams Interpreter Relationship Specialty Start Date End Date Hero Lujan MD [address] [place] [address] PCP - General INTERNAL MEDICINE 08/13/21 documented as of this encounter
--- OUTSIDE RECORDS SUMMARY | 2025-05-31 12:15 | XMS_ITS | Clinical Summary ---
Author Organization [facility] [employer] Address [address] [place] [address] Care Team Providers Care Visor Installer Name Role Phone Max Branch MD Unavailable [phone] William Abebe MD Unavailable [phone] Hero Lujan MD Primary Care Provider [phone] Source Comments [facility],non-owned Affiliates and Associated Physician Practices is amultiple site organization consisting of ambulatory clinics and hospital sitesin [place], [place], [place] and [place]. This disclosure is being madepursuant to the Care Everywhere program and may not contain all information available regarding this patient. Last updated 18.[facility] Allergies Active Allergy Reactions Criticality Noted Date Comments Ciprofloxacin Nausea and/or Vomiting 03/10/2022 Sulfa Drugs Nausea and/or Vomiting 05/24/2009 Medications * Be aware that medications may not be up to date on this document. Always verify current medications with the patient. glipiZIDE CR [...] Sex Assigned at Female 08/19/2024 9:26 AM EYEGLASS LENS GENERATOR Legal Sex Female 6:46 AM EYEGLASS LENS GENERATOR Gender Identity Female 08/19/2024 9:26 AM EYEGLASS LENS GENERATOR Sexual Orientation Choose not to disclose 2024 9:26 AM EYEGLASS LENS GENERATOR Last Filed Vital Signs Vital Sign Reading Time Taken Comments Blood Pressure 118/72 02/13/2025 8:54 AM CDT Pulse 104 08/16/2017 6:10 AM EYEGLASS LENS GENERATOR Temperature 36.9 C (98.4 F) 08/16/2017 6:10 AM EYEGLASS LENS GENERATOR Respiratory Rate 16 08/16/2017 6:10 AM EYEGLASS LENS GENERATOR Oxygen Saturation 93% 08/16/2017 6:10 AM EYEGLASS LENS GENERATOR Inhaled Oxygen Concentration - - Weight 86.7 [...] 75+ series) 2022 COVID-19 VACCINE (4 - 2024-2 6 season) 2025 05/16/2021, 10/16/2020, 09/25/2020 INFLUENZA [...] this topic Medical Devices Implanted Type Area Cafe Server Device Identifier Shelf Expiration Date Model / Serial / Lot Beto Bone [place] Hv Implanted:Qty: 1 on 01/10/2013 by William Abebe MD at [facility] Left: Knee [employer] Inc 07/12/2014 [id number] / / [id number] Biomet Interlok 75mm Fixed Ibeam Tibial Plate With Locking Bar Implanted:Qty: 1 on 01/10/2013 by William Abebe MD at [facility] Left: Knee 10/10/2022 [id number] / / [id number] Biomet Arcom Patella Single 1/4 Inch Peg With Wire 31mm X 8 Mm Implanted:Qty: 1 on 01/10/2013 by William Abebe MD at [facility] Left: Knee 11/10/2017 [id number] / / [id number] Vanguard Cr Femoral 67.5 Mm Left Interlok Implanted:Qty: 1 on 01/10/2013 by William Abebe MD at [facility] Left: Knee 06/12/2022 [id number] / / [id number] Biomet Vanguard/Tm Dcm Tibial Bearing Anterior Stabilized 12mm X 75mm Implanted:Qty: 1 on 01/10/2013 by William Abebe MD at [facility] Left: Knee 07/12/2017 [id number] / / [id number] Brdg Tib Denise Stbl 12mm X 71mm Implanted:Qty: 1 on 04/13/2013 by William Abebe MD at [facility] Right: Knee [employer] Inc 03/01/2018 [id number] / / [id number] Beto Bone [place] Hv Implanted:Qty: 1 on 04/13/2013 by William Abebe MD at [facility] Right: Knee [employer] 10/30/2014 [id number] / / [id number] 65mm Cr Femoral Implanted:Qty: 1 on 04/13/2013 by William Abebe MD at [facility] Right: Knee 01/30/2023 [id number] / / [id number] 31mm X 8mm Arcom Patella Implanted:Qty: 1 on 04/13/2013 by William Abebe MD at [facility] Right: Knee 03/01/2018 [id number] / / [id number] Ty Tibial I Beam Fix Bar 71mm Implanted:Qty: 1 on 04/13/2013 by William Abebe MD at [facility] Right: Knee [employer] 12/30/2022 [id number] / / [id number] Insurance MEDICARE [facility] MEDICARE SELF PAY NO INSURANCE Member Subscriber Plan / Payer (Ef fective for All Dates) Name:Deborah Leblanc Member ID:Not on file Relation to Subscriber:Not on file Name:DEBORAH LEBLANC Subscriber ID:Not on file (Home) Address: [address] [place] [address] [place] [address] Payer ID:Not on file Group ID:Not on file Type:Self Pay Address: [place], [place] * Guarantor: DEBORAH LEBLANC Account Type [...] 2:42 PM 01/13/2013 12:28 PM Care Teams Visor Installer Relationship Specialty Start Date End Date Max Branch MD [address] [place] [address] PCP - OBGYN 06/19/09 Hero Lujan MD [email or web address] [place] [address] PCP - General 01/03/19 William Abebe MD [address] [place] [address] Orthopedic Surgery 10/12/12
--- OUTSIDE RECORDS SUMMARY | 2025-05-31 12:15 | XMS_ITS | Clinical Summary ---
Author Organization [facility] Renae rojas [facility] Address [address] [place] [address] Care Team Providers Care Drag Out Worker Name Role Phone Unavailable Primary Care [...] Encounters Date Type Department Care Team Description 05/24/2025 External Device Data STL ABSTRACTION Provider, Abstract 04/25/2025 4:30 PM CDT Telephone Check Up [facility] Oncology and Hematology - Neeraj [address] [facility] [place] [address] Vince Feng MD Chronic anemia (Primary Dx) 04/25/2025 External Device Data STL ABSTRACTION Provider, Abstract 04/25/2025 External Device Data STL ABSTRACTION Provider, Abstract 04/25/2025 External Device Data STL ABSTRACTION Provider, Abstract 04/21/2025 Orders Only [facility] Oncology and Hematology - Neeraj [address] [place] [address] Vince Feng MD 04/20/2025 Orders Only [facility] Oncology and Hematology - Neeraj [address] [place] [address] Vince Feng MD 04/18/2025 10:30 AM CDT Office Visit [facility] Oncology and Hematology - Neeraj [address] [place] [address] Vince Feng MD Chronic anemia (Primary Dx) [...] on file Legal Sex Female 7:46 PM FACILITIES ENGINEER Gender Identity Not on file Sexual [...] st Contact Info) Description 08/10/2025 11:00 AM FACILITIES ENGINEER Office Visit [facility] Oncology and Hematology - Neeraj [address] [facility] [address] [place] [address] Vince Feng MD [address] [facility] [address] [place] [address] Health Maintenance [...] Insurance MEDICARE PART A AND B [facility] [id number]
== END 2025-05-31 10:45 | disposition home or self-care (01) ==
LOC: ANHLAB 10:45
PROVIDERS: PCP Emergency Medicine; Visit Provider Nurse Practitioner Family
DX: R19.5 Other fecal abnormalities (principal); R14.0 Abdominal distension (gaseous)
CPT/HCPCS: 83013

== ENCOUNTER 2025-06-12 00:29 | Day surgery (SDC) | payer MEDICARE, SELFPAY ==
[2025-06-01 11:39] VITALS: BMI 36.6
--- OUTSIDE RECORDS SUMMARY | 2025-06-12 00:48 | XMS_ITS | Encounter Summary ---
Author Organization [facility] Address [address] [place] [address] Care Team Providers Care Golf Course Mechanic Name Role Phone Hero Lujan MD Primary Care Provider [phone] Encounter Details Date Type Department Care Team (Late st Contact Info) Description 08/12/2021 Therapy Plan [facility] One Day Services [address] [place] [address] Evan Klein MD [address] [place] [address] Social History Tobacco Use Types Packs/Day Years Used Date Smoking Tobacco: Never Assessed Comments Unknown Sex and Gender Information Value Date Recorded Sex Assigned at Not on file Legal Sex Female 4:28 PM IP/MOSAIC TECHNICIAN Gender Identity Female 08/15/2021 11:30 AM IP/MOSAIC TECHNICIAN Sexual Orientation Not on file COVID-19 Exposure Response Date Recorded In the last month, have you been in contact with someone who was confirmed or suspected to have Coronavirus / COVID-19? No / Unsure 08/15/2021 3:50 PM IP/MOSAIC TECHNICIAN documented as of this encounter Functional Status * Calculated C-SSRS Risk Score (Lifetime/Recent) Answer Date of Assessment Author Status No Risk Indicated 08/14/2021 2:01 PM Karrie Cavazos RN Active * [place] Suicide Severity Rating Scale (Screener/Recent Self-Report) Question Answer Date of Assessment Author Status 1. Wish to be (Past 1 Month) No 08/14/2021 2:01 PM Fabiola Cavazos RN Act billy 2. Non-Specific Active Suicidal Thoughts (Past 1 Month) No 08/14/2021 2:01 PM IP/MOSAIC TECHNICIAN Fabiola Garcia, CALLIE Act billy documented as of this encounter Plan of Treatment Not on file documented as of this encounter Visit Diagnoses Diagnosis Chronic cystitis without hematuria- Primary documented in this encounter Care Teams Golf Course Mechanic Relationship Specialty Start Date End Date Hero Lujan MD [address] [place] [address] PCP - General INTERNAL MEDICINE 08/13/21 documented as of this encounter
--- OUTSIDE RECORDS SUMMARY | 2025-06-12 00:48 | XMS_ITS | Encounter Summary ---
Author Organization [facility] Health Address [address] [facility] [place] [address] Care Team Providers Care Social Problems Specialist Name Role Phone Odette Webb MD Primary Care Provider [phone] Max Branch MD Unavailable William Abebe MD Unavailable [phone] Hero Lujan MD Primary Care Provider [phone] Encounter Details Date Type Department Care Team [...] Sex Assigned at Female 08/19/2024 9:26 AM DIVERSIONAL THERAPIST'S ASSISTANT Legal Sex Female 6:46 AM DIVERSIONAL THERAPIST'S ASSISTANT Gender Identity Female 08/19/2024 9:26 AM DIVERSIONAL THERAPIST'S ASSISTANT Sexual Orientation Choose not to disclose 2024 9:26 AM DIVERSIONAL THERAPIST'S ASSISTANT documented as of this encounter Plan of Treatment Not on file documented as of this encounter Visit Diagnoses Not on filedocumented in this encounter Care Teams Social Problems Specialist Relationship Specialty Start Date End Date Odette Webb MD [address] [facility] [address] [place] [phone] PCP - General 06/27/09 01/02/19 Max Branch MD [address] [place] [id number] PCP - OBGYN 06/19/09 Hero Lujan MD [address] [place] [address] 2 [place] [address] PCP - General 01/03/19 William Abebe MD [address] [place] [address] Orthopedic Surgery 10/12/12 documented as of this encounter
--- OUTSIDE RECORDS SUMMARY | 2025-06-12 00:48 | XMS_ITS | Clinical Summary ---
Author Organization [facility] Address [address] [facility] [place] [address] Care Team Providers Care Sales Service Rep Name Role Phone Max Branch MD Unavailable [phone] William Abebe MD Unavailable [phone] Hero Lujan MD Primary Care Provider [phone] Source Comments [facility],non-owned Affiliates and Associated Physician Practices is amultiple site organization consisting of ambulatory clinics and hospital sitesin [place], [place] and [place]. This disclosure is being madepursuant to the Care Everywhere program and may not contain all information available regarding this patient. Last updated 18.[facility] Allergies Active Allergy Reactions Criticality Noted Date [...] Sex Assigned at Female 08/19/2024 9:26 AM MIXING SUPERVISOR Legal Sex Female 6:46 AM MIXING SUPERVISOR Gender Identity Female 08/19/2024 9:26 AM MIXING SUPERVISOR Sexual Orientation Choose not to disclose 2024 9:26 AM MIXING SUPERVISOR Last Filed Vital Signs Vital Sign Reading Time Taken Comments Blood Pressure 118/72 02/13/2025 8:54 AM CDT Pulse 104 08/16/2017 6:10 AM MIXING SUPERVISOR Temperature 36.9 C (98.4 F) 08/16/2017 6:10 AM MIXING SUPERVISOR Respiratory Rate 16 08/16/2017 6:10 AM MIXING SUPERVISOR Oxygen Saturation 93% 08/16/2017 6:10 AM MIXING SUPERVISOR Inhaled Oxygen Concentration - - Weight [...] this topic Medical Devices Implanted Type Area Outside Machinist Device Identifier Shelf Expiration Date Model / Serial / Lot Beto Bone [place] Hv Implanted:Qty: 1 on 01/10/2013 by William Abebe MD at [facility] Left: Knee [employer] Inc 07/12/2014 [id number] / / [id number] Biomet Interlok 75mm Fixed Ibeam Tibial Plate With Locking Bar Implanted:Qty: 1 on 01/10/2013 by William Abebe MD at [facility] Left: Knee 10/10/2022 [id number] / / [id number] Biomet Arcom Patella Single 1/4 Inch Peg With Wire 31mm X 8 Mm Implanted:Qty: 1 on 01/10/2013 by William Abebe MD at [facility] Left: Knee 11/10/2017 [id number] / / [id number] Vanguard Cr Femoral 67.5 Mm Left Interlok Implanted:Qty: 1 on 01/10/2013 by William Abebe MD at [facility] Left: Knee 06/12/2022 [id number] / / [id number] Biomet Vanguard/Tm Dcm Tibial Bearing Anterior Stabilized 12mm X 75mm Implanted:Qty: 1 on 01/10/2013 by William Abebe MD at [facility] Left: Knee 07/12/2017 [id number] / / [id number] Brdg Tib Denise Stbl 12mm X 71mm Implanted:Qty: 1 on 04/13/2013 by William Abebe MD at [facility] Right: Knee [employer] Inc 03/01/2018 [id number] / / [id number] Beto Bone [place] Hv Implanted:Qty: 1 on 04/13/2013 by William Abebe MD at [facility] Right: Knee [employer] Inc 10/30/2014 [id number] / / [id number] 65mm Cr Femoral Implanted:Qty: 1 on 04/13/2013 by William Abebe MD at [facility] Right: Knee 01/30/2023 [id number] / / [id number] 31mm X 8mm Arcom Patella Implanted:Qty: 1 on 04/13/2013 by William Abebe MD at [facility] Right: Knee 03/01/2018 [id number] / / [id number] Ty Tibial I Beam Fix Bar 71mm Implanted:Qty: 1 on 04/13/2013 by William Abebe MD at [facility] Right: Knee [employer] 12/30/2022 [id number] / / [id number] Insurance MEDICARE [facility] MEDICARE SELF PAY NO INSURANCE Member Subscriber Plan / Payer (Ef fective for All Dates) Name:Deborah Leblanc Member ID:Not on file Relation to Subscriber:Not on file Name:DEBORAH LEBLANC Subscriber ID:Not on file (Home) Address: [address] [place] [address] [place] [address] Payer ID:Not on file Group ID:Not on file Type:Self Pay Address: [place], [place] * Guarantor: DEBORAH LEBLANC Account Type [...] 2:42 PM 01/13/2013 12:28 PM Care Teams Sales Service Rep Relationship Specialty Start Date End Date Max Branch MD [address] [place] [address] PCP - OBGYN 06/19/09 Hero Lujan MD [address] [place] [address] PCP - General 01/03/19 William Abebe MD [address] [address] Orthopedic Surgery 10/12/12
--- OUTSIDE RECORDS SUMMARY | 2025-06-12 00:48 | XMS_ITS | Patient Health Record ---
Author Organization [facility] Address [address] [place], [place] [address] Care Team Providers Care Letterset Press Set Up Operator Name Role Phone Hero Lujan Unavailable Unavailable Allergies No Known Allergies Reason For Referral No Information Medications Medication SIG (Take, Route, Frequency, Duration) Notes Start Date End Date Status Farxiga Active Nitrofurantoin Macrocrystal Active Imiquimod 5 % Cream 1 application at bedtime, leave on for 8 hours then wash off Externally Three times a Week 03/11/2024 Active Aspirin Active Ammonium Lactate 12 % Lotion 1 applicati on Externally Twice a day Active Biotin Active Imiquimod 5 % Cream 1 application at [...] stop date) Former Smoker NA - NA Social History Tobacco Use: Social Info Question Answer Notes Tobacco Use/Smoking Tobacco use: former smoker How long has it been since you last smoked? > 10 years Additional Details Category Social Info Options Details Drugs/Alcohol: Do you drink alcohol? Yes, Weekly Plan Of Treatment No Information Insurance Providers Payer Name Payer Address Payer Phone Subscriber Number Group Number Insured Name Patient Relationship to Insured Coverage Start Date Coverage End Date Medicare Part B [place] [address] [place] [address] [id number] Deborah Cancino Self - patient is the insured [facility] Medicare Supplement [address] [place], [place] [id number] Deborah Cancino Self - patient is the insured
--- OUTSIDE RECORDS SUMMARY | 2025-06-12 00:48 | XMS_ITS | Clinical Summary ---
Author Organization [facility] Renae rojas [facility] Address [address] [place] [address] Care Team Providers Care Glost Kiln Operator Name Role Phone Unavailable Primary Care Provider [...] 04/25/2025 4:30 PM CDT Telephone Check Up [facility] Oncology and Hematology - Neeraj [address] [facility] [place] [address] Vince Feng MD Chronic anemia (Primary Dx) 04/25/2025 External Device Data STL ABSTRACTION Provider, Abstract 04/25/2025 External Device Data STL ABSTRACTION Provider, Abstract 04/25/2025 External Device Data STL ABSTRACTION Provider, Abstract 04/21/2025 Orders Only [facility] Oncology and Hematology - Neeraj [address] [place] [address] Vince Feng MD 04/20/2025 Orders Only [facility] Oncology and Hematology - Neeraj [address] [place] [address] Vince Feng MD 04/18/2025 10:30 AM CDT Office Visit [facility] Oncology and Hematology - Neeraj [address] [place] [address] Vince Feng MD Chronic anemia (Primary Dx) [...] on file Legal Sex Female 7:46 PM HOOP FLARING MACHINE OPERATOR HELPER Gender Identity Not on file Sexual [...] st Contact Info) Description 08/10/2025 11:00 AM HOOP FLARING MACHINE OPERATOR HELPER Office Visit [facility] Oncology and Hematology - Neeraj [address] [facility] [address] [place] [address] Vince Feng MD [address] [facility] [address] [place] [address] Health Maintenance Due Date Last [...] Months Insurance MEDICARE PART A AND B [facility] [id number]
--- OUTSIDE RECORDS SUMMARY | 2025-06-12 00:48 | XMS_ITS | Clinical Summary ---
Author Organization [facility] Address [address] [place] [address] Care Team Providers Care Strategic Communications Manager Name Role Phone Hero Lujan MD Primary Care Provider [phone] Allergies Active Allergy Reactions Criticality Noted Date [...] on file Legal Sex Female 4:28 PM WAREHOUSE TEAM MEMBER Gender Identity Female 08/15/2021 11:30 AM WAREHOUSE TEAM MEMBER Sexual Orientation Not on file Last Filed Vital Signs Vital Sign Reading Time Taken Comments Blood Pressure 151/67 08/20/2021 2:20 PM WAREHOUSE TEAM MEMBER Pulse 100 08/20/2021 2:20 PM WAREHOUSE TEAM MEMBER Temperature 37.1 C (98.7 F) 08/20/2021 2:20 PM WAREHOUSE TEAM MEMBER Respiratory Rate 18 08/20/2021 2:20 PM WAREHOUSE TEAM MEMBER Oxygen Saturation 99% 08/20/2021 2:20 PM WAREHOUSE TEAM MEMBER Inhaled Oxygen Concentration - - Weight 79.4 kg (175 lb) 08/14/2021 2:01 PM WAREHOUSE TEAM MEMBER Height 157.5 cm (5' 2) 08/14/2021 2:01 PM WAREHOUSE TEAM MEMBER Body Mass Index 32.01 08/14/2021 2:01 PM WAREHOUSE TEAM MEMBER Plan of Treatment Health Maintenance Due Date [...] (2 - Td or Tdap) 03/24/2029 03/24/2019 Hepatitis A Vaccines Aged Out No long er eligible based on patient's age to complete this topic Meningococcal B Vaccine Aged Out No l onger eligible based on patient's age to complete this topic Meningococcal Vaccine Aged Out No una thang eligible based on patient's age to complete this topic RSV Immunizations Under 20 Months Aged Out No longer eligible based on patient's age to complete this topic Insurance MEDICARE [facility] Care Teams Strategic Communications Manager Relationship Specialty Start Date End Date Hero Lujan MD [address] [place] [id number] PCP - General INTERNAL MEDICINE 08/13/21
[2025-06-12 12:32] VITALS: BP 135/65; PULSE 100; RESP 16; TEMP 36.2; O2SAT 100; BMI 35.6
[2025-06-12] MEDS: LACTATED RINGERS 1,000 ML 150 ML IV CONT (12:54)
--- NOTE | 2025-06-12 12:59 | WPDANESEPPF ---
Anes - Initial Pre Proc Eval Procedure: Operation Date: 06/12/25 13:30 Proposed Procedures p Diagnostic Colonoscopy - Ben Arguelles MD Date/Time: 06/12/25 12:59 Surgeon: Ben Arguelles MD Pre Op Diagnosis: Abdominal distension (gaseous) Patient Data Age: 80 Gender: F Height: 1.52 m Weight: 82.8 kg Last Vital Signs Temp 36.2 C L 06/12/25 12:32 Pulse 100 06/12/25 12:32 Resp 16 06/12/25 12:32 BP 135/65 06/12/25 12:32 Pulse Ox 100 06/12/25 12:32 O2 Del Method Room Air 06/12/25 12:32 Allergies Allergy/AdvReac Type Severity Reaction Status Date / Time Sulfa (Sulfonamide Allergy Severe Fever Verified 06/12/25 12:39 Antibiotics) sulfamethoxazole (From Allergy Severe Fever Verified 06/12/25 12:39 Bactrim) trimethoprim (From Bactrim) Allergy Severe Fever Verified 06/12/25 12:39 ciprofloxacin Allergy Intermediate Anaphylactic Verified 06/12/25 12:39 Shock Home Medications ?Medication ?Instructions ?Recorded ?Confirmed ?Type aspirin 81 mg tablet,delayed 81 mg PO DAILY 06/21/19 06/12/25 History release omega 7-akl-htw-fish oil 1,000 mg 2 cap PO BID 09/09/23 06/12/25 History (120 mg-180 mg) capsule (Fish Oil) losartan 50 mg-hydrochlorothiazide See Rx Instructions .Route 09/21/24 06/12/25 Rx 12.5 mg tablet .COMPLEX #90 tabs levothyroxine 25 mcg tablet See Rx Instructions .Route 11/02/24 06/12/25 Rx .COMPLEX #90 tabs insulin degludec 100 unit/mL 22 unit subcut DAILY 11/11/24 06/12/25 History subcutaneous solution (Tresiba U-100 Insulin) ondansetron 4 mg disintegrating 4 mg PO Q8H PRN nausea and 12/07/24 06/01/25 Rx tablet vomiting #30 tabs cholecalciferol (vitamin D3) 50 50 mcg PO DAILY 02/24/25 06/12/25 History mcg (2,000 unit) capsule insulin aspart U-100 100 unit/mL 4 unit (0.04 mL) subcut .before 02/24/25 06/12/25 Rx (3 mL) subcutaneous pen (Novolog meals #15 mL FlexPen U-100 Insulin aspart) atorvastatin 40 mg tablet See Rx Instructions .Route 05/01/25 06/12/25 Rx .COMPLEX #90 tabs nitrofurantoin macrocrystal 50 mg 50 mg PO Q24H 06/01/25 06/12/25 History capsule Laboratory Tests 06/12/25 12:47 POC Capillary Glucose 127 H mg/dl (65-105) Patient hx anesthesia problems: none Family hx anesthesia problems: none Results Review: All pre-operative results and documents have been reviewed as part of the pre-operative evaluation. FORMERLY [facility], [facility] Past Medical History Medical History Elevated fecal calprotectin IBS (irritable bowel syndrome) Bloating Diverticulosis Diabetes mellitus HLD (hyperlipidemia) Change in bowel habits Loose stools Nausea and vomiting Chest pain Post-menopausal CKD (chronic kidney disease) stage 3, GFR 30-59 ml/min Encounter for gynecological examination (general) (routine) with abnormal findings Encounter for Papanicolaou smear of cervix Screening mammogram, encounter for Stricture, ureter Sepsis Cellulitis and abscess of left leg Contact dermatitis Obesity Nephrolithiasis Hypothyroidism (acquired) Vitamin D deficiency disease GERD (gastroesophageal reflux disease) HTN (hypertension) Surgical History Surgical History History of cataract extraction S/P breast biopsy, left (~1984) 2 biopsies left breast Benign Hx of cholecystectomy History of knee replacement bilateral knees replaced S/P tubal ligation (~1979) History of ureter stent x 2 Family History Family History Mother Family history of arthritis Heart disease 08/2021 heart attack Father Patient's father is , Onset Age: 75 Hypertension Grandparent Diabetes mellitus Sibling Acute myocardial infarction brother Other H/O ovarian cancer 2 maternal aunts Social History Social History Smoking packs per day: 2 Smoking cigarettes per day: 40.0 Years smoked: 3 Smoking pack-years: 6.00 Smoking status: Former smoker Tobacco type: cigarettes Second hand tobacco smoke exposure: No Additional smoking assessment comments: STATES QUIT OVER 50YRS AGO Alcohol intake: current Drinks per week: 2 Alcohol use details: occasionally Substance use: never Substance use type: does not use Do You Feel Safe in your Home?: Yes Lack of Transportation: No Lack of Food: Never True Current Housing: Decline to Answer Concerned About Future Housing: Decline to Answer Difficulty Paying Gas/Electric Bills: Decline to Answer Difficulty Paying for Meds: Decline to Answer Currently Unemployed: Decline to Answer Education: Decline to Answer Difficulty w/ Childcare or Family Care: Decline to Answer Living arrangements: alone Additional living arrangements comments: spouse in [facility] Occupation/Education: retired Gender identity (if verbalized by the patient): Female Sexual Orientation (if Verbalized by the Patient): Straight or Heterosexual Spiritual care concerns: No Anes - Eval Final PreProcedure Day of Procedure 06/12/25 12:59 Patient weight: obese Heart: regular rate and rhythm Lungs: clear to auscultation Airway: Mallampati scale class II Neurological: alert and oriented Last oral intake: >/= 8 hours ASA classification: III Emergent: no Anesthetic plan: proceed Anesthesia type and monitoring: general GIVS and standard monitoring Results Review: All pre-operative results and documents have been reviewed as part of the pre-operative evaluation. Informed Consent: The patient's anesthetic plan and its attendant risks and benefits were discussed with the patient/family/POA. Questions were solicited and answers provided to the satisfaction of the patient/family/POA.
--- NOTE | 2025-06-12 13:19 | PM.IMHP ---
H&P: HPI History of Present Illness Date/Time: 06/12/25 13:19 Chief Complaint: Abdominal pain Narrative: patient referred for colonoscopy for persistent left lower quadrant abdominal pain. She had 2 colonoscopies, in 2019 in 2022, both showing diverticulosis but no evidence of neoplasia or inflammatory bowel disease. Review of Systems Review of Systems: All systems reviewed & are unremarkable except as noted in HPI and below PMFSH Past Medical History Medical History Elevated fecal calprotectin IBS (irritable bowel syndrome) Bloating Diverticulosis Diabetes mellitus HLD (hyperlipidemia) Change in bowel habits Loose stools Nausea and vomiting Chest pain Post-menopausal CKD (chronic kidney disease) stage 3, GFR 30-59 ml/min Encounter for gynecological examination (general) (routine) with abnormal findings Encounter for Papanicolaou smear of cervix Screening mammogram, encounter for Stricture, ureter Sepsis Cellulitis and abscess of left leg Contact dermatitis Obesity Nephrolithiasis Hypothyroidism (acquired) Vitamin D deficiency disease GERD (gastroesophageal reflux disease) HTN (hypertension) Surgical History Surgical History History of cataract extraction S/P breast biopsy, left (~1984) 2 biopsies left breast Benign Hx of cholecystectomy History of knee replacement bilateral knees replaced S/P tubal ligation (~1979) History of ureter stent x 2 Family History Family History Mother Family history of arthritis Heart disease 08/2021 heart attack Father Patient's father is , Onset Age: 75 Hypertension Grandparent Diabetes mellitus Sibling Acute myocardial infarction brother Other H/O ovarian cancer 2 maternal aunts Social History Social History Smoking packs per day: 2 Smoking cigarettes per day: 40.0 Years smoked: 3 Smoking pack-years: 6.00 Smoking status: Former smoker Tobacco type: cigarettes Second hand tobacco smoke exposure: No Additional smoking assessment comments: STATES QUIT OVER 50YRS AGO Alcohol intake: current Drinks per week: 2 Alcohol use details: occasionally Substance use: never Substance use type: does not use Do You Feel Safe in your Home?: Yes Lack of Transportation: No Lack of Food: Never True Current Housing: Decline to Answer Concerned About Future Housing: Decline to Answer Difficulty Paying Gas/Electric Bills: Decline to Answer Difficulty Paying for Meds: Decline to Answer Currently Unemployed: Decline to Answer Education: Decline to Answer Difficulty w/ Childcare or Family Care: Decline to Answer Living arrangements: alone Additional living arrangements comments: spouse in [facility] Occupation/Education: retired Gender identity (if verbalized by the patient): Female Sexual Orientation (if Verbalized by the Patient): Straight or Heterosexual Spiritual care concerns: No Meds Home Medications and Allergies Home Medications ?Medication ?Instructions ?Recorded ?Confirmed ?Type aspirin 81 mg tablet,delayed 81 mg PO DAILY 06/21/19 06/12/25 History release omega 3-khj-gpv-fish oil 1,000 mg 2 cap PO BID 09/09/23 06/12/25 History (120 mg-180 mg) capsule (Fish Oil) losartan 50 mg-hydrochlorothiazide See Rx Instructions .Route 09/21/24 06/12/25 Rx 12.5 mg tablet .COMPLEX #90 tabs levothyroxine 25 mcg tablet See Rx Instructions .Route 11/02/24 06/12/25 Rx .COMPLEX #90 tabs insulin degludec 100 unit/mL 22 unit subcut DAILY 11/11/24 06/12/25 History subcutaneous solution (Tresiba U-100 Insulin) ondansetron 4 mg disintegrating 4 mg PO Q8H PRN nausea and 12/07/24 06/01/25 Rx tablet vomiting #30 tabs cholecalciferol (vitamin D3) 50 50 mcg PO DAILY 02/24/25 06/12/25 History mcg (2,000 unit) capsule insulin aspart U-100 100 unit/mL 4 unit (0.04 mL) subcut .before 02/24/25 06/12/25 Rx (3 mL) subcutaneous pen (Novolog meals #15 mL FlexPen U-100 Insulin aspart) atorvastatin 40 mg tablet See Rx Instructions .Route 05/01/25 06/12/25 Rx .COMPLEX #90 tabs nitrofurantoin macrocrystal 50 mg 50 mg PO Q24H 06/01/25 06/12/25 History capsule Allergies Allergy/AdvReac Type Severity Reaction Status Date / Time Sulfa (Sulfonamide Allergy Severe Fever Verified 06/12/25 12:39 Antibiotics) sulfamethoxazole (From Allergy Severe Fever Verified 06/12/25 12:39 Bactrim) trimethoprim (From Bactrim) Allergy Severe Fever Verified 06/12/25 12:39 ciprofloxacin Allergy Intermediate Anaphylactic Verified 06/12/25 12:39 Shock Vital Signs Vital Signs - 24 hr 06/12/25 12:32 Temperature 97.2 F L Pulse Rate 100 Respiratory Rate 16 Blood Pressure 135/65 Pulse Oximetry 100 Oxygen Delivery Room Air Exam Const: General: cooperative and healthy appearing Resp: Effort & Inspection: normal respiratory effort and able to speak in complete sentences Auscultation: clear to auscultation bilaterally Cardio: Rate: regular rate Rhythm: regular rhythm GI: Inspection: normal to inspection GI Palp: No No hepatosplenomegaly present Auscultation: normal bowel sounds Rectal Exam: deferred Skin: General skin exam: normal color Psych: Appearance: grossly normal Mental Status: mental status grossly normal Assessment and Plan Assessment and plan (1) Left sided abdominal pain: Code(s): R10.9 - Unspecified abdominal pain Status: Acute Assessment and Plan: The patient is deemed a good candidate for the procedure. Consent signed. Will proceed.
[2025-06-12] MEDS: SIMETHICONE ORAL SUSPENSION 20 MG/0.3 ML 30 ML BOTTLE 0.6 ML IRRIGATION (13:33)
[2025-06-12 13:44] VITALS: BP 85/44; PULSE 88; RESP 19; O2SAT 97
[2025-06-12 13:54] VITALS: BP 104/45; PULSE 93; RESP 14; O2SAT 100
[2025-06-12 14:04] VITALS: BP 115/58; PULSE 88; RESP 20; O2SAT 100
== END 2025-06-12 14:15 | disposition home or self-care (01) ==
PROVIDERS: PCP Emergency Medicine; Referring Provider Nurse Practitioner Family; Visit Provider Internal Medicine Gastroenterology
PROC: 0DJD8ZZ Inspection of Lower Intestinal Tract, Via Natural or Artificial Opening Endoscopic (ICD-10-PCS; CPT 45378; principal; 2025-06-12 13:30)
DX: K57.30 Diverticulosis of large intestine without perforation or abscess without bleeding (principal); E78.5 Hyperlipidemia, unspecified; E03.9 Hypothyroidism, unspecified; E55.9 Vitamin D deficiency, unspecified; K21.9 Gastro-esophageal reflux disease without esophagitis; E11.22 Type 2 diabetes mellitus with diabetic chronic kidney disease; I12.9 Hypertensive chronic kidney disease with stage 1 through stage 4 chronic kidney disease, or unspecified chronic kidney disease; N18.30 Chronic kidney disease, stage 3 unspecified; K58.9 Irritable bowel syndrome, unspecified; E66.9 Obesity, unspecified; Z68.35 Body mass index [BMI] 35.0-35.9, adult; Z79.82 Long term (current) use of aspirin; Z79.4 Long term (current) use of insulin; Z98.890 Other specified postprocedural states; Z90.49 Acquired absence of other specified parts of digestive tract; Z98.51 Tubal ligation status; Z96.0 Presence of urogenital implants; Z87.19 Personal history of other diseases of the digestive system; Z87.891 Personal history of nicotine dependence; Z80.41 Family history of malignant neoplasm of ovary; Z82.49 Family history of ischemic heart disease and other diseases of the circulatory system
CPT/HCPCS: 45378; 82948; J2704; J7120

== ENCOUNTER 2025-06-13 13:06 | Outpatient (CLI) | payer MEDICARE, SELFPAY ==
--- NOTE | ~2025-06-13 | US_ITS ---
EXAM/PROCEDURE: US renal BI HISTORY: N39.0 - Urinary tract infection, site not specified COMPARISON: April 28, 2019 TECHNIQUE: Bilateral renal ultrasound FINDINGS: Right kidney: 12.7 x 5.1 x 4.5 cm Left kidney: 10.6 x 5.3 x 4.9 cm The right kidney appears normal other than mildly increased echotexture. In the left kidney, there appears to be mild to moderate hydronephrosis. In the urinary bladder, a right ureteral jet is demonstrated. A left ureteral jet is not documented. No gross urinary bladder abnormality seen. IMPRESSION: 1. Left-sided hydronephrosis; no ureteral jet is demonstrated in the urinary bladder on the left side concerning for possible ureteral obstruction. 2. Mildly increased echotexture in the right kidney which may represent underlying medical renal disease; otherwise normal appearing right kidney. Reviewed, dictated and finalized at location A. ICAL RESEARCH TECH IMPRESSION: 1. Left-sided hydronephrosis; no ureteral jet is demonstrated in the urinary bl adder on the left side concerning for possible ureteral obstruction. 2. Mildly increased echotexture in the right kidney which may represent underly ing medical renal disease; otherwise normal appearing right kidney.
--- OUTSIDE RECORDS SUMMARY | 2025-06-13 13:11 | XMS_ITS | Clinical Summary ---
Author Organization [facility] [employer] Address [address] [place] [address] Care Team Providers Care Diesel Maintenance Technician Name Role Phone Max Branch MD Unavailable [phone] William Abebe MD Unavailable [phone] Hero Lujan MD Primary Care Provider [phone] Source Comments [facility],non-owned Affiliates and Associated Physician Practices is amultiple site organization consisting of ambulatory clinics and hospital sitesin [place], [place], [place] and [place]. This disclosure is being madepursuant to the Care Everywhere program and may not contain all information available regarding this patient. Last updated 18.[facility] Allergies Active Allergy Reactions [...] Sex Assigned at Female 08/19/2024 9:26 AM FARM FORESTRY AND GARDEN WORKERS Legal Sex Female 6:46 AM FARM FORESTRY AND GARDEN WORKERS Gender Identity Female 08/19/2024 9:26 AM FARM FORESTRY AND GARDEN WORKERS Sexual Orientation Choose not to disclose 2024 9:26 AM FARM FORESTRY AND GARDEN WORKERS Last Filed Vital Signs Vital Sign Reading Time Taken Comments Blood Pressure 118/72 02/13/2025 8:54 AM CDT Pulse 104 08/16/2017 6:10 AM FARM FORESTRY AND GARDEN WORKERS Temperature 36.9 C (98.4 F) 08/16/2017 6:10 AM FARM FORESTRY AND GARDEN WORKERS Respiratory Rate 16 08/16/2017 6:10 AM FARM FORESTRY AND GARDEN WORKERS Oxygen Saturation 93% 08/16/2017 6:10 AM FARM FORESTRY AND GARDEN WORKERS Inhaled Oxygen Concentration - - Weight 86.7 [...] this topic Medical Devices Implanted Type Area Car Starter Device Identifier Shelf Expiration Date Model / Serial / Lot Beto Bone Mullin Hv Implanted:Qty: 1 on 01/10/2013 by William Abebe MD at [facility] Left: Knee [employer] 07/12/2014 [id number] / / [id number] Biomet Interlok 75mm Fixed Ibeam Tibial Plate With Locking Bar Implanted:Qty: 1 on 01/10/2013 by William Abebe MD at [facility] Left: Knee 10/10/2022 [id number] / / [id number] Biomet Arcom Patella Single 1/4 Inch Peg With Wire 31mm X 8 Mm Implanted:Qty: 1 on 01/10/2013 by William Abebe MD at [facility] Left: Knee 11/10/2017 [id number] / / [id number] Vanguard Cr Femoral 67.5 Mm Left Interlok Implanted:Qty: 1 on 01/10/2013 by William Abebe MD at [facility] Left: Knee 06/12/2022 [id number] / / [id number] Biomet Vanguard/Tm Dcm Tibial Bearing Anterior Stabilized 12mm X 75mm Implanted:Qty: 1 on 01/10/2013 by William Abebe MD at [facility] Left: Knee 07/12/2017 [id number] / / [id number] Brdg Tib Denise Stbl 12mm X 71mm Implanted:Qty: 1 on 04/13/2013 by William Abebe MD at [facility] Right: Knee [employer] Inc 03/01/2018 [id number] / / [id number] Beto Bone Mullin Hv Implanted:Qty: 1 on 04/13/2013 by William Abebe MD at [facility] Right: Knee [employer] 10/30/2014 [id number] / / [id number] 65mm Cr Femoral Implanted:Qty: 1 on 04/13/2013 by William Abebe MD at [facility] Right: Knee 01/30/2023 [id number] / / [id number] 31mm X 8mm Arcom Patella Implanted:Qty: 1 on 04/13/2013 by William Abebe MD at [facility] Right: Knee 03/01/2018 [id number] / / [id number] Ty Tibial I Beam Fix Bar 71mm Implanted:Qty: 1 on 04/13/2013 by William Abebe MD at [facility] Right: Knee [employer] 12/30/2022 [id number] / / [id number] Insurance MEDICARE [facility] MEDICARE SELF PAY NO INSURANCE Member Subscriber Plan / Payer (Ef fective for All Dates) Name:Deborah Leblanc Member ID:Not on file Relation to Subscriber:Not on file Name:DEBORAH LEBLANC Subscriber ID:Not on file (Home) Address: [address] [place] [address] [place] [address] Payer ID:Not on file Group ID:Not on file Type:Self Pay Address: [place], [place] * Guarantor: DEBORAH LEBLANC Account Type [...] 2:42 PM 01/13/2013 12:28 PM Care Teams Diesel Maintenance Technician Relationship Specialty Start Date End Date Max Branch MD [address] [place] [address] PCP - OBGYN 06/19/09 Heor Lujan MD [address] [place] [address] PCP - General 01/03/19 William Abebe MD [address] [place] [address] Orthopedic Surgery 10/12/12
--- OUTSIDE RECORDS SUMMARY | 2025-06-13 13:11 | XMS_ITS | Encounter Summary ---
Author Organization [facility] Address [address] [place] [address] Care Team Providers Care Steel Erector Apprentice Name Role Phone Hero Lujan MD Primary Care Provider [phone] Encounter Details Date Type Department Care Team (Late st Contact Info) Description 08/12/2021 Therapy Plan [facility] [address] [place] [address] Evan Klein MD [address] [place] [id number] Social History Tobacco Use Types Packs/Day Years Used Date Smoking Tobacco: Never Assessed Comments Unknown Sex and Gender Information Value Date Recorded Sex Assigned at Not on file Legal Sex Female 4:28 PM MOBILE NURSE Gender Identity Female 08/15/2021 11:30 AM MOBILE NURSE Sexual Orientation Not on file COVID-19 Exposure Response Date Recorded In the last month, have you been in contact with someone who was confirmed or suspected to have Coronavirus / COVID-19? No / Unsure 08/15/2021 3:50 PM MOBILE NURSE documented as of this encounter Functional Status * Calculated C-SSRS Risk Score (Lifetime/Recent) Answer Date of Assessment Author Status No Risk Indicated 08/14/2021 2:01 PM Karrie Cavazos RN Active * [place] Suicide Severity Rating Scale (Screener/Recent Self-Report) Question Answer Date of Assessment Author Status 1. Wish to be (Past 1 Month) No 08/14/2021 2:01 PM Fabiola Cavazos RN Act billy 2. Non-Specific Active Suicidal Thoughts (Past 1 Month) No 08/14/2021 2:01 PM MOBILE NURSE Fabiola Garcia, CALLIE Act billy documented as of this encounter Plan of Treatment Not on file documented as of this encounter Visit Diagnoses Diagnosis Chronic cystitis without hematuria- Primary documented in this encounter Care Teams Steel Erector Apprentice Relationship Specialty Start Date End Date Hero Lujan MD [address] [place] [id number] PCP - General INTERNAL MEDICINE 08/13/21 documented as of this encounter
--- OUTSIDE RECORDS SUMMARY | 2025-06-13 13:11 | XMS_ITS | Clinical Summary ---
Author Organization [facility] Address [address] [place] [address] Care Team Providers Care Medical Equipment Repairer Name Role Phone Hero Lujan MD Primary [...] 1 tablet (25 mcg total) by mouth comber setter before breakfast Active aspirin 81 mg chewable [...] on file Legal Sex Female 3:42 AM RUBBER BLOCK LAYER Gender Identity Not on file Sexual Orientation [...] 09/14/2019, 07/28/2018, Additional history exists Insurance MEDICARE [facility] MEDICARE [facility] Care Teams Medical Equipment Repairer Relationship Specialty Start Date End Date Hero Lujan MD [address] [place] [address] PCP - General Emergency Medicine 11/06/20
--- OUTSIDE RECORDS SUMMARY | 2025-06-13 13:12 | XMS_ITS | Clinical Summary ---
Author Organization [facility] Address [address] [place] [address] Care Team Providers Care Engraver Seals Name Role Phone Hero Lujan MD Primary Care Provider [phone] Allergies Active Allergy Reactions Criticality Noted Date [...] on file Legal Sex Female 4:28 PM SECONDARY SCHOOL TEACHER LIBRARIAN Gender Identity Female 08/15/2021 11:30 AM SECONDARY SCHOOL TEACHER LIBRARIAN Sexual Orientation Not on file Last Filed Vital Signs Vital Sign Reading Time Taken Comments Blood Pressure 151/67 08/20/2021 2:20 PM SECONDARY SCHOOL TEACHER LIBRARIAN Pulse 100 08/20/2021 2:20 PM SECONDARY SCHOOL TEACHER LIBRARIAN Temperature 37.1 C (98.7 F) 08/20/2021 2:20 PM SECONDARY SCHOOL TEACHER LIBRARIAN Respiratory Rate 18 08/20/2021 2:20 PM SECONDARY SCHOOL TEACHER LIBRARIAN Oxygen Saturation 99% 08/20/2021 2:20 PM SECONDARY SCHOOL TEACHER LIBRARIAN Inhaled Oxygen Concentration - - Weight 79.4 kg (175 lb) 08/14/2021 2:01 PM SECONDARY SCHOOL TEACHER LIBRARIAN Height 157.5 cm (5' 2) 08/14/2021 2:01 PM SECONDARY SCHOOL TEACHER LIBRARIAN Body Mass Index 32.01 08/14/2021 2:01 PM SECONDARY SCHOOL TEACHER LIBRARIAN Plan of Treatment Health Maintenance Due Date [...] age to complete this topic Insurance MEDICARE [facility] Care Teams Engraver Seals Relationship Specialty Start Date End Date Hero Lujan MD [address] [place] [address] PCP - General INTERNAL MEDICINE 08/13/21
--- OUTSIDE RECORDS SUMMARY | 2025-06-13 13:12 | XMS_ITS | Patient Health Record ---
Author Organization [facility] Address [address] [place], [place] [address] Care Team Providers Care Credit Negotiator Name Role Phone Hero Lujan Unavailable Unavailable [...] Date Coverage End Date Medicare Part B [place] [address] [place] [address] [id number] Deborah Cancino Self - patient is the insured [facility] Medicare Supplement [address] [place], [place] [id number] Deborah Cancino Self - patient is the insured
--- OUTSIDE RECORDS SUMMARY | 2025-06-13 13:12 | XMS_ITS | Clinical Summary ---
Author Organization [facility] Renae rojas [facility] Address [address] [place] [address] Care Team Providers Care Laborer Car Barn Name Role Phone Unavailable Primary Care Provider [...] 04/25/2025 4:30 PM CDT Telephone Check Up [facility] Oncology and Hematology - [place] [address] [facility] [place] [address] Vince Feng MD Chronic anemia (Primary Dx) 04/25/2025 External Device Data STL ABSTRACTION Provider, Abstract 04/25/2025 External Device Data STL ABSTRACTION Provider, Abstract 04/25/2025 External Device Data STL ABSTRACTION Provider, Abstract 04/21/2025 Orders Only [facility] Oncology and Hematology - Neeraj [address] [place] [address] Vince Feng MD 04/20/2025 Orders Only [facility] Oncology and Hematology - Neeraj [address] [place] [address] Vince Feng MD 04/18/2025 10:30 AM CDT Office Visit [facility] Oncology and Hematology - [place]er[address] [place] [address] Vince Feng MD Chronic anemia (Primary Dx) [...] on file Legal Sex Female 7:46 PM PRECISION LENS GRINDER APPRENTICE Gender Identity Not on file Sexual Orientation [...] st Contact Info) Description 08/10/2025 11:00 AM PRECISION LENS GRINDER APPRENTICE Office Visit [facility] Oncology and Hematology - [place] [facility] [address] [place] [address] Vince Feng MD [address] [place] [address] Health Maintenance Due Date Last [...] Months Insurance MEDICARE PART A AND B [facility] [id number]
--- OUTSIDE RECORDS SUMMARY | 2025-06-13 13:12 | XMS_ITS | Encounter Summary ---
Author Organization [facility] Health Address [address] [place] [address] Care Team Providers Care Risk Modeler Name Role Phone Odette Webb MD Primary Care Provider [phone] Max Branch MD Unavailable [phone] William Abebe MD Unavailable [phone] Hero Lujan MD Primary Care Provider [phone] Encounter Details Date Type Department Care Team [...] Sex Assigned at Female 08/19/2024 9:26 AM PNEUMATIC TUBE FITTER Legal Sex Female 6:46 AM PNEUMATIC TUBE FITTER Gender Identity Female 08/19/2024 9:26 AM PNEUMATIC TUBE FITTER Sexual Orientation Choose not to disclose 2024 9:26 AM PNEUMATIC TUBE FITTER documented as of this encounter Plan of Treatment Not on file documented as of this encounter Visit Diagnoses Not on filedocumented in this encounter Care Teams Risk Modeler Relationship Specialty Start Date End Date Odette Webb MD [address] [facility] [address] [place] [phone] PCP - General 06/27/09 01/02/19 Max Branch MD [address] [place] [id number] PCP - OBGYN 06/19/09 Hero Lujan MD [address] [place] [address] 2 [place] [address] PCP - General 01/03/19 William Abebe MD [address] [place] [address] [place] [id number] Orthopedic Surgery 10/12/12 documented as of this encounter
== END 2025-06-13 13:07 | disposition home or self-care (01) ==
PROVIDERS: PCP Emergency Medicine; Visit Provider Internal Medicine Nephrology
DX: N39.0 Urinary tract infection, site not specified (principal); N12 Tubulo-interstitial nephritis, not specified as acute or chronic; N17.9 Acute kidney failure, unspecified
CPT/HCPCS: 76770

== ENCOUNTER 2025-06-22 11:06 | Outpatient (CLI) | payer MEDICARE, SELFPAY ==
--- NOTE | ~2025-06-22 | CT_ITS ---
CT ABDOMEN AND PELVIS WITHOUT CONTRAST Clinical History: Left flank pain Comparison: 04/05/2025 Technique: Unenhanced axial images lung bases to symphysis pubis Coronal, sagittal reformats CT images acquired with automatic exposure control for dose reduction DLP: 354 mGy-cm Findings: Without intravenous contrast, sensitivity for detecting visceral parenchymal abnormalities decreased. Lung bases: Scarring. Visualized heart and pericardium: Coronary artery calcifications. Liver: Enlarged. Suspect early cirrhosis. Gallbladder: Unremarkable. Spleen: Unremarkable. Pancreas: Unremarkable. Adrenal glands: Unremarkable. Kidneys: Cortical thinning. Right kidney- No hydronephrosis. No renal stones. Left kidney- No hydronephrosis. No renal stones. Trace chronic pelviectasis. Distal esophagus/stomach: Small sliding hiatal hernia. Small bowel loops: Normal caliber and wall thickness. Colon: Diverticula. Normal caliber and wall thickness. Normal RLQ appendix. Nodes: No enlarged nodes. Peritoneum: No ascites. No free intraperitoneal air. Urinary bladder: Unremarkable. Uterus: Atrophic. Adnexa: No masses. Bones: No acute bony abnormality. Soft tissues: Unremarkable. Unopacified abdominal aorta: No aneurysmal dilatation. Atherosclerotic disease. IMPRESSION: 1. No acute findings. Reviewed, dictated and finalized at location R. A INSTRUCTOR IMPRESSION: 1. No acute findings.
[2025-06-22 12:09] LABS: Hematocrit 40.6 % (37.0-47.0); Hemoglobin 13.2 g/dL (12.0-15.0); Immature Granulocyte Percent A 0.4 % (0-0.5); Lymphocytes Absolute Auto 2.53 K/mm3 (0.9-3.2); Mean Corpuscular HGB Conc 32.5 g/dl (32-36); Mean Corpuscular Hemoglobin 30.5 pg (26-34); Mean Corpuscular Volume 93.8 fl (80-100); Nucleated Red Blood Cells Absolute Auto 0.000 K/mm3 (0.0-0.012); Nucleated Red Blood Cells Perc 0.0 % (0.0-0.2); Platelet Count Result 269 k/mm3 (150-375); Red Blood Count 4.33 M/mm3 (4.2-5.4); White Blood Count 9.4 K/mm3 (4.5-10.0)
[2025-06-22 12:34] LABS: Alanine Aminotransferase 18 U/L (6-35); Albumin Level 4.2 g/dL (3.5-5.1); Alkaline Phosphatase 79 U/L (38-126); Anion Gap 7 mmol/L (4-12); Aspartate Amino Transferase 28 U/L (14-36); Bilirubin,Total 0.6 mg/dL (0.2-1.3); Blood Urea Nitrogen 30 mg/dL (7-17); Calcium 9.9 mg/dL (8.4-10.2); Carbon Dioxide 29 mmol/L (22-30); Chloride 99 mmol/L (98-107); Estimated Glomerular Filt Rate > 60; Glucose 141 mg/dL (65-110); Potassium 4.5 mmol/L (3.4-5.0); Sodium 135 mmol/L (137-145); Total Protein 6.9 g/dL (6.3-8.2)
--- OUTSIDE RECORDS SUMMARY | 2025-06-22 13:54 | XMS_ITS | Clinical Summary ---
Author Organization [facility] Address [address] [place] [address] Care Team Providers Care Molded Candles Wicker Name Role Phone Max Branch MD Unavailable [phone] William Abebe MD Unavailable [phone] Hero Lujan MD Primary Care Provider [phone] Source Comments [facility],non-owned Affiliates and Associated Physician Practices is amultiple site organization consisting of ambulatory clinics and hospital sitesin [place], [place], [place] and [place]. This disclosure is being madepursuant to the Care Everywhere program and may not contain all information available regarding this patient. Last updated 18.[facility] Allergies Active Allergy Reactions Criticality Noted [...] Sex Assigned at Female 08/19/2024 9:26 AM MAINSPRING STRIP INSPECTOR Legal Sex Female 6:46 AM MAINSPRING STRIP INSPECTOR Gender Identity Female 08/19/2024 9:26 AM MAINSPRING STRIP INSPECTOR Sexual Orientation Choose not to disclose 2024 9:26 AM MAINSPRING STRIP INSPECTOR Last Filed Vital Signs Vital Sign Reading Time Taken Comments Blood Pressure 118/72 02/13/2025 8:54 AM CDT Pulse 104 08/16/2017 6:10 AM MAINSPRING STRIP INSPECTOR Temperature 36.9 C (98.4 F) 08/16/2017 6:10 AM MAINSPRING STRIP INSPECTOR Respiratory Rate 16 08/16/2017 6:10 AM MAINSPRING STRIP INSPECTOR Oxygen Saturation 93% 08/16/2017 6:10 AM MAINSPRING STRIP INSPECTOR Inhaled Oxygen Concentration - - Weight [...] this topic Medical Devices Implanted Type Area Recreational Vehicle Repairer Device Identifier Shelf Expiration Date Model / Serial / Lot Beto Bone [place] Hv Implanted:Qty: 1 on 01/10/2013 by William Abebe MD at [facility] Left: Knee [employer] 07/12/2014 [id number] / / [id number] Biomet Interlok 75mm Fixed Ibeam Tibial Plate With Locking Bar Implanted:Qty: 1 on 01/10/2013 by William Abebe MD at [facility] Left: Knee 10/10/2022 [id number] / / [id number] Biomet Arcom Patella Single 1/4 Inch Peg With Wire 31mm X 8 Mm Implanted:Qty: 1 on 01/10/2013 by William Abebe MD at [facility] Left: Knee 11/10/2017 [id number] / / [id number] Vanguard Cr Femoral 67.5 Mm Left Interlok Implanted:Qty: 1 on 01/10/2013 by William Abebe MD at [facility] Left: Knee 06/12/2022 [id number] / / [id number] Biomet Vanguard/Tm Dcm Tibial Bearing Anterior Stabilized 12mm X 75mm Implanted:Qty: 1 on 01/10/2013 by William Abebe MD at [facility] Left: Knee 07/12/2017 [id number] / / [id number] Brdg Tib Denise Stbl 12mm X 71mm Implanted:Qty: 1 on 04/13/2013 by William Abebe MD at [facility] Right: Knee [employer] Inc 03/01/2018 [id number] / / [id number] Beto Bone [place] Hv Implanted:Qty: 1 on 04/13/2013 by William Abebe MD at [facility] Right: Knee [employer] 10/30/2014 [id number] / / [id number] 65mm Cr Femoral Implanted:Qty: 1 on 04/13/2013 by William Abebe MD at [facility] Right: Knee 01/30/2023 [id number] / / [id number] 31mm X 8mm Arcom Patella Implanted:Qty: 1 on 04/13/2013 by William Abebe MD at [facility] Right: Knee 03/01/2018 [id number] / / [id number] Ty Tibial I Beam Fix Bar 71mm Implanted:Qty: 1 on 04/13/2013 by William Abebe MD at [facility] Right: Knee [employer] 12/30/2022 [id number] / / [id number] Insurance MEDICARE [facility] MEDICARE SELF PAY NO INSURANCE Member Subscriber Plan / Payer (Ef fective for All Dates) Name:Deborah Leblanc Member ID:Not on file Relation to Subscriber:Not on file Name:DEBORAH LEBLANC Subscriber ID:Not on file (Home) Address: [address] [place] [address] [place] [address] Payer ID:Not on file Group ID:Not on file Type:Self Pay Address: [place], [place] * Guarantor: DEBORAH LEBLANC Account Type [...] 2:42 PM 01/13/2013 12:28 PM Care Teams Molded Candles Wicker Relationship Specialty Start Date End Date Max Branch MD [address] [place] [place] [address] PCP - OBGYN 06/19/09 Hero Lujan MD [address] [place] [address] PCP - General 01/03/19 William Abebe MD [address] [place] [address] Orthopedic Surgery 10/12/12
--- OUTSIDE RECORDS SUMMARY | 2025-06-22 13:54 | XMS_ITS | Encounter Summary ---
Author Organization [facility] Health Address [address] [facility] [place] [address] Care Team Providers Care Inspector Multifocal Lens Name Role Phone Odette Webb MD Primary Care Provider [phone] Max Branch MD Unavailable William Abebe MD Unavailable [phone] Hero Lujan MD Primary Care Provider [phone] Encounter Details Date Type Department Care Team [...] Sex Assigned at Female 08/19/2024 9:26 AM FINISHING FRAME RUNNER Legal Sex Female 6:46 AM FINISHING FRAME RUNNER Gender Identity Female 08/19/2024 9:26 AM FINISHING FRAME RUNNER Sexual Orientation Choose not to disclose 2024 9:26 AM FINISHING FRAME RUNNER documented as of this encounter Plan of Treatment Not on file documented as of this encounter Visit Diagnoses Not on filedocumented in this encounter Care Teams Inspector Multifocal Lens Relationship Specialty Start Date End Date Odette Webb MD [address] [facility] [address] [place] [phone] PCP - General 06/27/09 01/02/19 Mxa Branch MD [address] [place] [place] [phone] PCP - OBGYN 06/19/09 Hero Lujan MD [address] [place] [address] 2 [place] [address] PCP - General 01/03/19 William Abebe MD [address] [place] [place] [id number] Orthopedic Surgery 10/12/12 documented as of this encounter
--- OUTSIDE RECORDS SUMMARY | 2025-06-22 13:54 | XMS_ITS | Clinical Summary ---
Author Organization [facility] Address [address] [place] [address] Care Team Providers Care Cuff Cutter Name Role Phone Hero Lujan MD Primary Care Provider [phone] Allergies Active Allergy Reactions Criticality Noted Date [...] on file Legal Sex Female 4:28 PM FUNCTIONAL TESTER Gender Identity Female 08/15/2021 11:30 AM FUNCTIONAL TESTER Sexual Orientation Not on file Last Filed Vital Signs Vital Sign Reading Time Taken Comments Blood Pressure 151/67 08/20/2021 2:20 PM FUNCTIONAL TESTER Pulse 100 08/20/2021 2:20 PM FUNCTIONAL TESTER Temperature 37.1 C (98.7 F) 08/20/2021 2:20 PM FUNCTIONAL TESTER Respiratory Rate 18 08/20/2021 2:20 PM FUNCTIONAL TESTER Oxygen Saturation 99% 08/20/2021 2:20 PM FUNCTIONAL TESTER Inhaled Oxygen Concentration - - Weight 79.4 kg (175 lb) 08/14/2021 2:01 PM FUNCTIONAL TESTER Height 157.5 cm (5' 2) 08/14/2021 2:01 PM FUNCTIONAL TESTER Body Mass Index 32.01 08/14/2021 2:01 PM FUNCTIONAL TESTER Plan of Treatment Health Maintenance Due Date [...] age to complete this topic Insurance MEDICARE [facility] Care Teams Cuff Cutter Relationship Specialty Start Date End Date Hero Lujan MD [address] [place] [address] PCP - General INTERNAL MEDICINE 08/13/21
--- OUTSIDE RECORDS SUMMARY | 2025-06-22 13:54 | XMS_ITS | Encounter Summary ---
Author Organization [facility] Address [address] [place] [address] Care Team Providers Care Tooth Cutter Spur Name Role Phone Hero Lujan MD Primary Care Provider [phone] Encounter Details Date Type Department Care Team (Late st Contact Info) Description 08/12/2021 Therapy Plan [facility] [address] [place] [address] Evan Klein MD [address] [place] [id number] Social History Tobacco Use Types Packs/Day Years Used Date Smoking Tobacco: Never Assessed Comments Unknown Sex and Gender Information Value Date Recorded Sex Assigned at Not on file Legal Sex Female 4:28 PM GERIATRIC CASE MANAGER Gender Identity Female 08/15/2021 11:30 AM GERIATRIC CASE MANAGER Sexual Orientation Not on file COVID-19 Exposure Response Date Recorded In the last month, have you been in contact with someone who was confirmed or suspected to have Coronavirus / COVID-19? No / Unsure 08/15/2021 3:50 PM GERIATRIC CASE MANAGER documented as of this encounter Functional Status * Calculated C-SSRS Risk Score (Lifetime/Recent) Answer Date of Assessment Author Status No Risk Indicated 08/14/2021 2:01 PM Karrie Cavazos RN Active * [place] Suicide Severity Rating Scale (Screener/Recent Self-Report) Question Answer Date of Assessment Author Status 1. Wish to be (Past 1 Month) No 08/14/2021 2:01 PM Fabiola Cavazos RN Act billy 2. Non-Specific Active Suicidal Thoughts (Past 1 Month) No 08/14/2021 2:01 PM GERIATRIC CASE MANAGER Fabiola Garcia, CALLIE Act billy documented as of this encounter Plan of Treatment Not on file documented as of this encounter Visit Diagnoses Diagnosis Chronic cystitis without hematuria- Primary documented in this encounter Care Teams Tooth Cutter Spur Relationship Specialty Start Date End Date Hero Lujan MD [address] [place] [address] PCP - General INTERNAL MEDICINE 08/13/21 documented as of this encounter
--- OUTSIDE RECORDS SUMMARY | 2025-06-22 13:55 | XMS_ITS | Clinical Summary ---
Author Organization [facility] Renae rojas [facility] Address [address] [place] [address] Care Team Providers Care Senior Abap Developer Name Role Phone Unavailable Primary Care [...] 04/25/2025 4:30 PM CDT Telephone Check Up [facility] Oncology and Hematology - [place] [address] [place] [address] Vince Feng MD Chronic anemia (Primary Dx) 04/25/2025 External Device Data STL ABSTRACTION Provider, Abstract 04/25/2025 External Device Data STL ABSTRACTION Provider, Abstract 04/25/2025 External Device Data STL ABSTRACTION Provider, Abstract 04/21/2025 Orders Only [facility] Oncology and Hematology - [place] [address] [place] [address] Vince Feng MD 04/20/2025 Orders Only [facility] Oncology and Hematology - [place] [address] [place] [address] Vince Feng MD 04/18/2025 10:30 AM CDT Office Visit [facility] Oncology and Hematology - [place] [address] [place] [address] Vince Feng MD Chronic anemia (Primary Dx) [...] on file Legal Sex Female 7:46 PM ORTHOPHOTOGRAPHY TECHNICIAN Gender Identity Not on file Sexual [...] st Contact Info) Description 08/10/2025 11:00 AM ORTHOPHOTOGRAPHY TECHNICIAN Office Visit [facility] Oncology and Hematology - [place] [address] [facility] [address] [place] [address] Vince Feng MD [address] [facility] [address] [place] [address] Health Maintenance Due Date Last [...] Months Insurance MEDICARE PART A AND B [facility] [id number]
== END 2025-06-22 11:07 | disposition home or self-care (01) ==
PROVIDERS: PCP Emergency Medicine; Visit Provider Nurse Practitioner Family
DX: R31.29 Other microscopic hematuria (principal)
CPT/HCPCS: 36415; 74176; 80053; 85025